=== PATIENT | female | born 1945 | race Two or more races ===

== ENCOUNTER 2019-07-21 07:56 | Outpatient (CLI) | payer MEDICARE, MEDICAID, SELFPAY ==
--- NOTE | ~2019-07-21 | MMUS_ITS ---
EXAMINATION: US breast biopsy LT w image, MM post biopsy invasive LT DATE: 07/21/2019 10:31 (accession [id number]), 07/21/2019 10:21 (accession [id number]) INDICATION: Indeterminate left breast mass on recent diagnostic evaluation Ultrasound-guided core bi opsy is requested to evaluate for malignancy. TECHNIQUE AND FINDINGS: The risks and potential benefits of the procedure were discussed with the patient patient including b leeding and infection. A time out was performed. The skin of the left breast was prepared and draped in usual sterile fashion. 1% lidocaine was used for superficial anesthesia. 1% lidocaine with epineph rine was used for deep anesthesia. A vacuum-assisted biopsy gun needle was advanced through to the outer edge of the region of interest from an inferolateral approach utilizing sonographic guidance. A total of one tissue core samples wer e obtained through the lesion. After the first sampling, the lesion disappeared. A tissue marker clip was then placed at the biopsy site. Hemostasis was achieved. A sterile bandage was applied. The patient tolerated procedure well and there was no evidence of immediate complication. A two view left breast mammogram was obtained to document tissue marker clip placement. IMPRESSION: 1. Successful ultrasound-guided vacuum-assisted biopsy of left breast mass with tissue marker placeme nt. Reviewed, dictated and finalized at location A. MACHINE OPERATOR IMPRESSION: 1. Successful ultrasound-guided vacuum-assisted biopsy of left breast mass with tissue marker placement.
== END 2019-07-21 07:57 | disposition home or self-care (01) ==
PROVIDERS: PCP Physician Assistant
DX: R92.8 Other abnormal and inconclusive findings on diagnostic imaging of breast (principal)
CPT/HCPCS: 19083; 88305; A4648

== ENCOUNTER 2020-04-27 13:19 | Outpatient (CLI) | payer MEDICARE, MEDICAID, SELFPAY ==
--- NOTE | ~2020-04-27 | XR_ITS ---
EXAMINATION: XR foot RT min 3V DATE: 04/27/2020 13:52 INDICATION: Posttraumatic pain at the dorsal right midfoot TECHNIQUE: Dorsoplantar, two oblique and lateral views of the right foot were obtained. COMPARISON: None. FINDINGS: Alignment is normal. No fracture. Polyarticular osteoarthritis, moderate severity at the first metata rsophalangeal and first interphalangeal joints and mild at many of the joints the midfoot and remaini ng metatarsophalangeal and interphalangeal joints. Bone island in the first metatarsal. Moderate-size d Achilles calcaneal spur. Multiple tiny enthesopathic ossicles along the plantar aponeurosis. Soft t issues are unremarkable. IMPRESSION: 1. Mild to moderate degenerative changes in the right foot. No acute osseous abnormality. Reviewed, dictated and finalized at location A. ESS CONTROLS TECHNICIAN IMPRESSION: 1. Mild to moderate degenerative changes in the right foot. No acute osseous ab normality.
== END 2020-04-27 13:20 | disposition home or self-care (01) ==
LOC: CHSIMG 13:26
PROVIDERS: PCP Physician Assistant; Visit Provider Physician Assistant
DX: M79.671 Pain in right foot (principal)
CPT/HCPCS: 73630

== ENCOUNTER 2020-06-13 09:59 | Outpatient (CLI) | payer MEDICARE, MEDICAID, SELFPAY ==
--- NOTE | ~2020-06-13 | XR_ITS ---
XR hip BI wo pelvis DATE: 06/13/2020 10:34 INDICATION: Left hip pain after fall on 06/10/2020 TECHNIQUE: AP and lateral views of each hip COMPARISON: None FINDINGS: Posterior spinal fusion hardware is noted at least at L4 and L5 levels. There is moderate osteoarthritic change at the hip joints. No recent fracture or dislocation, periosteal reaction or bone destruction of either hip is evident. Intramedullary remy with one proximal interlocking screw and 2 distal interlocking screws extend obliq uely of the femoral shaft. Status post left knee arthroplasty. There are 2 transverse screws through the distal femoral condyles. There is an old healed fracture of the distal femoral shaft. IMPRESSION: Internally fixated old distal left femoral shaft fracture Left knee arthroplasty Bilateral hip osteoarthritis Posterior lumbar spinal fusion Reviewed, dictated and finalized at location A. [employer]
== END 2020-06-13 10:00 | disposition home or self-care (01) ==
LOC: CHSIMG 10:09
PROVIDERS: PCP Physician Assistant; Visit Provider Physician Assistant
DX: M25.522 Pain in left elbow (principal)
CPT/HCPCS: 73521

== ENCOUNTER 2020-06-16 13:41 | Outpatient (CLI) | payer MEDICARE, MEDICAID, SELFPAY ==
--- NOTE | ~2020-06-16 | XR_ITS ---
EXAMINATION: XR sacrum coccyx min 2V INDICATION: Sacral pain after fall TECHNIQUE: Three views of the sacrum and coccyx are obtained. COMPARISON: 05/25/2019 FINDINGS: Bone alignment is normal. No acute fracture is identified. There is internal stabilization hardware in the left femur. There are changes of interval anterior and posterior lumbar fusion from L 3 through L5. Chronic acute angulation is seen in the lower sacrum/coccyx. Calcified atherosclerosis is noted. There is moderate osteoarthritis of the hips. IMPRESSION: 1. No acute osseous abnormality. Reviewed, dictated and finalized at location A. SUPPORT ENGINEER
== END 2020-06-16 13:42 | disposition home or self-care (01) ==
LOC: CHSIMG 13:44
PROVIDERS: PCP Physician Assistant; Visit Provider Physician Assistant
DX: M53.3 Sacrococcygeal disorders, not elsewhere classified (principal)
CPT/HCPCS: 72220

== ENCOUNTER 2020-06-27 09:57 | Observation (INO) | payer MEDICARE, MEDICAID, SELFPAY ==
[2020-06-27] VITALS (16 sets, daily range): BP systolic 127–169; BP diastolic 57–86; PULSE 61–98; RESP 18–27; TEMP 36.5–37.1; O2SAT 94–100; BMI 32.6
--- NOTE | ~2020-06-27 | CT_ITS ---
EXAMINATION: CT brain wo con EXAM DATE: 06/27/2020 11:55 INDICATION: Syncope. TECHNIQUE: Spiral CT of the head was performed without contrast. Axial, coronal and sagittal images were reviewed. The dose-length product (DLP) for this examination was 605.33 mGy-cm. The exposure w as tailored according to patient size, and iterative reconstruction (ASIR) was used as additional dos e reduction technique. There is no prior study for comparison. FINDINGS: There is no acute intraparenchymal hemorrhage. No evidence of intraparenchymal brain mass lesion. No evidence of acute infarction. Please note that initial head CT has limited sensitivity f or small or acute infarctions. There is mild to moderate periventricular and subcortical hypodensity, nonspecific but probably related to small vessel ischemic disease. There is mild prominence of the sulci and ventricles related to cerebral atrophy. There is intracranial carotid arteriosclerosis. There are no extra-axial collections. There is no mass effect or midline shift. Patient has had bi lateral ocular lens surgery. Soft tissue is unremarkable. The visualized sinuses and mastoid air ce lls are well aerated. IMPRESSION: 1. No acute intracranial findings. 2. Chronic age related findings. Reviewed, dictated and finalized at location B. MANAGER
--- NOTE | ~2020-06-27 | XR_ITS ---
EXAMINATION: XR chest 1V portable EXAM DATE: 06/27/2020 13:51 INDICATION: Cough, shortness of breath. TECHNIQUE: Portable AP frontal chest x-ray was obtained. There is no prior study for comparison. FINDINGS: The lungs are clear. There are no pleural effusions. Cardiac silhouette is prominent but magnified on this AP technique. There is no pneumothorax suspected. The bones and soft tissues are unremarkable. There is aortic arteriosclerosis. Cervical fusion hardware. IMPRESSION: No acute cardiopulmonary findings. Reviewed, dictated and finalized at location B. T DAY CARE WORKER
--- NOTE | 2020-06-27 10:09 | ECG_ITS ---
Measurements Intervals [place] Rate: 63 P: 56 ID: [id number] QRS: 8 QRSD: 89 T: 51 QT: 453 QTc: 464 Interpretive Statements SINUS RHYTHM VOLTAGE CRITERIA FOR LVH BORDERLINE T WAVE ABNORMALITY- ANTERIOR LEADS BASELINE WANDER- II, III, AVR, AVF BORDERLINE ECG Electronically Signed On 06-27-2020 10:29:40 CORRECTIONAL OFFICER by Lucian Richards D.O.
[2020-06-27 10:25] LABS: Basophils Percent Auto 0.4 % (0.2-1.2); Eosinophils Percent Auto 0.4 % (0-4.4); Hematocrit 30.5 % (37.0-47.0); Immature Granulocyte Absolute 0.01 K/mm3 (0.00-0.031); Immature Granulocyte Percent A 0.2 % (0-0.5); Lymphocytes Absolute Auto 1.38 K/mm3 (0.9-3.2); Lymphocytes Percent Auto 27.1 % (18.3-44.2); Mean Corpuscular HGB Conc 32.8 g/dl (32-36); Mean Corpuscular Hemoglobin 27.9 pg (26-34); Mean Platelet Volume 9.1 fl (7.4-10.4); Monocytes Absolute Auto 0.3 K/mm3 (0.1-0.6); Monocytes Percent Auto 5.7 % (2.6-8.5); Neutrophils Absolute Auto 3.4 K/mm3 (1.3-6.7); Neutrophils Percent Auto 66.2 % (45.5-73.1); Platelet Count Result 212 k/mm3 (150-375); Red Blood Count 3.59 M/mm3 (4.2-5.4); Red Cell Distribution Width 14.8 % (11.5-14.5); White Blood Count 5.1 K/mm3 (4.5-10.0)
[2020-06-27 10:35] LABS: Anion Gap 9 mmol/L (8-16); Blood Urea Nitrogen 14 mg/dL (7-17); Calcium 9.7 mg/dL (8.4-10.2); Carbon Dioxide 27 mmol/L (22-30); Chloride 101 mmol/L (98-107); Estimated CRCL calculation 54 ml/min; Estimated Glomerular Filt Rate > 60; Glucose 265 mg/dL (65-105); Potassium 3.8 mmol/L (3.4-5.0); Sodium 137 mmol/L (137-145)
--- NOTE | 2020-06-27 11:12 | ED.SYNCOPE ---
HPI - Syncope General Chief Complaint: Syncope Stated Complaint: syncopal episode, fall Time Seen by Provider: 06/27/20 11:10 Source: patient Mode of arrival: ambulatory Limitations: no limitations History of Present Illness HPI narrative: Patient 75-year-old female complaining of a syncopal episode after standing up to go the bathroom. Patient was down for approximately 1 to 2 minutes. 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 Patient currently denies any GI bleeding at this time. Patient does state that she is still having chest tightness and shortness of breath, same symptoms she had when she was admitted and discharge from [place]. MD complaint: loss of consciousness Related Data Home Medications Medication Instructions Recorded Confirmed albuterol sulfate 2.5 mg INHALATION Q4-6H PRN 06/06/20 albuterol sulfate 90 mcg/actuation 1 puff INHALATION Q4H PRN 06/06/20 aerosol inhaler apixaban 5 mg tablet 5 mg PO BID 06/06/20 calcium carbonate 600 mg calcium 600 mg PO DAILY 06/06/20 (1,500 mg) tablet cyanocobalamin (vitamin B-12) 500 500 mcg PO DAILY 06/06/20 mcg tablet cyclobenzaprine 10 mg tablet 10 mg PO TID 06/06/20 escitalopram oxalate 20 mg tablet 20 mg PO DAILY 06/06/20 fluticasone 250 mcg-salmeterol 50 1 inh INHALATION BID 06/06/20 mcg/dose blistr powdr for inhalation fluticasone propionate 0.005 % 1 applic TOPICAL DAILY 06/06/20 topical ointment fluticasone propionate 50 1 spray INTRANASAL DAILY 06/06/20 mcg/actuation nasal spray,suspension gabapentin 600 mg tablet 600 mg PO TID 06/06/20 hydroxyzine HCl 25 mg tablet 25 mg PO TID PRN 06/06/20 insulin aspar prot-insulin aspart 65 unit SUBCUT DAILY ml 06/06/20 100 unit/mL (70-30) subcutaneous pen insulin aspart U-100 100 unit/mL 100 unit SUBCUT TID ml 06/06/20 subcutaneous solution insulin syringe-needle U-100 0.3 #10 ea 06/06/20 mL 31 gauge x 5/16 lansoprazole 30 mg capsule,delayed 30 mg PO DAILY 06/06/20 release [id number] 1 cap PO BID 06/06/20 24,000-76,000-120,000 unit capsule,delayed rel lisinopril 10 mg tablet 10 mg PO DAILY 06/06/20 lovastatin 20 mg tablet,extended 20 mg PO ONCE 06/06/20 release 24 hr meloxicam 15 mg tablet 15 mg PO DAILY 06/06/20 metformin 1,000 mg tablet 1,000 mg PO BID 06/06/20 nitroglycerin 0.4 mg sublingual 0.4 mg SUBLINGUAL Q5M PRN 06/06/20 tablet nortriptyline 25 mg capsule 25 mg PO DAILY 06/06/20 omeprazole 20 mg tablet,delayed 20 mg PO DAILY 06/06/20 release oxycodone-acetaminophen 5 mg-325 1 tablet PO Q6H PRN 06/06/20 mg tablet sucralfate 1 gram tablet PO .4xd tablet 06/06/20 trazodone 50 mg tablet 50 mg PO DAILY tablet 06/06/20 triamcinolone acetonide 0.025 % 1 applic TOPICAL DAILY 06/06/20 topical cream zolpidem 5 mg tablet 5 mg PO ONCE 06/06/20 Allergies Allergy/AdvReac Type Severity Reaction Status Date / Time aspirin Allergy Unknown Verified 06/27/20 10:10 codeine Allergy Unknown Verified 06/27/20 10:10 Review of Systems Review of Systems: All systems reviewed & are unremarkable except as noted in HPI and below Constitutional: Constitutional: Denies body ache(s), Denies chills, Denies excessive sweating, Denies fatigue, Denies fever(s), Denies headache(s), Denies lethargy, Denies malaise, Denies weakness and Denies weight loss Eyes: Eyes: Denies blurry vision, Denies change in vision and Denies loss of vision ENT: Denies dizziness, Denies ear discharge, Denies headache(s), Denies lip swelling, Denies epistaxis, Denies nasal congestion, Denies neck pain, Denies throat swelling and Denies tongue swelling Cardiovascular: Cardiovascular: Denies chest pain, Denies chest pain at rest, Denies chest pain
[2020-06-27] MEDS: LACTATED RINGERS 1,000 ML 999 ML IV CONT (11:48)
--- NOTE | 2020-06-27 17:49 | PC.NURSE ---
Ordered pt a meal tray to be sent up to her room in [facility]
[2020-06-27] MEDS: LACTATED RINGERS 1,000 ML 125 ML IV CONT (18:00)
--- NOTE | 2020-06-27 21:28 | PM.IMHP ---
H&P: HPI History of Present Illness Date/Time: 06/27/20 21:28 Chief Complaint: Syncope Narrative: Sarah Villagran is a 75 year old female with a past medical history of diabetes mellitus, obstructive sleep apnea, pulmonary embolism March 2020, and recent GI bleed within the last 5 days who presented to the ER after having a syncopal episode. She reports that she got up to urinate. She went back to bed and laid down but thought she to urinate again. When she sat up on the into the bed she became lightheaded and fell to the floor. She denies having had a complete syncopal episode. However her family members reported that the patient was passed out for 1-2 minutes. She did hit the back of her head. She reports that the back of her head is still little bit sore. She denies any chest pain or shortness of breath currently. She had recently been hospitalized at [facility] for bright red blood per rectum x1. Her bright red blood per rectum was followed by an episode of liquid yellow stool. She denies having any further diarrhea after that time. She did not have any endoscopies performed. Evidently her hemoglobin was stable. She stated that she was diagnosed with a small PE approximately 4 months ago. She was told not to worry about having blood thinners at that time. However will she was complaining of some shortness of breath and chest tightness while she was at [facility] and had imaging performed. Evidently this demonstrated a pulmonary embolism and she was started on Eliquis. She has not had any further bleeding since being initiated on Eliquis. She was hospitalized in [place] Saturday through Saturday. The patient is a fair historian. Source of information is ER records and patient report. Review of Systems Review of Systems: Narrative: 12 systems were reviewed with pertinent positives and negatives per HPI. Except as documented in the HPI, all other systems were reviewed and are negative. [facility] Past Medical History Medical History (Updated 06/27/20 @ 22:40 by Anali Feliz DO) Acid reflux Diabetes Glaucoma Iron deficiency anemia Obstructive sleep apnea No longer using CPAP due to it causing dry mouth Osteoporosis Pulmonary embolism Stress incontinence Surgical History Surgical History (Updated 06/27/20 @ 21:43 by Anali Feliz DO) H/O dilation and curettage H/O total hysterectomy History of back surgery History of bilateral cataract extraction History of open reduction and internal fixation (ORIF) procedure Left hip History of total bilateral knee replacement History of tubal ligation Hx of appendectomy Family History Family History Unknown Unknown family medical history Social History Social History (Updated 06/27/20 @ 21:45 by Anali Feliz, DO) Social History: Primary care physician: Dr. Remberto Mathis Code status: Full code no advance directives in place Surrogate decision maker: Quin Self (daughter) Smoking status: Former smoker Tobacco type: cigarettes Alcohol intake: never Substance use: never Substance use type: does not use Gender identity (if verbalized by the patient): Female Spiritual care concerns: No Meds Home Medications and Allergies Home Medications Medication Instructions Recorded Confirmed Type apixaban 5 mg tablet 10 mg PO BID 06/06/20 06/27/20 History calcium carbonate 600 mg calcium 600 mg PO DAILY 06/06/20 06/27/20 History (1,500 mg) tablet cyanocobalamin (vitamin B-12) 500 1,000 mcg PO DAILY 06/06/20 06/27/20 History mcg tablet escitalopram oxalate 20 mg tablet 20 mg PO DAILY 06/06/20 06/27/20 History fluticasone propionate 50 1 spray INTRANASAL BID PRN 06/06/20 06/27/20 History mcg/actuation nasal spray,suspension gabapentin 600 mg tablet 600 mg PO TID PRN 06/06/20 06/27/20 History hydroxyzine HCl 25 mg tablet 25 mg PO TID PRN 06/06
[2020-06-27 21:48] LABS: Glucose Point of Care 119 (65-105)
[2020-06-27] MEDS: LOVASTATIN 20 MG TABLET PO (23:48)
[2020-06-28] VITALS (12 sets, daily range): BP systolic 107–162; BP diastolic 47–92; PULSE 63–99; RESP 12–20; TEMP 36.4–36.8; O2SAT 95–99
[2020-06-28] MEDS: LACTATED RINGERS 1,000 ML 125 ML IV CONT ×2 (02:29→12:50)
[2020-06-28 05:35] LABS: Basophils Percent Auto 0.2 % (0.2-1.2); Eosinophils Absolute Auto 0.1 K/mm3 (0-0.3); Hemoglobin 9.1 g/dL (12.0-15.0); Immature Granulocyte Absolute 0.01 K/mm3 (0.00-0.031); Immature Granulocyte Percent A 0.2 % (0-0.5); Lymphocytes Absolute Auto 2.04 K/mm3 (0.9-3.2); Lymphocytes Percent Auto 42.1 % (18.3-44.2); Mean Corpuscular HGB Conc 32.5 g/dl (32-36); Mean Corpuscular Hemoglobin 27.5 pg (26-34); Mean Corpuscular Volume 84.6 fl (80-100); Mean Platelet Volume 9.1 fl (7.4-10.4); Monocytes Absolute Auto 0.4 K/mm3 (0.1-0.6); Monocytes Percent Auto 8.1 % (2.6-8.5); Neutrophils Absolute Auto 2.3 K/mm3 (1.3-6.7); Neutrophils Percent Auto 48.4 % (45.5-73.1); Platelet Count Result 212 k/mm3 (150-375); Red Blood Count 3.31 M/mm3 (4.2-5.4); White Blood Count 4.8 K/mm3 (4.5-10.0)
[2020-06-28 08:25] LABS: Glucose Point of Care 148 (65-105)
[2020-06-28] MEDS: LIPASE/AMYLASE/PROTEASE 12,000 UNITS CAP 2 CAP PO ×3 (08:52→17:35)
[2020-06-28] MEDS: metFORMIN HCL 500 MG TABLET 1000 MG PO ×2 (08:52→17:36)
[2020-06-28] MEDS: LANSOPRAZOLE ORAL SUSP 30 MG/10 ML ORAL.SUSP PO ×2 (08:52→17:38)
[2020-06-28] MEDS: CYANOCOBALAMIN 1,000 MCG TABLET 1000 MCG PO (08:52)
[2020-06-28] MEDS: CALCIUM CARBONATE (OSCAL) 500 MG TABLET PO (08:53)
[2020-06-28] MEDS: ESCITALOPRAM OXALATE 10 MG TABLET 20 MG PO (08:53)
[2020-06-28] MEDS: lisinopriL 10 MG TABLET PO (08:53)
[2020-06-28] MEDS: SUCRALFATE 1 GM TABLET PO ×4 (08:53→20:53)
[2020-06-28] MEDS: APIXABAN 5 MG TABLET 10 MG PO (08:54)
[2020-06-28] MEDS: FLUTICASONE/SALMETEROL 115-21 MCG INHALER 1 PUFF 2 PUFF INHALATION (09:50)
--- NOTE | 2020-06-28 12:58 | PM.DS ---
DS: Admitting Diagnosis Admitting Diagnosis Admitting Diagnosis: Syncope DS: Discharge Diagnosis Discharge Diagnosis (1) Syncope: Qualifiers: Syncope type: unspecified Qualified Code(s): R55 - Syncope and collapse Code(s): R55 - Syncope and collapse Status: Acute (2) Pulmonary embolism: Qualifiers: Acute cor pulmonale presence: unspecified Chronicity: unspecified Pulmonary embolism type: unspecified Qualified Code(s): I26.99 - Other pulmonary embolism without acute cor pulmonale Code(s): I26.99 - Other pulmonary embolism without acute cor pulmonale Status: Acute (3) GI bleed: Qualifiers: GI bleed type/associated pathology: unspecified gastrointestinal hemorrhage type Qualified Code(s): K92.2 - Gastrointestinal hemorrhage, unspecified Code(s): K92.2 - Gastrointestinal hemorrhage, unspecified Status: Acute DS: Summary Time Spent with Patient Time attestation: Total time spent providing and/or coordinating discharge services: Exam Narrative: Exam Narrative: PHYSICAL EXAM: WEIGHT 89 kg BMI 32.7 General: No acute distress, well-developed, obese, appears stated age HEENT: Good dentition, no oral pharyngeal erythema, crowded posterior oropharynx, mild conjunctival pallor, no scleral icterus Respiratory: Clear to auscultation bilaterally, no increased work of breathing Cardiovascular: Regular rate, regular rhythm, no murmurs, 2+ bilateral radial pedal pulses Gastrointestinal: Obese, nontender, normoactive bowel sounds Skin: Slight jaundice, mild pallor Musculoskeletal: No clubbing, cyanosis or edema Neurological: Alert and oriented x3, speech is clear, no facial asymmetry Psychiatric: Appropriate mood and affect, pleasant and cooperative : Deferred Hematologic/lymphatic: No bruising, petechiae or significant lymphadenopathy DS: Data Data Completed and Pending Labs on day of discharge: Labs from last 24 hours 06/28/20 06/28/20 06/27/20 08:21 05:08 21:46 WBC 4.8 RBC 3.31 L Hgb 9.1 L Hct 28.0 L MCV 84.6 MCH 27.5 MCHC 32.5 RDW 15.0 H Plt Count 212 MPV 9.1 Immature Gran % (Auto) 0.2 Neut % (Auto) 48.4 Lymph % (Auto) 42.1 Lyman % (Auto) 8.1 Eos % (Auto) 1.0 Baso % (Auto) 0.2 Lymph # (Auto) 2.04 Lyman # (Auto) 0.4 Eos # (Auto) 0.1 Baso # (Auto) 0.0 Abs Immat Gran (auto) 0.01 Absolute Neuts (auto) 2.3 Absolute Nucleated RBC 0.0 Nucleated RBC % 0.0 POC Capillary Glucose 148 H 119 H Blood Type Antibody Screen 06/27/20 12:11 WBC RBC Hgb Hct MCV MCH MCHC RDW Plt Count MPV Immature Gran % (Auto) Neut % (Auto) Lymph % (Auto) Lyman % (Auto) Eos % (Auto) Baso % (Auto) Lymph # (Auto) Lyman # (Auto) Eos # (Auto) Baso # (Auto) Abs Immat Gran (auto) Absolute Neuts (auto) Absolute Nucleated RBC Nucleated RBC % POC Capillary Glucose Blood Type A Negative Antibody Screen Negative Discharge Plan Discharge Attending physician on discharge: Delmi Brandt Consulting providers: Davonte Hallman Discharging Clinician: Delmi Brandt Anticipated Discharge Date/Time: 06/28/20 12:55 Patient Disposition: Home, Self-Care Activity: as tolerated Diet: heart healthy Discharge Instructions: Slow movements when rising or moving her head Patient Instructions: Antibiotic Form, Apixaban (By mouth), Pulmonary Embolism (DC), Syncope (DC), Benign Paroxysmal Positional Vertigo (DC), Benign Paroxysmal Positional Vertigo (GEN), Diabetes and Your Skin (DC), Diabetes and Nutrition (DC) Stand Alone Forms: General Discharge Information Follow-up/Referrals: Thor Miller MD [Physician] - Del,EVELIO Khan [Primary Care Provider] - Discharge Medications: Continued (DME) insulin syringe-needle U-100 0.3 mL 31 gauge x 5/16 syringe See Rx Instructions .ROUTE .MEDSU
--- NOTE | 2020-06-28 13:14 | PM.IMPN ---
Progress Note: A&P Assessment and Plan (1) Syncope: Qualifiers: Syncope type: unspecified Qualified Code(s): R55 - Syncope and collapse Code(s): R55 - Syncope and collapse Status: Acute Assessment and Plan: ? Gi bleed ? BPV pt is on iv fluids (2) Pulmonary embolism: Qualifiers: Acute cor pulmonale presence: unspecified Chronicity: unspecified Pulmonary embolism type: unspecified Qualified Code(s): I26.99 - Other pulmonary embolism without acute cor pulmonale Code(s): I26.99 - Other pulmonary embolism without acute cor pulmonale Status: Acute Assessment and Plan: Pt is on eliquis hold eliquis (3) GI bleed: Qualifiers: GI bleed type/associated pathology: unspecified gastrointestinal hemorrhage type Qualified Code(s): K92.2 - Gastrointestinal hemorrhage, unspecified Code(s): K92.2 - Gastrointestinal hemorrhage, unspecified Status: Acute Assessment and Plan: Recent Gi bleed in dam[place] not here Subjective Date/time seen: 06/28/20 13:14 Interval history: Sparkle is a 75 year old female with a past medical history of diabetes mellitus, obstructive sleep apnea, pulmonary embolism March 2020, and recent GI bleed within the last 5 days who presented to the ER after having a syncopal episode. Pt still symptomatic with dizziness. Pt yet to see GI. Hb drop one unit pt is on fluid hydration. Review of Systems Review of Systems: All systems reviewed & are unremarkable except as noted in HPI and below Exam Narrative: Exam Narrative: DIZZINESS ON SITTING UP OR MOVING HER HEAD Const: General: cooperative and healthy appearing; No in distress Nutritional Appearance: overweight Orientation/consciousness: oriented to person HENMT: Head: normal to inspection Resp: Effort & Inspection: no respiratory distress Auscultation: no rhonchi and no wheezes Cardio: Rate: regular rate Rhythm: regular rhythm GI: Inspection: normal to inspection GI Palp: No abdominal tenderness, No Guarding due to palpation present (GI) and No Hepatomegaly present Auscultation: normal bowel sounds Neuro: General: oriented to person Objective Data Vital Signs Vital Signs: Vital Signs - 24 hr 06/27/20 13:50 06/27/20 14:01 06/27/20 14:16 Temperature Pulse Rate 73 78 68 Respiratory Rate 20 19 18 Blood Pressure 158/82 H 158/82 H 148/86 H Pulse Oximetry 98 06/27/20 14:31 06/27/20 14:47 06/27/20 15:32 Temperature Pulse Rate 64 67 68 Respiratory Rate 22 H 22 H 22 H Blood Pressure 154/61 H 152/57 H 127/76 Pulse Oximetry 94 97 06/27/20 17:24 06/27/20 18:00 06/27/20 20:00 Temperature 36.7 C Pulse Rate 75 83 66 Respiratory Rate 18 18 Blood Pressure 151/62 H 152/72 H Pulse Oximetry 96 97 06/27/20 22:00 06/28/20 00:00 06/28/20 04:00 Temperature 36.5 C Pulse Rate 70 63 73 Respiratory Rate 18 Blood Pressure 151/76 H Pulse Oximetry 95 06/28/20 06:00 06/28/20 06:02 06/28/20 06:04 Temperature 36.6 C Pulse Rate 81 Respiratory Rate 20 Blood Pressure 147/73 H 158/78 H 162/71 H Pulse Oximetry 95 06/28/20 08:00 06/28/20 09:50 06/28/20 12:00 Temperature Pulse Rate 79 99 Respiratory Rate 14 Blood Pressure Pulse Oximetry 95 95 Intake/Output Intake/Output: Intake & Output 06/25/20 06/26/20 06/27/20 06/28/20 23:59 23:59 23:59 23:59 Intake Total 1300 2640 Output Total 2300 Balance 1300 340 Meds/Results Medications: Active Medications Generic Name Dose Route Start Last Admin Trade Name Freq PRN Reason Stop Dose Admin Lipase/Protease/Amylase 2 cap 06/28/20 08:00 06/28/20 12:49 Lipase/Amylase/Protease 12,000 Units Cap PO 2 cap TIDWM LAILA Administration Apixaban 5 mg 07/03/20 17:00 Apixaban 5 Mg Tablet PO BID LAILA Apixaban 10 mg 06/28/20 09:00 06/28/20 08:54 Apixaban 5 Mg Tablet PO 07/03/20 09:01 10 mg BID LAILA Administration Calcium C
[2020-06-28 13:44] LABS: Glucose Point of Care 132 (65-105)
[2020-06-28] MEDS: oxyCODONE/ACETAMINOPHEN (*CRX) 5-325 MG TABLET 1 TABLET PO (15:11)
--- NOTE | 2020-06-28 15:36 | WPDGICN ---
Assessment and Plan Assessment and plan (1) GI bleed: Qualifiers: GI bleed type/associated pathology: unspecified gastrointestinal hemorrhage type Qualified Code(s): K92.2 - Gastrointestinal hemorrhage, unspecified Code(s): K92.2 - Gastrointestinal hemorrhage, unspecified Status: Acute Assessment and Plan: will do egd and colonoscopy tomorrow to assess source of bleeding, she also is using eliquis because had PE few months ago (2) Acute on chronic blood loss anemia: Code(s): D62 - Acute posthemorrhagic anemia Status: Acute Assessment and Plan: continue to monitor hb (3) Syncope: Qualifiers: Syncope type: unspecified Qualified Code(s): R55 - Syncope and collapse Code(s): R55 - Syncope and collapse Status: Acute Assessment and Plan: on presentation (4) Pulmonary embolism: Qualifiers: Acute cor pulmonale presence: unspecified Chronicity: unspecified Pulmonary embolism type: unspecified Qualified Code(s): I26.99 - Other pulmonary embolism without acute cor pulmonale Code(s): I26.99 - Other pulmonary embolism without acute cor pulmonale Status: Acute (5) Occult blood positive stool: Code(s): R19.5 - Other fecal abnormalities Status: Acute (6) Epigastric pain: Code(s): R10.13 - Epigastric pain Status: Acute Assessment and Plan: egd, need to rule out ulcers, etc (7) Blood thinned due to long-term anticoagulant use: Code(s): Z79.01 - [facility] (current) use of anticoagulants Status: Acute GI Consult Note Consult date/time: 06/28/20 15:36 Reason for consult: pre-syncope, blood in stool, anemia HPI: Sarah Villagran is a 75 year old female with history of diabetes mellitus, obstructive sleep apnea, pulmonary embolism March 2020 using eliquis and previous hospitalization at [facility] where had blood in stools but did not have endoscopy evaluation. I just met her for the first time in the office just before [facility] because anemia with generalized weakness for 6 weeks associated to epigastric pain and melena. My plan was to do EGD and colonoscopy as outpatient but she presented to the hospital yesterday after lightheadedness and almost passing out. She had a colonoscopy about 3 years ago, never had egd but she has been using PPI for a while, also creon that is helping to control her epigastric pain. Her was hb 9.1 Review of Systems Constitutional: Constitutional: Reports fatigue Eyes: Eyes: Denies blurry vision ENT: Reports Normal hearing present Cardiovascular: Cardiovascular: Denies chest pain and Reports lightheadedness Respiratory: Respiratory: Denies cough Gastrointestinal: Gastrointestinal: Reports diarrhea Genitourinary: Genitourinary: Denies hematuria Musculoskeletal: Musculoskeletal: Denies neck pain Integumentary/Breasts: Skin/Breast: Denies dry skin Neurologic: Denies numbness Psychiatric: Psychiatric: Denies anxiety [facility] Past Medical History Medical History (Updated 06/28/20 @ 15:42 by Davonte Hallman MD) Acid reflux Acute on chronic blood loss anemia Blood thinned due to long-term anticoagulant use Diabetes Glaucoma Iron deficiency anemia Obstructive sleep apnea No longer using CPAP due to it causing dry mouth Osteoporosis Pulmonary embolism Stress incontinence Surgical History Surgical History (Updated 06/27/20 @ 21:43 by Anali Feliz DO) H/O dilation and curettage H/O total hysterectomy History of back surgery History of bilateral cataract extraction History of open reduction and internal fixation (ORIF) procedure Left hip History of total bilateral knee replacement History of tubal ligation Hx of appendectomy Family History Family History (Updated 06/28/20 @ 02:24 by Anali Feliz DO) Unknown No problems noted. Other Adopted Unknown family medical history Social History Social Hist
[2020-06-28 17:35] LABS: Glucose Point of Care 155 (65-105)
[2020-06-28] MEDS: PEG (High)/E-LYTE SOLN 4,000 ML BTL 4000 ML PO (17:35)
[2020-06-28] MEDS: BISACODYL 5 MG TABLET EC 20 MG PO (17:37)
[2020-06-28 18:10] LABS: Hematocrit 30.5 % (37.0-47.0); Hemoglobin 9.8 g/dL (12.0-15.0)
[2020-06-28] MEDS: LOVASTATIN 20 MG TABLET PO (20:53)
[2020-06-28] MEDS: PANTOPRAZOLE SODIUM IV 40 MG VIAL IV PUSH (20:53)
[2020-06-28 21:02] LABS: Glucose Point of Care 70 (65-105)
[2020-06-28 21:50] LABS: Glucose Point of Care 98 (65-105)
[2020-06-29] VITALS (11 sets, daily range): BP systolic 107–174; BP diastolic 56–79; PULSE 64–94; RESP 16–24; TEMP 36.6–36.8; O2SAT 95–100
[2020-06-29 00:27] LABS: Hemoglobin 8.8 g/dL (12.0-15.0)
[2020-06-29] MEDS: MAGNESIUM CITRATE 300 ML BTL PO (04:17)
[2020-06-29 06:15] LABS: Hematocrit 30.1 % (37.0-47.0); Hemoglobin 9.6 g/dL (12.0-15.0); Mean Corpuscular HGB Conc 31.9 g/dl (32-36); Mean Corpuscular Hemoglobin 27.4 pg (26-34); Mean Corpuscular Volume 85.8 fl (80-100); Mean Platelet Volume 9.1 fl (7.4-10.4); Platelet Count Result 225 k/mm3 (150-375); Red Blood Count 3.51 M/mm3 (4.2-5.4); Red Cell Distribution Width 15.4 % (11.5-14.5); White Blood Count 5.7 K/mm3 (4.5-10.0)
[2020-06-29] MEDS: SUCRALFATE 1 GM TABLET PO ×2 (06:30→11:20)
[2020-06-29 06:35] LABS: Glucose Point of Care 124 (65-105)
--- NOTE | 2020-06-29 07:45 | PC.NURSE ---
DOWN VIA WC TO GI LAB FOR EGD AND COLONOSCOPY.
[2020-06-29 08:05] LABS: Glucose Point of Care 122 (65-105)
[2020-06-29] MEDS: LACTATED RINGERS 1,000 ML 150 ML IV CONT (08:06)
--- NOTE | 2020-06-29 08:27 | WPDANESEPPF ---
Anes - Initial Pre Proc Eval Procedure: Operation Date: 06/29/20 09:00 Proposed Procedures p Esophagogastroduodenoscopy & Colonoscopy - Davonte Hallman MD Date/Time: 06/29/20 08:27 Surgeon: Yusuf Kincaid MD Pre Op Diagnosis: SYNCOPE/PE/GI BLEED Patient Data Age: 75 Gender: F Height: 5 ft 5 in Weight: 89 kg Last Vital Signs Temp 97.8 F 06/29/20 08:08 Pulse 74 06/29/20 08:08 Resp 20 06/29/20 08:08 BP 138/63 06/29/20 08:08 Pulse Ox 99 06/29/20 08:08 Allergies Allergy/AdvReac Type Severity Reaction Status Date / Time aspirin Allergy Unknown Verified 06/29/20 08:04 codeine Allergy Unknown Verified 06/29/20 08:04 Home Medications Medication Instructions Recorded Confirmed Type apixaban 5 mg tablet 10 mg PO BID 06/06/20 06/27/20 History calcium carbonate 600 mg calcium 600 mg PO DAILY 06/06/20 06/27/20 History (1,500 mg) tablet cyanocobalamin (vitamin B-12) 500 1,000 mcg PO DAILY 06/06/20 06/27/20 History mcg tablet escitalopram oxalate 20 mg tablet 20 mg PO DAILY 06/06/20 06/27/20 History fluticasone propionate 50 1 spray INTRANASAL BID PRN 06/06/20 06/27/20 History mcg/actuation nasal spray,suspension gabapentin 600 mg tablet 600 mg PO TID PRN 06/06/20 06/27/20 History hydroxyzine HCl 25 mg tablet 25 mg PO TID PRN 06/06/20 06/27/20 History insulin syringe-needle U-100 0.3 #10 ea 06/06/20 06/27/20 History mL 31 gauge x 16 lansoprazole 30 mg capsule,delayed 30 mg PO BID 06/06/20 06/27/20 History release cssuzs-qpzpbqys-xkmyggz 1 cap PO TID 06/06/20 06/27/20 History 24,000-76,000-120,000 unit capsule,delayed rel lisinopril 10 mg tablet 10 mg PO DAILY 06/06/20 06/27/20 History lovastatin 20 mg tablet,extended 20 mg PO HS 06/06/20 06/27/20 History release 24 hr metformin 1,000 mg tablet 1,000 mg PO BID 06/06/20 06/27/20 History oxycodone-acetaminophen 5 mg-325 1 tablet PO Q6H PRN 06/06/20 06/27/20 History mg tablet sucralfate 1 gram tablet 1 g PO QID tablet 06/06/20 06/27/20 History trazodone 50 mg tablet 50 mg PO HS PRN tablet 06/06/20 06/27/20 History fluticasone propion-salmeterol 1 inh INHALATION BID PRN 06/27/20 06/27/20 History [Advair Diskus] insulin asp prt-insulin aspart 30 unit SUBCUT BID 06/27/20 06/27/20 History [Novolog Mix 70-30FlexPen U-100] Laboratory Tests 06/28/20 06/28/20 06/28/20 12:48 17:33 18:04 WBC RBC Hgb 9.8 g/dL L g/dL (12.0-15.0) Hct 30.5 % L % (37.0-47.0) MCV MCH MCHC RDW Plt Count MPV POC Capillary Glucose 132 mg/dl H mg/dl 155 mg/dl H mg/dl (65-105) (65-105) 06/28/20 06/28/20 06/29/20 21:00 21:48 00:17 WBC RBC Hgb 8.8 g/dL L g/dL (12.0-15.0) Hct 27.0 % L % (37.0-47.0) MCV MCH MCHC RDW Plt Count MPV POC Capillary Glucose 70 mg/dl mg/dl 98 mg/dl mg/dl (65-105) (65-105) 06/29/20 06/29/20 06/29/20 05:34 06:33 08:01 WBC 5.7 K/mm3 K/mm3 (4.5-10.0) RBC 3.51 M/mm3 L M/mm3 (4.2-5.4) Hgb 9.6 g/dL L g/dL (12.0-15.0) Hct 30.1 % L % (37.0-47.0) MCV 85.8 fl fl (80-100) MCH 27.4 pg pg (26-34) MCHC 31.9 g/dl L g/dl (32-36) RDW 15.4 % H % (11.5-14.5) Plt Count 225 k/mm3 k/mm3 (150-375) MPV 9.1 fl fl (7.4-10.4) POC Capillary Glucose 124 mg/dl H mg/dl 122 mg/dl H mg/dl (65-105) (65-105) Patient hx anesthesia problems: none Family hx anesthesia problems: none PMFSH Past Medical History Medical History (Updated 06/28/20 @ 15:42 by Davonte Hallman MD) Acid reflux Acute on chronic blood loss anemia Blood thinned due to long-term anticoagulant use Diabetes Glaucoma Iron deficiency
--- NOTE | 2020-06-29 09:14 | SUR.OPER ---
908-EGD ENDED, 913-COLONOSCOPY STARTED
[2020-06-29 09:45] LABS: Glucose Point of Care 122 (65-105)
--- NOTE | 2020-06-29 10:07 | PC.NURSE ---
RETURNS FROM GI LAB VIA STRETCHER TO [facility] 5. AWAKE AND ALERT ON RETURN. DENIES PAIN OR SOB. AMBULATORY TO BED. WILL CONTINUE TO MONITOR.
[2020-06-29] MEDS: LANSOPRAZOLE ORAL SUSP 30 MG/10 ML ORAL.SUSP PO (11:17)
[2020-06-29] MEDS: LIPASE/AMYLASE/PROTEASE 12,000 UNITS CAP 2 CAP PO (11:18)
[2020-06-29] MEDS: metFORMIN HCL 500 MG TABLET 1000 MG PO (11:18)
[2020-06-29] MEDS: ESCITALOPRAM OXALATE 10 MG TABLET 20 MG PO (11:19)
[2020-06-29] MEDS: CALCIUM CARBONATE (OSCAL) 500 MG TABLET PO (11:19)
[2020-06-29] MEDS: CYANOCOBALAMIN 1,000 MCG TABLET 1000 MCG PO (11:19)
[2020-06-29] MEDS: lisinopriL 10 MG TABLET PO (11:20)
[2020-06-29 11:29] LABS: Glucose Point of Care 118 (65-105)
--- NOTE | 2020-06-29 12:11 | PC.NURSE ---
RESULTS OF EGD AND COLONOSCOPY CALLED TO DR. GOINS.
[2020-06-29 12:15] LABS: Hematocrit 28.5 % (37.0-47.0); Hemoglobin 9.1 g/dL (12.0-15.0)
--- NOTE | 2020-06-29 12:17 | PM.DS ---
DS: Admitting Diagnosis Admitting Diagnosis Admitting Diagnosis: SYNCOPE DS: Discharge Diagnosis Discharge Diagnosis (1) Syncope: Qualifiers: Syncope type: unspecified Qualified Code(s): R55 - Syncope and collapse Code(s): R55 - Syncope and collapse Status: Acute Assessment and Plan: ? Gi bleed ? BPV No further GI bleeding pt had scopes showing int hemorrhoids and colonic polyp Hb stable on discharge @9 Pt continues to have dizziness on raising from bed and turning her head ? BPV pt to follow up in ENT Pt does not have any orthostatic BP drops. (2) Pulmonary embolism: Qualifiers: Acute cor pulmonale presence: unspecified Chronicity: unspecified Pulmonary embolism type: unspecified Qualified Code(s): I26.99 - Other pulmonary embolism without acute cor pulmonale Code(s): I26.99 - Other pulmonary embolism without acute cor pulmonale Status: Acute Assessment and Plan: Pt is on eliquis hold eliquis for 3 days sp scopes EGD and colonscopy (3) GI bleed: Qualifiers: GI bleed type/associated pathology: unspecified gastrointestinal hemorrhage type Qualified Code(s): K92.2 - Gastrointestinal hemorrhage, unspecified Code(s): K92.2 - Gastrointestinal hemorrhage, unspecified Status: Acute Assessment and Plan: Recent Gi bleed in damian not here, no bleeding here in hospital noted. DS: Summary Hospital Course Hospital Course: Sparkle is a 75 year old female with a past medical history of diabetes mellitus, obstructive sleep apnea, pulmonary embolism March 2020, and recent GI bleed within the last 5 days who presented to the ER after having a syncopal episode. Pt still symptomatic with dizziness. Pt yet to see GI. Hb drop one unit could be because pt is on fluid hydration. Pt had scopes here under GI EGD and colonoscopy showing colonic polyp and int hemorrhoid. No further GI bleed. Hb is stable at 9. Pt to hold eliquis for 3 days then resume for her PE. Pt is having some dizziness on raising and turning her head adviced to follow with ENT for possible BPV nora as pt has some history of spinal surgeries. Time Spent with Patient Time attestation: Total time spent providing and/or coordinating discharge services:40 minutes on day of discharge Exam Narrative: Exam Narrative: DIZZINESS ON SITTING UP OR MOVING HER HEAD Const: General: cooperative and healthy appearing; No in distress Nutritional Appearance: overweight Orientation/consciousness: oriented to person Resp: Effort & Inspection: no respiratory distress Auscultation: no rhonchi and no wheezes Cardio: Rate: regular rate Rhythm: regular rhythm GI: Inspection: normal to inspection Auscultation: normal bowel sounds Neuro: General: oriented to person DS: Data Data Completed and Pending Pending studies at discharge: Pending at discharge 06/29/20 09:34 Surgical [PTH] Routine Labs on day of discharge: Labs from last 24 hours 06/29/20 06/29/20 06/29/20 11:42 11:25 09:42 WBC RBC Hgb Pending Hct Pending MCV MCH MCHC RDW Plt Count MPV POC Capillary Glucose 118 H 122 H 06/29/20 06/29/20 06/29/20 08:01 06:33 05:34 WBC 5.7 RBC 3.51 L Hgb 9.6 L Hct 30.1 L MCV 85.8 MCH 27.4 MCHC 31.9 L RDW 15.4 H Plt Count 225 MPV 9.1 POC Capillary Glucose 122 H 124 H 06/29/20 06/28/20 06/28/20 00:17 21:48 21:00 WBC RBC Hgb 8.8 L Hct 27.0 L MCV MCH MCHC RDW Plt Count MPV POC Capillary Glucose 98 70 06/28/20 06/28/20 06/28/20 18:04 17:33 12:48 WBC RBC Hgb 9.8 L Hct 30.5 L MCV MCH MCHC RDW Plt Count MPV POC Capillary Glucose 155 H 132 H Discharge Plan Discharge Attending physician on discharge: Delmi Brandt Consulting providers: Davonte Hallman Discharging Clinician: Karly
--- NOTE | 2020-06-29 15:11 | PC.NURSE ---
Addendum entered by Radha Ndiaye RN 06/29/20 15:14: EDUCATION AND DISCHARGE TOOK PLACE AT 1430. NOTE ENTERED AT 1513 Original Note: DISCHARGE INSTRUCTIONS AND FOLLOW UP CARE GIVEN AND REVIEWED W/ PT. BY JAMIA Combs RN. QUESTIONS ANSWERED AND PT. VOICED UNDERSTANDING OF ALL. PRIOR TO [facility]'S ARRIVAL, PER PT'S REQUEST, THIS RN, RADHA Guo, REVIEWED DISCHARGE INSTRUCTIONS WITH HIM OVER PHONE. HE VOICED UNDERSTANDING. DISCHARGED HOME, OUT VIA WHEELCHAIR, WITH ALL PERSONAL BELONGINGS AND DISCHARGE PACKET TO 'S WAITING CAR. STEADY. VOICES NO C/O. NO DISTRESS NOTED.
== END 2020-06-29 14:30 | disposition home or self-care (01) ==
LOC: ANHED 13:35 → ANHCPC 20:06 → ANH3MEDSUR 07-01 10:51 → ANHCPC 07-01 10:51
PROVIDERS: Emergency Medicine; Internal Medicine; Internal Medicine Gastroenterology; Admitting Provider Family Medicine; Emergency Provider Emergency Medicine; PCP Physician Assistant; Visit Provider Family Medicine
PROC: 0DJ08ZZ Inspection of Upper Intestinal Tract, Via Natural or Artificial Opening Endoscopic (ICD-10-PCS; CPT 43235; principal; 2020-06-29 09:00)
DX: R55 Syncope and collapse (principal); I26.99 Other pulmonary embolism without acute cor pulmonale; K92.2 Gastrointestinal hemorrhage, unspecified; D50.0 Iron deficiency anemia secondary to blood loss (chronic); K64.8 Other hemorrhoids; D12.2 Benign neoplasm of ascending colon; E11.9 Type 2 diabetes mellitus without complications; D50.9 Iron deficiency anemia, unspecified; K21.9 Gastro-esophageal reflux disease without esophagitis; M81.0 Age-related osteoporosis without current pathological fracture; N39.3 Stress incontinence (female) (male); G47.33 Obstructive sleep apnea (adult) (pediatric); H40.9 Unspecified glaucoma; Z79.01 Long term (current) use of anticoagulants; Z79.4 Long term (current) use of insulin; Z79.84 Long term (current) use of oral hypoglycemic drugs; Z87.891 Personal history of nicotine dependence
CPT/HCPCS: 43239; 45385; 36415; 70450; 71045; 80048; 85014; 85018; 85025; 85027; 86850; 86900; 86901; 88305; 93005; 94640; 96361; 96374; 97161; 97165; 99285; A9270; C9113; G0378; J1815; J2001; J2704; J7120

== ENCOUNTER 2020-09-26 13:50 | Outpatient (CLI) | payer MEDICARE, MEDICAID, SELFPAY ==
--- NOTE | ~2020-09-26 | XR_ITS ---
XR_CERV2-3V_CR DATE: 09/26/2020 14:40 INDICATION: Fall 2 weeks ago. Neck pain, pain at base of skull. Neck surgery 5 years ago. TECHNIQUE: AP, open-mouth, lateral, swimmer views COMPARISON: 08/28/2017 cervical spine FINDINGS: Status post anterior cervical spine at C3-6. C1 and C2 are normally aligned and the odontoid process is intact. No fracture or dislocation or lock ed facet is evident. Levoscoliosis of the thoracic spine. There is diffuse osteopenia. No prevertebral soft tissue swelling. IMPRESSION: Status post anterior cervical spine fusion at C3-C6 Diffuse osteopenia Reviewed, dictated and finalized at [facility]. Reviewed, dictated and finalized at location A.
--- NOTE | ~2020-09-26 | XR_ITS ---
XR skull <4V DATE: 09/26/2020 14:42 INDICATION: Pain at skull base and neck following a fall 2 weeks ago. Patient struck head. TECHNIQUE: 4 views COMPARISON: None FINDINGS: Normal sella turcica. Bilateral hyperostosis frontalis interna, which is not likely of clin ical significance. No skull fracture or bone destruction. No abnormal calcification is evident. The paranasal sinuses and mastoid air cells appear unremarkable. IMPRESSION: No significant abnormality Reviewed, dictated and finalized at location A. IMPRESSION: No significant abnormality
== END 2020-09-26 13:51 | disposition home or self-care (01) ==
LOC: CHSLAB 13:54
PROVIDERS: PCP Physician Assistant; Visit Provider Physician Assistant
DX: M54.2 Cervicalgia (principal)
CPT/HCPCS: 70250; 72040

== ENCOUNTER 2020-10-25 12:08 | Outpatient (CLI) | payer MEDICARE, MEDICAID, SELFPAY ==
--- NOTE | ~2020-10-25 | MM_ITS ---
EXAMINATION: MM screening [facility] BI w vane HISTORY: Screening mammogram TECHNIQUE: Craniocaudal and mediolateral oblique 3-D tomosynthesis images were obtained and synthetic 2-D images were generated. CAD analysis was submitted and interpreted. COMPARISON: 06/08/2019, 05/25/2019 BREAST PARENCHYMAL COMPOSITION: The breasts are almost entirely fatty. FINDINGS: There is no evidence of suspicious mass, calcification, or architectural distortion to sugg est malignancy in either breast. There has been no suspicious interval change. IMPRESSION: 1. No mammographic evidence of malignancy. 2. Recommend routine screening mammography in one year. BI-RADS Category 1: Negative Reviewed, dictated and finalized at location A.
== END 2020-10-25 12:09 | disposition home or self-care (01) ==
LOC: CHSIMG 12:10
PROVIDERS: PCP Physician Assistant; Visit Provider Physician Assistant
DX: Z12.31 Encounter for screening mammogram for malignant neoplasm of breast (principal)
CPT/HCPCS: 77063; 77067

== ENCOUNTER 2020-12-15 07:53 | Emergency (ER) | payer MEDICARE, MEDICAID, SELFPAY ==
--- NOTE | ~2020-12-15 | XR_ITS ---
EXAMINATION: XR chest 2V DATE: 12/15/2020 09:18 INDICATION: Cough and congestion TECHNIQUE: PA and lateral views of the chest are obtained. COMPARISON: 06/27/2020 FINDINGS: The lungs are free of acute opacities. There is no pleural effusion or pneumothorax. The ca rdiomediastinal silhouette is normal. There is moderate thoracic spondylosis. Surgical clips in the u pper abdomen on the lateral view are likely from prior cholecystectomy. There are partially imaged ch anges of anterior cervical fusion. IMPRESSION: 1. No acute cardiopulmonary abnormality. Reviewed, dictated and finalized at location B.
[2020-12-15] MEDS: IPRATROPIUM 0.5 MG/ALBUTEROL SULFATE 2.5 MG AMPUL.NEB 3 ML INHALATION (08:22)
[2020-12-15 08:24] VITALS: PULSE 83; RESP 20; O2SAT 91
[2020-12-15 08:30] VITALS: PULSE 75; RESP 20; O2SAT 99
[2020-12-15 08:34] LABS: Hematocrit 28.4 % (35.0-42.0); Hemoglobin 8.8 g/dL (11.7-13.8); Mean Corpuscular Hemoglobin 27.3 pg (27.0-31.0); Mean Corpuscular Volume 88.2 fL (78.0-102.0); Mean Platelet Volume 8.3 fl (9.2-11.8); Platelet Count Result 196 K/mm3 (150-420); Red Blood Count 3.22 M/mm3 (4.20-5.40); Red Cell Distribution Width 15.9 % (11.6-14.4); White Blood Count 2.6 K/mm3 (4.8-10.8)
[2020-12-15] MEDS: methylPREDNISolone ACETATE 40 MG/ML VIAL 80 MG IM (08:48)
[2020-12-15 08:50] LABS: Alanine Aminotransferase 32 U/L (14-59); Albumin Level 3.7 g/dL (3.4-5.0); Alkaline Phosphatase 122 U/L (46-116); Anion Gap 13 mmol/L (8-16); Aspartate Amino Transferase 24 U/L (15-37); Bilirubin,Total 0.3 mg/dL (0.00-1.00); Blood Urea Nitrogen 12 mg/dL (7-18); Calcium 8.9 mg/dL (8.5-10.1); Carbon Dioxide 24 mmol/L (21-32); Chloride 105 mmol/L (98-108); Estimated Glomerular Filt Rate 52; Glucose 172 mg/dL (70-99); Osmolality Calculated 297 mOsm/kg (285-295); Sodium 142 mmol/L (136-145); Total Protein 7.7 g/dL (6.4-8.2)
[2020-12-15 08:57] LABS: Band Neutrophils Percent 0 % (0-6); Basophils Absolute Manual 0.02 K/mm3 (0-0.1); Basophils Percent Manual 1 % (0-1); Eosinophils Absolute Manual 0.05 K/mm3 (0.02-0.5); Eosinophils Percent Manual 2 % (1-6); Lymphocytes Absolute Manual 0.78 K/mm3 (1.1-4.5); Lymphocytes Percent Manual 30 % (18-44); Monocytes Percent Manual 8 % (3-9); Neutrophils Absolute Manual 1.53 K/mm3 (1.7-7.2); Neutrophils Percent Manual 59 % (46-73); Platelet Estimate Adequate (Adequate); Total Cells Counted 100
[2020-12-15 09:02] LABS: SARS-CoV-2 Ag Negative (Negative)
[2020-12-15 09:05] VITALS: BP 144/57; PULSE 72; RESP 16; TEMP 36.8; O2SAT 97
[2020-12-15 09:09] LABS: NT Pro B Type Natriuretic Pept 94 pg/mL (0-450)
--- NOTE | 2020-12-15 09:24 | ED.URI ---
HPI - URI/Sore Throat General Chief Complaint: Upper Respiratory Infection Stated Complaint: POSSIBLE COLD COUGH Source: patient and family Mode of arrival: ambulatory Limitations: no limitations History of Present Illness HPI Narrative: this is a 75-year-old female with history of asthma that presents with cough and congestion states she has mildly short of breath with history of asthma has inhalers at currently no fever chills cough is nonproductive with no chest pain or chest tightness no abdominal pain no flank pain no nausea or vomiting. MD elicited complaint: cough Severity: mild Description of mucous: clear Exacerbating factors: nothing Relieving factors: nothing Associated symptoms: nasal congestion and shortness of breath Related Data Home Medications Medication Instructions Recorded Confirmed apixaban 5 mg tablet 10 mg PO BID 06/06/20 12/15/20 calcium carbonate 600 mg calcium 600 mg PO DAILY 06/06/20 12/15/20 (1,500 mg) tablet cyanocobalamin (vitamin B-12) 500 1,000 mcg PO DAILY 06/06/20 12/15/20 mcg tablet escitalopram oxalate 20 mg tablet 20 mg PO DAILY 06/06/20 12/15/20 fluticasone propionate 50 1 spray INTRANASAL BID PRN 06/06/20 12/15/20 mcg/actuation nasal spray,suspension gabapentin 600 mg tablet 600 mg PO TID PRN 06/06/20 12/15/20 insulin syringe-needle U-100 0.3 #10 ea 06/06/20 06/27/20 mL 31 gauge x 5/16 bvzdnk-pysubdit-rwlkeiy 1 cap PO TID 06/06/20 12/15/20 24,000-76,000-120,000 unit capsule,delayed rel lisinopril 10 mg tablet 10 mg PO DAILY 06/06/20 12/15/20 lovastatin 20 mg tablet,extended 20 mg PO HS 06/06/20 12/15/20 release 24 hr metformin 1,000 mg tablet 1,000 mg PO BID 06/06/20 12/15/20 sucralfate 1 gram tablet 1 g PO QID tablet 06/06/20 12/15/20 fluticasone propion-salmeterol 1 inh INHALATION BID PRN 06/27/20 12/15/20 [Advair Diskus] insulin asp prt-insulin aspart 30 unit SUBCUT BID 06/27/20 12/15/20 [Novolog Mix 70-30FlexPen U-100] oxybutynin chloride 5 mg PO BID 12/15/20 12/15/20 ropinirole 1 mg PO HS 12/15/20 12/15/20 Allergies Allergy/AdvReac Type Severity Reaction Status Date / Time aspirin Allergy Unknown Verified 06/29/20 08:04 codeine Allergy Unknown Verified 06/29/20 08:04 Review of Systems Review of Systems: All systems reviewed & are unremarkable except as noted in HPI and below PMFSH Past Medical History Medical History Acid reflux Acute on chronic blood loss anemia Blood thinned due to long-term anticoagulant use Diabetes Glaucoma Iron deficiency anemia Obstructive sleep apnea No longer using CPAP due to it causing dry mouth Osteoporosis Pulmonary embolism Stress incontinence Surgical History Surgical History H/O dilation and curettage H/O total hysterectomy History of back surgery History of bilateral cataract extraction History of open reduction and internal fixation (ORIF) procedure Left hip History of total bilateral knee replacement History of tubal ligation Hx of appendectomy Family History Family History Unknown No problems noted. Other Adopted Unknown family medical history Social History Social History Social History: Primary care physician: Dr. Remberto Mathis Code status: Full code no advance directives in place Surrogate decision maker: Quin Self (daughter) Smoking status: Former smoker Tobacco type: cigarettes Alcohol intake: never Substance use: never Substance use type: does not use Gender identity (if verbalized by the patient): Female Spiritual care concerns: No Exam Const: General: no acute distress Orientation/consciousness: patient oriented x3 HENMT: Head: normal to inspection Eyes: Conjunctivae: conjunctivae normal Pupils:
[2020-12-15 09:40] VITALS: PULSE 78; O2SAT 97
== END 2020-12-15 09:40 | disposition home or self-care (01) ==
PROVIDERS: Emergency Provider Emergency Medicine; PCP Physician Assistant
DX: J06.9 Acute upper respiratory infection, unspecified (principal); Z20.822 Contact with and (suspected) exposure to COVID-19; R06.02 Shortness of breath
CPT/HCPCS: 36415; 71046; 80053; 83880; 85025; 87426; 94640; 96372; 99283; C9803; J1030

== ENCOUNTER 2021-03-13 09:38 | Outpatient (RCR) | payer MEDICARE, OTHER, SELFPAY ==
--- NOTE | 2021-03-13 10:56 | PTOPEVAL ---
Thank you for referring Sarah Villagran to [facility].? The patient is scheduled to be seen for therapy? ____x/week for ___ weeks. Please review, sign, date and return this plan of care SUSANNE. I agree with and certify that the following plan of care is medically necessary. Referring Physician Date Admitting Provider: Attending Provider: Maddy Shearer, GIANNI Referring Provider: *PT Outpatient Evaluation Start: 03/13/21 10:08 Freq: Status: Active Protocol: Document 03/13/21 10:08 [facility] (Rec: 03/13/21 10:55 [facility] [id number]) Therapy Assessment Status Assessment Status Assessment Status Evaluation Outpatient Past Medical History Respiratory History Hx Pulmonary Embolism Yes Hx Sleep Apnea Yes Gastrointestinal History Hx Gastrointestinal Bleed Yes Musculoskeletal History Hx Arthritis Yes Hx Back Pain Yes Hx Crutches or Walker Use Yes Query Text:If Yes, Enter Crutches, Walker, or Both in the Comment Hx Fractures Yes Hx Joint Replacement Yes: bilat knees Hx Orthopedic Surgery Yes: left hip remy Hematological History Hx Blood Transfusions Yes Endocrine History Hx Diabetes Yes HEENT History Hx Cataracts Yes Hx Glaucoma Yes Hx Dental Problems Yes Hx Eye Surgery Yes Reproductive History Hx Post Menopausal Yes Pain History Has Past Pain Affected Your Daily Life Yes Evaluation Information Problem Diagnosis lumbar radiculopathy Onset 02/27/21 Subjective Information patient reports she has pain Query Text:As Reported By Patient/ in her hips and her back. she Family reports she has restless legs (especially the L leg). she reports she has difficulty breathing/walking due to SOA. she reports she uses a CPAP at home. she reports she has pain down both of her legs. she reports she had surgery to the lower back about 5-6 months ago. she reports she fell after this surgery. she reports the surgery was a fusion. she reports she has no feeling in either feet. she reports she does have neuropathy in her bilateral feet. she reports she has been unable t
--- NOTE | 2021-05-09 14:59 | PCPTNOTE ---
05/09/21 - patient has not been to therapy in nearly 2 months. as of this date, all progress towards goals will be taken from her most recent evaluation/note. DIONISIO
== END 2021-03-15 09:01 | disposition home or self-care (01) ==
LOC: CHSPT 09:38
PROVIDERS: PCP Physician Assistant; Visit Provider Nurse Practitioner Family
DX: M54.16 Radiculopathy, lumbar region (principal)
CPT/HCPCS: 97014; 97110; 97140; 97162; G0283

== ENCOUNTER 2021-10-24 14:27 | Outpatient (CLI) | payer MEDICARE, MEDICAID, SELFPAY ==
--- NOTE | ~2021-10-24 | XR_ITS ---
XR hip RT min 2V DATE: 10/24/2021 15:06 INDICATION: Chronic right hip pain TECHNIQUE: AP and lateral views COMPARISON: 06/13/2020 bilateral hip and pelvis FINDINGS: There is moderately severe right hip osteoarthritis. No fracture or dislocation, avascular necrosis or bone destruction is detected. IMPRESSION: Moderately severe right hip osteoarthritis Reviewed, dictated and finalized at location B.
== END 2021-10-24 14:28 | disposition home or self-care (01) ==
PROVIDERS: PCP Physician Assistant; Visit Provider Physician Assistant
DX: M16.11 Unilateral primary osteoarthritis, right hip (principal); M25.551 Pain in right hip
CPT/HCPCS: 73502

== ENCOUNTER 2021-12-31 10:04 | Emergency (ER) | payer MEDICARE, MEDICAID, SELFPAY ==
--- NOTE | ~2021-12-31 | XR_ITS ---
XR hip LT 1V w AP pelvis DATE: 12/31/2021 11:34 INDICATION: Left hip pain after fall TECHNIQUE: AP pelvis. AP view of left hip. COMPARISON: 06/13/2020 pelvis and bilateral hips FINDINGS: Status post posterior and interbody spinal fusion at L3 5. Normal alignment at the pubic symphysis and sacroiliac joints. No pelvic fracture or bone destruction is evident. Normal alignment at the hip joints. No hip dislocation is noted. Intramedullary remy and screw of proximal left femur. No new displaced fracture is evident. This is ho wever an incomplete examination of the left left hip without lateral view. Subtle nondisplaced left h ip fracture is not excluded. IMPRESSION: Limited examination Reviewed, dictated and finalized at location A. IMPRESSION: Limited examination
--- NOTE | ~2021-12-31 | CT_ITS ---
EXAMINATION: CT lumbar spine wo con DATE: 12/31/2021 11:12 INDICATION: Fall. Back pain. TECHNIQUE: Computed tomography (CT) of the lumbar spine was performed without intravenous contrast. A utomated exposure control and iterative reconstruction technique were employed. Exam dose: 1565.37 m Gy-cm total exam DLP. Lumbar spine COMPARISON: 05/25/2019 lumbar spine FINDINGS: Diffuse osteopenia. Degenerative spurring of the lower thoracic spine including prominent posterior spurring at T11-12 an d T12-L1. Status post posterior lumbar surgical spinal fusion by bilateral pedicle screws and rods at L3-L5 and L3-4 and L4-5 interbody surgical fusion since 05/25/2019. Stable grade 1 anterolisthesis of L4-5, stable since 05/25/2019. Old burst fracture deformity of L2 and fusion at L1 and L2 vertebral bodies, unchanged since 9. New since 05/25/2019 is moderate burst fracture of L4. This however does not necessarily appear acute. There is mild concavity of the superior vertebral endplate of L5. IMPRESSION: Burst fracture deformity of L4 since 07/05/2018, not necessarily acute Mild cupping of the superior vertebral endplate of L5 since 05/25/2019 Status post posterior and interbody spinal fusion at L3-L5 Chronic burst fracture deformity of L2 and chronic fusion of L1 and L2 vertebral bodies Diffuse osteopenia Prominent degenerative spurring of the lower thoracic spine including prominent posterior spurring at T11-12 and T12-L1 Reviewed, dictated and finalized at Location [facility]. Reviewed, dictated and finalized at location A. IMPRESSION: Burst fracture deformity of L4 since 07/05/2018, not necessarily ac [place] Mild cupping of the superior vertebral endplate of L5 since 05/25/2019 Status post posterior and interbody spinal fusion at L3-L5 Chronic burst fracture deformity of L2 and chronic fusion of L1 and L2 vertebra l bodies Diffuse osteopenia Prominent degenerative spurring of the lower thoracic spine including prominent posterior spurring at T11-12 and T12-L1
[2021-12-31 10:10] VITALS: BP 142/58; PULSE 73; RESP 18; TEMP 36.2; O2SAT 97
--- NOTE | 2021-12-31 10:48 | ED.BACK ---
HPI - Back Pain/Injury General Chief Complaint: Back Pain/Injury Stated Complaint: Fell and hurt lower back. History of Present Illness HPI Narrative: this is a 76-year-old female with a history of multiple back surgeries and chronic low back pain Presenting to the ED following a fall.l. The patient went to the restroom this morning And tripped forward. She caught herself on the sink and did not land on her knees, strike her head, or sustain any other injuries. However since the incident patient has been having back pain that is in the lower back and radiating down her legs. The patient denies any chest pain, dizziness, palpitations or shortness of breath prior to the whole fall. She describes is a purely mechanical fall. the patient has neuropathy, typically walks with a walker, and has had which she describes as lower extremity weakness since she had surgery 1 year ago. She denies saddle anesthesia, urinary retention, bowel incontinence, increased weakness, history of IV drug abuse, history of cancer, fever or chills. The patient and her are calling Dr. Lara tomorrow to follow-up on her back surgery from 1 year ago. Related Data Home Medications Medication Instructions Recorded Confirmed apixaban 5 mg tablet (Eliquis) 10 mg PO BID 06/06/20 12/31/21 calcium carbonate 600 mg calcium 600 mg PO DAILY 06/06/20 12/31/21 (1,500 mg) tablet (Calcium) cyanocobalamin (vitamin B-12) 500 1,000 mcg PO DAILY 06/06/20 12/31/21 mcg tablet (Vitamin B-12) escitalopram oxalate 20 mg tablet 20 mg PO DAILY 06/06/20 12/31/21 fluticasone propionate 50 1 spray intranasal BID PRN Nasal 06/06/20 12/31/21 mcg/actuation nasal Congestion spray,suspension gabapentin 600 mg tablet 600 mg PO TID PRN Neuropathy pain 06/06/20 12/31/21 insulin syringe-needle U-100 0.3 #10 ea 06/06/20 06/27/20 mL 31 gauge x 10/30 bcozxk-cwkskjav-gekgnad 1 cap PO TID 06/06/20 12/31/21 24,000-76,000-120,000 unit capsule,delayed rel (Creon) lisinopril 10 mg tablet 10 mg PO DAILY 06/06/20 12/31/21 lovastatin 20 mg tablet,extended 20 mg PO HS 06/06/20 12/31/21 release 24 hr metformin 1,000 mg tablet 1,000 mg PO BID 06/06/20 12/31/21 sucralfate 1 gram tablet 1 g PO QID 06/06/20 12/31/21 fluticasone 250 mcg-salmeterol 50 1 inh inhalation BID PRN Shortness 06/27/20 12/31/21 mcg/dose blistr powdr for Of Breath inhalation (Advair Diskus) insulin aspar prot-insulin aspart 30 unit subcut BID 06/27/20 12/31/21 100 unit/mL (70-30) subcutaneous pen (Novolog Mix 70-30FlexPen U-100) oxybutynin chloride 5 mg tablet 5 mg PO BID 12/15/20 12/31/21 ropinirole 1 mg tablet 1 mg PO HS 12/15/20 12/31/21 Allergies Allergy/AdvReac Type Severity Reaction Status Date / Time aspirin Allergy Unknown Verified 12/31/21 10:23 codeine Allergy Unknown Verified 12/31/21 10:23 Review of Systems Constitutional: Constitutional: Denies fever(s) Eyes: Eyes: Denies change in vision ENT: Denies dysphagia Cardiovascular: Cardiovascular: Denies chest pain Respiratory: Respiratory: Denies dyspnea Gastrointestinal: Gastrointestinal: Denies abdominal pain Genitourinary: Genitourinary: Denies abnormal vaginal bleeding Musculoskeletal: Musculoskeletal: Reports back pain, Reports myalgias and Reports arthralgias Integumentary/Breasts: Skin/Breast: Denies rash Neurologic: Denies confusion Psychiatric: Psychiatric: Denies anxiety Endocrine: Endocrine: Denies excessive sweating Hematologic/Lymphatic: Hematologic/Lymphatic: Denies easy bleeding Allergic/Immunologic: Allergic/Immunologic: Denies lip swelling PMFSH Past Medical History Medical History Acid reflux Acute on chronic blood loss anemia Blood thinned due to long-term anticoagulant use Diabetes Glaucoma Iron deficiency anemia Obstructive sleep apnea No longer using CPAP due to it causing dry mouth Osteoporosis Pulmonary embolism Stre
[2021-12-31] MEDS: IBUPROFEN 600 MG TABLET PO (10:57)
[2021-12-31] MEDS: ACETAMINOPHEN 500 MG TABLET 1000 MG PO (10:58)
[2021-12-31 11:00] VITALS: BP 138/65; PULSE 76; RESP 18; O2SAT 98
[2021-12-31] MEDS: BACLOFEN 5 MG TABLET PO (11:10)
[2021-12-31] MEDS: LIDOCAINE 5% PATCH 1 PATCH TRANSDERM (11:11)
[2021-12-31 12:05] VITALS: BP 136/64; PULSE 74; RESP 18; TEMP 36.8; O2SAT 98
== END 2021-12-31 12:25 | disposition home or self-care (01) ==
PROVIDERS: Emergency Provider Emergency Medicine; PCP Physician Assistant
DX: M54.9 Dorsalgia, unspecified (principal); K21.9 Gastro-esophageal reflux disease without esophagitis; E11.9 Type 2 diabetes mellitus without complications; M81.0 Age-related osteoporosis without current pathological fracture; Z87.891 Personal history of nicotine dependence
CPT/HCPCS: 72131; 73501; 99284; A9270

== ENCOUNTER 2022-01-27 11:39 | Emergency (ER) | payer MEDICARE, MEDICAID, SELFPAY ==
--- NOTE | ~2022-01-27 | XR_ITS ---
EXAMINATION: XR foot LT 2V INDICATION: Left foot pain TECHNIQUE: Three views of the left foot are obtained. COMPARISON: None available FINDINGS: Bone alignment is normal. There is no fracture. There is moderate osteoarthritis of the fir st metatarsophalangeal joint and multiple interphalangeal joints. A posterior calcaneal findings IMPRESSION: 1. No acute osseous abnormality. Reviewed, dictated and finalized at location A.
[2022-01-27 11:54] VITALS: BP 135/51; PULSE 67; RESP 20; TEMP 36; O2SAT 97
--- NOTE | 2022-01-27 11:55 | ED.LOWEXIN ---
HPI - Extremity Injury (Lower) General Chief Complaint: Extremity Injury, Lower Stated Complaint: L big toe pain Source: patient Mode of arrival: wheelchair Limitations: no limitations History of Present Illness HPI Narrative: 76 year old female presents to the Emergency Department complaining of left great toe and foot pain. Patient states she got up to go to the bathroom at 3 am and struck foot on door frame. Pain to great toe and 1st metatarsal region. MD complaint: foot injury Onset (ago): hour(s) (9) Type of Injury: blunt Place: home Severity: moderate Relieving factors: nothing Exacerbating factors: weight bearing, movement and palpation Context: direct blow Other symptoms: none Related Data Home Medications Medication Instructions Recorded Confirmed apixaban 5 mg tablet (Eliquis) 10 mg PO BID 06/06/20 12/31/21 calcium carbonate 600 mg calcium 600 mg PO DAILY 06/06/20 12/31/21 (1,500 mg) tablet (Calcium) cyanocobalamin (vitamin B-12) 500 1,000 mcg PO DAILY 06/06/20 12/31/21 mcg tablet (Vitamin B-12) escitalopram oxalate 20 mg tablet 20 mg PO DAILY 06/06/20 12/31/21 fluticasone propionate 50 1 spray intranasal BID PRN Nasal 06/06/20 12/31/21 mcg/actuation nasal Congestion spray,suspension gabapentin 600 mg tablet 600 mg PO TID PRN Neuropathy pain 06/06/20 12/31/21 insulin syringe-needle U-100 0.3 #10 ea 06/06/20 06/27/20 mL 31 gauge x 5/16 xahfdi-mbylctpc-bjzzdhd 1 cap PO TID 06/06/20 12/31/21 24,000-76,000-120,000 unit capsule,delayed rel (Creon) lisinopril 10 mg tablet 10 mg PO DAILY 06/06/20 12/31/21 lovastatin 20 mg tablet,extended 20 mg PO HS 06/06/20 12/31/21 release 24 hr metformin 1,000 mg tablet 1,000 mg PO BID 06/06/20 12/31/21 sucralfate 1 gram tablet 1 g PO QID 06/06/20 12/31/21 fluticasone 250 mcg-salmeterol 50 1 inh inhalation BID PRN Shortness 06/27/20 12/31/21 mcg/dose blistr powdr for Of Breath inhalation (Advair Diskus) insulin aspar prot-insulin aspart 30 unit subcut BID 06/27/20 12/31/21 100 unit/mL (70-30) subcutaneous pen (Novolog Mix 70-30FlexPen U-100) oxybutynin chloride 5 mg tablet 5 mg PO BID 12/15/20 12/31/21 ropinirole 1 mg tablet 1 mg PO HS 12/15/20 12/31/21 Allergies Allergy/AdvReac Type Severity Reaction Status Date / Time aspirin Allergy Unknown Verified 01/27/22 11:57 codeine Allergy Unknown Verified 01/27/22 11:57 Review of Systems Review of Systems: All systems reviewed & are unremarkable except as noted in HPI and below Constitutional: Constitutional: Reports as per HPI and Reports no additional constitutional complaints Eyes: Eyes: Reports as per HPI and Reports no additional eye complaints ENT: Reports system reviewed and no additional complaints, except as documented and Reports as per HPI Cardiovascular: Cardiovascular: Reports as per HPI and Reports no additional cardiovascular complaints Respiratory: Respiratory: Reports as per HPI and Reports no additional respiratory complaints Gastrointestinal: Gastrointestinal: Reports as per HPI and Reports no additional gastrointestinal complaints Genitourinary: Genitourinary: Reports no additional female genitourinary complaints and Reports as per HPI Musculoskeletal: Musculoskeletal: Reports no additional musculoskeletal complaints and Reports as per HPI Integumentary/Breasts: Skin/Breast: Reports system reviewed and no additional complaints, except as docu and Reports as per HPI Neurologic: Reports system reviewed and no additional complaints, except as documented and Reports as per HPI Psychiatric: Psychiatric: Reports no additional psychiatric complaints and Reports as per HPI Endocrine: Endocrine: Reports no additional endocrine complaints and Reports as per HPI Hematologic/Lymphatic: Hematologic/Lymphatic: Reports no additional hematologic/lymphatic complaints and Reports as per HPI Allergic/Immunologic: Allergic/Immunologic: Reports no additional allergic/immunologic compl
[2022-01-27 13:38] VITALS: BP 149/62; PULSE 66; RESP 20; TEMP 36.6; O2SAT 98
== END 2022-01-27 13:40 | disposition home or self-care (01) ==
PROVIDERS: Emergency Provider Emergency Medicine; PCP Physician Assistant
DX: S90.32XA Contusion of left foot, initial encounter (principal); W22.8XXA Striking against or struck by other objects, initial encounter; E11.9 Type 2 diabetes mellitus without complications; Z87.891 Personal history of nicotine dependence
CPT/HCPCS: 73620; 99283

== ENCOUNTER 2022-09-01 07:49 | Emergency (ER) | payer MEDICARE, MEDICAID, SELFPAY ==
--- NOTE | ~2022-09-01 | XR_ITS ---
XR hip LT 2V w AP pelvis 09/01/2022 09:12 Indication: Left hip pain after fall Procedure: 4 views left hip including AP pelvis Comparison: 12/31/2021 Findings: There is bilateral osteoarthritis of the hips, left greater than right. There is an intrame dullary remy transfixing the left femur, partially visualized. There is a proximal interlocking screw. There are pedicle screws in the lower lumbar spine, partially visualized. Impression: 1: No acute fracture. Reviewed, dictated and finalized at location A. Impression: 1: No acute fracture.
--- NOTE | ~2022-09-01 | XR_ITS ---
[XR ribs LT 2V ] INDICATION: Left rib pain after fall TECHNIQUE: Frontal projection of the upper left ribs, frontal projection of the lower left ribs, obli que projection of all the left ribs, frontal inspiratory chest x-ray for interpretation. FINDINGS: No acute rib fracture. There are healed left fourth-10th rib fractures. There are no soft t issue abnormality seen. The lungs are clear. There is osteoarthritis of the left glenohumeral joint . IMPRESSION: 1:No acute displaced rib fractures. Reviewed, dictated and finalized at location A.
--- NOTE | ~2022-09-01 | XR_ITS ---
XR shoulder LT min 2V 09/01/2022 09:11 Indication: Status post fall. Left shoulder pain. Procedure: 4 views left shoulder Comparison: No prior studies for comparison. Findings: There is moderate-severe polyarticular osteoarthritis of the left shoulder. Osteopenia. The re is chondrocalcinosis. No acute fracture or traumatic malalignment. Impression: 1: No acute fracture. Reviewed, dictated and finalized at location A. Impression: 1: No acute fracture.
[2022-09-01 07:50] VITALS: BP 149/78; PULSE 76; RESP 18; TEMP 36.2; O2SAT 98
[2022-09-01 08:06] VITALS: BP 149/78; PULSE 76; RESP 18; TEMP 36.2; O2SAT 98
[2022-09-01 09:07] VITALS: BP 133/65; O2SAT 96
[2022-09-01] MEDS: ACETAMINOPHEN 500 MG TABLET 1000 MG PO (09:10)
[2022-09-01 09:16] VITALS: BP 144/74; O2SAT 98
--- NOTE | 2022-09-01 09:33 | ED.FALL ---
HPI - Fall General Chief Complaint: Fall Stated Complaint: Fall/Left hip pain/rib Time Seen by Provider: 09/01/22 07:51 Source: patient and family Mode of arrival: wheelchair Limitations: no limitations History of Present Illness HPI Narrative: this is a 77-year-old female with history of diabetes and neuropathy has been seen by her primary care physician and had medications adjusted for frequent dizziness with some episodes of falling, fell earlier this morning causing injury to her left shoulder left rib area left hip and pelvis. Has good range of motion although it is tender with movement and with palpation. There is no shortness of breath no chest pain. MD complaint: fall Onset (ago): hour(s) Place fall occurred: home Related Data Home Medications Medication Instructions Recorded Confirmed escitalopram oxalate 20 mg tablet 20 mg PO DAILY 06/06/20 01/27/22 insulin syringe-needle U-100 0.3 #10 ea 06/06/20 01/27/22 mL 31 gauge x 5/16 bxaxfb-bnusztlr-gmrzooi 1 cap PO TID 06/06/20 01/27/22 24,000-76,000-120,000 unit capsule,delayed rel (Creon) metformin 1,000 mg tablet 1,000 mg PO BID 06/06/20 01/27/22 insulin aspar prot-insulin aspart 30 unit subcut BID 06/27/20 01/27/22 100 unit/mL (70-30) subcutaneous pen (Novolog Mix 70-30FlexPen U-100) ropinirole 1 mg tablet 1 mg PO HS 12/15/20 01/27/22 albuterol sulfate 90 mcg/actuation 2 puff inhalation QID 09/01/22 09/01/22 aerosol inhaler diltiazem HCl 240 mg 240 mg PO 09/01/22 capsule,extended release 24 hr, controlled (DILT-XR) docusate sodium 100 mg capsule 100 mg PO DAILY 09/01/22 09/01/22 ferrous sulfate 325 mg (65 mg 325 mg PO DAILY 09/01/22 09/01/22 iron) tablet lansoprazole 30 mg capsule,delayed 30 mg PO DAILY 09/01/22 09/01/22 release lisinopril 10 mg tablet 10 mg PO DAILY 09/01/22 09/01/22 mirabegron 50 mg tablet,extended 50 mg PO DAILY 09/01/22 09/01/22 release 24 hr (Myrbetriq) montelukast 10 mg tablet 10 mg PO DAILY 09/01/22 09/01/22 Allergies Allergy/AdvReac Type Severity Reaction Status Date / Time aspirin Allergy Unknown Verified 09/01/22 08:11 codeine Allergy Unknown Verified 09/01/22 08:11 Review of Systems Review of Systems: All systems reviewed & are unremarkable except as noted in HPI and below PMFSH Past Medical History Medical History Acid reflux Acute on chronic blood loss anemia Blood thinned due to long-term anticoagulant use Diabetes Glaucoma Iron deficiency anemia Obstructive sleep apnea No longer using CPAP due to it causing dry mouth Osteoporosis Pulmonary embolism Stress incontinence Surgical History Surgical History H/O dilation and curettage H/O total hysterectomy History of back surgery History of bilateral cataract extraction History of open reduction and internal fixation (ORIF) procedure Left hip History of total bilateral knee replacement History of tubal ligation Hx of appendectomy Family History Family History Unknown No problems noted. Other Adopted Unknown family medical history Social History Social History Social History: Primary care physician: Dr. Remberto Mathis Code status: Full code no advance directives in place Surrogate decision maker: Quin Self (daughter) Smoking status: Former smoker Tobacco type: cigarettes Alcohol intake: never Substance use: never Substance use type: does not use Living arrangements: with family Gender identity (if verbalized by the patient): Female Spiritual care concerns: No Exam Const: General: healthy appearing Nutritional Appearance: well nourished Orientation/consciousness: patient oriented x3 Limitations: no limitations HENMT: Head: normal to inspection Face
[2022-09-01 09:36] VITALS: O2SAT 95
[2022-09-01 09:45] VITALS: BP 144/74; PULSE 74; RESP 18; TEMP 36.8; O2SAT 95
== END 2022-09-01 09:48 | disposition home or self-care (01) ==
PROVIDERS: Emergency Provider Emergency Medicine; PCP Physician Assistant
DX: T14.8XXA Other injury of unspecified body region, initial encounter (principal); E11.9 Type 2 diabetes mellitus without complications; Z86.711 Personal history of pulmonary embolism; Z87.891 Personal history of nicotine dependence; W19.XXXA Unspecified fall, initial encounter; Y92.009 Unspecified place in unspecified non-institutional (private) residence as the place of occurrence of the external cause
CPT/HCPCS: 71100; 73030; 73502; 99284

== ENCOUNTER 2022-10-13 09:35 | Outpatient (CLI) | payer MEDICARE, MEDICAID, SELFPAY ==
--- NOTE | ~2022-10-13 | MR_ITS ---
MRI of the lumbar spine Clinical History: Radiculopathy, remote spinal surgery Technique: Axial T2-weighted images, and sagittal T1-weighted, T2-weighted, and STIR images were acqu ired. Findings: There is orthopedic hardware in place related to posterior fusion from L3 through L5, with bilateral rods and transpedicular screws present. There are probable laminectomy defects at L4 and L5 . Chronic compression fracture deformity of L2 present, with partial fusion across the L1-L2 disc spa ce. There are also probable chronic mild compression deformities of the suprarenal regions of L4 and L5. No acute marrow edema or other significant bone marrow signal abnormality seen currently. Grade 1 anterolisthesis of L4 over L5 measures 3-4 mm. At L1-L2, there is no disc bulge or herniation, though there is mild retropulsion of the posterior gunderson perior corner of the L2 vertebral body. There is mild facet joint hypertrophy. No kerrie spinal canal stenosis or definite neural foraminal narrowing. At L2-L3, there is no disc bulge or herniation. There is moderate to advanced facet arthropathy. No s skinny canal stenosis or neural foraminal narrowing. L3-L4, there is mild disc bulge. Severe facet arthropathy contributes to mild central canal stenosis and bilateral lateral recess stenosis, left worse than right. There is moderate to advanced bilateral neural foraminal narrowing. At L4-L5, there is disc uncovering/disc bulge with severe facet arthropathy. No kerrie spinal canal st enosis. There is moderate to severe right neural foraminal narrowing and moderate left neural foramin al narrowing. At L5-S1, there is minimal disc bulge. There is mild facet arthropathy. No kerrie spinal canal stenosi s. No definite neural foraminal narrowing. Paravertebral soft tissues are unremarkable, aside from postoperative change. Impression: Posterior fusion from L3 through L5, as detailed above. Grade 1 anterolisthesis of L4 over L5, as detailed above. Chronic compression deformities of L2, L4, L5. No acute fracture seen. Moderate to advanced degenerative spondylosis at L3-L4 and L4-L5, as detailed above. Additional mild degenerative changes, as detailed above. Reviewed, dictated and finalized at location M. Impression: Posterior fusion from L3 through L5, as detailed above. Grade 1 anterolisthesis of L4 over L5, as detailed above. Chronic compression deformities of L2, L4, L5. No acute fracture seen. Moderate to advanced degenerative spondylosis at L3-L4 and L4-L5, as detailed a giovanna. Additional mild degenerative changes, as detailed above.
== END 2022-10-13 09:36 | disposition home or self-care (01) ==
LOC: CHSIMG 09:37
PROVIDERS: PCP Physician Assistant; Visit Provider Physician Assistant
DX: M54.16 Radiculopathy, lumbar region (principal); Z98.1 Arthrodesis status; M43.16 Spondylolisthesis, lumbar region; M53.86 Other specified dorsopathies, lumbar region
CPT/HCPCS: 72148

== ENCOUNTER 2022-12-15 14:01 | Emergency (ER) | payer MEDICARE, MEDICAID, SELFPAY ==
[2022-12-15 14:05] VITALS: BP 119/62; PULSE 77; RESP 20; TEMP 36.3; O2SAT 97
--- NOTE | 2022-12-15 14:31 | ED.LOWEXIN ---
HPI - Extremity Injury (Lower) General Chief Complaint: Extremity Injury, Lower Stated Complaint: burning in legs Time Seen by Provider: 12/15/22 14:07 Source: patient and family Mode of arrival: ambulatory Limitations: no limitations History of Present Illness HPI Narrative: this is a 77-year-old diabetic patient that presents with bilateral lower extremity burning sensation x1 week very sensitive to to touch and to sensation of any sheets that her touching her skin her lower extremities has been going on for while but his gradually increased over the past week, patient does have strong brisk pedal pulses with no pain in her calves no swelling in her lower extremities, patient has a history of diabetes and takes insulin patient states that her blood sugars have been stable in the low to mid 100s with no known injury. MD complaint: other ( bilateral lower extremity burning sensation) Onset (ago): week(s) Related Data Home Medications Medication Instructions Recorded Confirmed escitalopram oxalate 20 mg tablet 20 mg PO DAILY 06/06/20 12/15/22 insulin syringe-needle U-100 0.3 #10 ea 06/06/20 09/01/22 mL 31 gauge x /16 yilnkg-ijvasfxt-jmjuzpr 1 cap PO TID 06/06/20 12/15/22 24,000-76,000-120,000 unit capsule,delayed rel (Creon) metformin 1,000 mg tablet 1,000 mg PO BID 06/06/20 12/15/22 insulin aspar prot-insulin aspart 30 unit subcut BID 06/27/20 12/15/22 100 unit/mL (70-30) subcutaneous pen (Novolog Mix 70-30FlexPen U-100) ropinirole 1 mg tablet 1 mg PO HS 12/15/20 12/15/22 diltiazem HCl 240 mg 240 mg PO DAILY 09/01/22 12/15/22 capsule,extended release 24 hr, controlled (DILT-XR) docusate sodium 100 mg capsule 100 mg PO DAILY 09/01/22 12/15/22 ferrous sulfate 325 mg (65 mg 325 mg PO DAILY 09/01/22 12/15/22 iron) tablet lansoprazole 30 mg capsule,delayed 30 mg PO DAILY 09/01/22 12/15/22 release lisinopril 10 mg tablet 10 mg PO DAILY 09/01/22 12/15/22 mirabegron 50 mg tablet,extended 50 mg PO DAILY 09/01/22 12/15/22 release 24 hr (Myrbetriq) montelukast 10 mg tablet 10 mg PO DAILY 09/01/22 12/15/22 Allergies Allergy/AdvReac Type Severity Reaction Status Date / Time aspirin Allergy Unknown Verified 12/15/22 14:16 codeine Allergy Unknown Verified 12/15/22 14:16 Review of Systems Review of Systems: All systems reviewed & are unremarkable except as noted in HPI and below PMFSH Past Medical History Medical History Acid reflux Acute on chronic blood loss anemia Blood thinned due to long-term anticoagulant use Diabetes Glaucoma Iron deficiency anemia Obstructive sleep apnea No longer using CPAP due to it causing dry mouth Osteoporosis Pulmonary embolism Stress incontinence Surgical History Surgical History H/O dilation and curettage H/O total hysterectomy History of back surgery History of bilateral cataract extraction History of open reduction and internal fixation (ORIF) procedure Left hip History of total bilateral knee replacement History of tubal ligation Hx of appendectomy Family History Family History Unknown No problems noted. Other Adopted Unknown family medical history Social History Social History Social History: Primary care physician: Dr. Remberto Mathis Code status: Full code no advance directives in place Surrogate decision maker: Quin Self (daughter) Smoking status: Former smoker Tobacco type: cigarettes Alcohol intake: never Substance use: never Substance use type: does not use Living arrangements: with family Gender identity (if verbalized by the patient): Female Spiritual care concerns: No Exam Const: General: cooperative, healthy appearing, comfortable, no acute distress and well de
[2022-12-15] MEDS: GABAPENTIN 300 MG CAPSULE PO (14:39)
== END 2022-12-15 14:45 | disposition home or self-care (01) ==
PROVIDERS: Emergency Provider Emergency Medicine; PCP Physician Assistant
DX: G62.9 Polyneuropathy, unspecified (principal); G59 Mononeuropathy in diseases classified elsewhere; Z79.4 Long term (current) use of insulin; Z86.711 Personal history of pulmonary embolism; Z87.891 Personal history of nicotine dependence
CPT/HCPCS: 99283; A9270

== ENCOUNTER 2022-12-28 12:11 | Outpatient (CLI) | payer MEDICARE, MEDICAID, SELFPAY ==
--- NOTE | ~2022-12-28 | DEXA_ITS ---
Bone Density Report Name: ESPERANZA CALLAHAN Age: 77 Sex: Female Ethnicity: White Date of : 1945 Indication: postmenopausal; screening for osteoporosis; prior fracture; hysterectomy; Referring Provider: Del, Remberto Guo Study: Bone densitometry was performed. Exam Date: December 28, 2022 Accession number: [id number] Bone Density: Region BMD T-score Z-score Classification AP Spine(L2, L4) 0.977 -0.9 1.7 Normal Femoral Neck (Right) 0.753 -0.9 1.3 Normal Total Hip (Right) 1.019 0.6 2.6 Normal World Health Organization criteria for BMD impression classify patients as: Normal (T-score at or above -1.0), Osteopenia (T-score between -1.0 and -2.5), or Osteoporosis (T-score at or below -2.5). 10-year Fracture Risk: FRAX not reported because: All T-scores for Spine Total, Hip Total, Femoral Neck at or above -1.0 Prior hip or vertebral fracture Clinical Information Provided by Patient: Have had a previous hip or vertebral fracture Has had a low trauma fracture Has used the following medications: Vitamin D, Calcium Has the following medical conditions: Hysterectomy Patient maximum height was 65 Menopause Age: 50 No regular weight bearing exercise Drinks caffeinated beverages Onset of menses at age 14 Number of children 3 Impression: The patient has normal bone mass. The patient has risk factors, including: previous fracture. Discussion: INCREASED RISK OF FRACTURE DUE TO HISTORY OF FRACTURE. The patient's previous fracture puts the patient at high risk of a future fracture. In untreated patients, the risk of osteoporotic fracture increases approximately two-fold for each 1.0 SD decrease in T-score. Low bone density is not the only risk factor for fracture; also consider factors such as patient's age, frailty or poor health, risk of falling, risk of injury, previous osteoporotic fracture, family history of osteoporosis, cigarette smoking, low body weight, etc. Not everyone with a low trauma fracture has osteoporosis; osteomalacia and other metabolic bone disorders should also be considered. Patients who have osteoporosis should be evaluated for specific diseases and conditions (secondary causes) that may cause or contribute to bone loss and fracture risk. National Osteoporosis Foundation (NOF) recommends pharmacologic intervention for patients with a prior hip or vertebral fracture regardless of BMD T-score. The patient should follow a healthful lifestyle (good nutrition with adequate calcium and vitamin D, and appropriate weight-bearing exercise). Follow-Up: Consider a repeat BMD and Vertebral Fracture Assessment (VFA) exam in 2 years or sooner if medically necessary, to reassess this patient's status. Reported by: Dr. Moe Mata on 12/28/2022 12:53:00 PM. Reviewed, dictated and finalized at [facility]
== END 2022-12-28 12:12 | disposition home or self-care (01) ==
LOC: CHSIMG 12:13
PROVIDERS: PCP Physician Assistant; Visit Provider Physician Assistant
DX: Z78.0 Asymptomatic menopausal state (principal)
CPT/HCPCS: 77080

== ENCOUNTER 2023-02-04 15:15 | Emergency (ER) | payer MEDICARE, MEDICAID, SELFPAY ==
[2023-02-04] VITALS (25 sets, daily range): BP systolic 92–142; BP diastolic 48–107; PULSE 88–102; RESP 16–30; TEMP 37.2; O2SAT 91–98
--- NOTE | ~2023-02-04 | CT_ITS ---
EXAMINATION: CT brain wo con DATE: 02/04/2023 17:05 INDICATION: Syncopal episode and fall TECHNIQUE: Computed tomography (CT) of the head was performed without intravenous contrast. Sagittal and coronal reconstructions were performed. The mA was adjusted according to patient size. Iterative reconstruction technique was employed. The dose-length product was 681.00 mGy-cm. COMPARISON: head CT dated 06/27/2020 FINDINGS: No fracture. No acute intracranial hemorrhage, acute infarction or abnormal extra axial fluid collect ion. Small old lacunar infarct at the right frontoparietal garcia radiata. There is mild scattered wh ite matter hypoattenuation consistent with chronic small vessel ischemic disease. Ventricles are nor mal and symmetric. No mass/mass effect. Changes of bilateral intraocular lens replacement. The orbits , paranasal sinuses and mastoid air cells are normal. IMPRESSION: 1. No fracture or acute intracranial process. 2. Small old lacunar infarct at the right frontal garcia radiata. Reviewed, dictated and finalized at location A.
--- NOTE | ~2023-02-04 | CT_ITS ---
EXAMINATION: CT chest abdomen pelvis wo con DATE: 02/04/2023 17:07 INDICATION: Fall with right hip pain TECHNIQUE: Computed tomography (CT) of the chest, abdomen, and pelvis was performed without intraveno us contrast. Automated exposure control and iterative reconstruction technique were employed. The dos e-length product was 1833.75 mGy-cm. COMPARISON: Lumbar spine CT dated 12/31/2021 FINDINGS: CHEST CT: Expiratory phase of imaging with respiratory motion and dependent predominant atelectasis in both missael gs. Mild cardiomegaly. Atherosclerotic coronary artery calcific location. No pericardial or pleural e ffusion. Thoracic aorta is normal in caliber. No pathologically enlarged thoracic lymphadenopathy. Fl uid throughout much of the thoracic esophagus which may be related to reflux. Mild upper thoracic lev ocurvature with mild spondylosis. There are bridging osteophytes at multiple levels in the spine, con sistent with diffuse idiopathic skeletal hyperostosis (DISH). There are few old bilateral rib fractur es. Moderate osteoarthritis at the bilateral glenohumeral joints. ABDOMEN/PELVIS CT: Pneumobilia in the nondependent liver likely related to prior cholecystectomy and sphincterotomy with surgical clips the gallbladder fossa. There are couple subcentimeter low-attenuation cysts in the le ft hepatic lobe. Spleen, pancreas and bilateral adrenal glands are normal. Likely age-related mild bi lateral renal atrophy. No abnormal bowel wall thickening or obstruction. The appendix is not visualiz ed. No pericecal inflammatory change to suggest acute appendicitis. Guerrero catheter within the decompr essed bladder. The uterus is not identified and has likely been surgically resected. No free intraper itoneal gas or fluid. No pathologically enlarged abdominal or pelvic lymphadenopathy. Chronic L2, L4 and L5 compression fractures. L3-L5 posterior spinal fusion with bilateral vertical remy and pedicle s crew fixations. Methylmethacrylate is seen around the tips of all but the right-sided L4 pedicle scre w. Bone graft cages are seen at the L3-L4 and L4-L5 facet joints without evident solid fusion. Antegr puma intramedullary remy and interlocking intratrochanteric screw fixation along the visualized proxima l left femur. Moderate osteoarthritis at the right hip. No acute osseous abnormality. IMPRESSION: 1. No acute fracture or visceral organ injury in the chest, abdomen or pelvis. Reviewed, dictated and finalized at location A.
--- NOTE | ~2023-02-04 | CT_ITS ---
EXAMINATION: CT cervical spine wo con DATE: 02/04/2023 17:05 INDICATION: Posterior neck pain post fall TECHNIQUE: Computed tomography (CT) of the cervical spine was performed without intravenous contrast. Automated exposure control and iterative reconstruction technique were employed. The dose-length pro duct was 533.93 mGy-cm. COMPARISON: Cervical spine radiographs dated 08/28/2017 FINDINGS: Straightening of the normal cervical lordosis. C3-C6 laminectomies with C3-C6 interspace pleural effu vasiliy with anterior plate and screw fixation. Moderate to severe disc height loss with fusion across t he bilateral uncovertebral joints at C6-C7. There is also fusion developing across the facet joints f rom C3-C7 on the left and C3-C6 on the right. Unfused vertebral body heights are normal. No fractures identified. No significant central canal stenosis. Neural foraminal stenosis, moderate to severe on the left at C4-C5 and mild at many of the remaining bilateral cervical neural foramina. Partially vis ualized mild upper thoracic levocurvature with mild dextrocurvature at the cervicothoracic junction. There is severe left-sided and mild to moderate right-sided facet osteoarthritis at the cervicothorac ic junction and cephalad-most thoracic spine. Cervical soft tissues are unremarkable. IMPRESSION: 1. Cervical spondylosis with C3-C6 laminectomies and associated C3-C6 noncemented anterior spinal fus ion. No acute osseous abnormality. Reviewed, dictated and finalized at location A. IMPRESSION: 1. Cervical spondylosis with C3-C6 laminectomies and associated C3-C6 noncement ed anterior spinal fusion. No acute osseous abnormality.
--- NOTE | 2023-02-04 15:38 | ED.GENADULT ---
HPI - General Adult General Chief complaint: Weakness Stated complaint: fall; weakness Time Seen by Provider: 02/04/23 15:26 History of Present Illness HPI narrative: 77yo woman brought by EMS accompanied by her daughter with concern for right hip pain, sleepiness, sluggishness following a fall in the bathroom, unwitnessed, though pt appeared to family to have lost her balance and slipped from her walker seat. Pt was noted by family to be sleepy and slurring her words early this morning, making her last known normal last night. Pt denies any focal numbness or weakness, desribes right hip pain as severe. Notably, at end of December was started on multiple PRNS - Tramadol 50 mg, Meclizine 50 mg BID, Flexeril 10 mg TID, and had her Gabapentin increased from 600 to 900 mg TID. Also on Ropinerole qHS. Related Data Home Medications Medication Instructions Recorded Confirmed escitalopram oxalate 20 mg tablet 20 mg PO DAILY 06/06/20 02/04/23 insulin syringe-needle U-100 0.3 #10 ea 06/06/20 02/04/23 mL 31 gauge x 10/30 btptvf-bdxvttxy-iesupul 1 cap PO TID 06/06/20 02/04/23 24,000-76,000-120,000 unit capsule,delayed rel (Creon) metformin 1,000 mg tablet 1,000 mg PO BID 06/06/20 02/04/23 insulin aspar prot-insulin aspart 30 unit subcut BID 06/27/20 02/04/23 100 unit/mL (70-30) subcutaneous pen (Novolog Mix 70-30FlexPen U-100) ropinirole 1 mg tablet 1 mg PO HS 12/15/20 02/04/23 diltiazem HCl 240 mg 240 mg PO DAILY 09/01/22 02/04/23 capsule,extended release 24 hr, controlled (DILT-XR) docusate sodium 100 mg capsule 100 mg PO DAILY 09/01/22 02/04/23 ferrous sulfate 325 mg (65 mg 325 mg PO DAILY 09/01/22 02/04/23 iron) tablet lansoprazole 30 mg capsule,delayed 30 mg PO DAILY 09/01/22 02/04/23 release lisinopril 10 mg tablet 10 mg PO DAILY 09/01/22 02/04/23 mirabegron 50 mg tablet,extended 50 mg PO DAILY 09/01/22 02/04/23 release 24 hr (Myrbetriq) montelukast 10 mg tablet 10 mg PO DAILY 09/01/22 02/04/23 alendronate 70 mg tablet 70 mg PO WEEKLY 02/04/23 02/04/23 calcitonin (salmon) 200 1 spray intranasal DAILY 02/04/23 02/04/23 unit/actuation nasal spray cyclobenzaprine 10 mg tablet 10 mg PO TID PRN Spasms 02/04/23 02/04/23 lidocaine 5 % topical patch 1 patch topical BID PRN Pain 02/04/23 02/04/23 (Scale Score 4-6) meclizine 25 mg tablet 50 mg PO BID PRN Dizziness 02/04/23 02/04/23 meloxicam 15 mg tablet 15 mg PO DAILY 02/04/23 02/04/23 Allergies Allergy/AdvReac Type Severity Reaction Status Date / Time aspirin Allergy Unknown Verified 02/04/23 15:50 codeine Allergy Unknown Verified 02/04/23 15:50 Review of Systems Review of Systems: All systems reviewed & are unremarkable except as noted in HPI and below Constitutional: Constitutional: Denies fever(s) Cardiovascular: Cardiovascular: Denies chest pain Respiratory: Respiratory: Denies dyspnea Gastrointestinal: Gastrointestinal: Denies abdominal pain PMFSH Past Medical History Medical History Acid reflux Acute on chronic blood loss anemia Blood thinned due to long-term anticoagulant use Diabetes Glaucoma Iron deficiency anemia Obstructive sleep apnea No longer using CPAP due to it causing dry mouth Osteoporosis Pulmonary embolism Stress incontinence Surgical History Surgical History H/O dilation and curettage H/O total hysterectomy History of back surgery History of bilateral cataract extraction History of open reduction and internal fixation (ORIF) procedure Left hip History of total bilateral knee replacement History of tubal ligation Hx of appendectomy Family History Family History Unknown No problems noted. Other Adopted Unknown family medical history Social History Social History Social Hist
[2023-02-04 16:04] LABS: Appearance Urine Clear (Clear); Bilirubin Urine Negative (Negative); Blood Urine Negative (Negative); Color Urine Yellow (Yellow); Glucose Urine UA Negative (Negative); Ketones Urine Negative (Negative); Leukocyte Esterase Ur Negative LEU/UL (Negative); Nitrate Urine Negative (Negative); Protein Urine Negative (Negative); Specific Grav Ur 1.025 (1.010-1.020); Urobilinogen Urine 0.2 mg/dL (0.2-1.0); pH Urine 5.5 (5.0-8.0)
[2023-02-04 16:12] LABS: Barbiturate Screen Urine Negative (Negative); Benzodiazepines Screen Urine Negative (Negative); Cannabinoid Screen Urine Negative (Negative); Cocaine Screen Urine Negative (Negative); Methadone Screen Urine Negative (Negative); Opiate Screen Urine Positive (Negative); Phencyclidine Screen Urine Negative (Negative)
[2023-02-04 16:20] LABS: Basophils Absolute Auto 0.01 K/mm3 (0.00-0.10); Basophils Percent Auto 0.1 % (0.0-1.0); Hematocrit 32.7 % (35.0-42.0); Hemoglobin 11.5 g/dL (11.7-13.8); Immature Granulocyte Absolute 0.06 K/mm3 (0.00-0.00); Immature Granulocyte Percent A 0.5 % (0.0-0.0); Lymphocytes Absolute Auto 0.88 K/mm3 (1.10-4.50); Lymphocytes Percent Auto 7.6 % (18.0-42.0); Mean Corpuscular HGB Conc 35.2 g/dL (32.0-36.0); Mean Corpuscular Hemoglobin 35.7 pg (27.0-31.0); Mean Corpuscular Volume 101.6 fL (78.0-102.0); Mean Platelet Volume 9.1 fl (9.2-11.8); Monocytes Absolute Auto 0.65 K/mm3 (0.10-0.90); Monocytes Percent Auto 5.6 % (2.0-11.0); Neutrophils Absolute Auto 10.1 K/mm3 (1.7-7.2); Neutrophils Percent Auto 86.2 % (50.0-70.0); Platelet Count Result 157 K/mm3 (150-420); Red Blood Count 3.22 M/mm3 (4.20-5.40); Red Cell Distribution Width 12.5 % (11.6-14.4); White Blood Count 11.7 K/mm3 (4.8-10.8)
[2023-02-04 16:24] LABS: Add Urine Microscopic? NO
[2023-02-04] MEDS: ACETAMINOPHEN 500 MG TABLET 1000 MG PO (16:27)
[2023-02-04] MEDS: SODIUM CHLORIDE 0.9% IV 1,000 ML 999 ML IV CONT (16:27)
[2023-02-04] MEDS: methocarbamoL 500 MG TABLET 1500 MG PO (16:28)
[2023-02-04] MEDS: ONDANSETRON INJ 4 MG/2 ML VIAL IV PUSH (16:29)
[2023-02-04 16:31] LABS: Magnesium 1.4 mg/dL (1.8-2.4)
[2023-02-04] MEDS: MORPHINE SULFATE (*CRX) 4 MG/ML INJ IV PUSH (16:33)
[2023-02-04 16:35] LABS: Alanine Aminotransferase 28 U/L (14-59); Albumin Level 3.6 g/dL (3.4-5.0); Alkaline Phosphatase 86 U/L (46-116); Anion Gap 10 mmol/L (8-16); Aspartate Amino Transferase 29 U/L (15-37); Bilirubin,Total 0.9 mg/dL (0.00-1.00); Blood Urea Nitrogen 24 mg/dL (7-18); Calcium 8.9 mg/dL (8.5-10.1); Carbon Dioxide 24 mmol/L (21-32); Chloride 94 mmol/L (98-108); Estimated Glomerular Filt Rate 28; Glucose 225 mg/dL (70-99); Osmolality Calculated 277 mOsm/kg (285-295); Potassium 3.9 mmol/L (3.5-5.1); Sodium 128 mmol/L (136-145); Total Protein 7.6 g/dL (6.4-8.2)
--- NOTE | 2023-02-04 17:09 | PC.NURSE ---
DAUGHTER AT BEDSIDE. PT HAS RETURNED FROM CT. PT CONTINUES TO REPORT PAIN TO RT HIP AND BUTTOCK WITH MOVEMENT. IVF INFUSING ORDERED WITHOUT DISTRESS. WILL CONTINUE TO MONITOR.
[2023-02-04 17:45] LABS: Ethanol < 3 mg/dL (0-6)
[2023-02-04 18:32] LABS: Amphetamine Screen Urine Negative (Negative)
--- NOTE | 2023-02-04 18:36 | PC.NURSE ---
pt assisted with dressing and to pov per tech and wc.
== END 2023-02-04 18:15 | disposition home or self-care (01) ==
PROVIDERS: Emergency Provider Emergency Medicine; PCP Physician Assistant
DX: M25.551 Pain in right hip (principal); T42.75XA Adverse effect of unspecified antiepileptic and sedative-hypnotic drugs, initial encounter; V00.181A Fall from other rolling-type pedestrian conveyance, initial encounter; E11.9 Type 2 diabetes mellitus without complications; D50.9 Iron deficiency anemia, unspecified; G47.33 Obstructive sleep apnea (adult) (pediatric); M81.0 Age-related osteoporosis without current pathological fracture; K21.9 Gastro-esophageal reflux disease without esophagitis; H40.9 Unspecified glaucoma; N39.3 Stress incontinence (female) (male); Z79.4 Long term (current) use of insulin; Z86.711 Personal history of pulmonary embolism; Z87.891 Personal history of nicotine dependence; Z79.84 Long term (current) use of oral hypoglycemic drugs; Z79.899 Other long term (current) drug therapy
CPT/HCPCS: 36415; 70450; 71250; 72125; 74176; 80053; 80307; 81003; 83735; 85025; 96361; 96374; 96375; 99284; A9270; J2270; J2405; J7030

== ENCOUNTER 2023-02-27 15:03 | Emergency (ER) | payer MEDICARE, MEDICAID, SELFPAY ==
--- NOTE | ~2023-02-27 | CT_ITS ---
EXAMINATION: CT cervical spine wo con DATE: 02/27/2023 15:43 INDICATION: Right neck pain. TECHNIQUE: Computed tomography (CT) of the cervical spine was performed without intravenous contrast. Automated exposure control and iterative reconstruction technique were employed. The dose-length pro duct was 348.60 mGy-cm. COMPARISON: CT cervical spine 02/04/2023 FINDINGS: There is 5 degrees dextrocurvature of cervicothoracic spine. There are changes of anterior fusion procedure from C3 to C6 with anterior plate and screws. There is interbody fusion at C6-C7. Th ere is an old compression fracture of T2 with less than 1/5 loss of height. There is mildly decreased disc height at T1-T2. There are laminectomies from C3 to C6. The following disc levels are specifica lly discussed: C2-C3: There is mild bilateral uncovertebral joint osteoarthritis. There is moderate bilateral facet joint osteoarthritis. There is no neural foraminal stenosis. There is no central canal stenosis. C3-C4: There is mild bilateral uncovertebral joint hypertrophy. There is moderate bilateral facet mary nt hypertrophy. There is mild right and moderate left neural foraminal stenosis. There is no central canal stenosis. C4-C5: There is moderate right and severe left uncovertebral joint hypertrophy. There is mild right a nd severe left facet joint hypertrophy. There is mild right and severe left neural foraminal stenosis . There is no central canal stenosis. C5-C6: There is mild right and severe left uncovertebral joint hypertrophy. There is mild bilateral f acet joint hypertrophy. There is mild left neural foraminal stenosis. There is no central canal steno sis. C6-C7: There is mild bilateral uncovertebral joint hypertrophy. There is mild right and moderate left facet joint hypertrophy. There is mild bilateral neural foraminal stenosis. There is no central swapnil l stenosis. C7-T1: There is no uncovertebral joint osteoarthritis. There is severe bilateral facet joint osteoart hritis. There is mild bilateral neural foraminal stenosis. There is no central canal stenosis. IMPRESSION: 1. No fracture. 2. Anterior fusion from C3 to C7. 3. Moderate cervical spondylosis. Reviewed, dictated and finalized at location A.
--- NOTE | ~2023-02-27 | XR_ITS ---
EXAMINATION: XR shoulder RT min 2V DATE: 02/27/2023 15:45 INDICATION: Right shoulder pain. TECHNIQUE: 3 views of right shoulder were obtained. COMPARISON: None. FINDINGS: Bone alignment is normal. No acute fracture. There are old healed right rib fractures. Ther e is severe osteoarthritis of glenohumeral joint and acromioclavicular joint. There are changes of an terior fusion procedures in cervical spine. IMPRESSION: 1. Polyarticular osteoarthritis. Reviewed, dictated and finalized at location A.
[2023-02-27 15:03] VITALS: BP 155/80; PULSE 98; RESP 18; O2SAT 100
--- NOTE | 2023-02-27 15:21 | ED.FALL ---
HPI - Fall General Chief Complaint: Extremity Injury, Upper Stated Complaint: SHOULDER PAIN Time Seen by Provider: 02/27/23 15:21 Source: patient Mode of arrival: ambulatory History of Present Illness HPI Narrative: 77-year-old female with a history of GERD, anemia, diabetes mellitus, osteoporosis, pulmonary embolism stress incontinence, VICKIE, status post C-spine surgery, status post lumbar spine surgery, status post bilateral knee replacements, presents to the ER --after she had a fall 5 days ago. no loss of consciousness. No head injury. No ENT bleeding. -- Developed progressive worsening right shoulder pain. No prior history of shoulder problems. -- neck pain. MD complaint: fall Onset (ago): day(s) ( Five days ago) Fall from: standing Fall witnessed: no Place fall occurred: home Loss of consciousness: none Prolonged down time: no Symptoms prior to fall: none Context: tripped/slipped Location of injury: neck and other ( right shoulder) Location of injury - extremities: Right: shoulder Associated symptoms (after fall): denies and neck pain Related Data Home Medications Medication Instructions Recorded Confirmed escitalopram oxalate 20 mg tablet 20 mg PO DAILY 06/06/20 02/27/23 insulin syringe-needle U-100 0.3 #10 ea 06/06/20 02/27/23 mL 31 gauge x 5/16 rkciol-jtrtszed-mlsejkw 1 cap PO TID 06/06/20 02/27/23 24,000-76,000-120,000 unit capsule,delayed rel (Creon) metformin 1,000 mg tablet 1,000 mg PO BID 06/06/20 02/27/23 insulin aspar prot-insulin aspart 30 unit subcut BID 06/27/20 02/27/23 100 unit/mL (70-30) subcutaneous pen (Novolog Mix 70-30FlexPen U-100) ropinirole 1 mg tablet 1 mg PO HS 12/15/20 02/27/23 diltiazem HCl 240 mg 240 mg PO DAILY 09/01/22 02/27/23 capsule,extended release 24 hr, controlled (DILT-XR) docusate sodium 100 mg capsule 100 mg PO DAILY 09/01/22 02/27/23 lansoprazole 30 mg capsule,delayed 30 mg PO DAILY 09/01/22 02/27/23 release lisinopril 10 mg tablet 10 mg PO DAILY 09/01/22 02/27/23 mirabegron 50 mg tablet,extended 50 mg PO DAILY 09/01/22 02/27/23 release 24 hr (Myrbetriq) montelukast 10 mg tablet 10 mg PO DAILY 09/01/22 02/27/23 alendronate 70 mg tablet 70 mg PO WEEKLY 02/04/23 02/27/23 calcitonin (salmon) 200 1 spray intranasal DAILY 02/04/23 02/27/23 unit/actuation nasal spray lidocaine 5 % topical patch 1 patch topical BID PRN Pain 02/04/23 02/27/23 (Scale Score 4-6) meloxicam 15 mg tablet 15 mg PO DAILY 02/04/23 02/27/23 gabapentin 300 mg capsule 600 mg PO TID 02/27/23 02/27/23 Allergies Allergy/AdvReac Type Severity Reaction Status Date / Time aspirin Allergy Unknown Verified 02/27/23 15:04 codeine Allergy Unknown Verified 02/27/23 15:04 Review of Systems Review of Systems: All systems reviewed & are unremarkable except as noted in HPI and below Constitutional: Constitutional: Reports as per HPI and Reports no additional constitutional complaints Eyes: Eyes: Reports as per HPI and Reports no additional eye complaints ENT: Reports system reviewed and no additional complaints, except as documented and Reports as per HPI Cardiovascular: Cardiovascular: Reports as per HPI and Reports no additional cardiovascular complaints Respiratory: Respiratory: Reports as per HPI and Reports no additional respiratory complaints Gastrointestinal: Gastrointestinal: Reports as per HPI and Reports no additional gastrointestinal complaints Genitourinary: Genitourinary: Reports no additional female genitourinary complaints and Reports as per HPI Musculoskeletal: Musculoskeletal: Reports no additional musculoskeletal complaints and Reports as per HPI Comments: right shoulder pain with decreased range of motion neck pain with decreased range of motion. Integumentary/Breasts: Skin/Breast: Reports system reviewed and no additional complaints, except as docu and Reports as per HPI Neurologic: Reports system reviewed and no additional complaints
[2023-02-27 16:20] VITALS: BP 142/78; PULSE 88; RESP 18; O2SAT 98
[2023-02-27] MEDS: traMADol HCL (*CRX) 50 MG TABLET PO (16:28)
== END 2023-02-27 16:29 | disposition home or self-care (01) ==
PROVIDERS: Emergency Provider Internal Medicine Critical Care Medicine; PCP Physician Assistant
DX: M47.812 Spondylosis without myelopathy or radiculopathy, cervical region (principal); M19.011 Primary osteoarthritis, right shoulder; E11.9 Type 2 diabetes mellitus without complications; Z86.711 Personal history of pulmonary embolism; Z79.4 Long term (current) use of insulin; Z79.899 Other long term (current) drug therapy; Z87.891 Personal history of nicotine dependence; W01.0XXA Fall on same level from slipping, tripping and stumbling without subsequent striking against object, initial encounter; Y92.009 Unspecified place in unspecified non-institutional (private) residence as the place of occurrence of the external cause
CPT/HCPCS: 72125; 73030; 99284; A9270

== ENCOUNTER 2023-03-06 15:09 | Emergency (ER) | payer MEDICARE, MEDICAID, SELFPAY ==
--- NOTE | ~2023-03-06 | CT_ITS ---
EXAMINATION: CT cervical spine wo con DATE: 03/06/2023 15:53 INDICATION: Neck pain, head injury TECHNIQUE: Computed tomography (CT) of the cervical spine was performed without intravenous contrast. The dose-length product (DLP) was 537.28 mGy-cm. Automated exposure control and iterative reconstruc tion technique were employed. COMPARISON: 02/27/2023 FINDINGS: There are changes of anterior fusion and laminectomy from C3 through C6. There is interbody fusion of C6-7. Bone alignment is normal. There is no cervical spine fracture. A stable mild william vasiliy deformity of T2 is again noted. The odontoid process is intact. The prevertebral soft tissues ar e normal. IMPRESSION: 1. Surgical changes and moderate cervical spondylosis without acute findings or significant interval change. Reviewed, dictated and finalized at location B.
--- NOTE | ~2023-03-06 | CT_ITS ---
EXAMINATION: CT brain wo con INDICATION: Head injury COMPARISON: 02/04/2023 TECHNIQUE: Standard unenhanced head CT. The dose-length product (DLP) was 681.00 mGy-cm. The mA was a djusted according to patient size. Iterative reconstruction technique was employed. FINDINGS: There is a left parietal scalp hematoma. No acute intraparenchymal hemorrhage. No evidence of mass lesion. No evidence of acute infarction. 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 There is mild periventricular and subcortical hypodensity probably related to small vessel isc hemic disease. There is mild prominence of the sulci and ventricles related to cerebral atrophy. Intr acranial calcified cerebral atherosclerosis is noted. No extra-axial collections. No mass effect or m idline shift. Changes in the globes are likely from ocular lens surgery. The visualized sinuses and m astoid air cells are well aerated. IMPRESSION: 1. Left parietal scalp hematoma without acute intracranial abnormality. 2. Age related findings. Reviewed, dictated and finalized at location B.
--- NOTE | ~2023-03-06 | CT_ITS ---
EXAMINATION: CT chest high resolution wo az DATE: 03/06/2023 15:53 INDICATION: Left-sided chest pain TECHNIQUE: Computed tomography (CT) of the chest was performed without intravenous contrast. The dose -length product (DLP) was 775.13 mGy-cm. Automated exposure control and iterative reconstruction tech [employer] were employed. COMPARISON: 02/04/2023 FINDINGS: There is a acute, nondisplaced posterolateral fracture of the left ninth rib. Healed bilate ral rib fractures are noted. No pathologically enlarged thoracic lymph nodes are identified. The hear t size is normal. No pleural effusion or pneumothorax. There is dependent atelectasis of the lungs. T here are changes of cholecystectomy with chronic pneumobilia noted. There are bridging osteophytes at multiple levels in the spine, consistent with diffuse idiopathic skeletal hyperostosis (DISH). There is moderate osteoarthritis of the glenohumeral joints. Calcified loose bodies are noted in the right shoulder. IMPRESSION: 1. Acute, nondisplaced posterolateral fracture of the left ninth rib. Reviewed, dictated and finalized at location B.
--- NOTE | 2023-03-06 15:10 | ED.FALL ---
HPI - Fall General Chief Complaint: Fall Stated Complaint: Fall/head neck rib pain Time Seen by Provider: 03/06/23 15:10 Source: patient and RN notes reviewed Mode of arrival: ambulatory Limitations: no limitations History of Present Illness HPI Narrative: Patient states that she was walking in her house with a walker when the walker slipped away from her. She fell onto her left ribs and then the back of her head on the dresser. She had no loss of consciousness. She was able to walk to her car. She has an abrasion on her left knee. She denies any dizziness or confusion. MD complaint: fall Onset (ago): minute(s) (5) Fall from: standing Fall witnessed: no Place fall occurred: home Loss of consciousness: none Prolonged down time: no Symptoms prior to fall: none Context: tripped/slipped Location of injury: head and chest Location of injury - extremities: Left: lower leg (knee) Severity: moderate Quality: dull, aching and throbbing Associated symptoms (after fall): denies Related Data Home Medications Medication Instructions Recorded Confirmed escitalopram oxalate 20 mg tablet 20 mg PO DAILY 06/06/20 02/27/23 insulin syringe-needle U-100 0.3 #10 ea 06/06/20 02/27/23 mL 31 gauge x 5/16 cskxlk-ocpzswri-mlbekfc 1 cap PO TID 06/06/20 02/27/23 24,000-76,000-120,000 unit capsule,delayed rel (Creon) metformin 1,000 mg tablet 1,000 mg PO BID 06/06/20 02/27/23 insulin aspar prot-insulin aspart 30 unit subcut BID 06/27/20 02/27/23 100 unit/mL (70-30) subcutaneous pen (Novolog Mix 70-30FlexPen U-100) ropinirole 1 mg tablet 1 mg PO HS 12/15/20 02/27/23 diltiazem HCl 240 mg 240 mg PO DAILY 09/01/22 02/27/23 capsule,extended release 24 hr, controlled (DILT-XR) docusate sodium 100 mg capsule 100 mg PO DAILY 09/01/22 02/27/23 lansoprazole 30 mg capsule,delayed 30 mg PO DAILY 09/01/22 02/27/23 release lisinopril 10 mg tablet 10 mg PO DAILY 09/01/22 02/27/23 mirabegron 50 mg tablet,extended 50 mg PO DAILY 09/01/22 02/27/23 release 24 hr (Myrbetriq) montelukast 10 mg tablet 10 mg PO DAILY 09/01/22 02/27/23 alendronate 70 mg tablet 70 mg PO WEEKLY 02/04/23 02/27/23 calcitonin (salmon) 200 1 spray intranasal DAILY 02/04/23 02/27/23 unit/actuation nasal spray lidocaine 5 % topical patch 1 patch topical BID PRN Pain 02/04/23 02/27/23 (Scale Score 4-6) meloxicam 15 mg tablet 15 mg PO DAILY 02/04/23 02/27/23 gabapentin 300 mg capsule 600 mg PO TID 02/27/23 02/27/23 Allergies Allergy/AdvReac Type Severity Reaction Status Date / Time aspirin Allergy Unknown Verified 02/27/23 15:04 codeine Allergy Unknown Verified 02/27/23 15:04 Review of Systems Review of Systems: All systems reviewed & are unremarkable except as noted in HPI and below PMFSH Past Medical History Medical History Acid reflux Acute on chronic blood loss anemia Blood thinned due to long-term anticoagulant use Diabetes Glaucoma Iron deficiency anemia Obstructive sleep apnea No longer using CPAP due to it causing dry mouth Osteoporosis Pulmonary embolism Stress incontinence Surgical History Surgical History H/O dilation and curettage H/O total hysterectomy History of back surgery History of bilateral cataract extraction History of open reduction and internal fixation (ORIF) procedure Left hip History of total bilateral knee replacement History of tubal ligation Hx of appendectomy Family History Family History Unknown No problems noted. Other Adopted Unknown family medical history Social History Social History (Updated 03/06/23 @ 15:18 by John Paul Gamboa MD) Social History: Primary care physician: Dr. Remberto Mathis Code status: Full code no advance directives in place Surrogate decision maker: Quin Villagran (daughter) Smoking status
[2023-03-06 15:12] VITALS: BP 139/71; PULSE 86; RESP 20; TEMP 36.7; O2SAT 97
[2023-03-06 16:27] VITALS: BP 145/79; PULSE 82; RESP 20; TEMP 36.9; O2SAT 97
== END 2023-03-06 16:29 | disposition home or self-care (01) ==
PROVIDERS: Emergency Provider Emergency Medicine; PCP Physician Assistant
DX: S22.32XA Fracture of one rib, left side, initial encounter for closed fracture (principal); E11.9 Type 2 diabetes mellitus without complications; Z86.711 Personal history of pulmonary embolism; Z87.891 Personal history of nicotine dependence; W01.190A Fall on same level from slipping, tripping and stumbling with subsequent striking against furniture, initial encounter; Y92.009 Unspecified place in unspecified non-institutional (private) residence as the place of occurrence of the external cause
CPT/HCPCS: 70450; 71250; 72125; 99284

== ENCOUNTER 2023-04-03 11:47 | Emergency (ER) | payer MEDICARE, MEDICAID, SELFPAY ==
--- NOTE | 2023-04-03 11:49 | ED.NAVMDI ---
HPI - Nausea/Vomiting/Diarrhea General Chief complaint: Nausea/Vomiting/Diarrhea Stated complaint: diarrhea Time Seen by Provider: 04/03/23 11:49 Source: patient Mode of arrival: wheelchair Limitations: no limitations History of Present Illness HPI Narrative: 78-year-old female with a history of ex smoking,GERD, anemia, diabetes mellitus, osteoporosis, pulmonary embolism, stress incontinence, VICKIE, status post spine surgery presents to the ER with a 2 day history of -- multiple episodes of diarrhea. No vomiting. No abdominal pain. No fever. Patient has been having adequate urine output. Patient has not had antibiotics recently. Patient denies any other complaints. MD elicited complaint: diarrhea Onset (ago): day(s) ( Two days) Description of vomiting: watery Description of diarrhea: watery Associated nausea: No Associated abdominal pain: No Location of pain: none Exacerbating factors: none Relieving factors: none Associated symptoms: denies other symptoms Related Data Home Medications Medication Instructions Recorded Confirmed escitalopram oxalate 20 mg tablet 20 mg PO DAILY 06/06/20 02/27/23 insulin syringe-needle U-100 0.3 #10 ea 06/06/20 02/27/23 mL 31 gauge x 5/16 shaend-airclyzq-bqrdjsz 1 cap PO TID 06/06/20 02/27/23 24,000-76,000-120,000 unit capsule,delayed rel (Creon) metformin 1,000 mg tablet 1,000 mg PO BID 06/06/20 02/27/23 insulin aspar prot-insulin aspart 30 unit subcut BID 06/27/20 02/27/23 100 unit/mL (70-30) subcutaneous pen (Novolog Mix 70-30FlexPen U-100) ropinirole 1 mg tablet 1 mg PO HS 12/15/20 02/27/23 diltiazem HCl 240 mg 240 mg PO DAILY 09/01/22 02/27/23 capsule,extended release 24 hr, controlled (DILT-XR) docusate sodium 100 mg capsule 100 mg PO DAILY 09/01/22 02/27/23 lansoprazole 30 mg capsule,delayed 30 mg PO DAILY 09/01/22 02/27/23 release lisinopril 10 mg tablet 10 mg PO DAILY 09/01/22 02/27/23 mirabegron 50 mg tablet,extended 50 mg PO DAILY 09/01/22 02/27/23 release 24 hr (Myrbetriq) montelukast 10 mg tablet 10 mg PO DAILY 09/01/22 02/27/23 alendronate 70 mg tablet 70 mg PO WEEKLY 02/04/23 02/27/23 calcitonin (salmon) 200 1 spray intranasal DAILY 02/04/23 02/27/23 unit/actuation nasal spray lidocaine 5 % topical patch 1 patch topical BID PRN Pain 02/04/23 02/27/23 (Scale Score 4-6) meloxicam 15 mg tablet 15 mg PO DAILY 02/04/23 02/27/23 gabapentin 300 mg capsule 600 mg PO TID 02/27/23 02/27/23 Allergies Allergy/AdvReac Type Severity Reaction Status Date / Time aspirin Allergy Unknown Verified 02/27/23 15:04 codeine Allergy Unknown Verified 02/27/23 15:04 Review of Systems Review of Systems: All systems reviewed & are unremarkable except as noted in HPI and below Constitutional: Constitutional: Reports as per HPI and Reports no additional constitutional complaints Eyes: Eyes: Reports as per HPI and Reports no additional eye complaints ENT: Reports system reviewed and no additional complaints, except as documented and Reports as per HPI Cardiovascular: Cardiovascular: Reports as per HPI and Reports no additional cardiovascular complaints Respiratory: Respiratory: Reports as per HPI and Reports no additional respiratory complaints Gastrointestinal: Gastrointestinal: Reports as per HPI, Reports no additional gastrointestinal complaints and Reports diarrhea Genitourinary: Genitourinary: Reports no additional female genitourinary complaints Musculoskeletal: Musculoskeletal: Reports no additional musculoskeletal complaints, Reports as per HPI and Reports arthralgias Integumentary/Breasts: Skin/Breast: Reports system reviewed and no additional complaints, except as docu and Reports as per HPI Neurologic: Reports system reviewed and no additional complaints, except as documented and Reports as per HPI Psychiatric: Psychiatric: Reports no additional psychiatric complaints and Reports as per HPI Endocrine: Endocrine: Reports no additional e
[2023-04-03 12:00] VITALS: BP 149/66; PULSE 78; RESP 18; TEMP 36.7; O2SAT 93
[2023-04-03] MEDS: LACTATED RINGERS 1,000 ML 999 ML IV CONT (12:08)
[2023-04-03 12:30] LABS: Basophils Absolute Auto 0.02 K/mm3 (0.00-0.10); Basophils Percent Auto 0.4 % (0.0-1.0); Eosinophils Absolute Auto 0.08 K/mm3 (0.02-0.50); Eosinophils Percent Auto 1.7 % (1.0-6.0); Hematocrit 30.1 % (35.0-42.0); Hemoglobin 10.4 g/dL (11.7-13.8); Immature Granulocyte Absolute 0.02 K/mm3 (0.00-0.00); Immature Granulocyte Percent A 0.4 % (0.0-0.0); Lymphocytes Absolute Auto 1.84 K/mm3 (1.10-4.50); Lymphocytes Percent Auto 39.1 % (18.0-42.0); Mean Corpuscular HGB Conc 34.6 g/dL (32.0-36.0); Mean Corpuscular Hemoglobin 34.8 pg (27.0-31.0); Mean Corpuscular Volume 100.7 fL (78.0-102.0); Mean Platelet Volume 8.7 fl (9.2-11.8); Monocytes Absolute Auto 0.37 K/mm3 (0.10-0.90); Monocytes Percent Auto 7.9 % (2.0-11.0); Neutrophils Absolute Auto 2.4 K/mm3 (1.7-7.2); Neutrophils Percent Auto 50.5 % (50.0-70.0); Platelet Count Result 165 K/mm3 (150-420); Red Blood Count 2.99 M/mm3 (4.20-5.40); Red Cell Distribution Width 12.4 % (11.6-14.4); White Blood Count 4.7 K/mm3 (4.8-10.8)
[2023-04-03 12:45] LABS: Alanine Aminotransferase 23 U/L (14-59); Albumin Level 3.2 g/dL (3.4-5.0); Alkaline Phosphatase 119 U/L (46-116); Anion Gap 13 mmol/L (8-16); Aspartate Amino Transferase 14 U/L (15-37); Bilirubin,Total 0.3 mg/dL (0.00-1.00); Blood Urea Nitrogen 12 mg/dL (7-18); Calcium 8.8 mg/dL (8.5-10.1); Carbon Dioxide 24 mmol/L (21-32); Chloride 105 mmol/L (98-108); Estimated CRCL calculation 42 ml/min; Estimated Glomerular Filt Rate 49; Glucose 125 mg/dL (70-99); Osmolality Calculated 294 mOsm/kg (285-295); Potassium 4.3 mmol/L (3.5-5.1); Sodium 142 mmol/L (136-145); Total Protein 6.6 g/dL (6.4-8.2)
[2023-04-03 12:46] LABS: Lipase 25 U/L (16-77)
[2023-04-03 12:48] LABS: Lactic Acid Reflex 2.7 mmol/L (0.4-2.0)
[2023-04-03 13:42] VITALS: BP 108/89; PULSE 64; RESP 18; TEMP 36.7; O2SAT 94
--- NOTE | 2023-04-03 13:43 | PC.NURSE ---
1300 pt resting eyes closed, family at bedside. awaiting lab results
[2023-04-03 14:25] VITALS: BP 116/44; PULSE 74; RESP 20; TEMP 36.8; O2SAT 97
[2023-04-03 14:43] LABS: Reflex Lactic Acid Yes or No No Lactic Reflex
--- NOTE | 2023-04-04 13:33 | PC.NURSE ---
FINAL STOOL CULTURE REPORT: C. DIFFICILE ANTIGEN: NEGATIVE AND C. DIFFICILE TOXIN: NEGATIVE. NO FURTHER TREATMENT OR ACTION NEEDED.
== END 2023-04-03 14:34 | disposition home or self-care (01) ==
PROVIDERS: Emergency Provider Internal Medicine Critical Care Medicine; PCP Internal Medicine
DX: R19.7 Diarrhea, unspecified (principal); D64.9 Anemia, unspecified; E11.9 Type 2 diabetes mellitus without complications; Z79.4 Long term (current) use of insulin; Z86.711 Personal history of pulmonary embolism; Z87.891 Personal history of nicotine dependence
CPT/HCPCS: 36415; 80053; 83605; 83690; 85025; 87324; 96360; 99283; J7120

== ENCOUNTER 2024-01-03 12:39 | Emergency (ER) | payer MEDICARE, MEDICAID, SELFPAY ==
--- NOTE | ~2024-01-03 | CT_ITS ---
EXAMINATION: CT cervical spine wo con DATE: 01/03/2024 13:32 INDICATION: Neck pain post fall with head injury TECHNIQUE: Computed tomography (CT) of the cervical spine was performed without intravenous contrast. Automated exposure control and iterative reconstruction technique were employed. The dose-length pro duct was 514.05 mGy-cm. COMPARISON: 03/06/2023 FINDINGS: Severe osteoarthritis at the atlantoaxial articulation. Straightening of the normal cervical lordosis with stable appearance of an instrumented C3-C6 anterior spinal fusion with anterior plate and screw fixation. Associated C3-C6 laminectomies for posterior decompression. Age-indeterminate C7 compressi on fracture with 20% anterior to central vertebral body height loss which is new since the prior stud y. Unchanged minimal anterior wedging at T2 with Schmorl's node along the superior endplate. No other fractures identified. Moderate to severe disc height loss at C6-C7. Multilevel cervical and upper th oracic facet osteoarthritis, severe at the left side of the lower cervical and upper thoracic spine a nd otherwise moderate but with chronic fusion the margins of the bilateral facet joints from C3-C7. U nchanged mild central canal stenosis at C6-C7. Moderate to severe neural foraminal stenosis on the le ft at C4-C5 and moderate neural from stenosis on the left at C3-C4, C5-C6 and C6-C7. Mild neural from stenosis at the remaining cervical levels. Cervical soft tissues are unremarkable. There is mild ezra undglass opacities in the bilateral upper lungs which could represent atelectasis, pneumonia or mild pulmonary edema. IMPRESSION: 1. Age-indeterminate mild C7 compression fracture which is new since 03/06/2023. 2. Moderate to severe cervical spondylosis with C3-C6 laminectomies and instrumented anterior spinal fusion. Reviewed, dictated and finalized at location A. IMPRESSION: 1. Age-indeterminate mild C7 compression fracture which is new since 03/06/2023. 2. Moderate to severe cervical spondylosis with C3-C6 laminectomies and instrum ented anterior spinal fusion.
--- NOTE | ~2024-01-03 | CT_ITS ---
EXAMINATION: CT brain wo con DATE: 01/03/2024 13:31 INDICATION: Right-sided headache post fall TECHNIQUE: Computed tomography (CT) of the head was performed without intravenous contrast. Sagittal and coronal reconstructions were performed. The mA was adjusted according to patient size. Iterative reconstruction technique was employed. The dose-length product was 605.33 mGy-cm. COMPARISON: head CT dated 03/06/2023 FINDINGS: No fracture. Old lacunar infarct at the right frontal lobe garcia radiata. There is moderate scattere d white matter hypoattenuation consistent with chronic small vessel ischemic disease. No acute intra cranial hemorrhage, acute infarction or abnormal extra axial fluid collection. Ventricles are normal and symmetric. No mass/mass effect. Changes of bilateral intraocular lens replacement. The orbits, pa ranasal sinuses and mastoid air cells are normal. IMPRESSION: 1. No fracture or acute intracranial process. 2. Small old lacunar infarct in the right frontal lobe garcia radiata with additional moderate scatte red white matter hypoattenuation consistent with chronic small vessel ischemic disease. Reviewed, dictated and finalized at location A. IMPRESSION: 1. No fracture or acute intracranial process. 2. Small old lacunar infarct in the right frontal lobe garcia radiata with khadijah tional moderate scattered white matter hypoattenuation consistent with chronic small vessel ischemic disease.
--- NOTE | ~2024-01-03 | XR_ITS ---
Right Shoulder Technique: AP and scapular Y views were obtained. Clinical History: Pain Findings: No fracture or dislocation is seen. Osseous alignment is anatomic. The mild degenerative ch lisbeth of the glenohumeral and AC joints. Soft tissues are unremarkable. Impression: Mild degenerative change, as above. Reviewed, dictated and finalized at location . Impression: Mild degenerative change, as above.
--- NOTE | ~2024-01-03 | CT_ITS ---
EXAMINATION: CT thoracic lumbar wo con DATE: 01/03/2024 13:32 INDICATION: Thoracic and lumbar back pain post fall TECHNIQUE: High resolution computed tomography (CT) of the thoracic and lumbar spine was performed wi thout intravenous contrast. Additional sagittal and coronal reconstructions were performed. Automated exposure control and iterative reconstruction technique were employed. The dose-length product was 2 166.55 mGy-cm. COMPARISON: Cervical spine CT and chest CT both dated 03/06/[address] chest, abdomen and pelvis date d 02/04/2023 FINDINGS: Thoracic spine: Unchanged mild upper thoracic levocurvature. Sagittal alignment is normal. C3-C6 laminectomies with i nstrumented anterior spinal fusion with anterior plate and screw fixation. Age-indeterminate mild C7 compression fracture which is new since the prior study. See separate cervical spine CT report for fu rther detail. Unchanged chronic mild superior endplate compression fracture at T2. There is an additi onal age-indeterminate mild superior endplate compression fracture at T1 which is new since the prior studies. Remaining thoracic vertebral body heights are normal. There is multilevel mild disc height loss throughout the mid to lower thoracic spine with bridging osteophytes at multiple levels consiste nt with diffuse idiopathic skeletal hyperostosis (DISH). No central canal stenosis. Multilevel modera te to severe thoracic facet osteoarthritis contributing to mild to moderate neural from stenosis thro ughout the thoracic spine. Calcified right lower lobe nodule consistent with old granulomatous diseas e. Reticular and groundglass opacities in the visualized dependent lungs most prominent in the lower lobes where there appears be associated volume loss and favor atelectasis over pneumonia or pulmonary edema. Lumbar spine: 5 mm anterolisthesis L4 on L5. Stable appearance of a chronic L2 burst fracture with fusion across th e margins of the centrally widened L1-L2 disc space. There is 4 mm retropulsion resulting in mild enedina tral canal stenosis at this level. Unchanged chronic superior endplate compression fractures with mil d central endplate depression at L4 and L5. No acute fractures identified. L4 and L5 laminectomies wi th combined instrumented L3-L5 anterior and posterior spinal fusion with bilateral vertical remy and p edicle screw fixation posteriorly and with interbody bone graft cages at L3-L4 and L4-L5. Methylmetha crylate is seen in the L3-L5 vertebral bodies along all but the right L4 pedicle screw tracks. The di sc spaces remain unfused. There is fusion across the left L4-L5 facet joints. Severe osteoarthritis a t the still unfused bilateral L3-L4 and right L4-L5 facet joints. There is posterior fusion without i nstrumentation at the bilateral L5-S1 facet joints. Central widening of the L2-L3 disc space resultin g from a chronic L2 burst fracture. Associated disc bulge contributing to mild central canal stenosis at this level. There is also mild central canal stenosis at L3-L4 resulting primarily from hypertrop hic facet osteophytes. There is also moderate neural foraminal stenosis on the bilaterally at L3-L4 a nd L4-L5 with mild neural from stenosis remaining lumbar levels. Moderate osteoarthritis at the bilat eral sacroiliac joints. Paravertebral soft tissues are unremarkable. IMPRESSION: 1. Age-indeterminate mild compression fractures at C7 and T1 which are new since 03/06/2023. Unchanged chronic mild T2 compression fracture and moderate L2 burst fracture. 2. Stable appearance of chronic postoperative changes in the lower lumbar spine including L4 and L5 l aminectomies and combined instrumented L3-L5 anterior and posterior spinal fusion which remain largel y without solid osseous fusion. 3. Thoracic and lumbar spondylosis with relatively mild degenerative disc disease but with extensive moderate to severe facet osteoarthritis.
[2024-01-03 12:43] VITALS: BP 165/89; PULSE 81; RESP 26; TEMP 36.7; O2SAT 99
--- NOTE | 2024-01-03 12:46 | ED.FALL ---
HPI - Fall General Chief Complaint: Fall Stated Complaint: fall head injury Time Seen by Provider: 01/03/24 12:40 Source: patient and family Mode of arrival: EMS Limitations: no limitations History of Present Illness HPI Narrative: Patient is a 78-year-old female with a significant past medical history presents today for I fall. Patient fell and tripped and fell down her right side she hit her head hurt her cervical spine her right shoulder. She also has a history of a spinal fusion for lumbar spine and this is also hurting her as well. She states she has an odd pain and says the pain is has 10 and she is mowing very loudly. complaint: fall Onset (ago): hour(s) Fall from: standing Fall witnessed: yes, by family Place fall occurred: home Loss of consciousness: none Prolonged down time: no Symptoms prior to fall: none Context: tripped/slipped Location of injury: head and neck Location of injury - extremities: Right: shoulder Severity: severe Related Data Home Medications Medication Instructions Recorded Confirmed escitalopram oxalate 20 mg tablet 20 mg PO DAILY 06/06/20 01/03/24 insulin syringe-needle U-100 0.3 #10 ea 06/06/20 01/03/24 mL 31 gauge x 5/16 metformin 1,000 mg tablet 1,000 mg PO BID 06/06/20 01/03/24 ropinirole 1 mg tablet 1 mg PO HS 12/15/20 01/03/24 diltiazem HCl 240 mg 240 mg PO DAILY 09/01/22 01/03/24 capsule,extended release 24 hr, controlled (DILT-XR) docusate sodium 100 mg capsule 100 mg PO DAILY 09/01/22 01/03/24 lansoprazole 30 mg capsule,delayed 30 mg PO DAILY 09/01/22 01/03/24 release lisinopril 10 mg tablet 10 mg PO DAILY 09/01/22 01/03/24 mirabegron 50 mg tablet,extended 50 mg PO DAILY 09/01/22 01/03/24 release 24 hr (Myrbetriq) montelukast 10 mg tablet 10 mg PO DAILY 09/01/22 01/03/24 alendronate 70 mg tablet 70 mg PO WEEKLY 02/04/23 01/03/24 meloxicam 15 mg tablet 15 mg PO DAILY 02/04/23 01/03/24 gabapentin 300 mg capsule 600 mg PO TID 02/27/23 01/03/24 albuterol sulfate 90 mcg/actuation 2 inh inhalation Q4H PRN Shortness 01/03/24 01/03/24 aerosol inhaler (Ventolin HFA) Of Breath buspirone 5 mg tablet 5 mg PO BID 01/03/24 01/03/24 fluticasone fur. 200 mcg-umeclid 1 inh inhalation DAILY 01/03/24 01/03/24 62.5 mcg-vilant 25 mcg inhalat.powder (Trelegy Ellipta) insulin lispro 100 unit/mL 30 unit subcut QACBREAK 01/03/24 01/03/24 subcutaneous pen (Humalog KwikPen (U-100) Insulin) insulin lispro 100 unit/mL 35 unit subcut QACDINNER 01/03/24 01/03/24 subcutaneous pen (Humalog KwikPen (U-100) Insulin) insulin lispro protamine-lispro 35 unit subcut BID 01/03/24 01/03/24 100 unit/mL (75-25) subcutaneous pen (Humalog Mix 75-25 KwikPen) tramadol 50 mg tablet 50 mg PO Q6H PRN Pain 01/03/24 01/03/24 Allergies Allergy/AdvReac Type Severity Reaction Status Date / Time aspirin Allergy Unknown Verified 01/03/24 13:17 codeine Allergy Unknown Verified 01/03/24 13:17 Review of Systems Review of Systems: All systems reviewed & are unremarkable except as noted in HPI and below Constitutional: Constitutional: Reports as per HPI Eyes: Eyes: Reports no additional eye complaints ENT: Reports system reviewed and no additional complaints, except as documented Cardiovascular: Cardiovascular: Reports no additional cardiovascular complaints Respiratory: Respiratory: Reports no additional respiratory complaints Gastrointestinal: Gastrointestinal: Reports no additional gastrointestinal complaints Genitourinary: Genitourinary: Reports no additional female genitourinary complaints Musculoskeletal: Musculoskeletal: Reports no additional musculoskeletal complaints Integumentary/Breasts: Skin/Breast: Reports system reviewed and no additional complaints, except as docu Neurologic: Reports system reviewed and no additional complaints, except as documented Psychiatric: Psychiatric: Reports no additional psychiatric complaints Endocrine: Endocrine: Reports no additiona
[2024-01-03] MEDS: MORPHINE SULFATE (*CRX) 4 MG/ML INJ 2 MG IM (13:06)
[2024-01-03 13:47] VITALS: BP 130/66; O2SAT 94
[2024-01-03 14:32] VITALS: BP 127/64; PULSE 81; O2SAT 95
== END 2024-01-03 14:32 | disposition home or self-care (01) ==
PROVIDERS: Emergency Provider Family Medicine; PCP Physician Assistant
DX: S12.600A Unspecified displaced fracture of seventh cervical vertebra, initial encounter for closed fracture (principal); E11.9 Type 2 diabetes mellitus without complications; Z79.899 Other long term (current) drug therapy; Z79.4 Long term (current) use of insulin; Z79.891 Long term (current) use of opiate analgesic; Z87.891 Personal history of nicotine dependence; W01.0XXA Fall on same level from slipping, tripping and stumbling without subsequent striking against object, initial encounter; Y92.009 Unspecified place in unspecified non-institutional (private) residence as the place of occurrence of the external cause
CPT/HCPCS: 70450; 72125; 72128; 72131; 73030; 96372; 99284; J2270; L0150

== ENCOUNTER 2024-11-21 19:26 | Outpatient (CLI) | payer MEDICARE, MEDICAID, SELFPAY ==
--- OUTSIDE RECORDS SUMMARY | 2024-11-21 19:31 | XMS_ITS | Clinical Summary ---
Author Organization [facility] Address [address], [facility] [address] [place] [address] Phone Care Team Providers Care Elevator Builder Name Role Phone Remberto Mathis Primary Care Provider [phone] Deena Celis APRN, EMERGENCY NURSE Unavailable Allergies Active Allergy Reactions Criticality Noted Date Comments Aspirin Other (see Comments) 07/01/2017 Codeine Other (see Comments) 07/01/2017 Medications fluticasone (FLONASE) 50 MCG/ACT Suspension 0 8 Active gabapentin (NEURONTIN) 600 MG Tablet Take 600 mg by mouth 3 times daily. Active lisinopril (PRINIVIL, ZESTRIL) 10 MG Tablet Take 10 mg by mouth daily. Active lovastatin (MEVACOR) 20 MG Tablet Take 20 mg by mouth every evening. Active metFORMIN (GLUCOPHAGE) 1000 MG Tablet Take 1,000 mg by mouth 2 times daily (with meals). Active insulin aspart protamine-insuli n aspart (NovoLOG 70/30) (70-30) 100 UNIT/ML Suspension by Subcutaneous route 2 times daily (before meals). Active sucralfate (CARAFATE) 1 GM Tablet Take 1 g by mouth every 6 hours. Active [facility] CALCIUM 600 MG Tablet TAKE 1 TABLET BY MOUTH EVERY DAY AFTER BREAKFAST 0 Active CREON [address] Particles 0 Active albuterol (PROVENTIL, VENTOLIN) (2.5 MG/3ML) 0.083% Nebulizer Soln 2.5 mg by Nebulization route. Active escitalopram (LEXAPRO) 20 MG Tablet Take 20 mg by mouth daily. Active insulin aspart (NovoLOG) 100 UNIT/ML Solution by Subcutaneous route 3 times daily (after meals). Active OneTouch Verio Strip 2 Active meclizine (ANTIVERT) 25 MG Tablet TAKE 1 TABLET BY MOUTH THREE TIMES A DAY NEEDED 2 Active meloxicam (MOBIC) 15 MG Tablet TAKE 1 TABLET BY MOUTH EVERY DAY NEEDED 2 Active Mirabegron ER 50 MG TABLET SR 24 HR Take 50 mg by mouth daily. 30 Tablet 12 3 Active albuterol (Ventolin HFA) 108 (90 Base) MCG/ACT Aerosol SolutionIndicati ons:Mild intermittent asthma without status asthmaticus without complication INHALE 2 PUFFS BY MOUTH EVERY 4 HOURS NEEDED FOR WHEEZE 18 g 5 4 Active montelukast (SINGULAIR) 10 MG TabletIndication s:Mild intermittent asthma without status asthmaticus without complication Take 1 Tablet by mouth daily. 90 Tablet 3 4 Active Fluticasone-Umec lidin-Vilant (Trelegy Ellipta) 200-62.5-25 MCG/ACT AEROSOL POWDER, BREATH ACTIVATEDIndicat ions:Mild intermittent asthma without status asthmaticus without complication take 1 Puff by inhalation daily. 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, right 10/21/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, marginal, right 0 10/21/2017 Encounters Date Type Department Care Team Description 09/22/2024 Refill [facility] - Pulmonology & Sleep Medicine [facility] [address] [place] [address] Deena Celis APRN, RUTH Medication Refill from Last 3 Months Social History Tobacco Use Types Packs/Day Years Used Date Smoking Tobacco: Former Cigarettes 1 5 Smokeless Tobacco: Never Tobacco Cessation:Counseling Given: Not Answered Alcohol Use Standard Drinks/Week Comments Yes 0 (1 standard drink = 0.6 oz pur e alcohol) occasional Sexually Active Control Partners Comments Not Currently Comments No Sex and Gender Information Value Date Recorded Sex Assigned at Not on file Legal Sex Female 10:59 PM CDT Gender Identity Not on file Sexual Orientation Not on file Last Filed Vital Signs Vital Sign Reading Time Taken Comments Blood Pressure 122/74 05/26/2024 9:12 AM SCREEN [employer]ING [employer]ER Pulse 74 05/26/2024 9:12 AM SCREEN [employer] Temperature 36.9 C (98.5 F) 05/26/2024 9:12 AM SCREEN [employer] Respiratory Rate 20 05/26/2024 9:12 AM SCREEN [employer] Oxygen Saturation 95% 05/26/2024 9:12 AM SCREEN [employer] Inhaled Oxygen Concentration - - Weight 96.2 kg (212 lb) 05/26/2024 9:12 AM SCREEN [employer] Height 165.1 cm (5' 5) 05/26/2024 9:12 AM SCREEN [employer] Body Mass Index 35.28 05/26/2024 9:12 AM SCREEN [employer] Plan of Treatment Upcoming Encounters Date Type Department Care Team (Late st Contact Info) Description 11/30/2024 10:00 AM CDT Office Visit [facility] - Pulmonology & Sleep Medicine [facility] [address] [place] [address] Deena Celis APRN, RUTH [address] [address] 12/07/2024 9:30 AM CDT Office Visit [facility] - Gastroenterology [facility] [address] [place] [address] Yanira Luz APRN, RUTH [address] [place] [address] Health Maintenance Due Date Last Done Comments Hepatitis C Virus (HCV) Screening 1945 Zoster Immunization (1 of 2) 1995 Respiratory Syncytial Virus (RSV) Immunization (Adult) (1 - 1-dose 75+ series) 2020 03/14/2024 DEXA Bone Density 12/31/2021 01/01/2020, 01/06/2018 SARS-COV-2 Immunization ( season) 2024 03/14/2024, 04/23/2023, 04/27/2021, Additional history exists Influenza Immunization (Season Ended) 2025 03/14/2024, 03/20/2023, 04/23/2022, Additional history exists Human Papillomavirus (HPV) Immunization Aged Out 03/26/2019 No longer eligible based on patient's age to complete this topic DTaP/Tdap/Td Immunization Discontinued 02/17/2020 TdaP Immunization Completed 02/17/2020 Pneumococcal Immunization (50+ years) Completed 03/20/2023, 03/18/2019, 03/18/2019 Pneumococcal Immunization Combined Discontinued 03/20/2023, 03/18/2019, 03/18/2019 Colonoscopy Discontinued 02/11/2024, 07/31/2023 Colorectal Cancer Screening Discontinued Retired - Colonoscopy High Risk Discontinued 02/11/2024, 07/31/2023 Mammogram Discontinued 07/16/2024 Cologuard Discontinued Hepatitis B Immunization Aged Out No longer eligible based on patient's age to complete this topic Immunochemical Fecal Occult Blood Discontinued Meningococcal Immunization (ACWY) Aged Out No longer eligible based on patient's age to complete this topic Rotavirus Immunization Aged Out No lo nger eligible based on patient's age to complete this topic Insurance [place]ICA[place] MEDICARE C [employer] Advance Directives Documents on File Type Date Recorded Patient Instructor Tap Dancing Expl anation Other Advance Directive 08/30/2021 5:02 PM UROLOGY REFERRAL Care Teams Elevator Builder Relationship Specialty Start Date End Date Remberto Mathis, JUANI [address] [place] [id number] PCP - General Physician Mash Filter Operator 10/21/17 Deena Celis APRN, RUTH [address] [address] Nurse Practitioner Advanced Practice Nurse 05/03/22
--- OUTSIDE RECORDS SUMMARY | 2024-11-21 19:31 | XMS_ITS | Clinical Summary ---
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 Done Comments Albumin Creatinine Ratio, Urine 1945 Hepatitis C Screening 1945 Dilated Eye Exam 1945 Foot Exam 1945 Hepatitis B Screening 1963 Zoster Vaccine (1 of 2) 1995 Lipid Panel 04/24/2005 04/24/2004 Well Visit 65+ 2010 Depression Screening 04/07/2019 04/07/2018 Hemoglobin A1C 09/08/2020 03/11/2020, 08/16, 10/25/2017 Osteoporosis Screening-Bone Density Scan 12/31/2021 01/01/2020, 01/01/2020, 01/06/2018 Covid-19 Vaccine (5 - 4-2 5 season) 2024 04/23/2023, 04/27/2021, 08/31/2020, Additional history exists Fall Risk Assessment 02/10/2025 02/11/2024 Influenza Vaccine (Season Ended) 2025 03/20/2023, 04/23/2022, 02/14/2022, Additional history exists eGFR 10/20/2025 10/20/2024, 06/17, 05/31/2023, Additional history exists DTaP/Tdap/Td Vaccine (2 - Td or Tdap) 02/16/2030 02/17/2020 Pneumococcal vaccine 65+ Completed 023, 03/18/2019, 03/18/2019 Colon Cancer Screening-CT Colonography Discontinued 02/11/2024, 07/31/2023 Colon Cancer Screening-Colonoscopy Discontinued 02/11/2024, 07/31/2023 Colon Cancer Screening-DNA Stool Discontinued 02/11/20 24, 07/31/2023 Colon Cancer Screening-FIT Discontinued 02/11/2024, Colon Cancer Screening-FOBT Discontinued 02/11/2024, 0 07/31/2023 Colon Cancer Screening-Sigmoidoscopy Discontinued 02/11/2024, 07/31/2023 Colorectal Cancer Screening Discontinued Breast Cancer Screening-Mammogram Discontinued 025 Medical Devices Implanted Type 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 Device Identifier Shelf Expiration Date Model / Serial / Lot Dome Patellar Attune Aox H35 Mm Knee Cemented Medialize Sterile - [id number] Implanted:Qty: 1 on 11/05/2017 by Martinez Rosas MD at [facility] Left: Knee Depuy Orthopaed[employer] Inc 08/14/2022 [id number] / / [id number] Dome Patellar Attune Aox H35 Mm Knee Cemented Medialize Sterile - [id number] Implanted:Qty: 1 on 11/05/2017 by Martinez Rosas MD at [facility] Left: Knee [employer] 08/14/2022 [id number] / / [id number] Femoral Cruciate Retaining Implanted:Qty: 1 on 11/05/2017 by Martinez Rosas MD at [facility] Left: Knee Depuy Mitek 12/14/2026 1504-00-105 / 1504-00-105 / [id number] Bsplt Tibial Attune S+ 5 Knee Cement Fix Brng - [id number] Implanted:Qty: 1 on 11/05/2017 by Martinez Rosas MD at [facility] Left: Knee [employer] Inc 04/16/2027 [id number] / / [id number] Cement Bone Smartset Gentamicin 40 Gm High Viscosity - [id number] Implanted:Qty: 1 on 11/05/2017 by Martinez Rosas MD at [facility] Left: Knee [employer] 01/14/2019 [id number] / / [id number] Insert Tibial Attune Aox 5 H7 Mm Knee Cruciate Retaining Fix Bearing Sterile - [id number] Implanted:Qty: 1 on 11/05/2017 by Martinez Rosas MD at [facility] Left: Knee [employer] 12/14/2020 [id number] / / [id number] 1516-20-506 Depuy Attune Tibial Insert Fixed Bearing Cruciate Retaining Size 5 Implanted:Qty: 1 on 09/22/2018 by Martinez Rosas MD at [facility] Right: Knee [employer] Inc [id number] 09/14/2020 1516-20-506 / / [id number] [employer] [id number] [place] R+G High Viscosity Cement Bone Gentamicin Arthroplasty - [id number] Implanted:Qty: 1 on 09/22/2018 by Martinez Rosas MD at [facility] Right: Knee [employer] 01/14/2021 [id number] / / [id number] Depuy Orthopaed[employer] Inc [id number] Attune Cruciate Retain Cementless Knee Right 5 Narrow Component - [id number] Implanted:Qty: 1 on 09/22/2018 by Martinez Rosas MD at [facility] Right: Knee [employer] 08/14/2026 [id number] / / [id number] Depuy Orthopaedics Inc [id number] Attune S+ Cement Fix Bearing Knee 5 Baseplate Tibial - [id number] Implanted:Qty: 1 on 09/22/2018 by Martinez Rosas MD at [facility] Right: Knee [employer] 06/16/2028 [id number] / / [id number] Allosource [id number] Freeze Dried Crushed 1-4mm Graft 15ml Bone Cancellous - [id number] Implanted:Qty: 1 on 03/14/2020 by Jeff Chapman MD at [facility] N/A: Spine Lumbar Allosource 01/20/2023 [id number] / / [id number] Medtronic Sofamor Danek [id number] Infuse 18mm 26mm Absorbable Sponge Sterile Water Syringe Needle - [id number] Implanted:Qty: 1 on 03/14/2020 by Jeff Chapman MD at [facility] N/A: Spine Lumbar Medtronic Inc 12/15/2020 [id number] / / [id number] Medtronic Inc [id number] [place] [id number] Radiopaque Hollow 6d Cage Spinal Peek-Selfridge Latex Free - [id number] Implanted:Qty: 1 on 03/14/2020 by Jeff Chapman MD at [facility] N/A: Spine Lumbar Medtronic Inc 11/26/2026 [id number] / / [id number] Medtronic Sofamor Danek [id number] Infuse 14mm 23mm Absorbable Sponge Sterile Water Syringe Needle - [id number] Implanted:Qty: 1 on 03/18/2020 by Jeff Chapman MD at [facility] N/A: Spine Lumbar Medtronic Inc 02/14/2021 [id number] / / [id number] Confidence High Viscosity Spinal Cement 20g Implanted:Qty: 1 on 03/18/2020 by Jeff Chapman MD at [facility] N/A: Spine Lumbar Depuy Spine 08/14/2020 [id number] / / [id number] Description:Part of kit in [facility] Confidence Spinal Cement System Ref: [id number] Lot: [id number] Exp date: 05-16-2020 Depuy Synthes Spine [id number] Viper Prime Od6 Mm L35 Mm Fix Polyaxial Fenestrate Extend Tab Spine Cortical Screw Bone Nonsterile 5.5 Mm Mc - [id number] Implanted:Qty: 1 on 03/18/2020 by Jeff Chapman MD at [facility] N/A: Spine Lumbar Depuy Synthes Spine [id number] / / Description:L4 right Depuy Synthes Spine [id number] Viper Prime Od6 Mm L50 Mm Fix Polyaxial Fenestrate Extend Tab Spine Cortical Screw Bone Nonsterile 5.5 Mm Mc - [id number] Implanted:Qty: 4 on 03/18/2020 by Jeff Chapman MD at [facility] N/A: Spine Lumbar Depuy Synthes Spine [id number] / / Description:L3 Bilat L5 Bilat Depuy Spine [id number] 5.5mm 1 Inner Spine Screw Set Titanium Nonsterile Viper - [id number] Implanted:Qty: 6 on 03/18/2020 by Jeff Chapman MD at [facility] N/A: Spine Lumbar Depuy Spine [id number] / / Description:L3-4-5 Depuy Spine [id number] Viper 2 70mm Lordotic Mc Spinal Titanium Mis - [id number] Implanted:Qty: 2 on 03/18/2020 by Jeff Chapman MD at [facility] N/A: Spine Lumbar Depuy Spine [id number] / / Description:Lumbar rods bila t L3-L5 Synthes 08.812.009 T-Pal 65e61f6-0.2mm Radiopaque Connection Cylinder Pyramidal - [id number] Implanted:Qty: 1 on 03/18/2020 by Jeff Chapman MD at [facility] N/A: Spine Lumbar Synthes I 08.812.009 / / Description:Lumbar spacer L4 -5 Depuy Synthes Spine [id number] Viper Prime Od6 Mm L45 Mm Fix Polyaxial Fenestrate Extend Tab Spine Cortical Screw Bone Nonsterile 5.5 Mm Mc - [id number] Implanted:Qty: 1 on 03/18/2020 by Jeff Chapman MD at [facility] N/A: Spine Lumbar Depuy Synthes Spine [id number] / / Description:Left 4 Angio-Seal Vip 6fr Closere Device [id number] - [id number] Implanted:Qty: 1 on 11/21/2021 by Mini Lord MD at [facility] 09/14/2022 [id number] / / [id number] Procedures Procedure Name Priority Date/Time Associated Diagnosis Comments XR CHEST PA LATERAL 2 VIEWS Schedule Routine, Read Routine (OP Routine) 11/13/2024 1:04 PM CDT Acute bronchitis due to other specified organisms SURGICAL PATHOLOGY Routine 10/20/2024 10 :50 AM CDT EGFR Routine 10/20/2024 10:50 AM CDT Iron deficiency anemia secondary to inadequate dietary iron intake IMMUNOGLOBULIN FREE LIGHT CHAINS Routine 10/20/2024 10:50 AM CDT Iron deficiency anemia secondary to inadequate dietary iron intake PROTEIN ELECTROPHORESIS, WITH REFLEX, SERUM Routine 10/20/2024 10:50 AM CDT Iron deficiency anemia secondary to inadequate dietary iron intake DIFFERENTIAL AUTO Routine 10/20/2024 10: 50 AM CDT Iron deficiency anemia secondary to inadequate dietary iron intake CBC WITH AUTO DIFFERENTIAL Routine 10/20/2024 10:50 AM CDT Iron deficiency anemia secondary to inadequate dietary iron intake COMPREHENSIVE METABOLIC PANEL Routine 10/20/2024 10:50 AM CDT Iron deficiency anemia secondary to inadequate dietary iron intake FERRITIN Routine 10/20/2024 10:50 AM CDT Iron deficiency anemia secondary to inadequate dietary iron intake IRON PROFILE W/ IBC Routine 10/20/2024 1 0:50 AM CDT Iron deficiency anemia secondary to inadequate dietary iron intake DIAGNOSTIC MAMMOGRAM BILATERAL W YAYO Schedule Routine, Read Routine (OP Routine) 07/16/2024 8:54 AM 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 Nipple discharge in female COLONOSCOPY 02/11/2024 11:38 AM CDT HEMOGLOBIN A1C Routine 03/11/2020 11:30 AM CDT Preoperative testing DEXA AXIAL SKELETON BONE DENSITY 1 OR MORE SITES Schedule Routine, Read Routine (OP Routine) 01/01/2020 10:38 AM CDT Osteopenia of lumbar spine from Last 3 Months or Most Recently Relevant to Health Maintenance Results * XR Chest PA Lateral 2 Views (11/13/2024 1:04 PM CDT) Anatomical Region Laterality Modality Body, Chest N/A Computed Radiogr aphy 11/19/2024 3:10 PM CDT Narrative 11/19/2024 3:10 PM CDT EXAM DESCRIPTION: XR CHEST PA LATERAL 2 VIEWS REASON FOR STUDY: Bronchitis Bronchitis? Dr heard some crackling Diabetic non smoker TECHNIQUE: Frontal and lateral radiographic views of the chest were acquired. COMPARISON: CT 08/06/2024 FINDINGS: LUNGS/PLEURA: Right lung is clear. Mild atelectasis and or infiltrate left lung base. No significant pleural effusion. HEART/MEDIASTINUM: The heart size is normal. Normal mediastinal and hilar contours. LINES/TUBES: None. BONES: No acute findings. OTHER: No other significant finding. IMPRESSION: Mild atelectasis and or infiltrate left lung base. THIS IS AN ELECTRONICALLY VERIFIED FINAL REPORT 11/19/2024 3:10 PM - Electronically signed by Jaime Hall M.D. RW: FARZANA Report ID: [id number] Reading Location: [id number] Procedure Note Jaime Hall MD - 11/19/2024 EXAM DESCRIPTION: XR CHEST PA LATERAL 2 VIEWS REASON FOR STUDY: Bronchitis Bronchitis? Dr heard some crackling Diabetic non smoker TECHNIQUE: Frontal and lateral radiographic views of the chest wereacquired. COMPARISON: CT 08/06/2024 FINDINGS: LUNGS/PLEURA: Right lung is clear. Mild atelectasis and or infiltrateleft lung base. No significant pleural effusion. HEART/MEDIASTINUM: The heart size is normal. Normal mediastinal and hilar contours. LINES/TUBES: None. BONES: No acute findings. OTHER: No other significant finding. IMPRESSION: Mild atelectasis and or infiltrate left lung base. THIS IS AN ELECTRONICALLY VERIFIED FINAL REPORT 11/19/2024 3:10 PM - Electronically signed by Jaime Hall M.D. RW: FARZANA Report ID: [id number] Reading Location: [id number] Remberto FRASER IMG XR PROCEDURES Final Resul t * (ABNORMAL) eGFR (10/20/2024 10:50 AM CDT) eGFR 52(L) >=60 mL/min/1. 73 m2 Comment: Interpretive Data Reference Interval Normal >/= 90 mL/min/1.73m2 Mildly decreased* 60 - 89 mL/min/1.73m2 Mildly to moderately decreased 45 - 59 mL/min/1.73m2 Moderately to severely decreased 30 - 44 mL/min/1.73m2 Severely decreased 15 - 29 mL/min/1.73m2 Kidney Failure < 15 mL/min/1.73m2 *Relative to young adult level Estimated glomerular filtration rate is determined by the 2020 CKD-EPI equation recommended by the National Kidney Foundation (A Unifying Approach to GFR Estimation: Recommendations of the NKF-ASK Task Force on Reassessing the Inclusion of Race in Diagnosing Kidney Disease, JASN 2020). The CKD-EPI equation should not be used for patients with unstable renal function and has not been validated in children and those over 70. Current interpretive data was last reviewed 2021. Testing performed by: [facility], [facility], [place], [address] Blood 10/20/2024 10:5 0 AM CDT 10/20/2024 11:15 AM CDT Jacquelyn Sousa UTILIZATION MANAGEMENT UM NURSE LAB BLOOD ORDERABLES Final Result [facility] ([place]) [facility] Department [place] [address] * Differential, auto (10/20/2024 10:50 AM CDT) Neutrophil abs 2.49 1.50 - 6.50 K/cumm [facility] ([place]) Comment:Testing performed by : [facility] [address], Medical Office [address], [place] [address] Imm gran abs 0.01 0.00 - 0.10 K/cumm [facility] ([place]) Comment:Testing performed by : [facility] [address], Medical Office [facility] [address], [place] [address] Lymphocyte abs 1.98 0.80 - 3.30 K/cumm [facility] ([place]) Comment:Testing performed by : [facility] [address], Medical Office [facility] [address], [place] [address] Monocyte abs 0.36 0.20 - 0.80 K/cumm [facility] ([place]) Comment:Testing performed by : [facility] [address], Medical Office [facility] [address], [place] [address] Eosinophil abs 0.08 0.00 - 0.50 K/cumm [facility] ([place]) Comment:Testing performed by : [facility] [address], Medical Office [facility] [address], [place] [address] Basophil abs 0.02 0.00 - 0.10 K/cumm [facility] ([place]) Comment:Testing performed by : [facility] [address], Medical Office [facility] [address], [place] [address] Neutrophil pct 50.4 % [facility] ([place]) Comment: Interpretive Data Percent cell count reference ranges are not reported, since discordance with absolute values may lead to misinterpretation of CBC data. Current Interpretive Data was last revised on 2022. Testing performed by: [facility] [address], Medical Office [facility] [address], [place] [address] Imm gran pct 0.2 % [facility] ([place]) Comment: Interpretive Data Percent cell count reference ranges are not reported, since discordance with absolute values may lead to misinterpretation of CBC data. Current Interpretive Data was last revised on 2022. Testing performed by: [facility] [address], Medical Office [facility] [address], [place] [address] Lymphocyte pct 40.1 % [facility] ([place]) Comment: Interpretive Data Percent cell count reference ranges are not reported, since discordance with absolute values may lead to misinterpretation of CBC data. Current Interpretive Data was last revised on 2022. Testing performed by: [facility] [address], Medical Office [facility] [address] [facility] [address], [place] [address] Monocyte pct 7.3 % [facility] ([place]) Comment: Interpretive Data Percent cell count reference ranges are not reported, since discordance with absolute values may lead to misinterpretation of CBC data. Current Interpretive Data was last revised on 2022. Testing performed by: [facility] [address], Medical Office [facility] [address] [facility] [address], [place] [address] Eosinophil pct 1.6 % [facility] ([place]) Comment: Interpretive Data Percent cell count reference ranges are not reported, since discordance with absolute values may lead to misinterpretation of CBC data. Current Interpretive Data was last revised on 2022. Testing performed by: [facility] [address], Medical Office [facility] [address] [facility] [address], [place] [address] Basophil pct 0.4 % [facility] ([place]) Comment: Interpretive Data Percent cell count reference ranges are not reported, since discordance with absolute values may lead to misinterpretation of CBC data. Current Interpretive Data was last revised on 2022. Testing performed by: [facility] [address], Medical Office [facility] [address], [place] [address] Blood 10/20/2024 10:5 0 AM CDT 10/20/2024 10:59 AM CDT Jacquelyn Sousa UTILIZATION MANAGEMENT UM NURSE LAB BLOOD ORDERABLES Final Result [facility] ([place]) [facility] Department [place] [address] * (ABNORMAL) Immunoglobulin free light chains (10/20/2024 10:50 AM CDT) Camas/Lambda ratio 1.10 0.26 - 1.65 Comment:Testing performed by : [address] [place]., [address] Camas free light chain 4.55(H) 0.33 - 1.94 mg/dL [facility] ([place]) Comment: Interpretive Data The Yemi Ig Camas FLC assay procedure was used. Results from different manufacturers or methods may not be comparable. Serial testing should be performed using the same method. Testing performed by: [address] [place]., [address] Lambda free light chain 3.98(H) 0.57 - 2.63 mg/dL [facility] ([place]) Comment: Interpretive Data The Yemi Ig Lambda FLC assay procedure was used. Results from different manufacturers or methods may not be comparable. Serial testing should be performed using the same method. Testing performed by: [facility], [address] [place] [address], [place]., [address] Blood 10/20/2024 10:5 0 AM CDT 10/20/2024 2:22 PM CDT us Tino Atkinson MD LAB BLOOD ORDERABLES Carol l Result [facility] ([place]) [address] [facility] Department [place] [address] * Iron profile w/ IBC (10/20/2024 10:50 AM CDT) Iron 68 35 - 145 mcg/dL Comment:Testing performed by : [place], [address] TIBC 332 250 - 400 mcg/dL [facility] ([place]) Comment:Testing performed by : [facility], [facility], [place], [address] Transferrin saturation 20 20 - 50 % [facility] ([place]) Comment:Testing performed by : [place], [address] Blood 10/20/2024 10:5 0 AM CDT 10/20/2024 11:15 AM CDT Jacquelyn Sousa NP LAB BLOOD ORDERABLES Final Result Performing Organization Address City/[facility]/ZIP Co de Phone Number [facility] ([place]) [address] [facility] Department [place] [address] * (ABNORMAL) CBC with auto differential (10/20/2024 10:50 AM CDT) WBC 4.94 3.80 - 9.90 K/cumm [facility] ([place]) Comment:Testing performed by : [facility] [place], [address], Medical Office [address], [place] [address] Hgb 11.3(L) 11.9 - 15.5 g/dL [facility] ([place]) Comment:Testing performed by : [facility] [address], Medical Office [address], [place] [address] Hct 33.1(L) 35.6 - 45.5 % [facility] ([place]) Comment:Testing performed by : [facility] [address], Medical Office [address], [place] [address] Plt 180 150 - 400 K/cumm [facility] ([place]) Comment:Testing performed by : [facility] [address], Medical Office [facility] [address], [place] [address] MPV 8.7(L) 9.1 - 12.3 fL [facility] ([place]) Comment:Testing performed by : [facility] [address], Medical Office [facility] [address], [place] [address] RBC 3.32(L) 3.90 - 5.20 M/cumm [facility] ([place]) Comment:Testing performed by : [facility] [address], Medical Office [facility] [address], [place] [address] MCV 99.7(H) 81.3 - 96.4 fL [facility] ([place]) Comment:Testing performed by : [facility] [address], Medical Office [facility] [address], [place] [address] MCH 34.0(H) 27.1 - 33.3 pg [facility] ([place]) Comment:Testing performed by : [facility] [address], Medical Office [facility] [address], [place] [address] MCHC 34.1 32.3 - 35.7 g/dL [facility] ([place]) Comment:Testing performed by : [facility] [address], Medical Office [facility] [address], [place] [address] RDW CV 12.8 11.1 - 14.9 % [facility] ([place]) Comment:Testing performed by : [facility] [address], Medical Office [address], [place] [address] RDW SD 47.1 35.7 - 48.1 fL [facility] ([place]) Comment:Testing performed by : [facility] [address], Medical Office [address], [place] [address] Blood 10/20/2024 10:5 0 AM CDT 10/20/2024 10:59 AM CDT Jacquelyn Sousa UTILIZATION MANAGEMENT UM NURSE LAB BLOOD ORDERABLES Final Result [facility] ([place]) [facility] Department [place] [address] * Protein electrophoresis with reflex, serum with interpretation (10/20/2024 10:50 AM CDT) Protein, sr 7.7 6.2 - 8.2 g/dL Comment:Testing performed by : [address] [address] Albumin 4.5 3.2 - 5.0 g/dL [facility] ([place]) Comment:Testing performed by : [address], [address] Alpha-1 globulin 0.3 0.2 - 0.4 g/dL [facility] ([place]) Comment:Testing performed by : [address], [address] Alpha-2 globulin 0.8 0.5 - 1.0 g/dL [facility] ([place]) Comment:Testing performed by : [address] [address] Beta-1 globulin 0.5 0.3 - 0.6 g/dL [facility] ([place]) Comment:Testing performed by : [address] [address] Beta-2 globulin 0.5 0.2 - 0.6 g/dL [facility] ([place]) Comment:Testing performed by : [address], [address] Gamma globulin 1.2 0.5 - 1.7 g/dL [facility] ([place]) Comment:Testing performed by : [address], [address] SPEP interp See Cl Path Rpt [facility] ([place]) Comment:Testing performed by : [address], [address] Blood 10/20/2024 10:5 0 AM CDT 10/20/2024 2:22 PM CDT us Tino Atkinson MD LAB BLOOD ORDERABLES Carol l Result [facility] ([place]) [address] [facility] Department [place] [address] * Ferritin (10/20/2024 10:50 AM CDT) Ferritin 123 15 - 150 ng/mL Comment:Testing performed by : [place], [address] Blood 10/20/2024 10:5 0 AM CDT 10/20/2024 11:15 AM CDT us Jacquelyn Sousa NP LAB BLOOD ORDERABLES Final Result Performing Organization Address [facility]/ZIP Co de Phone Number [facility] ([place]) [address] [facility] Department [place] [address] * Comprehensive metabolic panel (10/20/2024 10:50 AM CDT) Sodium 138 135 - 145 mmol/L Comment:Testing performed by : [place], [address] Potassium, pl 4.3 3.3 - 4.9 mmol/L [facility] ([place]) Comment:Testing performed by : [facility], [place], [address] Chloride 101 97 - 110 mmol/L [facility] ([place]) Comment:Testing performed by : [place], [address] CO2 22 22 - 32 mmol/L [facility] ([place]) Comment:Testing performed by : [place], [address] Anion gap 15 2 - 15 mmol/L [facility] ([place]) Comment:Testing performed by : [facility], [place], [address] BUN 15 6 - 25 mg/dL [facility] ([place]) Comment:Testing performed by : [facility], [place], [address] Creatinine 1.09 0.60 - 1.10 mg/dL [facility] ([place]) Comment:Testing performed by : [facility], [place], [address] Glucose 132 70 - 199 mg/dL [facility] ([place]) Comment: Interpretive Data Fasting glucose >/= 126 mg/dl is diagnostic for diabetes. Fasting is defined as no caloric intake for at least 8 hours. Fasting glucose between 100 mg/dl to 125 mg/dl is diagnostic of prediabetes. In a patient with classic symptoms of hyperglycemia or hyperglycemic crisis, a random glucose >/= 200 mg/dl is diagnostic for diabetes. In the absence of unequivocal hyperglycemia, results should be confirmed by repeat testing. The classification and Diagnosis of Diabetes Diabetes Care 2021; 46: S19-S40. Current interpretive data was last revised 2022. Testing performed by: [place], [address] Calcium 9.7 8.5 - 10.3 mg/dL [facility] ([place]) Comment:Testing performed by : [facility], [place], [address] Bilirubin, total 0.3 0.1 - 1.2 mg/dL [facility] ([place]) Comment:Testing performed by : [place], [address] Protein, pl 7.6 6.5 - 8.5 g/dL [facility] ([place]) Comment:Testing performed by : [place], [address] Albumin 4.2 3.5 - 5.0 g/dL [facility] ([place]) Comment:Testing performed by : [facility], [place], [address] Alk phos 67 40 - 130 Units/L [facility] ([place]) Comment:Testing performed by : [facility], [place], [address] ALT 23 7 - 45 Units/L [facility] ([place]) Comment:Testing performed by : [facility], [place], [address] AST 24 10 - 45 Units/L [facility] ([place]) Comment:Testing performed by : [facility], [place], [address] Blood 10/20/2024 10:5 0 AM CDT 10/20/2024 11:15 AM CDT us Jacquelyn Sousa UTILIZATION MANAGEMENT UM NURSE LAB BLOOD ORDERABLES Final Result [facility] ([place]) [facility] Department [place] [address] * Surgical pathology (10/20/2024 10:50 AM CDT) Miscellaneous 10/20/2024 10: 50 AM CDT 10/22/2024 8:33 AM CDT Narrative 10/22/2024 7:43 PM CDT [facility] results best viewed via link to PDF [facility] Department of Pathology [address] [place] [id number] Final Report Note to Patients: This report may contain a detailed description of human tissue sent by a health care provider to the laboratory for pathologic evaluation. The content of this report is essential for diagnosis and may provide important critical findings. This information may be unfamiliar to patients to review without a medical professional present. It is advised that the patient review this report in the presence of a health care provider who can answer questions and explain the details. Patient Name: SARAH CALLAHAN Address: [address] [place] [address] Gender: F : 1945 (Age: 79) Service: Location: Hospital #: [id number] Patient Type: [facility] MED ONC SERIES Taken: 10/20/2024 Received: 10/22/2024 Accessioned: 10/22/2024 Physician(s): Tino Atkinson MD [facility] Specimen(s) Received A: Blood (serum) Serum Protein ElectrophoresisReported:10/22/2024 Interpretation: Serum protein electrophoresis: - Normal serum protein electrophoresis pattern. Comment: Serum Protein Electrophoresis: There are no significant abnormalities of the protein fractions. See Epic and/or separate report for protein fraction table. Edison Dubois M.D.Report Electronically Reviewed and Signed Out By Edison Dubois M.D. 10/22/2024 19:41:04 The performance characteristics of some immunohistochemical stains, fluorescence in-situ hybridization tests and immunophenotyping by flow cytometry cited in this report (if any) were determined by the Surgical Pathology Department at [facility] as part of an ongoing vice president quality assurance program and in compliance with federally mandated regulations drawn from the Clinical Laboratory Improvement Act of 1988 (CLIA '88). Some of these tests rely on the use of analyte specific reagents and are subject to specific labeling requirements by the US Food and Drug Administration. Such diagnostic tests may only be performed in a facility that is certified by the Department of Health and Human Services as a high complexity laboratory under CLIA '88. The FDA has determined that such clearance or approval is not necessary. This test is used for clinical purposes. It should not be regarded as investigational or for research. Nevertheless, federal rules concerning the medical use of analyte specific reagents require that the following disclaimer be attached to the report: This test was developed and its performance characteristics determined by the Surgical Pathology Department [facility]. It has not been cleared or approved by the U. S. Food and Drug Administration. REPORT IMAGES AND SCANNED DOCUMENTS, IF INCLUDED, ONLY VIEWABLE IN PDF VERSION OF REPORTe o Tino Atkinson MD LAB PATHOLOGY ORDERABLES Final Result * Diagnostic Mammogram Bilateral W Yayo (07/16/2024 8:54 AM 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) Anatomical Region Laterality Modality Breast Bilateral Mammography 07/16/2024 10:3 3 AM 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 Impressions 07/16/2024 10:33 AM 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 No evidence to suggest malignancy is seen by mammography or ultrasound. Given the history of bloody nipple discharge, breast MR is recommended. OVERALL FINAL ASSESSMENT: IN-NTON-0-Negative Electronically signed by: Jessy Gordon M.D. Narrative 07/16/2024 10:33 AM 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 EXAMINATION: BILATERAL DIGITAL DIAGNOSTIC MAMMOGRAM AND DIGITAL BREAST TOMOSYNTHESIS; RIGHT BREAST SONOGRAM HISTORY: Bloody discharge from the right nipple. COMPARISON: None TECHNIQUE: Full field digital mammographic views of the bilateral breast(s) were performed, including computer aided detection (CAD) and digital breast tomosynthesis (DBT). Directed ultrasound evaluation of the right breast(s) was performed. BREAST PARENCHYMAL COMPOSITION: There are scattered areas of fibroglandular density. MAMMOGRAM FINDINGS: The exam is suboptimal secondary to difficulty with positioning the patient. There are no suspicious masses. No suspicious calcifications are seen. There is no unexplained architectural distortion. There is no skin thickening seen. There are no mammographically abnormal lymph nodes seen in the axillae or elsewhere. ULTRASOUND FINDINGS: Scanning through the retroareolar region demonstrates no cystic or solid masses. us Jacquelyn Sousa NP IMG MAMMO PROCEDURES Final Result * Colonoscopy (02/11/2024 11:38 AM CDT) Anatomical Region Laterality Modality Other Narrative Procedure Note Kamryn Rodríguez MD - 02/11/2024 11:38 AM CDT [facility] Patient Name: Sarah Callahan Procedure Date: 02/11/2024 11:38 AM Date of : 1945 Admit Type: Outpatient Age: 78 Gender: Female Attending MD: Kamryn Rodríguez M.D. Room: [facility] ENDOSCOPY ROOM 1 Note Status: Finalized Patient Profile: This is a 78 year old female. She had colonoscopywith polyps removed with poor colon preparation 6 months ago. No family history of colonic cancer. Procedure: Colonoscopy Indications: Last colonoscopy: July 2023, h/o colonpolyps. Referring MD: Remberto Mathis PA-C Providers: Kamryn Rodríguez M.D. Impression: - Tortious colon - One 18 mm polyp at the ileocecal valve, removed piecemeal using a hot snare. Resected andretrieved. - Six 5 to 9 mm polyps in the descending colon andin the transverse colon, removed with a cold snare. Resected and retrieved. - One 9 mm polyp in the distal sigmoid colon,removed with a cold snare. Resected and retrieved. - Diverticulosis in the sigmoid colon. - Internal hemorrhoids. Recommendation: - Await pathology results. - Repeat colonoscopy in 1 year for surveillancewith 3 days colon preparation. - Continue present medications. Medicines: Monitored Anesthesia Care Complications: No immediate complications. Estimated Blood Loss: Estimated blood loss: none. Procedure: Pre-Anesthesia Assessment: - Prior to the procedure, a History and Physicalwas performed, and patient medications and allergieswere reviewed. The patient's tolerance of previous anesthesia was also reviewed. The risks andbenefits of the procedure and the sedation options and risks were discussed with the patient. All questions were answered, and informed consent was obtained. Prior Anticoagulants: The patient has taken noanticoagulant or antiplatelet agents. ASA Grade Assessment: Per anesthesia note and evaluation. After reviewing the risks and benefits, the patient was deemed in satisfactory condition to undergo the procedure. The benefits, risks and alternatives of theprocedure and sedation were discussed and informed consentwas obtained. All questions were answered. Please referto the signed informed consent document in the medical record. The scope was passed under direct vision.The Pediatric Colonoscope PCF-H190L [id number] was introduced through the anus and advanced to the the cecum, identified by appendiceal orifice andileocecal valve. The bowel preparation used was Miralax and bisacodyl tablets via extended prep with split dose instruction. The quality of the bowel preparationwas adequate. Bowel prep was administered using a split dose. Findings: The perianal and digital rectal examinations were normal. The cecum appeared normal. The colon was tortuous and left upper quadrant abdominal pressure was required to get into the cecum. An 18 mm polyp was found in the ileocecal valve. The polyp was flatand multiloculated. The polyp was removed with a piecemeal techniqueusing a cold snare the remnants and remaining parts were cauterized in place with the tip of the hot snare. Resection and retrieval werecomplete. Six sessile polyps were found in the descending colon and transverse colon. The polyps were 5 to 9 mm in size. These polyps were removedwith a cold snare. Resection and retrieval were complete. A 9 mm polyp was found in the distal sigmoid colon. The polyp was semi-sessile. The polyp was removed with a cold snare. Resection and retrieval were complete. A few small-mouthed diverticula were found in the sigmoid colon. Internal hemorrhoids were found during retroflexion. The hemorrhoids were small. Electronically signed by Kamryn Rodríguez M.D. Kamryn Rodríguez M.D. 02/11/2024 12:43:28 PM Number of Addenda: 0 Note Initiated On: 02/11/2024 11:38 AM Procedure Code(s): --- Professional --- 77286, Colonoscopy, flexible; with removal of tumor(s), polyp(s), or other lesion(s) by snare technique Diagnosis Code(s): --- Professional --- K64.8, Other hemorrhoids D12.0, Benign neoplasm of cecum D12.5, Benign neoplasm of sigmoid colon D12.4, Benign neoplasm of descending colon D12.3, Benign neoplasm of transverse colon (hepatic flexure orsplenic flexure) K57.30, Diverticulosis of large intestine without perforation orabscess without bleeding CPT copyright 2020 [employer]. All rights reserved. The codes documented in this report are preliminary and upon seam taper machine reviewmay be revised to meet current compliance requirements. Recognized by the [employer] for promoting quality in endoscopy Kamryn Rodríguez MD ENDOSCOPY PROCEDURES Final Result * (ABNORMAL) Hemoglobin A1c (03/11/2020 11:30 AM CDT) Hgb A1C 6.5(H) 4.0 - 5.6 % [facility] Estimated Average Glucose 140 mg/dL [facility] Comment: The ADA recommends reporting an estimated Average Glucose (eAG) with all Hemoglobin A1c results using the equation derived from a study of 507 normal and diabetic adults. Minority populations were underrepresented and children were not included. (Diabetes Care 31:4756-6876, 2008). The eAG is not equivalent to a fasting glucose. Blood specimen (specimen) 03/11/2020 11:30 AM CDT 03/11/2020 11:31 AM CDT Jeff Chapman MD LAB BLOOD ORDERABLES Final Result Performing Organization Address City/State/[facility] Co de Phone Number [facility] [address] [place] [address] * Dexa Axial Skeleton Bone Density 1 or 2 Site (01/01/2020 10:38 AM CDT) Anatomical Region Laterality Modality Body N/A Other 01/01/2020 10:4 7 AM CDT Impressions 01/01/2020 10:48 AM CDT Normal bone mineral density by WHO criteria. GENERAL GUIDELINES: According to WHO guidelines, a T score of -1.0 or greater is normal, between -1.0 to -2.5 is osteopenia, and -2.5 or less is osteoporosis. Z score (instead of T score) is preferred for pediatric, young adults, premenopausal women and men under age of 50 years. In these patients, a Z score greater than or equal to -2.0 is considered to be in the expected range. For our facility, change in BMD of greater than 5% is considered statistically significant. General Recommendations: 1. Consider an evaluation for secondary causes of osteoporosis in patients with low bone density. 2. All patients should be counseled on adequate intake of calcium (1200 mg/day), vitamin D (600-800 IU daily) and exercise. 3. The National Osteoporosis Foundation (NOF) guidelines recommend initiating pharmacological therapy, in addition to calcium, vitamin D and exercise, to reduce fracture risk when: a. T-score less than or equal to -2.5 after secondary causes excluded. b. T-score between -1.0 and -2.5 with secondary causes associated with high risk of fracture. c. 10-year probability of hip fracture more than or equal to 3% (based on FRAX score). d. 10-year probability of major osteoporosis related fracture more than or equal to 20% (based on FRAX score). Followup: People with diagnosed cases of osteoporosis or at high risk for fracture should have regular bone mineral density tests. For patients eligible for Medicare, routine testing is allowed once every 2 years. The testing frequency can be increased to one year for patients who have rapidly progressive disease or those who are receiving long-term steroid therapy. Electronically signed by: Sky Álvarez M.D. Narrative 01/01/2020 10:48 AM CDT COMPLETION DATE: 01/01/2020 10:30 AM ORDERING HEALTHCARE PROVIDER: OHLLY MENON STUDY DESCRIPTION: DEXA AXIAL SKELETON BONE DENSITY 1 OR MORE SITES CLINICAL INDICATIONS: 74-year-old post-menopausal female, screening for osteoporosis. COMPARISON: 01/06/2018 TECHNIQUE: Dual x-ray absorptiometry (DEXA) was performed using Hologic system. Bone mineralization and T score are reported. FINDINGS: Lumbar spine Bone mineral density: 0.969 g/cm2 T-score: -0.7 The most recent prior lumbar spine bone mineral density was 0.938 g/cm2. There has been a 3.3% increase in bone mineral density in the lumbar spine, which is statistically significant. Right hip Total bone mineral density: 0.977 g/cm2 Total hip T-score: 0.3 The most recent prior left hip bone mineral density was 0.994 g/cm2. There has been a 1.8% decrease in bone mineral density in the left hip, which is not statistically significant. Femoral neck bone mineral density: 0.925 g/cm2 Femoral neck T-score: 0.7 Procedure Note Sky Álvarez MD - 01/01/2020 COMPLETION DATE: 01/01/2020 10:30 AM ORDERING HEALTHCARE PROVIDER: HOLLY MENON STUDY DESCRIPTION: DEXA AXIAL SKELETON BONE DENSITY 1 OR MORE SITES CLINICAL INDICATIONS: 74-year-old post-menopausal female, screening for osteoporosis. COMPARISON: 01/06/2018 TECHNIQUE: Dual x-ray absorptiometry (DEXA) was performed using HoloTrubates system. Bone mineralization and T score are reported. FINDINGS: Lumbar spine Bone mineral density: 0.969 g/cm2 T-score: -0.7 The most recent prior lumbar spine bone mineral density was 0.938 g/cm2. There has been a 3.3% increase in bone mineral density in the lumbar spine, which is statistically significant. Right hip Total bone mineral density: 0.977 g/cm2 Total hip T-score: 0.3 The most recent prior left hip bone mineral density was 0.994 g/cm2. There has been a 1.8% decrease in bone mineral density in the left hip, which is not statistically significant. Femoral neck bone mineral density: 0.925 g/cm2 Femoral neck T-score: 0.7 IMPRESSION: Normal bone mineral density by WHO criteria. GENERAL GUIDELINES: According to WHO guidelines, a T score of -1.0 or greater is normal, between -1.0 to -2.5 is osteopenia, and -2.5 or less is osteoporosis. Z score (instead of T score) is preferred for pediatric, young adults, premenopausal women and men under age of 50 years. In these patients, a Z score greater than or equal to -2.0 is considered to be in the expected range. For our facility, change in BMD of greater than 5% is considered statistically significant. General Recommendations: 1. Consider an evaluation for secondary causes of osteoporosis in patients with low bone density. 2. All patients should be counseled on adequate intake of calcium (1200 mg/day), vitamin D (600-800 IU daily) and exercise. 3. The National Osteoporosis Foundation (NOF) guidelines recommend initiating pharmacological therapy, in addition to calcium, vitamin D and exercise, to reduce fracture risk when: a. T-score less than or equal to -2.5 after secondary causes excluded. b. T-score between -1.0 and -2.5 with secondary causes associated with high risk of fracture. c. 10-year probability of hip fracture more than or equal to 3% (based on FRAX score). d. 10-year probability of major osteoporosis related fracture more than or equal to 20% (based on FRAX score). Followup: People with diagnosed cases of osteoporosis or at high risk for fracture should have regular bone mineral density tests. For patients eligible for Medicare, routine testing is allowed once every 2 years. The testing frequency can be increased to one year for patients who have rapidly progressive disease or those who are receiving long-term steroid therapy. Electronically signed by: Sky Álvarez M.D. Holly FRASER IMG DXA PROCEDURES Final Res ult from Last 3 Months or Most Recently Relevant to Health Maintenance Insurance [facility] IDPA IDPA [facility] AETNA MEDICARE NCON [facility] MEDICARE ADVANTAGE [facility] Address: [address] [address] [place] [address] IDPA [facility] MEDICARE ADVANTAGE Advance Directives For more information, please contact: [phone] Documents on File Type Date Recorded Patient Senior Instructor Expl anation ADVANCE DIRECTIVE 09/29/2018 9:00 AM Daphne Carlin * Full Code (Latest Code Status on File) Date Activated Date Inactivated Comments 02/11/2024 10:45 AM 02/11/2024 5:41 PM * Full Code Date Activated Date Inactivated Comments 02/11/2024 10:45 AM 02/11/2024 10:45 AM * Full Code Date Activated Date Inactivated Comments 07/31/2023 11:10 AM 07/31/2023 6:56 PM * Full Code Date Activated Date Inactivated Comments 07/31/2023 11:10 AM 07/31/2023 11:10 AM * Full Code Date Activated Date Inactivated Comments 11/21/2021 11:05 AM 11/21/2021 6:14 PM Care Teams Quality Assurance Lab Technician Relationship Specialty Start Date End Date Remberto Mathis PA [address] [place] [address] PCP - General 09/26/17 Kamryn Rodríguez MD [address] [place] [address] Consulting Physician Gastroenterology 06/26/20
--- OUTSIDE RECORDS SUMMARY | 2024-11-21 19:31 | XMS_ITS | Encounter Summary ---
Author Organization [facility] Address [address] [place] [address] Phone Care Team Providers Care Industrial Plant Custodian Name Role Phone Remberto Mathis Primary Care Provider [phone] Deena Celis APRN, RUTH Unavailable [phone] Reason for Visit * Reason Comments Medication Refill Encounter Details Date Type Department Care Team (Late st Contact Info) Description 11/04/2023 Refill [facility] [address] [place] [address] Deena Celis APRN, RUTH [address] [address] Medication Refill Social History Tobacco Use Types Packs/Day Years Used Date Smoking Tobacco: Former Cigarettes 1 5 Smokeless Tobacco: Never Alcohol Use Standard Drinks/Week Comments Yes 0 (1 standard drink = 0.6 oz pur e alcohol) occasional Sexually Active Control Partners Comments Not Currently Comments No Sex and Gender Information Value Date Recorded Sex Assigned at Not on file Legal Sex Female 10:59 PM CDT Gender Identity Not on file Sexual Orientation Not on file documented as of this encounter Miscellaneous Notes * Telephone Encounter - Mady Craig RN - 11/05/2023 8:38 AM CDT Medication(s) refilled and signed per [facility] Chronic Medication Refill Standing Order for Pediatricand Adult Patients. Requested Prescriptions Pending Prescriptions Disp Refills Ventolin HFA 108 (90 Base) MCG/ACT Aerosol Solution [Pharmacy Med Name: VENTOLIN HFA 90 MCG INHALER] 5 Sig: INHALE 2 PUFFS BY MOUTH EVERY 4 HOURS NEEDED FOR WHEEZE Short Acting Inhaled Beta-Agonists Protocol Passed - 11/04/2023 4:09 PM Passed - Visit with relevant provider in past 12 months or upcoming 90 days Recent Visits Date Type Provider Dept 05/24/23 Office Visit Deena Celis APRN, CNP [facility] Showing recent visits within past 365 days and meeting all other requirements Future Appointments Date Type Provider Dept 11/25/23 Appointment Deena Celis APRN, CNP [facility] Showing future appointments within next 90 days and meeting all other requirements documented in this encounter Plan of Treatment Upcoming Encounters Date Type Department Care Team (Late st Contact Info) Description 11/30/2024 10:00 AM CDT Office Visit [facility] - Pulmonology & [facility] - [place] [address] [place] [address] Deena Celis APRN, CLOTH DOFFER [address] [address] 12/07/2024 9:30 AM CDT [facility] Visit [facility]ology - [place] [address] [place] [address] Yanira Luz APRN, [facility] [address] [place] [address] documented as of this encounter Visit Diagnoses Diagnosis Mild intermittent asthma without status asthmaticus without complication documented in this encounter Care Teams Industrial Plant Custodian Relationship Specialty Start Date End Date Remberto Mathis PAC [address] [place] [address] PCP - General Physician Sheep Shearer 10/21/17 Deena Celis, GIANNI, [facility] [address] [place] [address] Nurse Practitioner Advanced Practice Nurse 05/03/22 documented as of this encounter
--- OUTSIDE RECORDS SUMMARY | 2024-11-21 19:32 | XMS_ITS | Encounter Summary ---
Author Organization [facility] Address [address] [place] [address] Care Team Providers Care Food Science Professor Name Role Phone Remberto Mathis Primary Care Provider [phone] Haroon Sifuentes MD Unavailable [phone] Alem Ayon PTA Unavailable Unavailable Kamryn Rodríguez MD Unavailable Reason for Visit * Reason Onset Date Comments Scheduling Appointments 12/30/2019 Called f or DEXA appointment Encounter Details Date Type Department Care Team (Late st Contact Info) Description 12/30/[address] [address] Marley Valderrama RT Scheduling Appointments (Called for DEXA appointment) Social History Tobacco Use Types Packs/Day Years Used Date Smoking Tobacco: Former Cigarettes Q uit: 1985 Smokeless Tobacco: Former Alcohol Use Standard Drinks/Week Comments No 0 (1 standard drink = 0.6 oz pur e alcohol) PHQ-2 Answer Date Recorded PHQ-2 Score 1 02/06/2019 Comments No Sex and Gender Information Value Date Recorded Sex Assigned at Not on file Legal Sex Female 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 [address] [place] [address] Kamryn Rodríguez MD [address] [place] [address] 02/08/2025 8:00 AM CDT - 02/08/2025 8:30 AM CDT Surgery [facility] [address] [place] [address] Kamryn Rodríguez MD [address] [place] [address] COLONOSCOPY Scheduled Procedures Name Priority Associated Diagnoses Date/Ti me COLONOSCOPY Family hx of colon cancer Hx of adenomatous colonic polyps 02/08/2025 8:00 AM CDT documented as of this encounter Visit Diagnoses Not on filedocumented in this encounter Care Teams Food Science Professor Relationship Specialty Start Date End Date Remberto Mathis PA [address] [place] [address] PCP - General 09/26/17 Haroon Sifuentes MD [address] [place] [address] 09/26/17 06/29/24 Alem Ayon PTA Power Equipment Mechanics Instructor Physical Therapy 10/25/17 08/27/22 Kamryn Rodríguez MD Consulting Physician Gastroenterology 06/26/20 documented as of this encounter
--- OUTSIDE RECORDS SUMMARY | 2024-11-21 19:32 | XMS_ITS | Encounter Summary ---
Author Organization [facility] Address [address] [place] [address] Care Team Providers Care Coffee Shop Attendant Name Role Phone Remberto Mathis Primary Care Provider [phone] Haroon Sifuentes MD Unavailable [phone] Alem Ayon PTA Unavailable Unavailable Kamryn Rodríguez MD Unavailable [phone] Reason for Visit * Reason Onset Date Comments Scheduling Appointments 12/31/2019 Called f or DEXA appointment reminder Encounter Details Date Type Department Care Team (Late st Contact Info) Description 12/31/2019 Telephone [facility] [address] [place] [id number] Corrine Maldonado RT Scheduling Appointments (Called for DEXA appointment reminder) Social History Tobacco Use Types Packs/Day Years Used Date Smoking Tobacco: Former Cigarettes Q uit: 1985 Smokeless Tobacco: Former Alcohol Use Standard Drinks/Week Comments No 0 (1 standard drink = 0.6 oz pur e alcohol) PHQ-2 Answer Date Recorded PHQ-2 Score 1 02/06/2019 Comments No Sex and Gender Information Value Date Recorded Sex Assigned at Not on file Legal Sex Female 6:09 PM AED TRAINER Gender Identity Not on file Sexual Orientation Not on file documented as of this encounter Plan of Treatment Upcoming Encounters Date Type Department Care Team (Late Contact Info) Description 02/08/2025 8:00 AM CDT Hospital Encounter [facility] [address] [place] [id number] Kamryn Rodríguez MD [address] [place] [address] [address] 02/08/2025 8:00 AM CDT - 02/08/2025 8:30 AM CDT Surgery [facility] [address] [place] [address] Kamryn Rodríguez MD [address] [place] [id number] COLONOSCOPY Scheduled Procedures Name Priority Associated Diagnoses Date/Ti me COLONOSCOPY Family hx of colon cancer Hx of adenomatous colonic polyps 02/08/2025 8:00 AM CDT documented as of this encounter Visit Diagnoses Not on filedocumented in this encounter Care Teams Coffee Shop Attendant Relationship Specialty Start Date End Date Remberto Mathis PA [address] [place] [address] PCP - General 09/26/17 Haroon Sifuentes MD [address] [place] [address] 09/26/17 06/29/24 Alem Ayon PTA Manager Generation Physical Therapy 10/25/17 08/27/22 Kamryn Rodríguez MD Consulting Physician Gastroenterology 06/26/20 documented as of this encounter
--- OUTSIDE RECORDS SUMMARY | 2024-11-21 19:32 | XMS_ITS | Referral Summary ---
Author Organization [facility] Address [address] [place] [address] Care Team Providers Care Screwhead Stoner And Polisher Name Role Phone Remberto Mathis Primary Care Provider Kamryn Rodríguez MD Unavailable [phone] Encounters Date Type Department Care Team Description 11/13/2024 12:56 PM CDT - 11/13/2024 11:59 PM CDT Hospital Encounter [facility] [address] [place] [address] Acute bronchitis due to other specified organisms Discharge Disposition: Discharge to home or self care 10/20/2024 Telephone [facility] [address] [place] [address] Medical [address] [place] [address] Angela Ribera, TRIP 10/20/2024 Telephone [facility] [address] [place] [address] Medical Office [facility] [address] [place] [address] Angela Ribera, TRIP 10/20/2024 11:00 AM CDT Lab [facility] [address] [facility] [address] [place] [address] Iron deficiency anemia secondary to inadequate dietary iron intake 10/20/2024 11:30 AM CDT Office Visit [facility] [address] [place] [address] Medical Office [facility] [address] [place] [address] Tino Atkinson MD Iron deficiency anemia secondary to inadequate dietary iron intake (Primary Dx); Breast discharge; Rheumatoid arthritis, involving unspecified site, unspecified whether rheumatoid factor present (HCC) from Last 3 Months Allergies Active Allergy Reactions Criticality Noted Date [...] TEST 1 TO 2 TIMES DAILY 05/06/20 20 Active calcium carbonate (CALCIUM 600 ORAL) Take [...] EVERY EVENING 02/03/20 24 [facility] 02/18/20 24 Active Ultra Thin Lancets 31 gauge [facility] 02/18/20 24 Active glimepiride (AMARYL) 4 mg [...] 07/12/2023 Assessment & Plan (07/12/2023 8:47 PM CLERICAL OFFICE WORKER): dysphagia of both solids and liquids, has [...] (01/26/2022): Added automatically from request for surgery [id number] Iron deficiency anemia 01/24/2022 Assessment & Plan (07/12/2023 8:50 PM CLERICAL OFFICE WORKER): No signs of GI blood loss, currently [...] TLIF done by Dr. Chapman in 03/2020 03/0 08/2020 Coronary artery disease invo lving [place] coronary artery of [place] heart without angina pectoris 07/19/2020 Assessment & Plan (07/19/2020 12:43 PM CLERICAL OFFICE WORKER): With the patient's minimal coronary disease and [...] upper endoscopy and the colonoscopy recently in [facility]. She had unremarkable imaging last year. No [...] incontinence 01/06/2018 Urinary incontinence 01/06/2018 Age-related osteoporosis anna jaimes current pathological fracture 12/30/2017 Assessment & Plan [...] the person will continue it over the parts counterman. Falls -- Falling significantly increases the risk [...] less likely to do so. ?Visiting an circular sawyer stone or statement distribution clerk regularly to optimize vision. Assessment & Plan [...] the person will continue it over the fpc. Falls -- Falling significantly increases the risk [...] less likely to do so. ?Visiting an circular sawyer stone or statement distribution clerk regularly to optimize vision. 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, right 10/21/2017 Chronic eczematous otitis externa of right ear 0 10/21/2017 Conductive hearing loss of right ear 10/21/2017 Tinnitus of right ear 10/21/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, marginal, right 0 10/21/2017 Painful orthopaedic hardware 10/10/2017 Overview (10/10/2017): Added automatically from request for surgery [id number] Acute pyelonephritis Confusion Resolved Problems Problem Noted Date Diagnosed Date Resolved Date Primary osteoarthritis of right knee 09/09/2018 02/28/2020 Overview (09/09/2018): Added automatically from request for surgery [id number] Chest pain 01/10/2018 06/23/2020 Overview (01/10/2018): Added automatically from request for surgery [id number] Aftercare following left kne e joint replacement surgery 11/06/2017 02/28/2020 Post-traumatic osteoarthritis of left knee 10/10/2017 02/28/2020 Overview (10/10/2017): Added automatically from request for surgery [id number] Immunizations Immunization Administration Dates Next Due COVID-19 mRNA ([employer]) 0.3 m L (30 mcg) vaccine (12 [...] Pcv20 03/20/2023 Pneumococcal, Unspecified 03/18/2019 Tdap 02/17/2020 Social History Tobacco Use Types Packs/Day Years [...] on file Legal Sex Female 6:09 PM CLERICAL OFFICE WORKER Gender Identity Not on file Sexual Orientation Not on file Last Filed Vital Signs Vital Sign Reading Time Taken Comments Blood Pressure 130/58 10/20/2024 11:13 AM CDT Pulse 81 10/20/2024 11:13 AM CDT Temperature 35.8 C (96.4 F) 10/20/2024 11:13 AM CDT Respiratory Rate 18 10/20/2024 11:13 AM CDT Oxygen Saturation 96% 06/30/2024 1:51 PM CLERICAL OFFICE WORKER Inhaled Oxygen Concentration - - Weight 92.2 kg (203 lb 3.2 oz) 10/20/2024 11:13 AM CDT Height 165.1 cm (5' 5) 10/20/2024 11:13 AM CDT Body Mass Index 33.81 10/20/2024 11:13 AM CDT Plan of Treatment Upcoming Encounters Date Type Department Care Team (Late st Contact Info) Description 02/08/2025 8:00 AM CDT Hospital Encounter [address] [address] Kamryn Rodríguez MD [address] [place] [address] DR [address] [place] [address] 02/08/2025 8:00 AM CDT - 02/08/2025 8:30 AM CDT Surgery [address] [address] Kamryn Rodríguez MD [address] [place] [address] DR [address] [place] [address] COLONOSCOPY Scheduled Procedures Name Priority Associated Diagnoses Date/Ti me COLONOSCOPY Family hx of colon cancer Hx of adenomatous colonic polyps 02/08/2025 8:00 AM CDT Medical Devices Implanted Type Area Dictaphone Transcriber Device Identifier Shelf Expiration Date Model / Serial / Lot Dome Patellar Attune Aox H35 Mm Knee Cemented Medialize Sterile - [id number] Implanted:Qty: 1 on 11/05/2017 by Martinez Rosas MD at [facility] Left: Knee Depuy [employer] Inc 08/14/2022 [id number] / / [id number] Dome Patellar Attune Aox H35 Mm Knee Cemented Medialize Sterile - [id number] Implanted:Qty: 1 on 11/05/2017 by Martinez Rosas MD at [facility] Left: Knee [employer] 08/14/2022 [id number] / / [id number] Femoral Cruciate Retaining Implanted:Qty: 1 on 11/05/2017 by Martinez Rosas MD at [facility] Left: Knee Depuy Mitek 12/14/2026 1504-00-105 / 1504-00-105 / [id number] Bsplt Tibial Attune S+ 5 Knee Cement Fix Brng - [id number] Implanted:Qty: 1 on 11/05/2017 by Martinez Rosas MD at [facility] Left: Knee [employer] 04/16/2027 [id number] / / [id number] Cement Bone Smartset Gentamicin 40 Gm High Viscosity - [id number] Implanted:Qty: 1 on 11/05/2017 by Martinez Rosas MD at [facility] Left: Knee [employer] 01/14/2019 [id number] / / [id number] Insert Tibial Attune Aox 5 H7 Mm Knee Cruciate Retaining Fix Bearing Sterile - [id number] Implanted:Qty: 1 on 11/05/2017 by Martinez Rosas MD at [facility] Left: Knee [employer] 12/14/2020 [id number] / / [id number] Depuy Attune Tibial Insert Fixed Bearing Cruciate Retaining Size 5 Implanted:Qty: 1 on 09/22/2018 by Martinez Rosas MD at [facility] Right: Knee [employer] [id number] 09/14/2020 1516-20-506 / / [id number] [employer] [id number] [place] R+G High Viscosity Cement Bone Gentamicin Arthroplasty - [id number] Implanted:Qty: 1 on 09/22/2018 by Martinez Rosas MD at [facility] Right: Knee [employer] 01/14/2021 [id number] / / [id number] Depuy [employer] [id number] Attune Cruciate Retain Cementless Knee Right 5 Narrow Component - [id number] Implanted:Qty: 1 on 09/22/2018 by Martinez Rosas MD at [facility] Right: Knee [employer] 08/14/2026 [id number] / / [id number] Dep[employer] [id number] Attune S+ Cement Fix Bearing Knee 5 Baseplate Tibial - [id number] Implanted:Qty: 1 on 09/22/2018 by Martinez Rosas MD at [facility] Right: Knee [employer] 06/16/2028 [id number] / / [id number] Allosource [id number] Freeze Dried Crushed 1-4mm Graft 15ml Bone Cancellous - [id number] Implanted:Qty: 1 on 03/14/2020 by Jeff Chapman MD at [facility] N/A: Spine Lumbar [employer]osource 01/20/2023 [id number] / / [id number] Medtronic Sofamor Danek [id number] Infuse 18mm 26mm Absorbable Sponge Sterile Water Syringe Needle - [id number] Implanted:Qty: 1 on 03/14/2020 by Jeff Chapman MD at [facility] N/A: Spine Lumbar Medtronic Inc 12/15/2020 [id number] / / [id number] Medtronic Inc [id number] [place] [id number] Radiopaque Hollow 6d Cage Spinal Peek-Old Green Latex Free - [id number] Implanted:Qty: 1 on 03/14/2020 by Jeff Chapman MD at [facility] N/A: Spine Lumbar Medtronic Inc 11/26/2026 [id number] / / [id number] Medtronic Sofamor Danek [id number] Infuse 14mm 23mm Absorbable Sponge Sterile Water Syringe Needle - [id number] Implanted:Qty: 1 on 03/18/2020 by Jeff Chapman MD at [facility] N/A: Spine Lumbar Medtronic Inc 02/14/2021 [id number] / / [id number] [place] High Viscosity Spinal Cement 20g Implanted:Qty: 1 on 03/18/2020 by Jeff Chapman MD at [facility] N/A: Spine Lumbar Depuy Spine 08/14/2020 [id number] / / [id number] Description:Part of kit neo eugene [facility] Spinal Cement System Ref: [id number] Lot: [id number] Exp date: 05-16-2020 Depuy Synthes Spine [id number] Viper Prime Od6 Mm L35 Mm Fix Polyaxial Fenestrate Extend Tab Spine Cortical Screw Bone Nonsterile 5.5 Mm Mc - [id number] Implanted:Qty: 1 on 03/18/2020 by Jeff Chapman MD at [facility] N/A: Spine Lumbar Depuy Synthes Spine [id number] / / Description:L4 right Depuy Synthes Spine [id number] Viper Prime Od6 Mm L50 Mm Fix Polyaxial Fenestrate Extend Tab Spine Cortical Screw Bone Nonsterile 5.5 Mm Mc - [id number] Implanted:Qty: 4 on 03/18/2020 by Jeff Chapman MD at [facility] N/A: Spine Lumbar Depuy Synthes Spine [id number] / / Description:L3 Bilat L5 Bilat Depuy Spine [id number] 5.5mm 1 Inner Spine Screw Set Titanium Nonsterile Viper - [id number] Implanted:Qty: 6 on 03/18/2020 by Jeff Chapman MD at [facility] N/A: Spine Lumbar Depuy Spine [id number] / / Description:L3-4-5 Depuy Spine [id number] Viper 2 70mm Lordotic Mc Spinal Titanium Mis - [id number] Implanted:Qty: 2 on 03/18/2020 by Jeff Chapman MD at [facility] N/A: Spine Lumbar Depuy Spine [id number] / / Description:Lumbar rods bila t L3-L5 Synthes 08.812.009 T-Pal 28x55a9-0.2mm Radiopaque Connection Cylinder Pyramidal - [id number] Implanted:Qty: 1 on 03/18/2020 by Jeff Chapman MD at [facility] N/A: Spine Lumbar Synthes I 08.812.009 / / Description:Lumbar spacer L4 -5 Depuy Synthes Spine [id number] Viper Prime Od6 Mm L45 Mm Fix Polyaxial Fenestrate Extend Tab Spine Cortical Screw Bone Nonsterile 5.5 Mm Mc - [id number] Implanted:Qty: 1 on 03/18/2020 by Jeff Chapman MD at [facility] N/A: Spine Lumbar Depuy Synthes Spine [id number] / / Description:Left 4 Angio-Seal Vip 6fr Closere Device [id number] - [id number] Implanted:Qty: 1 on 11/21/2021 by Mini Lord MD at [facility] 09/14/2022 [id number] / / [id number] Procedures Procedure Name Priority Date/Time Associated Diagnosis [...] Read Routine (OP Routine) 07/16/2024 8:54 AM CLERICAL OFFICE WORKER Nipple discharge in female COLONOSCOPY 02/11/2024 11:38 [...] Jaime Hall M.D. RW: FARZANA Report ID: [id number] Reading Location: [id number] Procedure Note Jaime Hall MD - 11/19/2024 [...] Jaime Hall M.D. RW: FARZANA Report ID: [id number] Reading Location: [place] [address] Remberto FRASER IMG XR PROCEDURES Final Resul [...] of Race in Diagnosing Kidney Disease, JASN 202). The CKD-EPI equation should not be used for patients with unstable renal function and has not been validated in children and those over 70. Current interpretive data was last reviewed 2021. Testing performed by: [facility], [facility], [place], [address] Blood 10/20/2024 10:5 0 AM CDT 10/20/2024 11:15 AM CDT Jacquelyn Sousa POCKETED SPRING MACHINE OPERATOR LAB BLOOD ORDERABLES Final Result [facility] ([place]) [address] [facility] [place] [address] * Differential, auto (10/20/2024 10:50 AM CDT) Neutrophil abs 2.49 1.50 - 6.50 K/cumm [facility] ([place]) Comment:Testing performed by : [facility] [address], Medical Office [facility] [address], [place] [address] Imm gran abs 0.01 0.00 - 0.10 K/cumm [facility] ([place]) Comment:Testing performed by : [facility] [address], Medical Office [facility] [address], [place] [address] Lymphocyte abs 1.98 0.80 - 3.30 K/cumm [facility] ([place]) Comment:Testing performed by : [facility] [address], Medical Office [facility] [address], [place] [address] Monocyte abs 0.36 0.20 - 0.80 K/cumm [facility] ([place]) Comment:Testing performed by : [facility] [address], Medical Office [facility] [address], [place] [address] Eosinophil abs 0.08 0.00 - 0.50 K/cumm [facility] ([place]) Comment:Testing performed by : [facility] [address], Medical Office [facility] [address], [place] [address] Basophil abs 0.02 0.00 - 0.10 K/cumm [facility] ([place]) Comment:Testing performed by : [facility] [address], Medical Office [facility] [address], [place] [address] Neutrophil pct 50.4 % [facility] ([place]) Comment: Interpretive Data Percent cell count reference ranges are not reported, since discordance with absolute values may lead to misinterpretation of CBC data. Current Interpretive Data was last revised on 2022. Testing performed by: [facility] [address], Medical Office [address], [place] [address] Imm gran pct 0.2 % [facility] ([place]) Comment: Interpretive Data Percent cell count reference ranges are not reported, since discordance with absolute values may lead to misinterpretation of CBC data. Current Interpretive Data was last revised on 2022. Testing performed by: [facility] [address], Medical Office [facility] [address], [place] [address] Lymphocyte pct 40.1 % [facility] ([place]) Comment: Interpretive Data Percent cell count reference ranges are not reported, since discordance with absolute values may lead to misinterpretation of CBC data. Current Interpretive Data was last revised on 2022. Testing performed by: [facility] [address], Medical Office [facility] [address], [place] [address] Monocyte pct 7.3 % [facility] ([place]) Comment: Interpretive Data Percent cell count reference ranges are not reported, since discordance with absolute values may lead to misinterpretation of CBC data. Current Interpretive Data was last revised on 2022. Testing performed by: [facility] [address], Medical Office [facility] [address], [place] [address] Eosinophil pct 1.6 % [facility] ([place]) Comment: Interpretive Data Percent cell count reference ranges are not reported, since discordance with absolute values may lead to misinterpretation of CBC data. Current Interpretive Data was last revised on 2022. Testing performed by: [facility] [address], Medical Office [facility] [address], [place] [address] Basophil pct 0.4 % [facility] ([place]) Comment: Interpretive Data Percent cell count reference ranges are not reported, since discordance with absolute values may lead to misinterpretation of CBC data. Current Interpretive Data was last revised on 2022. Testing performed by: [facility] [address], Medical Office [facility] [address], [place] [address] Blood 10/20/2024 10:5 0 AM CDT 10/20/2024 10:59 AM CDT Jacquelyn Sousa NP LAB BLOOD ORDERABLES Final Result Performing Organization Address [facility]/ZIP Co de Phone Number [facility] ([place]) [address] [facility] [place] [address] * (ABNORMAL) Immunoglobulin free light chains (10/20/2024 10:50 AM CDT) [place]/Lambda ratio 1.10 0.26 - 1.65 Comment:Testing performed by : [facility], [address] [place] [address]., [address] [place] free light chain 4.55(H) 0.33 - 1.94 mg/dL [facility] ([place]) Comment: Interpretive Data The Yemi Ig V[place]a FLC assay procedure was used. Results from different manufacturers or methods may not be comparable. Serial testing should be performed using the same method. Testing performed by: [facility], [address] [place] [address]., [address] Lambda free light chain 3.98(H) 0.57 - 2.63 mg/dL [facility] ([place]) Comment: Interpretive Data The Yemi Ig Lambda FLC assay procedure was used. Results from different manufacturers or methods may not be comparable. Serial testing should be performed using the same method. Testing performed by: [facility], [address] [place] [address]., [address] Blood 10/20/2024 10:5 0 AM CDT 10/20/2024 2:22 PM CDT us Tino Atkinson MD LAB BLOOD ORDERABLES Carol l Result [facility] ([place]) [address] [facility] [place] [address] * Iron profile w/ IBC (10/20/2024 10:50 AM CDT) Iron 68 35 - 145 mcg/dL Comment:Testing performed by : [facility], [address] [facility], [place], [address] TIBC 332 250 - 400 mcg/dL [facility] ([place]) Comment:Testing performed by : [facility], [facility], [place], [address] Transferrin saturation 20 20 - 50 % [facility] ([place]) Comment:Testing performed by : [facility], [facility], [place], [address] Blood 10/20/2024 10:5 0 AM CDT 10/20/2024 11:15 AM CDT Jacquelyn Sousa POCKETED SPRING MACHINE OPERATOR LAB BLOOD ORDERABLES Final Result [facility] ([place]) 1 [facility] [place] [address] * (ABNORMAL) CBC with auto differential (10/20/2024 10:50 AM CDT) WBC 4.94 3.80 - 9.90 K/cumm [facility] ([place]) Comment:Testing performed by : [facility] [address], Medical Office [facility] [address], [place] [address] Hgb 11.3(L) 11.9 - 15.5 g/dL [facility] ([place]) Comment:Testing performed by : [facility] [address], Medical Office [facility] [address], [place] [address] Hct 33.1(L) 35.6 - 45.5 % [facility] ([place]) Comment:Testing performed by : [facility] [address], Medical Office [facility] [address], [place] [address] Plt 180 150 - 400 K/cumm [facility] ([place]) Comment:Testing performed by : [facility] [address], Medical Office [facility] [address], [place] [address] MPV 8.7(L) 9.1 - 12.3 fL [facility] ([place]) Comment:Testing performed by : [facility] [address], Medical Office [facility] [address], [place] [address] RBC 3.32(L) 3.90 - 5.20 M/cumm [facility] ([place]) Comment:Testing performed by : [facility] [address], Medical Office [facility] [address] [facility] [address], [place] [address] MCV 99.7(H) 81.3 - 96.4 fL [facility] ([place]) Comment:Testing performed by : [facility] [address], Medical Office [facility] [address] [facility] [address], [place] [address] MCH 34.0(H) 27.1 - 33.3 pg [facility] ([place]) Comment:Testing performed by : [facility] [address], Medical Office [facility] [address], [place] [address] MCHC 34.1 32.3 - 35.7 g/dL [facility] ([place]) Comment:Testing performed by : [facility] [address], Medical Office [facility] [address], [place] [address] RDW CV 12.8 11.1 - 14.9 % [facility] ([place]) Comment:Testing performed by : [facility] [address], Medical Office [facility] [address], [place] [address] RDW SD 47.1 35.7 - 48.1 fL [facility] ([place]) Comment:Testing performed by : [facility] [address], Medical Office [facility] [address], [place] [address] Blood 10/20/2024 10:5 0 AM CDT 10/20/2024 10:59 AM CDT Jacquelyn Sousa POCKETED SPRING MACHINE OPERATOR LAB BLOOD ORDERABLES Final Result [facility] ([place]) 1 [facility] [place] [address] * Protein electrophoresis with reflex, serum with interpretation (10/20/2024 10:50 AM CDT) Protein, sr 7.7 6.2 - 8.2 g/dL Comment:Testing performed by : [address] [place]., [address] Albumin 4.5 3.2 - 5.0 g/dL [facility] ([place]) Comment:Testing performed by : [address] [place]., [address] Alpha-1 globulin 0.3 0.2 - 0.4 g/dL [facility] ([place]) Comment:Testing performed by : [facility], [address] [place] [address], [address] Alpha-2 globulin 0.8 0.5 - 1.0 g/dL [facility] ([place]) Comment:Testing performed by : [facility], [address] [place] [address], [address] Beta-1 globulin 0.5 0.3 - 0.6 g/dL [facility] ([place]) Comment:Testing performed by : [facility], [address] [place] [address], [address] Beta-2 globulin 0.5 0.2 - 0.6 g/dL [facility] ([place]) Comment:Testing performed by : [facility], [address] [place] [address], [address] Gamma globulin 1.2 0.5 - 1.7 g/dL [facility] ([place]) Comment:Testing performed by : [facility], [address] [place] [address], [address] SPEP interp See Cl Path Rpt [facility] ([place]) Comment:Testing performed by : [facility], [address] [place] [address], [address] Blood 10/20/2024 10:5 0 AM CDT 10/20/2024 2:22 PM CDT us Tino Atkinson MD LAB BLOOD ORDERABLES Carol lombardo Result [facility] ([place]) 1 [facility] [place] [address] * Ferritin (10/20/2024 10:50 AM CDT) [facility] Ferritin 123 15 - 150 ng/mL Comment:Testing performed by : [facility], [address] [facility], [place], [address] Blood 10/20/2024 10:5 0 AM CDT 10/20/2024 11:15 AM CDT us Jacquelyn Sousa POCKETED SPRING MACHINE OPERATOR LAB BLOOD ORDERABLES Final Result [facility] ([place]) 1 [facility] [place] [address] * Comprehensive metabolic panel (10/20/2024 10:50 AM CDT) Sodium 138 135 - 145 mmol/L Comment:Testing performed by : [facility], [place], [address] Potassium, pl 4.3 3.3 - 4.9 mmol/L [facility] ([place]) Comment:Testing performed by : [facility], [place], [address] Chloride 101 97 - 110 mmol/L [facility] ([place]) Comment:Testing performed by : [facility], [place], [address] CO2 22 22 - 32 mmol/L [facility] ([place]) Comment:Testing performed by : [facility], [place], [address] Anion gap 15 2 - 15 mmol/L [facility] ([place]) Comment:Testing performed by : [facility], [place], [address] BUN 15 6 - 25 mg/dL [facility] ([place]) Comment:Testing performed by : [facility], [place], [address] Creatinine 1.09 0.60 - 1.10 mg/dL [facility] ([place]) Comment:Testing performed by : [facility], [place], [address] Glucose 132 70 - 199 mg/dL [facility] ([place]) Comment: Interpretive Data Fasting glucose >/= 126 [...] was last revised 2022. Testing performed by: [facility], [place], [address] Calcium 9.7 8.5 - 10.3 mg/dL [facility] ([place]) Comment:Testing performed by : [place], [address] Bilirubin, total 0.3 0.1 - 1.2 mg/dL [facility] ([place]) Comment:Testing performed by : [facility], [place], [address] Protein, pl 7.6 6.5 - 8.5 g/dL [facility] ([facility]) Comment:Testing performed by : [facility], [place], [address] Albumin 4.2 3.5 - 5.0 g/dL [facility] ([facility]) Comment:Testing performed by : [facility], [place], [address] Alk phos 67 40 - 130 Units/L [facility] ([facility]) Comment:Testing performed by : [place], [address] ALT 23 7 - 45 Units/L [facility] ([facility]) Comment:Testing performed by : [facility], [place], [address] AST 24 10 - 45 Units/L [facility] ([facility]) Comment:Testing performed by : [facility], [place], [address] Blood 10/20/2024 10:5 0 AM CDT 10/20/2024 11:15 AM CDT Jacquelyn Sousa POCKETED SPRING MACHINE OPERATOR LAB BLOOD ORDERABLES Final Result [facility] ([facility]) 1 [facility] [place] [address] * Surgical pathology (10/20/2024 10:50 AM CDT) Miscellaneous 10/20/2024 10: 50 AM CDT 10/22/2024 8:33 AM CDT Narrative 10/22/2024 7:43 PM CDT EPIC results best viewed via link to PDF [facility] Department of Pathology [address] [place] [id number] Final Report Note to Patients: This report [...] the details. Patient Name: SARAH CALLAHAN Address: [address] [place] [address] Gender: F : 1945 (Age: 79) Service: Location: Hospital #: [id number] Patient Type: B MED ONC SERIES Taken: 10/20/2024 Received: 10/22/2024 Accessioned: 10/22/2024 Physician(s): Tino Atkinson MD [facility] Specimen(s) Received A: Blood (serum) Serum Protein [...] determined by the Surgical Pathology Department at [facility] as part of an ongoing environmental quality analyst program and in compliance with federally mandated [...] characteristics determined by the Surgical Pathology Department [facility]. It has not been cleared or approved by the U. S. Food and Drug Administration. REPORT IMAGES AND SCANNED DOCUMENTS, IF INCLUDED, ONLY VIEWABLE IN PDF VERSION OF REPORTe o Tino Atkinson MD LAB PATHOLOGY ORDERABLES Final Result * Diagnostic Mammogram Bilateral W Yayo (07/16/2024 8:54 AM CLERICAL OFFICE WORKER) Anatomical Region Laterality Modality Breast Bilateral Mammography 07/16/2024 10:3 3 AM CLERICAL OFFICE WORKER Impressions 07/16/2024 10:33 AM CLERICAL OFFICE WORKER No evidence to suggest malignancy is seen by mammography or ultrasound. Given the history of bloody nipple discharge, breast MR is recommended. OVERALL FINAL ASSESSMENT: [id number] Electronically signed by: Jessy Gordon M.D. Narrative 07/16/2024 10:33 AM CLERICAL OFFICE WORKER EXAMINATION: BILATERAL DIGITAL DIAGNOSTIC MAMMOGRAM AND DIGITAL [...] region demonstrates no cystic or solid masses. Jacquelyn Sousa NP IMG MAMMO PROCEDURES Final Result * Colonoscopy (02/11/2024 11:38 AM CDT) Anatomical Region Laterality Modality Other Narrative Procedure Note Kamryn Rodríguez MD - 02/11/2024 11:38 AM CDT [facility] Patient Name: Sarah Callahan Procedure Date: 02/11/2024 11:38 AM Date of : 1945 Admit Type: Outpatient Age: 78 Gender: Female Attending MD: Kamryn Rodríguez M.D. Room: [facility] ENDOSCOPY ROOM 1 Note Status: Finalized Patient Profile: This is a 78 year old female. She had colonoscopywith polyps removed with poor colon preparation 6 months ago. No family history of colonic cancer. Procedure: Colonoscopy Indications: Last colonoscopy: July 2023, h/o colonpolyps. Referring MD: SHARRON MolinaC Providers: Kamryn Rodríguez M.D. Impression: - Tortious [...] passed under direct vision.The Pediatric Colonoscope [id number]-H190L [id number] was introduced through the anus and advanced [...] 11:38 AM Procedure Code(s): --- Professional --- 27676, Colonoscopy, flexible; with removal of tumor(s), polyp(s), or other lesion(s) by snare technique Diagnosis Code(s): --- Professional --- K64.8, Other hemorrhoids D12.0, Benign neoplasm of cecum D12.5, Benign neoplasm of sigmoid colon D12.4, Benign neoplasm of descending colon D12.3, Benign neoplasm of transverse colon (hepatic flexure orsplenic flexure) K57.30, Diverticulosis of large intestine without perforation orabscess without bleeding CPT copyright 2020 [employer]. All rights reserved. The codes documented in this report are preliminary and upon push connector assembler reviewmay be revised to meet current compliance requirements. Recognized by the [employer] for promoting quality in endoscopy us Kamryn Rodríguez MD ENDOSCOPY PROCEDURES Final Result [...] and children were not included. (Diabetes Care 31:9892-9450, 2008). The eAG is not equivalent to a fasting glucose. Blood specimen (specimen) 03/11/2020 11:30 AM CDT 03/11/2020 11:31 AM CDT Jeff Chapman MD LAB BLOOD ORDERABLES Final Result [facility] [address] [facility] [place] [address] * Dexa Axial Skeleton Bone Density 1 [...] receiving long-term steroid therapy. Electronically signed by: Guille Otto 01/01/2020 10:48 AM CDT COMPLETION DATE: 01/01/2020 [...] Dual x-ray absorptiometry (DEXA) was performed using HoloZipidee system. Bone mineralization and T score are [...] Most Recently Relevant to Health Maintenance Insurance [facility] IDPA [facility] A[facility] MEDICARE NCON [facility] MEDICARE ADVANTAGE [facility] MEDICARE ADVANTAGE Advance Directives For more information, please contact: [phone] Documents on File Type Date Recorded Patient Product Demonstrator Expl anation ADVANCE DIRECTIVE 09/29/2018 9:00 AM [...] 11:05 AM 11/21/2021 6:14 PM Care Teams Screwhead Stoner And Polisher Relationship Specialty Start Date End Date Remberto Mathis PA [address] [place] [address] PCP - General 09/26/17 Kamryn Rodríguez MD [address] [place] [address] Consulting Physician Gastroenterology 06/26/20
--- OUTSIDE RECORDS SUMMARY | 2024-11-21 19:32 | XMS_ITS | Clinical Summary ---
Author Organization [facility] Address [address] [place] [address] Care Team Providers Care Software Developer Name Role Phone Remberto Mathis Primary Care Provider [phone] Jose Rodríguez MD Unavailable [phone] Martinez Rosas MD Unavailable [phone] Jeff Chapman MD Unavailable [phone] Source Comments [facility],non-owned Affiliates and Associated Physician Practices is amultiple site organization consisting of ambulatory clinics and hospital sitesin [place], [place], [place] and [place]. This disclosure is being madepursuant to the Care Everywhere program and may not contain all information available regarding this patient. Last updated 18.[facility] Allergies Active Allergy Reactions Criticality Noted Date Comments Aspirin Other 07/01/2017 Codeine Psychiatric High 03/10/2019 Medications * Be aware that medications may not be up to date on this document. Alwaysverify current medications with the patient. ALPRAZolam (XANAX) 1 MG tablet Take 1 mg by mouth 1 Before Breakfast, 2 Before Dinner 9 Active fluticasone propionate (FLONASE) 50 MCG/ACT nasal spray [place] 50 sprays into each nostril once daily 8 Active gabapentin (NEURONTIN) 600 MG tablet Take 600 mg by mouth 3 times daily Active blood glucose (ONETOUCH VERIO) test strip Use 1 strip as instructed 4 times daily 8 Active insulin aspart protamine & aspart 70/30 (NOVOLOG MIX 70/30) pen Inject 100 Units subcutaneously every 12 hours Active NOVOLOG MIX 70/30 FLEXPEN pen Inject 30 Units subcutaneously 2 times daily as needed with food 1 9 Active B-D ULTRAFINE III SHORT PEN 31G X 8 MM needle 1 syringe by Injection route once daily 3 9 Active lansoprazole (PREVACID) 30 MG capsule Take 30 mg by mouth 2 times daily 9 Active lisinopril (PRINIVIL; ZESTRIL) 10 MG tablet Take 10 mg by mouth once daily Active ELIQUIS 5 MG tablet Take 5 mg by mouth 2 times daily 3 9 Active escitalopram (LEXAPRO) 10 MG tablet Take 10 mg by mouth once daily 0 9 Active ADVAIR DISKUS 250-50 MCG/DOSE inhaler Inhale 1 puff by mouth 2 times daily 3 9 Active One Touch Delica Lancets Use 1 Each as instructed 8 Active LORazepam (ATIVAN) 0.5 MG tablet Take 0.5 mg by mouth 9 Active lovastatin (MEVACOR) 20 MG tablet 9 Active meclizine (ANTIVERT) 12.5 MG tablet Take 12.5 mg by mouth 2 times daily as needed 0 9 Active metFORMIN (GLUCOPHAGE) 1000 MG tablet Take 1,000 mg by mouth 2 times daily Active pancrelipase (CREON) 95224-64583 units capsule Take 1-2 capsules by mouth once daily 9 Active albuterol (PROVENTIL;BLOSSOM TOLIN) (2.5 MG/3ML) 0.083% nebulizer solution Inhale 2.5 mg by mouth every 4 hours 3 9 Active [facility] CALCIUM 600 MG tablet Take 1 tablet by mouth once daily after breakfast 0 Active sucralfate (CARAFATE) 1 GM tablet 0 Active Active Problems Problem Noted Date Diagnosed Date Confusion 02/23/2020 History of pulmonary embolus (PE) 12/23/2019 Hyperlipidemia 12/23/2019 Abnormal mammogram of left breast 07/08/2019 GERD (gastroesophageal reflux disease) 0 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 Will start extra low dose insulin sliding scale. Avoid hypoglycemia. Hypertension 12/03/2018 Overview (02/23/2020): Last Assessment & Plan: Stable. Continue cardiac pertinent home medications. Acute pyelonephritis 12/03/2018 Overview (02/23/2020): Last Assessment & Plan: Patient was started on IV Zosyn. Septic workup in progress. Monitor daily CBC. Monitor kidney function with daily BMP. Replete electrolytes as needed. Disorientation 12/03/2018 Overview (02/23/2020): Last Assessment & Plan: Likely secondary to UTI encephalopathy. Cannot rule out underlying dementia at this point. Monitor clinically Treat correctable causes Septic workup in progress. Hyponatremia 12/03/2018 Overview (02/23/2020): Last Assessment & Plan: Monitor with daily BMP. Hypoxemia 12/03/2018 Overview (02/23/2020): Last Assessment & Plan: Hypoxemia noted on ABG. Most likely secondary to pulmonary emboli. Also patient has history of of VICKIE. Continue with supplemental oxygen and systemic anticoagulation for PE. PE (pulmonary thromboembolism) 12/03/2018 Overview (02/23/2020): Last Assessment & Plan: Patient started on therapeutic dose of Lovenox. Will continue with IV anticoagulation Primary osteoarthritis of right knee 09/09/2018 Overview (02/23/2020): Added automatically from request for surgery [id number] Closed compression fracture of third lumbar vert ebra 04/07/2018 Chest pain 01/10/2018 Overview (02/23/2020): Added automatically from request for surgery [id number] History of stress incontinence 01/06/2018 Urinary incontinence 01/06/2018 Age-related osteoporosis wit hout current pathological fracture 12/30/2017 Overview (02/23/2020): Last Assessment & Plan: - advise to take at least 3-4 [...] the person will continue it over the fci. Falls -- Falling significantly increases the risk [...] less likely to do so. ?Visiting an coding compliance specialist or harness placer regularly to optimize vision. 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, right 10/21/2017 Chronic eczematous otitis externa of right ear 0 10/21/2017 Conductive hearing loss of right ear 10/21/2017 Tinnitus of right ear 10/21/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, marginal, right 0 10/21/2017 Painful orthopaedic hardware 10/10/2017 Overview (02/23/2020): Added automatically from request for surgery [id number] Post-traumatic osteoarthritis of left knee 10/10 Overview (02/23/2020): Added automatically from request for surgery [id number] VICKIE (obstructive sleep apnea) Asthma Rheumatoid arthritis Immunizations Immunization Administration Dates Next Due INFLUENZA VACCINE 03/26/2019 Family History Medical History Relation Name Comments Diabetes - Type 2 Daughter Cancer - Breast Mother Cancer - Breast Sister 1 Cancer - Ovarian Sister 2 Cancer - Breast Sister 3 Relation Name Status Comments Daughter Mother Sister 1 Sister 2 Sister 3 Social History Tobacco Use Types Packs/Day Years Used Date Smoking Tobacco: Never Smokeless Tobacco: Never Tobacco Cessation:Counseling Given: Yes Alcohol Use Standard Drinks/Week Comments Never 0 (1 standard drink = 0.6 oz pur e alcohol) AUDIT-C Answer Date Recorded Frequency of Alcohol Consumption Never 07/08/2019 Average Number of Drinks Not on file 020 Frequency of Binge Drinking Not on file 06/18 Comments Unknown Sex and Gender Information Value Date Recorded Sex Assigned at Not on file Legal Sex Female 8:30 AM CDT Gender Identity Not on file Sexual Orientation Not on file Last Filed Vital Signs Vital Sign Reading Time Taken Comments Blood Pressure 126/78 02/23/2020 3:24 PM CDT Pulse 71 07/09/2019 8:37 AM RN PEDIATRIC ICU Temperature 36.5 C (97.7 F) 07/09/2019 8:37 AM RN PEDIATRIC ICU Respiratory Rate 18 03/30/2019 1:26 PM CDT Oxygen Saturation 96% 07/09/2019 8:37 AM RN PEDIATRIC ICU Inhaled Oxygen Concentration - - Weight 89.8 kg (198 lb) 02/23/2020 3:24 PM CDT Height 165.1 cm (5' 5) 02/23/2020 3:24 PM CDT Body Mass Index 32.95 02/23/2020 3:24 PM CDT Plan of Treatment Health Maintenance Due Date Last Done Comments DIABETES-SERUM CREATININE 1963 DTAP/TDAP/TD VACCINES (1 - Tdap) 1964 PNEUMOCOCCAL VACCINE 50+ (1 of 2 - PCV) 1964 ZOSTER VACCINE (1 of 2) 1995 DIABETES RETINOPATHY SCREENING 07/08/2019 DIABETES-FOOT EXAM WITH MONOFILAMENT 07/08/2019 Respiratory Syncytial Virus (RSV) Vaccine Pt: or over 60 yrs (1 - 1-dose 75+ series) 2020 DIABETES-HGB A1C 09/08/2020 03/11/2020 COVID-19 VACCINE ( season) 2024 04/27/2021, 08/31/2020, 08/05/2020 DEPRESSION SCREENING 06/17/2024 DIABETES - URINE PROTEIN SCREENING 06/17/2024 INFLUENZA VACCINE (Season Ended) 2025 03/20/2023, 04/23/2022, 02/14/2022, Additional history exists BONE DENSITY TESTING Completed 01/01/2020, 01/07/20 18 HEPATITIS B VACCINE Aged Out No longe r eligible based on patient's age to complete this topic HIB VACCINE Aged Out No longer eligi ble based on patient's age to complete this topic HPV VACCINE Aged Out No longer eligi ble based on patient's age to complete this topic MENINGOCOCCAL (Group B) VACCINE SHARED DECISION-MAKING Aged Out No longer eligible based on patient's age to complete this topic MENINGOCOCCAL GROUPS A/C/Y/W VACCINE Aged Out No longer eligible based on patient's age to complete this topic Insurance [employer] MEDICAID - OUT OF STATE MEDICAID AETNA [facility] Care Teams Software Developer Relationship Specialty Start Date End Date Remberto Mathis PA [address] [place] [address] PCP - General 02/18/19 Jose Rodrí[place] [address] [place], [place] [id number] Gastroenterology 03/10/19 [place] [address] [place], [place] [id number] Orthopedic Surgery 03/10/19 [place] [address] [place] [address] Orthopedic Surgery 03/10/19
--- NOTE | 2024-12-24 11:46 | P.SLEEP_ITS ---
Sleep Study Date of Study: 11/21/24 Ordering Provider: Deena Celis Interpreting Physician: Adriana Rodriguez MD Sleep Study Type: Split Polysomnogram Height: 1.65 m Weight: 97.522 kg Body Mass Index: 35.7 Neck Circumference (inches): 15.75 [place]: 3 Reason for Sleep Study History of obstructive sleep apnea, has used CPAP with a fullface mask. She no longer uses CPAP as it caused her mouth to feel dry. She presents for a split night study by her primary care physician. Sleep History Sarah Villagran is a 79-year-old woman with history of obstructive sleep apnea. She complains that she is always tired and has chronic pain. In her sleep survey she says she has no sleep problem. She has been on CPAP for more than 3 years. She never awakens from sleep short of breath. She never wakes at night with heartburn, belching or coughing.??She rarely snores, rarely snores loudly enough that others complain. She never has trouble sleeping when she has a cold. She never wakes up gasping for breath during the night. She occasionally has breathing problems at night witnessed by others. She constantly sweats excessively at night. She never notices her heart pounding or beating irregularly during the night. She occasionally falls asleep during the day. She rarely falls asleep involuntarily, never falls asleep while driving. She never experiences loss of muscle tone with strong emotion. She never feels par alyzed on waking or falling asleep. She never experiences vivid dreams upon waking or falling asleep. She never feels afraid of going to sleep. She never has nightmares. She never recalls her dreams. She never has thoughts racing through her mind. She never feels sad or depressed. She never feels anxiety. She never notices parts of her body jerk. She never kicks during the night. She occasionally feels crawling or aching feelings in her legs. She occasionally feels leg pain at night. She never has morning jaw pain, nor does she grind her teeth at night. She constantly feels bothered by pain during the day, is constant awakened by pain during the night. She always wakes up feeling stiff in the morning, always wakes feeling sore or achy in the morning. She constantly awakens with pain in her neck, spine, or joints. She has dizziness. Normal bedtime is between 7:00 p.m. and 8:00 p.m., falling asleep as soon as her head hits the pillow, waking twice during the night to go to the bathroom. She is able to return to sleep within 5 minutes. She wakes between 6:00 a.m. and 9:00 a.m.. She keeps the same schedule on weekends. She estimates getting between 9 and 10 hours of sleep at night. She takes naps in the afternoon or evening however short nap lasting 10-15 minutes is not refreshing. She is drowsy on waking. She feels better in the afternoon compared to other times of day. Habits:??Tobacco: Former smoker Caffeine: Occasionally, 1 cup Alcohol: none Recreational substances: none PMFSH Past Medical History Medical History (Updated 12/24/24 @ 12:45 by Adriana Rodriguez MD) 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 Other Adopted Unknown family medical history Social History Social History Social History: Primary care physician: Dr. Remberto Mathis Code status: Full code no advance directives in place Surrogate decision maker: Quin Villagran (daughter) Smoking status: Former smoker Tobacco type: cigarettes Alcohol intake: never Substance use: never Substance use type: does not use Living arrangements: with family Gender identity (if verbalized by the patient): Female Spiritual care concerns: No Medications Home Medications ?Medication ?Instructions ?Recorded ?Confirmed ?Type escitalopram oxalate 20 mg tablet 20 mg PO DAILY 06/06/20 01/03/24 History insulin syringe-needle U-100 0.3 #10 ea 06/06/20 01/03/24 History mL 31 gauge x 10/30 metformin 1,000 mg tablet 1,000 mg PO BID 06/06/20 01/03/24 History ropinirole 1 mg tablet 1 mg PO HS 12/15/20 01/03/24 History diltiazem HCl 240 mg 240 mg PO DAILY 09/01/22 01/03/24 History capsule,extended release 24 hr, controlled (DILT-XR) docusate sodium 100 mg capsule 100 mg PO DAILY 09/01/22 01/03/24 History lansoprazole 30 mg capsule,delayed 30 mg PO DAILY 09/01/22 01/03/24 History release lisinopril 10 mg tablet 10 mg PO DAILY 09/01/22 01/03/24 History mirabegron 50 mg tablet,extended 50 mg PO DAILY 09/01/22 01/03/24 History release 24 hr (Myrbetriq) montelukast 10 mg tablet 10 mg PO DAILY 09/01/22 01/03/24 History alendronate 70 mg tablet 70 mg PO WEEKLY 02/04/23 01/03/24 History meloxicam 15 mg tablet 15 mg PO DAILY 02/04/23 01/03/24 History gabapentin 300 mg capsule 600 mg PO TID 02/27/23 01/03/24 History albuterol sulfate 90 mcg/actuation 2 inh inhalation Q4H PRN Shortness 01/03/24 01/03/24 History aerosol inhaler (Ventolin HFA) Of Breath buspirone 5 mg tablet 5 mg PO BID 01/03/24 01/03/24 History cyclobenzaprine 10 mg tablet 10 mg PO TID PRN muscle spasm #30 01/03/24 Rx tabs fluticasone fur. 200 mcg-umeclid 1 inh inhalation DAILY 01/03/24 01/03/24 History 62.5 mcg-vilant 25 mcg inhalat.powder (Trelegy Ellipta) insulin lispro 100 unit/mL 30 unit subcut QACBREAK 01/03/24 01/03/24 History subcutaneous pen (Humalog KwikPen (U-100) Insulin) insulin lispro 100 unit/mL 35 unit subcut QACDINNER 01/03/24 01/03/24 History subcutaneous pen (Humalog KwikPen (U-100) Insulin) insulin lispro protamine-lispro 35 unit subcut BID 01/03/24 01/03/24 History 100 unit/mL (75-25) subcutaneous pen (Humalog Mix 75-25 KwikPen) tramadol 50 mg tablet 50 mg PO Q6H PRN Pain 01/03/24 01/03/24 History ferrous sulfate 325 mg (65 mg 325 mg PO DAILY 03/12/24 History iron) tablet,delayed release Sleep Procedure A split night polysomnogram using the [employer] multi-channel system recorded the standard physiologic parameters including EEG, EOG, submentalis EMG, anterior tibialis EMG, EKG, body position, nasal and oral airflow using nasal pressure sensor and thermistor. Respiratory parameters of chest and abdominal movements were recorded with Respiratory Inductance Plethysmography belts. Oxygen saturation was recorded by pulse oximetry. Video monitoring was also performed. Sleep stages, periodic limb movements, and EEG arousals were scored in 30 second epochs according to the criteria of the AASM Scoring Manual. The Apnea-Hypopnea Index was calculated using CMS guidelines for definition of hypopnea while scoring respiratory events. She did not take a sleep aid at the beginning of the study. She had 1 trip to the bathroom during the night. Her slept in room 228 as the patient required additional care during the night. After the baseline portion the patient met criteria for a titration with an AHI of 65.6 and desaturation to 75%. She used a small ResMed AirTouch F20 fullface mask with heated humidity, initial pressure was CPAP 5 cm, titrated per protocol to a maximum of CPAP 14 cm, at CPAP 15 2 cm of EPR was initiated, patient continued with CPAP up to CPAP 17 with 3 of EPR, switched to bilevel /18. At this pressure the patient spent 42.5 minutes in bed, 1 minute awake, 26 minutes and non-REM, 15 minutes in REM. The sleep efficiency was 96.5%. The residual a pnea-hypopnea index was 2.9 and the average saturation was 93.3%. She had REM in the left lateral position. Sleep was consolidated. This is the optimal pressure. Sleep Architecture During the diagnostic portion of the study, the total recording time was 152.1 minutes. The total sleep time was 122.5 minutes. Sleep latency was 15.1 minutes. REM latency was - minutes. Sleep Efficiency was 80.5%. The patient had 6 awakenings for an awakening index of 2.9. Wake after sleep onset time was 14.5 minutes. The patient spent 9.0 minutes, 7.3% of total sleep time in Stage N1. The patient spent 92.0 minutes, 75.1% in Stage N2. The patient spent 21.5 minutes, 17.6% in Stage N3. The patient spent no time in Stage REM sleep. At 12:00:08 AM the patient was placed on PAP treatment and was titrated at pressures ranging from 5 cm to 17 cm with 3 EPR, switched to Bilevel . During the treatment portion of the study, the total recording time was 356.5 minutes. The total sleep time was 343.0 minutes. Sleep latency was 0.0 minutes. REM latency was 58.5 minutes. Sleep Efficiency was 96.2%. Wake after Sleep Onset time was 13.5 minutes. The patient spent 26.5 minutes, 7.7% of total sleep time in Stage N1. The patient spent 220.5 minutes, 64.3% in Stage N2. The patient spent no time in Stage N3. The patient spent 96.0 minutes, 28.0% in Stage REM. Respiratory Analysis During the diagnostic portion of the study, the patient had 113 hypopneas, 21 obstructive apneas, no mixed apneas or central apneas, for an overall Apnea Hypopnea Index of 65.6 events per hour. The REM Apnea Hypopnea Index was 0 because hse had no REM on the baseline. The NREM Apnea Hypopnea Index was 65.6. The patient had a Central Apnea Hypopnea Index of 0. There were no Respiratory Effort Related Arousals. The Respiratory Disturbance Index is 70.5 events per hour. There was no evidence of Kash-Vergara Respirations. During the treatment portion of the study, the patient had 55 hypopneas, 5 obstructive apneas, no mixed apneas, and 10 central apneas for an overall Apnea Hypopnea Index of 12.2 events per hour. The REM Apnea Hypopnea Index was 5.0. The NREM Apnea Hypopnea Index was 15.1. The patient had a Central Apnea Hypopnea Index of 1.7. There were no Respiratory Effort Related Arousals. The Respiratory Disturbance Index is 15.6 events per hour. There was no evidence of Kash-Vergara Respirations. Arousals During the diagnostic portion of the study, there were a total of 40 arousals for an arousal index of 19.6. There were 9 respiratory arousals for an index of 4.4. There was 1 periodic limb movement arousal for an index of 0.5. There were 2 isolated limb movement arousals for an index of 1.0. There were 28 spontaneous arousals for an index of 13.7. During the treatment portion of the study, there were a total of 45 arousals for an index of 7.9. There were 4 respiratory arousals for an index of 0.7. There were 4 periodic limb movement arousals for an index of 0.7. There were 8 isolated limb movement arousals for an index of 1.4. There were 29 spontaneous arousals for an index of 5.1. Periodic Limb Movements During the diagnostic portion of the study, the patient had 7 isolated limb movements with an index of 3.4. The patient had 5 periodic limb movements with an index of 2.4. The patient had a total of 12 limb movements with a total limb movement index of 5.9. During the treatment portion of the study, the patient had 35 isolated limb movements with an index of 6.1. The patient had 25 periodic limb movements with an index of 4.4. The patient had a total of 60 limb movements with a total limb movement index of 10.5. Oximetry Data During the diagnostic portion of the study, the patient had an average oxygen saturation of 91.9% in wake with a minimum oxygen saturation of 84% and a maximum oxygen saturation of 95%. The patient had an average oxygen saturation of 90.8% in sleep with a minimum oxygen saturation of 75% and a maximum oxygen saturation of 97%. The patient had 168 oxygen desaturations resulting in an Oxygen Desaturation Index of 82.3. The patient spent 12.9 minutes, 9% of total sleep time with an oxygen saturation less than 88%. During the treatment portion of the study, the patient had an average oxygen saturation of 92.1% in wake with a minimum oxygen saturation of 89% and a maximum oxygen saturation of 97%. The patient had an average oxygen saturation of 91.3% in sleep with a minimum oxygen saturation of 80% and a maximum oxygen saturation of 98%. The patient had 113 oxygen desaturations resulting in an Oxygen Desaturation Index of 19.8. The patient spent 8.3 minutes, 2.3% of total sleep time with an oxygen saturation less than 88%. Snoring Profile Snoring was moderately loud and intermittent, resolved at the optimal pressure. Cardiac Profile During the diagnostic portion of the study, the EKG showed normal sinus rhythm. The average pulse rate was 74.2 bpm. The minimum pulse rate was 68 bpm. The maximum pulse rate was 89 bpm. No arrhythmias noted. During the treatment portion of the study, the EKG showed normal sinus rhythm. The average pulse rate was 77.4 bpm. The minimum pulse rate was 72 bpm. The maximum pulse rate was 92 bpm. No arrhythmias noted. EEG Profile EEG was unremarkable, no evidence of seizures. Assessment and Plan Assessment and Plan (1) Obstructive sleep apnea: Code(s): G47.33 - Obstructive sleep apnea (adult) (pediatric) Status: Acute Assessment and Plan: This split night sleep study on 11/21/2024 shows extremely severe obstructive sleep apnea, the apnea-hypopnea index was 65.6 with desaturation to 75% successfully treated using a small ResMed AirTouch F20 fullface mask with heated humidity and Bilevel pressure 22/18. At this pressure Bilevel 22/18, the patient spent 42.5 minutes in bed, 1 minute awake, 26 minutes and non-REM, 15 minutes in REM. The sleep efficiency was 96.5%. The residual apnea-hypopnea index was 2.9 and the average saturation was 93.3%. She had REM in the left lateral position. Sleep was consolidated. This is the optimal pressure. The patient should be prescribed this ResMed equipment as well as tubing, filters and reservoir. This should be used with all episodes of sleep. Compliance should be reviewed within 31-90 days of starting therapy for usage greater than 4 hours per night greater than 70% of the nights. The patient should be asked about symptoms such as excessive daytime sleepiness, quality of sleep, decreased nocturia, increased mental functioning such as memory, mood, and concentration. BMI is 35.8. Weight management is advised. Clinical data suggests that weight loss of 10% can reduce the severity of respiratory events and snoring and improve AHI by as much as 25%. Data The data obtained during this sleep study is adequate for interpretation. Certification This sleep study has been reviewed by a board certified sleep medicine physician.
[2024-12-24 12:37] VITALS: BMI 35.7
== END 2024-11-22 06:49 | disposition home or self-care (01) ==
PROVIDERS: PCP Internal Medicine
DX: G47.33 Obstructive sleep apnea (adult) (pediatric) (principal); Z68.35 Body mass index [BMI] 35.0-35.9, adult
CPT/HCPCS: 95811

== ENCOUNTER 2025-01-22 18:54 | Emergency (ER) | payer MEDICARE, MEDICAID, SELFPAY ==
--- NOTE | ~2025-01-22 | CT_ITS ---
CLINICAL INDICATION: Left flank pain COMPARISON: 02/04/2023. TECHNIQUE: Multiple contiguous axial images of the abdomen and pelvis were performed without the admi nistration of intravenous contrast The dose-length product (DLP) was 1291.72 mGy-cm. Automated exposure control and iterative reconstruction technique were employed. FINDINGS/OBSERVATIONS: Visualized lower thorax: Bibasilar atelectasis. The remainder of the bilateral lung bases are clear. The heart is of normal size, without pericardial effusion. Small hiatal hernia is present. Liver: Pneumobilia is redemonstrated. The remainder of the liver demonstrates otherwise homogeneous attenuation and is not enlarged. Gallbladder and biliary system: The gallbladder is surgically absent. Pancreas: Limited evaluation of the pancreas secondary to the lack of intravenous contrast. Spleen: The spleen demonstrates homogeneous attenuation and is not enlarged. Kidneys: The bilateral kidneys are unremarkable, without hydronephrosis or renal calculi. Adrenal glands: Unremarkable. Gastrointestinal tract: Colonic diverticulosis without surrounding inflammatory change. Appendix: The appendix is not definitively visualized. However, no pericecal inflammatory change is identified suggest the presence of acute appendicitis. Vasculature: Calcified atherosclerotic disease within the abdominal aorta, without aneurysmal dilatation. Lymph nodes: Limited evaluation without intravenous contrast. Pelvic structures: The bladder is decompressed, limiting its evaluation. The uterus is either surgically absent or markedly atrophic. Body wall and musculoskeletal: Posterior fixation within the lower lumbar spine. Severe degenerative disease, without acute compression fracture. IMPRESSION: No obstructive uropathy. Examination is unchanged from 02/04/2023. Reviewed, dictated and finalized at location A.
[2025-01-22 18:54] VITALS: BP 123/94; PULSE 96; RESP 17; TEMP 36.8; O2SAT 97
--- OUTSIDE RECORDS SUMMARY | 2025-01-22 18:56 | XMS_ITS | Encounter Summary ---
Author Organization [facility] Address [address] [place] [address] Phone Care Team Providers Care Machine Records Units Supervisor Name Role Phone Remberto Mathis Primary Care Provider [phone] Deena Celis APRN, RUTH Unavailable [phone] Reason for Visit * Reason Comments Medication Refill Encounter Details Date Type Department Care Team (Late st Contact Info) Description 11/04/2023 Refill [facility] [address] [place] [address] Deena Celis APRN, RUTH [address] [address] Medication Refill Social History Tobacco Use Types [...] Dept 05/24/23 Office Visit Deena Celis APRN, RUTH [facility] [place] [facility] [place] Showing recent visits within past 365 days and meeting all other requirements Future Appointments Date Type Provider Dept 11/25/23 Appointment Deena Celis APRN, R[facility] [place] [facility] Showing future appointments within next 90 days and meeting all other requirements documented in this encounter Plan of Treatment Upcoming Encounters Date Type Department Care Team (Late st Contact Info) Description 02/05/2025 9:30 AM CDT Office Visit [facility] - Neurology [facility] [address] [place] [address] Frank Del Rosario MD [address] [place] [address] 02/08/2025 11:30 AM CDT Hospital Encounter [facility] [address] [place] [address] Sebastian Silvestre MD [address] [address] 02/08/2025 11:30 AM CDT - 02/08/2025 12:30 PM CDT Surgery [facility] [address] [place] [address] Sebastian Silvestre MD [address] [address] EGD 06/01/2025 9:30 AM AIR QUALITY SPECIALIST Office Visit [facility] - Pulmonology & Sleep Medicine - [place] [address] [place] [address] Deena Celis APRN, AIR DEFENCE OFFICER [address] [facility] [address] [place] [address] Scheduled Procedures Name Priority Associated Diagnoses Date/Ti me EGD DIARRHEA 02/08/2025 11:30 AM CDT COLONOSCOPY DIARRHEA 02/08/2025 11:30 AM CDT documented as of this encounter Visit Diagnoses Diagnosis Mild intermittent asthma without status asthmaticus without complication documented in this encounter Care Teams Machine Records Units Supervisor Relationship Specialty Start Date End Date Remberto Mathis, PAC [address] [place] [id number] PCP - General Physician Retirement Consultant 10/21/17 Deena Celis APRN, AIR DEFENCE OFFICER [address] [address] Nurse Practitioner Advanced Practice Nurse 05/03/22 documented as of this encounter
--- OUTSIDE RECORDS SUMMARY | 2025-01-22 18:56 | XMS_ITS | Clinical Summary ---
Author Organization [facility] Address [address] [place] [id number] Care Team Providers Care Floor Technician Name Role Phone Unavailable Primary Care Provider Unavailabl e Social History Tobacco Use Types Packs/Day Years Used Date Smoking Tobacco: Never Assessed Comments Unknown Sex and Gender Information Value Date Recorded Sex Assigned at Not on file Legal Sex Female 2:08 AM CDT Gender Identity Not on file Sexual Orientation Not on file Plan of Treatment Health Maintenance Due Date Last Done Comments Hepatitis C 1963 DTaP, Tdap and Td Vaccines ( 1 - Tdap) 1964 Pneumococcal Vaccine: 50+ Ye ars (1 of 1 - PCV) 1995 Zoster Vaccines (1 of 2) 1995 Dexa Scan (General) 2010 RSV Immunization or 60+ Years (1 - 1-dose 75+ series) 2020 COVID-19 Vaccine (2023-2 5 season) 2024 Meningococcal B Vaccine Aged Out No l onger eligible based on patient's age to complete this topic Meningococcal Vaccine Aged Out No alycia le eligible based on patient's age to complete this topic RSV Immunizations Under 20 Months Aged Out No longer eligible based on patient's age to complete this topic
--- OUTSIDE RECORDS SUMMARY | 2025-01-22 18:56 | XMS_ITS | Clinical Summary ---
Author Organization [facility] Address [address], [facility] [address] [place] [address] Phone Care Team Providers [facility] Medical Biller Name Role Phone Remberto Mathis Primary Care Provider [phone] Deena Celis APRN, CASTING INSPECTOR Unavailable Allergies Active Allergy Reactions Criticality Noted Date Comments Aspirin Other (see Comments) 07/01/2017 ULCER Codeine Hallucinations 07/01/2017 Medications fluticasone (FLONASE) 50 MCG/ACT Suspension as needed. 0 06/24/19 18 Active gabapentin (NEURONTIN) 600 MG Tablet Take 600 mg by mouth 3 times daily. Active lisinopril (PRINIVIL, ZESTRIL) 10 MG Tablet Take 10 mg by mouth every morning. Active lovastatin (MEVACOR) 20 MG Tablet Take [...] TABLET BY MOUTH EVERY DAY AFTER BREAKFAST 11/03/19 20 Active CREON [address]-[address] Particles 12/02/19 20 Active escitalopram (LEXAPRO) 20 MG Tablet Take 20 mg by mouth daily. Active OneTouch Verio Strip 10/04/19 Active meclizine (ANTIVERT) 25 MG Tablet TAKE 1 TABLET BY MOUTH THREE TIMES A DAY NEEDED 10/13/19 22 Active meloxicam (MOBIC) 15 MG Tablet TAKE 1 TABLET BY MOUTH EVERY DAY NEEDED 10/10/19 22 Active Mirabegron ER 50 MG TABLET SR 24 HR Take 50 mg by mouth daily. 30 Tablet 12 11/01/19 23 Active albuterol (Ventolin HFA) 108 (90 Base) MCG/ACT Aerosol SolutionIndicati ons:Mild intermittent asthma without status asthmaticus without complication INHALE 2 PUFFS BY MOUTH EVERY 4 HOURS NEEDED FOR WHEEZE 18 g 5 11/05/19 24 Active montelukast (SINGULAIR) 10 MG TabletIndication s:Mild intermittent asthma without status asthmaticus without complication Take 1 Tablet by mouth daily. 90 Tablet 3 11/25/19 24 Active Fluticasone-Umec lidin-Vilant (Trelegy Ellipta) 200-62.5-25 MCG/ACT AEROSOL POWDER, BREATH ACTIVATEDIndicat ions:Mild intermittent asthma without status asthmaticus without complication take 1 Puff by inhalation daily. 60 Each 5 09/23/19 25 Active Albuterol-Budeso nide (Airsupra) 90-80 MCG/ACT AerosolIndicatio ns:Mild intermittent asthma without status asthmaticus without complication 2 puffs as needed, no more than 12 puffs in a 24 hour period. 3 g 3 12/01/19 25 Active Fluticasone-Umec lidin-Vilant (Trelegy Ellipta) 200-62.5-25 MCG/ACT AEROSOL POWDER, BREATH ACTIVATEDIndicat ions:Mild intermittent asthma without status asthmaticus without complication take 1 Puff by inhalation daily. 12/01/19 25 Active Additional Information Patient not taking.Reported on 01/19/2025 CYCLOBENZAPRINE HCL PO 3 times daily as needed. 09/11/19 23 Active docusate sodium (COLACE) 100 MG Capsule 1 tablet DAILY (route: oral) 09/11/19 23 Active lansoprazole (PREVACID) 30 MG CAPSULE DELAYED RELEASE 1 capsule DAILY (route: oral) 09/11/19 23 Active insulin aspart prot & aspart (NovoLOG 70/30 FlexPen ReliOn) (70-30) 100 UNIT/ML Suspension Pen-injector 30-35 unit 2 TIMES DAILY (route: subcutaneous) 09/11/19 23 Active cholestyramine light (QUESTRAN LIGHT) 4 g Pack Take 1 Packet by mouth 2 times daily. 60 Packet 3 12/11/19 25 Active Multiple Vitamin (MULTI-VITAMIN PO) Take by mouth daily. Active traMADol (ULTRAM) 50 MG Tablet Take 50 mg by mouth every 6 hours as needed. Active busPIRone (BUSPAR) 5 MG Tablet Take 5 mg by mouth 2 times daily. Active rOPINIRole (REQUIP) 1 MG Tablet Take 1 mg by mouth nightly. Active dilTIAZem (DILACOR XR) 240 MG CAPSULE SR 24 HR Take 240 mg by mouth every morning. Active hydrOXYzine (ATARAX) 25 MG Tablet Take 25 mg by mouth every 8 hours as needed for Anxiety. Active Insulin Lispro Prot & Lispro (HUMALOG MIX 75/25 KWIKPEN SC) 35 Units by Subcutaneous route 2 times daily. Active insulin aspart (NovoLOG) 100 UNIT/ML Solution 35 Units by Subcutaneous route 2 times daily. 025 Discontinu ed(Med List Clean Up) ipratropium-albu terol (DUO-NEB) 0.5-2.5 (3) MG/3ML SolutionIndicati ons:Mild intermittent asthma without status asthmaticus without complication 3 mL by Nebulization route 4 times daily as needed for Shortness of Breath or Wheezing for up to 30 days. 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, right 10/21/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, marginal, right 0 10/21/2017 Encounters Date Type Department Care Team Description 01/19/2025 Travel 01/14/2025 Travel 01/01/2025 Results Follow-Up [facility] - [facility]ology & [facility] - [place] [address] [place] [address] Deena Celis APRN, CASTING INSPECTOR GENERAL SLEEP STUDY 12/28/2024 Telephone [facility] - Pulmonology & [facility] Medicine - [place] [address] [facility] [place] [address] Deena Celis APRN, CASTING INSPECTOR 12/16/2024 [facility] [place] [address] [facility] [place] [address] Tre Duran MD Procedure 12/11/2024 Travel 12/10/2024 9:30 AM CDT [facility] [place] [address] [facility] [place] [address] Tre Duran MD Diarrhea, unspecified type (Primary Dx) Discharge Disposition: Discharged to home or Selfcare 12/10/2024 Travel 12/10/2024 [facility] [place] [address] [facility] [place] [address] Tre Duran MD 12/02/2024 11:22 PM CDT - 12/03/2024 4:45 AM CDT Emergency [facility] Emergency [address] [place] [address] Yoshi Barraza MD Diarrhea, unspecified type Discharge Disposition: Discharged to home or Selfcare 12/02/2024 Travel 12/02/2024 Telephone [facility]ology & [facility] Medicine - [place] [address] [facility] [place] [address] Deena Celis APRN, CASTING INSPECTOR 11/30/2024 10:00 AM CDT Office Visit [facility] - Pul[facility]ology & Sleep Medicine - [place] [address] [place] [address] Deena Celis APRN, RUTH Mild intermittent asthma without status asthmaticus without complication (Primary Dx); VICKIE (obstructive sleep apnea); Memory change Discharge Disposition: Discharged to home or Selfcare 11/30/2024 Travel from Last 3 Months Family History * Patient is adopted Medical History Relation Name Comments Cancer Mother Cancer Sister 1 Cancer Sister 2 Relation Name Status Comments Mother Sister 1 Sister 2 Alive Social History Tobacco Use Types Packs/Day Years Used Date Smoking Tobacco: Former Cigarettes 1 5 Smokeless Tobacco: Never Tobacco Cessation:Counseling Given: No Alcohol Use Standard Drinks/Week Comments Not Currently 0 (1 standard drink = 0.6 oz pur e alcohol) occasional Sexually Active Control Partners Comments Not Currently Comments No Sex and Gender Information Value Date Recorded Sex Assigned at Not on file Legal Sex Female 10:59 PM CDT Gender Identity Not on file Sexual Orientation Not on file Last Filed Vital Signs Vital Sign Reading Time Taken Comments Blood Pressure 128/66 12/10/2024 9:19 AM CDT Pulse 68 12/10/2024 9:19 AM CDT Temperature 37.2 C (98.9 F) 12/10/2024 9:19 AM CDT Respiratory Rate 14 12/10/2024 9:19 AM CDT Oxygen Saturation 97% 12/10/2024 9:19 AM CDT Inhaled Oxygen Concentration - - Weight 94.2 kg (207 lb 11.2 oz) 12/10/2024 9:19 AM CDT Height 165.1 cm (5' 5) 12/10/2024 9:19 AM CDT Body Mass Index 34.56 12/10/2024 9:19 AM CDT Plan of Treatment Upcoming Encounters Date Type Department Care Team (Late st Contact Info) Description 02/05/2025 9:30 AM CDT Office Visit [facility] [address] [place] [address] Frank Del Rosario MD [address] [place] [address] 02/08/2025 11:30 AM CDT [facility] [address] [place] [address] Sebastian Silvestre MD [address] [address] 02/08/2025 11:30 AM CDT - 02/08/2025 12:30 PM CDT [facility] [address] [place] [address] Sebastian Silvestre MD [address] [address] EGD 06/01/2025 9:30 AM TELEPHONE AD TAKER Office Visit [facility] - Pulmonology & [facility] Medicine [facility] [address] [place] [address] Deena Celis, ENVIRONMENTAL HEALTH TECHNOLOGIST, CASTING INSPECTOR [address] [address] Scheduled Procedures Name Priority Associated Diagnoses Date/Ti me EGD DIARRHEA 02/08/2025 11:30 AM CDT COLONOSCOPY DIARRHEA 02/08/2025 11:30 AM CDT Health Maintenance Due Date Last Done Comments Hepatitis C Virus (HCV) Screening 1945 Zoster Immunization (1 of 2) 1995 DEXA Bone Density 12/31/2021 01/01/2020, 01/06/2018 SARS-COV-2 Immunization ( season) 2024 03/14/2024, 04/23/2023, 04/27/2021, Additional history exists Influenza Immunization (#1) 02/15/202502/16, 03/20/2023, 04/23/2022, Additional history exists Human Papillomavirus (HPV) Immunization Aged Out 03/26/2019 No longer eligible based on patient's age to complete this topic DTaP/Tdap/Td Immunization Discontinued 02/17/2020 TdaP Immunization Completed 02/17/2020 Pneumococcal Immunization (50+ years) Completed 03/20/2023, 03/18/2019, 03/18/2019 Pneumococcal Immunization Combined Discontinued 03/20/2023, 03/18/2019, 03/18/2019 Colonoscopy Discontinued 02/11/2024, 07/31/2023 Respiratory Syncytial Virus (RSV) Immunization (Adult) Completed 03/14/2024 Mammogram Discontinued 07/16/2024 Colorectal Cancer Screening Discontinued Immunochemical Fecal Occult Blood Discontinued 12/03/2024 Cologuard Discontinued Hepatitis B Immunization Aged Out No longer eligible based on patient's age to complete this topic Meningococcal Immunization (ACWY) Aged Out No longer eligible based on patient's age to complete this topic Rotavirus Immunization Aged Out No lo nger eligible based on patient's age to complete this topic Procedures Procedure Name Priority Date/Time Associated Diagnosis Comments STOOL, OCCULT BLOOD, DIAGNOSTIC, VIA GUAIAC STAT 12/03/2024 2:[address] ABDOMEN PELVIS W/ CONTRAST Stat with Interpretation 12/03/2024 12:53 AM CDT GOLD TOP TUBE STAT 12/02/2024 11:37 PM CDT BLUE TOP TUBE STAT 12/02/2024 11:37 PM CDT CBC WITH AUTO DIFFERENTIAL STAT 12/02/2024 11:37 PM CDT TYPE & SCREEN (CROSSMATCH CONVERTIBLE) STAT 12/02/2024 11:37 PM CDT EXTRA TUBES STAT 12/02/2024 11:37 PM CDT LIPASE STAT 12/02/2024 11:37 PM CDT CMP (COMPREHENSIVE METABOLIC PANEL) STAT 12/02/2024 11:37 PM CDT COMPLETE BLOOD COUNT (CBC) WITH DIFF STAT 12/02/2024 11:37 PM CDT GENERAL SLEEP STUDY 11/22/2024 12:00 AM CDT from Last 3 Months Results * Stool, Occult Blood, Diagnostic (12/03/2024 2:10 AM CDT) OCCULT BLOOD DIAG Negative Negative 12/03/2024 2:20 AM CDT [facility] Stool STOOL SPECIMEN / Unknown Non-Phlebotomy Collection / Unknown 12/03/2024 2:10 AM CDT 12/03/2024 2:17 AM CDT us Yoshi Barraza MD BODY FLUIDS & STOOLS ORDER JOEL Final Result [facility] [address] [place] [address] * CT ABDOMEN PELVIS W/ CONTRAST (12/03/2024 12:53 AM CDT) Anatomical Region Laterality Modality Abdomen N/A Computed Tomogra phy 12/03/2024 1:14 AM CDT Impressions 12/03/2024 1:17 AM CDT IMPRESSION: No bowel inflammation or other acute abnormality identified. Mild small bowel fullness is felt to be within normal physiologic limits without transition point to indicate obstruction. Narrative 12/03/2024 1:17 AM CDT EXAM DESCRIPTION: CT ABDOMEN PELVIS W/ CONTRAST REASON FOR STUDY: Right lower quadrant pain, black stool x3 weeks TECHNIQUE: CT scan of the abdomen and pelvis performed with intravenous and without oral contrast using helical scanning technique with dynamic intravenous contrast injection. Reconstructed coronal and sagittal MPR images reviewed. All images stored on PACS. Automated exposure control was used as a dose optimization technique for this examination. CONTRAST TYPE/DOSE: 100mL of IOPAMIDOL 76 % IV SOLN injected via Intravenous COMPARISON: None FINDINGS: LOWER CHEST: Lung bases clear. Mild cardiomegaly. Coronary artery calcifications. LIVER/BILIARY: Moderate hepatic steatosis. Moderate pneumobilia. GALLBLADDER: Absent. SPLEEN: Normal. PANCREAS: Normal. ADRENAL GLANDS: Normal. KIDNEYS/URINARY TRACT: Mild renal atrophy. Ureters and bladder appear normal. GI: Stomach and small bowel appear normal. Colon unremarkable. Appendix not seen. OTHER ABDOMINAL/PELVIS: Major vascular structures are grossly patent and normal in caliber. No enlarged lymph node or free fluid. Hysterectomy. MSK: Moderate disc disease and facet arthropathy. Lumbar fusion. Left femoral remy partially seen. Moderate hip arthritis. Old rib injuries. BODY WALL: Unremarkable. THIS IS AN ELECTRONICALLY VERIFIED FINAL REPORT 12/03/2024 1:14 AM - Electronically signed by Conner Sandoval M.D. AR: CHRISTOPHE Report ID: [id number] Reading Location: [id number] Procedure Note Conner Sandoval MD - 12/03/2024 EXAM DESCRIPTION: CT ABDOMEN PELVIS W/ CONTRAST REASON FOR STUDY: Right lower quadrant pain, black stool x3 weeks TECHNIQUE: CT scan of the abdomen and pelvis performed with intravenous and without oral contrast using helical scanning technique with dynamic intravenous contrast injection. Reconstructed coronal and sagittal MPR images reviewed. All images stored on PACS. Automated exposure control was used as a dose optimization technique for this examination. CONTRAST TYPE/DOSE: 100mL of IOPAMIDOL 76 % IV SOLN injected via Intravenous COMPARISON: None FINDINGS: LOWER CHEST: Lung bases clear. Mild cardiomegaly. Coronary artery calcifications. LIVER/BILIARY: Moderate hepatic steatosis. Moderate pneumobilia. GALLBLADDER: Absent. SPLEEN: Normal. PANCREAS: Normal. ADRENAL GLANDS: Normal. KIDNEYS/URINARY TRACT: Mild renal atrophy. Ureters and bladder appear normal. GI: Stomach and small bowel appear normal. Colon unremarkable. Appendix not seen. OTHER ABDOMINAL/PELVIS: Major vascular structures are grossly patent and normal in caliber. No enlarged lymph node or free fluid. Hysterectomy. MSK: Moderate disc disease and facet arthropathy. Lumbar fusion. Left femoral remy partially seen. Moderate hip arthritis. Old rib injuries. BODY WALL: Unremarkable. THIS IS AN ELECTRONICALLY VERIFIED FINAL REPORT 12/03/2024 1:14 AM - Electronically signed by Conner Sandoval M.D. AR: CHRISTOPHE Report ID: [id number] Reading Location: [id number] IMPRESSION: No bowel inflammation or other acute abnormality identified. Mild small bowel fullness is felt to be within normal physiologic limits without transition point to indicate obstruction. Yoshi Barraza MD IMG CT ORDERABLES Final Re sult * Gold Top Tube (12/02/2024 11:37 PM CDT) Blood No Phlebotomy Charged / Unknown 12/02/2024 11:37 PM CDT 12/02/2024 11:48 PM CDT Yoshi Barraza MD CHEMISTRY ORDERABLES Final Result Performing Organization Address [facility] Co de Phone Number [facility] [address] [place] [address] * Blue Top Tube (12/02/2024 11:37 PM CDT) Blood No Phlebotomy Charged / Unknown 12/02/2024 11:37 PM CDT 12/02/2024 11:48 PM CDT Yoshi Barraza MD HEMATOLOGY ORDERABLES Carol l Result Performing Organization Address [facility] Co de Phone Number [facility] [address] [place] [address] * (ABNORMAL) CBC with Auto Differential (12/02/2024 11:37 PM CDT) WBC 5.61 4.00 - 12.00 10(3)/mcL 12/02/2024 11:53 PM CDT [facility] RBC 3.02(L) 3.80 - 5.30 10(6)/mcL 12/02/2024 11:53 PM CDT [facility] HEMOGLOBIN (HGB) 10.4(L) 12.0 - 15.8 g/dL 12/02/2024 11:53 PM CDT [facility] HEMATOCRIT (HCT) 30.5(L) 36.0 - 47.0 % 12/02/2024 11:53 PM CDT [facility] MCV 101.0(H) 82.0 - 96.0 fL 12/02/2024 11:53 PM CDT [facility] MCH 34.4(H) 26.0 - 34.0 pg 12/02/2024 11:53 PM CDT [facility] MCHC 34.1 31.0 - 36.0 g/dL 12/02/2024 11:53 PM CDT [facility] PLATELET COUNT 175 140 - 440 10(3)/mcL 12/02/2024 11:53 PM CDT [facility] RDW 13.1 11.8 - 15.5 % 12/02/2024 11:53 PM CDT [facility] MPV 8.8(L) 9.7 - 12.4 fL 12/02/2024 11:53 PM CDT [facility] NEUTROPHILS 49.5 47.0 - 73.0 % 12/02/2024 11:53 PM CDT [facility] LYMPHOCYTES 40.1 18.0 - 42.0 % 12/02/2024 11:53 PM CDT [facility] MONOCYTES 8.4 4.0 - 12.0 % 12/02/2024 11:53 PM CDT [facility] EOSINOPHILS 1.1 0.0 - 5.0 % 12/02/2024 11:53 PM CDT [facility] BASOPHILS 0.4 0.0 - 1.0 % 12/02/2024 11:53 PM CDT [facility] IMMATURE GRANULOCYTE 0.5(H) 0.0 - 0.4 % 12/02/2024 11:53 PM CDT [facility] Comment:Immature Granulocyte s includes Metamyelocytes, Myelocytes, and Promyelocytes. ABSOLUTE NEUTROPHILS 2.78 1.60 - 7.70 10(3)/mcL 12/02/2024 11:53 PM CDT [facility] ABSOLUTE LYMPHOCYTES 2.25 1.30 - 3.20 10(3)/mcL 12/02/2024 11:53 PM CDT [facility] ABSOLUTE MONOCYTES 0.47 0.20 - 1.00 10(3)/mcL 12/02/2024 11:53 PM CDT [facility] ABSOLUTE EOSINOPHIL 0.06 0.00 - 0.40 10(3)/mcL 12/02/2024 11:53 PM CDT [facility] ABSOLUTE BASOPHILS 0.02 0.00 - 0.10 10(3)/mcL 12/02/2024 11:53 PM CDT [facility] ABSOLUTE IMMATURE GRANULOCYTE 0.03 0.00 - 0.03 10 (3) mcL. 12/02/2024 11:53 PM CDT [facility] NRBC PER 100 WBC 0 12/03/19 11:53 PM CDT [facility] Blood Venipuncture / Unknown 12/02/2024 11:37 PM CDT 12/02/2024 11:48 PM CDT Yoshi Barraza MD HEMATOLOGY ORDERABLES Carol l Result [facility] [address] [place] [address] * TYPE & SCREEN (CROSSMATCH CONVERTIBLE) (12/02/2024 11:37 PM CDT) ABO TYPING A 12/03/2024 12:58 AM CDT [facility] RH Negative 12/03/2024 12:58 AM CDT [facility] ABSC Negative 12/03/2024 12:58 AM CDT [facility] Blood Venipuncture / Unknown 12/02/2024 11:37 PM CDT 12/02/2024 11:47 PM CDT Yoshi Barraza MD BLOOD BANK ORDERABLES Edit ed Result - Final [facility] [address] [place] [address] * Lipase [id number] (12/02/2024 11:37 PM CDT) LIPASE 12 8 - 78 U/L 12/03/2024 12:12 AM CDT [facility] Blood Venipuncture / Unknown 12/02/2024 11:37 PM CDT 12/02/2024 11:48 PM CDT us Yoshi Barraza MD CHEMISTRY ORDERABLES Final Result [facility] [address] [place] [address] * (ABNORMAL) Comprehensive Metabolic Panel (Cmp) [id number] (12/02/2024 11:37 PM CDT) SODIUM 136 136 - 145 mmol/L 12/03/2024 12:12 AM CDT [facility] POTASSIUM 4.3 3.5 - 5.1 mmol/L 12/03/2024 12:12 AM CDT [facility] CHLORIDE 107 98 - 107 mmol/L 12/03/2024 12:12 AM CDT [facility] CO2, VENOUS 21(L) 22 - 30 mmol/L 12/03/2024 12:12 AM CDT [facility] ANION GAP 12.3 <18.0 mmol/L 12/03/2024 12:12 AM CDT [facility] GLUCOSE 57(L) 70 - 99 mg/dL 12/03/2024 12:12 AM CDT [facility] BUN 19 10 - 20 mg/dL 12/03/2024 12:12 AM CDT [facility] CREATININE, BLOOD 1.39(H) 0.60 - 1.00 mg/dL 12/03/2024 12:12 AM CDT [facility] BUN/CREATININE RATIO 14 12 - 20 ratio 12/03/2024 12:12 AM CDT [facility] TOTAL PROTEIN 7.5 6.0 - 8.0 g/dL 12/03/2024 12:12 AM CDT [facility] ALBUMIN 4.2 3.5 - 5.0 g/dL 12/03/2024 12:12 AM CDT [facility] A/G RATIO 1.3 1.0 - 2.2 12/03/2024 12:12 AM CDT [facility] CALCIUM 8.8 8.7 - 10.5 mg/dL 12/03/2024 12:12 AM CDT [facility] T BILI 0.2 0.2 - 1.2 mg/dL 12/03/2024 12:12 AM CDT [facility] SGOT (AST) 27 <43 U/L 12/03/2024 12:12 AM CDT [facility] SGPT (ALT) 27 <56 U/L 12/03/2024 12:12 AM CDT [facility] ALKALINE PHOSPHATASE 54 40 - 150 U/L 12/03/2024 12:12 AM CDT [facility] GFR, ESTIMATED 39(L) >=60 12/03/2024 12:12 AM CDT [facility] Comment: Creatinine Clearance is the preferred criteria for selecting drug dose adjustments in renally impaired patients. The GFR is provided as additional pertinent clinical information. GFR is reported in mL/min/1.73 sq m. Calculation based on the Chronic Kidney Disease Epidemiology Collaboration (CKD- EPI) equation refit without adjustment for race. GFR, EST. 44(L) >=60 025 12:12 AM CDT [facility] GFR, EST. NONAFRICAN 37(L) >=60 12/03/2024 12:12 AM CDT [facility] Blood Venipuncture / Unknown 12/02/2024 11:37 PM CDT 12/02/2024 11:48 PM CDT us Yoshi Barraza MD CHEMISTRY ORDERABLES Final Result [facility] [address] [place] [address] * GENERAL SLEEP STUDY (11/22/2024 12:00 AM CDT) 11/22/2024 Deena Celis APRN, CNP SLEEP CENTER ORDERABL ES Final Result SCAN from Last 3 Months Insurance MEDICAID [place] MEDICARE C [facility] Advance Directives Documents on File Type Date Recorded Patient Tug Master Expl anation Other Advance Directive 08/30/2021 5:02 PM UROLOGY REFERRAL Care Teams Hospital Medical Biller Relationship Specialty Start Date End Date Remberto Mathis, JUANI [address] [place] [id number] PCP - General Physician Baster Hand 10/21/17 Deena Celis APRN, CNP [address] [address] Nurse Practitioner Advanced Practice Nurse 05/03/22
--- OUTSIDE RECORDS SUMMARY | 2025-01-22 18:57 | XMS_ITS | Clinical Summary ---
Author Organization [facility] Address [address] [place] [address] Care Team Providers Care Mysql Database Administrator Name Role Phone Remberto Mathis Primary Care Provider [phone] Kamryn Rodríguez MD Unavailable [phone] Allergies Active Allergy Reactions Criticality Noted Date [...] ULTRA-FINE SHORT PEN NEEDLE 31 gauge x 16 needle 08/31/19 18 Active ONETOUCH VERIO strip [...] EVERY EVENING 02/03/20 24 Active [facility] 02/18/20 24 Active Ultra Thin Lancets 31 gauge [facility] [place] 02/18/20 24 Active glimepiride (AMARYL) 4 mg [...] 07/12/2023 Assessment & Plan (07/12/2023 8:47 PM OCCUPATIONAL THERAPY TECHNICIAN): dysphagia of both solids and liquids, has [...] (01/26/2022): Added automatically from request for surgery [id number] Iron deficiency anemia 01/24/2022 Assessment & Plan (07/12/2023 8:50 PM OCCUPATIONAL THERAPY TECHNICIAN): No signs of GI blood loss, currently [...] 03/0 08/2020 Coronary artery disease invo lving nuiqs[place] coronary artery of [place] heart without angina pectoris 07/19/2020 Assessment & Plan (07/19/2020 12:43 PM OCCUPATIONAL THERAPY TECHNICIAN): With the patient's minimal coronary disease and [...] intermittent asthma without complication Iron deficiency anemia ivis dangy to inadequate dietary iron intake 03/14/2020 Assessment & Plan (01/08/2022 4:11 PM CDT): The patient has the chronic anemia with unremarkable GI workup. She had upper endoscopy and the colonoscopy recently in [facility]. She had unremarkable imaging last year. [...] the person will continue it over the chcf. Falls -- Falling significantly increases the risk [...] less likely to do so. ?Visiting an centrifugal extractor operator or battery builder regularly to optimize vision. Assessment & Plan [...] the person will continue it over the chcf. Falls -- Falling significantly increases the risk [...] less likely to do so. ?Visiting an centrifugal extractor operator or battery builder regularly to optimize vision. 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, right 10/21/2017 Chronic eczematous otitis externa of right ear 0 10/21/2017 Conductive hearing loss of right ear 10/21/2017 Tinnitus of right ear 10/21/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, marginal, right 0 10/21/2017 Painful orthopaedic hardware 10/10/2017 Overview (10/10/2017): Added automatically from request for surgery [id number] Acute pyelonephritis Confusion Resolved Problems Problem Noted Date Diagnosed Date Resolved Date Primary osteoarthritis of right knee 09/09/2018 02/28/2020 Overview (09/09/2018): Added automatically from request for surgery [id number] Chest pain 01/10/2018 06/23/2020 Overview (01/10/2018): Added automatically from request for surgery [id number] Aftercare following left kne e joint replacement surgery 11/06/2017 02/28/2020 Post-traumatic osteoarthritis of left knee 10/10/2017 02/28/2020 Overview (10/10/2017): Added automatically from request for surgery [id number] Encounters Date Type Department Care Team Description 12/11/[address] [facility] Gastroenterology at [address] [place] [address] Deolris Calderon MA 11/13/2024 12:56 PM CDT - 11/13/2024 11:59 PM CDT Hospital Encounter [facility] [address] [place] [address] Acute bronchitis due to other specified organisms Discharge Disposition: Discharge to home or self care from Last 3 Months Immunizations Immunization Administration Dates Next Due COVID-19 mRNA (Zinio) 0.3 m L (30 mcg) vaccine (12 [...] as a child Type 2 diabetes mellitus Sleep apnea Dysphagia Emphysema of lung Depression Osteoporosis PONV (postoperative nausea and vomiting) [...] on file Legal Sex Female 6:09 PM OCCUPATIONAL THERAPY TECHNICIAN Gender Identity Not on file Sexual Orientation [...] CDT Oxygen Saturation 96% 06/30/2024 1:51 PM OCCUPATIONAL THERAPY TECHNICIAN Inhaled Oxygen Concentration - - Weight 92.2 kg (203 lb 3.2 oz) 10/20/2024 11:13 AM CDT Height 165.1 cm (5' 5) 10/20/2024 11:13 AM CDT Body Mass Index 33.81 10/20/2024 11:13 AM CDT Plan of Treatment Upcoming Encounters Date Type Department Care Team (Late st Contact Info) Description 02/08/2025 8:00 AM CDT Hospital Encounter [address] [address] Kamryn Rodríguez MD [address] [facility] [address] [place] [address] 02/08/2025 8:00 AM CDT - 02/08/2025 8:30 AM CDT Surgery [address] [address] Kamryn Rodríguez MD [address] [facility] [address] [place] [address] COLONOSCOPY Scheduled Procedures Name Priority Associated Diagnoses [...] Scan 12/31/2021 01/01/2020, 01/01/2020, 01/06/2018 Covid-19 Vaccine (2023- 5 season) 2024 04/23/2023, 04/27/2021, 08/31/2020, Additional history exists Fall Risk Assessment 02/10/2025 02/11/2024 Influenza Vaccine (#1) 2025 , 04/23/2022, 02/14/2022, Additional history exists eGFR 10/20/2025 [...] Discontinued 025 Medical Devices Implanted Type Area Advertiser Device Identifier Shelf Expiration Date Model / Serial / Lot Dome Patellar Attune Aox H35 Mm Knee Cemented Medialize Sterile - [id number] Implanted:Qty: 1 on 11/05/2017 by Martinez Rosas MD at [facility] Left: Knee Depuy [employer]ed[employer] Inc 08/14/2022 [id number] / / [id number] Dome Patellar Attune Aox H35 Mm Knee Cemented Medialize Sterile - [id number] Implanted:Qty: 1 on 11/05/2017 by Martinez Rosas MD at [facility] Left: Knee [employer]uy [employer] 08/14/2022 [id number] / / [id number] Femoral Cruciate Retaining Implanted:Qty: 1 on 11/05/2017 by Martinez Rosas MD at [facility] Left: Knee Depuy Mitek 12/14/2026 1504-00-105 / 1504-00-105 / [id number] Bsplt Tibial Attune S+ 5 Knee Cement Fix Brng - [id number] Implanted:Qty: 1 on 11/05/2017 by Martinez Rosas MD at [facility] Left: Knee [employer] 04/16/2027 [id number] / / [id number] Cement Bone Smartset Gentamicin 40 Gm High Viscosity - [id number] Implanted:Qty: 1 on 11/05/2017 by Martinez Rosas MD at [facility] Left: Knee [employer] 01/14/2019 [id number] / / [id number] Insert Tibial Attune Aox 5 H7 Mm Knee Cruciate Retaining Fix Bearing Sterile - [id number] Implanted:Qty: 1 on 11/05/2017 by Martinez Rosas MD at [facility] Left: Knee [employer] 12/14/2020 [id number] / / [id number] 1516-20-506 Depuy Attune Tibial Insert Fixed Bearing Cruciate Retaining Size 5 Implanted:Qty: 1 on 09/22/2018 by Martinez Rosas MD at [facility] Right: Knee [employer]uy [employer] Inc [id number] 09/14/2020 1516-20-506 / / [id number] [employer] [id number] [place] R+G High Viscosity Cement Bone Gentamicin Arthroplasty - [id number] Implanted:Qty: 1 on 09/22/2018 by Martinez Rosas MD at [facility] Right: Knee [employer] 01/14/2021 [id number] / / [id number] Depuy [employer]opa[employer] [id number] Attune Cruciate Retain Cementless Knee Right 5 Narrow Component - [id number] Implanted:Qty: 1 on 09/22/2018 by Martinez Rosas MD at [facility] Right: Knee [employer] 08/14/2026 [id number] / / [id number] Depuy [employer] Inc [id number] Attune S+ Cement Fix Bearing Knee 5 Baseplate Tibial - [id number] Implanted:Qty: 1 on 09/22/2018 by Martinez Rosas MD at [facility] Right: Knee [employer] 06/16/2028 [id number] / / [id number] Allosource [id number] Freeze Dried Crushed 1-4mm Graft 15ml Bone Cancellous - [id number] Implanted:Qty: 1 on 03/14/2020 by Jeff Chapman MD at N/A: Spine Lumbar [employer]ource 01/20/2023 [id number] / / [id number] Medtronic Sofamor Danek [id number] Infuse 18mm 26mm Absorbable Sponge Sterile Water Syringe Needle - [id number] Implanted:Qty: 1 on 03/14/2020 by Jeff Chapman MD at N/A: Spine Lumbar Medtronic Inc 12/15/2020 [id number] / / [id number] Medtronic Inc [id number] [place] [id number] Radiopaque Hollow 6d Cage Spinal [place] Latex Free - [id number] Implanted:Qty: 1 on 03/14/2020 by Jeff Chapman MD at N/A: Spine Lumbar Medtronic Inc 11/26/2026 [id number] / / [id number] Medtronic Sofamor Danek [id number] Infuse 14mm 23mm Absorbable Sponge Sterile Water Syringe Needle - [id number] Implanted:Qty: 1 on 03/18/2020 by Jeff Chapman MD at N/A: Spine Lumbar Medtronic Inc 02/14/2021 [id number] / / [id number] Confidence High Viscosity Spinal Cement 20g Implanted:Qty: 1 on 03/18/2020 by Jeff Chapman MD at N/A: Spine Lumbar Depuy Spine 08/14/2020 [id number] / / [id number] Description:Part of kit in [facility] Confidence Spinal Cement System Ref: [id number]: [id number] Exp date: 05-16-2020 Depuy Synthes Spine [id number] Viper Prime Od6 Mm L35 Mm Fix Polyaxial Fenestrate Extend Tab Spine Cortical Screw Bone Nonsterile 5.5 Mm Mc - [id number] Implanted:Qty: 1 on 03/18/2020 by Jeff Chapman MD at N/A: Spine Lumbar Depuy Synthes Spine [id number] / / Description:L4 right Depuy Synthes Spine [id number] Viper Prime Od6 Mm L50 Mm Fix Polyaxial Fenestrate Extend Tab Spine Cortical Screw Bone Nonsterile 5.5 Mm Mc - [id number] Implanted:Qty: 4 on 03/18/2020 by Jeff Chapman MD at N/A: Spine Lumbar Depuy Synthes Spine [id number] / / Description:L3 Bilat L5 Bilat Depuy Spine [id number] 5.5mm 1 Inner Spine Screw Set Titanium Nonsterile Viper - [id number] Implanted:Qty: 6 on 03/18/2020 by Jeff Chapman MD at N/A: Spine Lumbar Depuy Spine [id number] / / Description:L3-4-5 Depuy Spine [id number] Viper 2 70mm Lordotic Mc Spinal Titanium Mis - [id number] Implanted:Qty: 2 on 03/18/2020 by Jeff Chapman MD at N/A: Spine Lumbar Depuy Spine [id number] / / Description:Lumbar rods bila t L3-L5 Synthes 08.812.009 T-Pal 69z24s5-6.2mm Radiopaque Connection Cylinder Pyramidal - [id number] Implanted:Qty: 1 on 03/18/2020 by Jeff Chapman MD at N/A: Spine Lumbar Synthes I 08.812.009 / / Description:Lumbar spacer L4 -5 Depuy Synthes Spine [id number] Viper Prime Od6 Mm L45 Mm Fix Polyaxial Fenestrate Extend Tab Spine Cortical Screw Bone Nonsterile 5.5 Mm Mc - [id number] Implanted:Qty: 1 on 03/18/2020 by Jeff Chapman MD at N/A: Spine Lumbar Depuy Synthes Spine [id number] / / Description:Left 4 Angio-Seal Vip 6fr Closere Device [id number] - [id number] Implanted:Qty: 1 on 11/21/2021 by Mini Lord MD at [facility] 09/14/2022 [id number] / / [id number] Procedures Procedure Name Priority Date/Time Associated Diagnosis Comments XR CHEST PA LATERAL 2 VIEWS Schedule Routine, Read Routine (OP Routine) 11/13/2024 1:04 PM CDT Acute bronchitis due to other specified organisms EGFR Routine 10/20/2024 10:50 AM CDT Iron deficiency anemia secondary to inadequate dietary iron intake DIAGNOSTIC MAMMOGRAM BILATERAL W YAYO Schedule Routine, Read Routine (OP Routine) 07/16/2024 8:54 AM OCCUPATIONAL THERAPY TECHNICIAN Nipple discharge in female COLONOSCOPY 02/11/2024 11:38 [...] Jaime Hall M.D. RW: FARZANA Report ID: [id number] Reading Location: [id number] Procedure Note Jaime Hall MD - 11/19/2024 [...] Jaime Hall M.D. RW: FARZANA Report ID: [id number] Reading Location: [id number] Remberto FRASER IMG XR PROCEDURES Final Resul [...] was last reviewed 2021. Testing performed by: [facility], [place], [address] Blood 10/20/2024 10:5 0 AM CDT 10/20/2024 11:15 AM CDT Jacquelyn Sousa PLASTIC TOOL MAKER LAB BLOOD ORDERABLES Final Result [facility]) [address] [place] [address] Department [place] [address] * Diagnostic Mammogram Bilateral W Yayo (07/16/2024 8:54 AM OCCUPATIONAL THERAPY TECHNICIAN) Anatomical Region Laterality Modality Breast Bilateral Mammography 07/16/2024 10:3 3 AM OCCUPATIONAL THERAPY TECHNICIAN Impressions 07/16/2024 10:33 AM OCCUPATIONAL THERAPY TECHNICIAN No evidence to suggest malignancy is seen by mammography or ultrasound. Given the history of bloody nipple discharge, breast MR is recommended. OVERALL FINAL ASSESSMENT: KI-[id number] Electronically signed by: Jessy Gordon M.D. Narrative 07/16/2024 10:33 AM OCCUPATIONAL THERAPY TECHNICIAN EXAMINATION: BILATERAL DIGITAL DIAGNOSTIC MAMMOGRAM AND DIGITAL [...] or solid masses. us Jacquelyn Sousa NP IM MAMMO PROCEDURES Final Result * Colonoscopy (02/11/2024 11:38 AM CDT) Anatomical Region Laterality Modality Other Narrative Procedure Note Kamryn Rodríguez MD - 02/11/2024 11:38 AM CDT [facility] Patient Name: Sarah Villagran Procedure Date: 02/11/2024 11:38 AM Date of : 1945 Admit Type: Outpatient Age: 78 Gender: Female Attending MD: Kamryn Rodríguez M.D. Room: [facility]COPY ROOM 1 Note Status: Finalized Patient [...] passed under direct vision.The Pediatric Colonoscope [id number] was introduced through the anus and advanced [...] 11:38 AM Procedure Code(s): --- Professional --- 57926, Colonoscopy, flexible; with removal of tumor(s), polyp(s), or other lesion(s) by snare technique Diagnosis Code(s): --- Professional --- K64.8, Other hemorrhoids D12.0, Benign neoplasm of cecum D12.5, Benign neoplasm of sigmoid colon D12.4, Benign neoplasm of descending colon D12.3, Benign neoplasm of transverse colon (hepatic flexure orsplenic flexure) K57.30, Diverticulosis of large intestine without perforation orabscess without bleeding CPT copyright 2020 [employer]. All rights reserved. The codes documented in this report are preliminary and upon remote inpatient coder reviewmay be revised to meet current compliance requirements. Recognized by the [place] [employer] for promoting quality [...] and children were not included. (Diabetes Care 31:8447-3096, 2008). The eAG is not equivalent to a fasting glucose. Blood specimen (specimen) 03/11/2020 11:30 AM CDT 03/11/2020 11:31 AM CDT Jeff Chapman MD LAB BLOOD ORDERABLES Final Result [facility] [id number] [place] [address] * Dexa Axial Skeleton Bone Density 1 [...] Most Recently Relevant to Health Maintenance Insurance [facility] IDPR [facility] AETNA MEDICARE NCON IDPR [facility] MEDICARE ADVANTAGE [facility] MEDICARE ADVANTAGE Advance Directives For more information, please contact: [phone] Documents on File Type Date Recorded Patient Diver'S Tender Expl anation ADVANCE DIRECTIVE 09/29/2018 9:00 AM [...] 11:05 AM 11/21/2021 6:14 PM Care Teams Mysql Database Administrator Relationship Specialty Start Date End Date Remberto Mathis PA [address] [place] [address] PCP - General 09/26/17 Kamryn Rodríguez MD [address] [place] [address] Consulting Physician Gastroenterology 06/26/20
--- OUTSIDE RECORDS SUMMARY | 2025-01-22 18:57 | XMS_ITS | Clinical Summary ---
Author Organization [facility] Address [address] [facility] [place] [address] Care Team Providers Care Senior Drupal Developer Name Role Phone Remberto Mathis Primary Care Provider [phone] Jose Rodríguez MD Unavailable [phone] Martinez Rosas MD Unavailable [phone] Jeff Chapman MD Unavailable [phone] Source Comments [facility],non-owned Affiliates and Associated Physician Practices is amultiple site organization consisting of ambulatory clinics and hospital sitesin [place], [place], [place] and [place]. This disclosure is being madepursuant to the Care Everywhere program and may not contain all information available regarding this patient. Last updated 18.[facility] Allergies Active Allergy Reactions Criticality Noted Date Comments Aspirin Other 07/01/2017 Codeine Psychiatric High 03/10/2019 Medications * Be aware that medications may not be up to date on this document. Alwaysverify current medications with the patient. ALPRAZolam (XANAX) 1 MG tablet Take 1 mg by mouth 1 Before Breakfast, 2 Before Dinner 9 Active fluticasone propionate (FLONASE) 50 MCG/ACT nasal spray [place] 50 sprays into each nostril once daily [...] mouth 2 times daily Active pancrelipase (CREON) 79274-80331 units capsule Take 1-2 capsules by mouth [...] (02/23/2020): Added automatically from request for surgery [id number] Closed compression fracture of third lumbar vert ebra 04/07/2018 Chest pain 01/10/2018 Overview (02/23/2020): Added automatically from request for surgery [id number] History of stress incontinence 01/06/2018 Urinary incontinence [...] the person will continue it over the alf. Falls -- Falling significantly increases the risk [...] less likely to do so. ?Visiting an molasses coloring operator or retail assistant store manager regularly to optimize vision. Aftercare following left [...] (02/23/2020): Added automatically from request for surgery [id number] Post-traumatic osteoarthritis of left knee 10/10 Overview (02/23/2020): Added automatically from request for surgery [id number] VICKIE (obstructive sleep apnea) Asthma Rheumatoid arthritis [...] PM CDT Pulse 71 07/09/2019 8:37 AM HAIR BOILER Temperature 36.5 C (97.7 F) 07/09/2019 8:37 AM HAIR BOILER Respiratory Rate 18 03/30/2019 1:26 PM CDT Oxygen Saturation 96% 07/09/2019 8:37 AM HAIR BOILER Inhaled Oxygen Concentration - - Weight 89.8 [...] 2020 DIABETES-HGB A1C 09/08/2020 03/11/2020 COVID-19 VACCINE (2023- season) 2024 04/27/2021, 08/31/2020, 08/05/2020 DEPRESSION SCREENING 06/17/2024 DIABETES - URINE PROTEIN SCREENING 06/17/2024 INFLUENZA VACCINE (#1) 2025 3, 04/23/2022, 02/14/2022, Additional history exists BONE DENSITY [...] MEDICAID - OUT OF STATE MEDICAID AETNA [facility] Care Teams Senior Drupal Developer Relationship Specialty Start Date End Date Remberto Mathis PA [address] [place] [address] PCP - General 02/18/19 Jose Rodrí[place] [address] [place], [place] [id number] Gastroenterology 03/10/19 [place] [address] [place], [place] [id number] Orthopedic Surgery 03/10/19 [place] [address] [place] [address] Orthopedic Surgery 03/10/19
--- OUTSIDE RECORDS SUMMARY | 2025-01-22 18:57 | XMS_ITS | Encounter Summary ---
Author Organization [facility] Address [address] [place] [address] Phone Care Team Providers Care Pediatric Assistant Name Role Phone Remberto Mathis Primary Care Provider [phone] Deena Celis APRN, BOTTOM FINISHER Unavailable [phone] Encounter Details Date Type Department Care Team (Late Contact Info) Description 01/01/2025 Results Follow-Up [facility] - Pulmonology & Sleep Medicine [facility] [address] [place] [phone] Deena Celsi APRN, BOTTOM FINISHER [address] [address] GENERAL SLEEP STUDY Social History Tobacco Use Types Packs/Day Years Used Date Smoking Tobacco: Former Cigarettes 1 5 Smokeless Tobacco: Never Alcohol Use Standard Drinks/Week Comments Not Currently [...] Department Care Team (Late Contact Info) Description 02/05/2025 9:30 AM CDT Office Visit [facility] - Neurology - [place] [address] [place] [phone] Frank Del Rosario MD [address] [place] [address] 02/08/2025 11:30 AM CDT Hospital Encounter [facility] [address] [place] [address] Sebastian Silvestre MD [address] [address] 02/08/2025 11:30 AM CDT - 02/08/2025 12:30 PM CDT Surgery [facility] [address] [place] [address] Sebastian Silvestre MD [address] [address] EGD 06/01/2025 9:30 AM CREDIT FRONT OFFICE DEVELOPER Office Visit [facility] - Pulmonology & Sleep Medicine [facility] [address] [place] [address] Deena Celis APRN, BOTTOM FINISHER [address] [address] Scheduled Procedures Name Priority Associated Diagnoses Date/Ti me EGD DIARRHEA 02/08/2025 11:30 AM CDT COLONOSCOPY DIARRHEA 02/08/2025 11:30 AM CDT documented as of this encounter Visit Diagnoses Not on filedocumented in this encounter Care Teams Pediatric Assistant Relationship Specialty Start Date End Date Remberto Mathis PAC [address] [place] [address] PCP - General Physician Interior Surface Insulation Worker 10/21/17 Deena Celis APRN, BOTTOM FINISHER #[address] [address] Nurse Practitioner Advanced Practice Nurse 05/03/22 documented as of this encounter
--- OUTSIDE RECORDS SUMMARY | 2025-01-22 18:57 | XMS_ITS | Encounter Summary ---
Author Organization [facility] Healthcare Address [address] [place] [address] Care Team Providers Care Liner Roll Changer Name Role Phone Remberto Mathis Primary Care Provider [phone] Haroon Sifuentes MD Unavailable [phone] Alem Ayon PTA Unavailable Unavailable Kamryn Rodríguez MD Unavailable [phone] Reason for Visit * Reason Onset Date Comments Scheduling Appointments 12/30/2019 Called f or DEXA appointment Encounter Details Date Type Department Care Team (Late st Contact Info) Description 12/30/2019 Telephone [facility] [address] [place] [address] Marley Valderrama RT Scheduling Appointments (Called for [...] on file Legal Sex Female 6:09 PM SHIPPING AND RECEIVING COORDINATOR Gender Identity Not on file Sexual Orientation Not on file documented as of this encounter Plan of Treatment Upcoming Encounters Date Type Department Care Team (Late Contact Info) Description 02/08/2025 8:00 AM CDT Hospital Encounter [facility] [address] [place] [address] Kamryn Rodríguez MD [address] [place] [address] 02/08/2025 8:00 AM CDT - 02/08/2025 8:30 AM CDT Surgery [facility] [address] [place] [address] Kamryn Rodríguez MD [address] [place] [address] COLONOSCOPY Scheduled Procedures Name Priority Associated Diagnoses Date/Ti me COLONOSCOPY Family hx of colon cancer Hx of adenomatous colonic polyps 02/08/2025 8:00 AM CDT documented as of this encounter Visit Diagnoses Not on filedocumented in this encounter Care Teams Liner Roll Changer Relationship Specialty Start Date End Date Remberto Mathis PA [address] [place] [address] PCP - General 09/26/17 Haroon Sifuentes MD [address] [place] [address] 09/26/17 06/29/24 Alem Ayon PTA Recorder Helper Seismograph Physical Therapy 10/25/17 08/27/22 Kamryn Rodríguez MD Consulting Physician Gastroenterology 06/26/20 documented as of this encounter
--- OUTSIDE RECORDS SUMMARY | 2025-01-22 18:57 | XMS_ITS | Encounter Summary ---
Author Organization [facility] Healthcare Address [address] [place] [address] Care Team Providers Care Car Seat Coverer Name Role Phone Remberto Mathis Primary Care Provider [phone] Haroon Sifuentes MD Unavailable [phone] Alem Ayon PTA Unavailable Unavailable Kamryn Rodríguez MD Unavailable [phone] Reason for Visit * Reason Onset Date Comments Scheduling Appointments 12/31/2019 Called f or DEXA appointment reminder Encounter Details Date Type Department Care Team (Late st Contact Info) Description 12/31/2019 Telephone [facility] [address] [place] [address] Corrine Maldonado RT Scheduling Appointments (Called for [...] on file Legal Sex Female 6:09 PM SOAP BOILER Gender Identity Not on file Sexual Orientation Not on file documented as of this encounter Plan of Treatment Upcoming Encounters Date Type Department Care Team (Late st Contact Info) Description 02/08/2025 8:00 AM CDT Hospital Encounter [facility] [address] [place] [address] Kamryn Rodríguez MD [address] [place] [address] [address] 02/08/2025 8:00 AM CDT - 02/08/2025 8:30 AM CDT Surgery [facility] [address] [place] [address] Kamryn Rodríguez MD [address] [place] [address] COLONOSCOPY Scheduled Procedures Name Priority Associated Diagnoses Date/Ti me COLONOSCOPY Family hx of colon cancer Hx of adenomatous colonic polyps 02/08/2025 8:00 AM CDT documented as of this encounter Visit Diagnoses Not on filedocumented in this encounter Care Teams Car Seat Coverer Relationship Specialty Start Date End Date Remberto Mathis PA [address] [place] [address] PCP - General 09/26/17 Haroon Sifuentes MD [address] [place] [address] 09/26/17 06/29/24 Alem Ayon PTA Manager Store Physical Therapy 10/25/17 08/27/22 Kamryn Rodríguez MD Consulting Physician Gastroenterology 06/26/20 documented as of this encounter
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
--- NOTE | 2025-01-22 19:11 | PC.NURSE ---
RESTING ON STRETCHER. AT HER SIDE. CALL LIGHT IN REACH
--- NOTE | 2025-01-22 19:49 | ECG_ITS ---
Test Date: 2025-01-22 20:21:06 Measurements Intervals [place] Rate: 72 P: 40 [place]: 202 QRS: -7 QRSD: 93 T: 53 QT: 439 QTc: 483 Interpretive Statements SINUS RHYTHM WITH SINUS ARRHYTHMIA MODERATE T-WAVE ABNORMALITY, CONSIDER ANTERIOR ISCHEMIA ABNORMAL ECG No previous ECG available for comparison Electronically Signed On 01-23-2025 07:42:21 CDT by Lucian Richards D.O.
--- NOTE | 2025-01-22 19:53 | PC.NURSE ---
PATIENT AMBULATED TO THE BATHROOM WITH STANDBY ASSIST X 1.
--- NOTE | 2025-01-22 19:56 | PC.NURSE ---
PATIENT URINE TAKEN DOWN TO LAB. PATIENT TAKEN VIA WHEEL CHAIR TO RADIOLOGY
[2025-01-22 20:17] LABS: Add Urine Microscopic? YES; Appearance Urine Clear (Clear); Glucose Urine UA Negative (Negative); Hematocrit 32.6 % (35.0-42.0); Hemoglobin 11.0 g/dL (11.7-13.8); Immature Granulocyte Percent A 0.2 % (0.0-0.0); Leukocyte Esterase Ur Trace LEU/UL (Negative); Lymphocytes Absolute Auto 2.06 K/mm3 (1.10-4.50); Mean Corpuscular HGB Conc 33.7 g/dL (32-36); Mean Corpuscular Hemoglobin 33.8 pg (27.0-31.0); Mean Corpuscular Volume 100.3 fL (78.0-102.0); Nitrate Urine Negative (Negative); Nucleated Red Blood Cells Absolute Auto 0.00 K/mm3 (0.00-0.00); Nucleated Red Blood Cells Perc 0.0 % (0-0.0); Platelet Count Result 175 K/mm3 (150-420); Red Blood Count 3.25 M/mm3 (4.20-5.40); Specific Grav Ur <= 1.005 (1.010-1.020); White Blood Count 4.6 K/mm3 (4.8-10.8)
[2025-01-22 20:33] LABS: INR 1.0; Partial Thromboplastin Time 24.5 Sec (23.9-30.70); Prothrombin Time 10.7 Seconds (9.50-12.1)
[2025-01-22 20:35] LABS: Alanine Aminotransferase 25 U/L (6-35); Albumin Level 4.5 g/dL (3.5-5.1); Alkaline Phosphatase 72 U/L (38-126); Anion Gap 6 mmol/L (4-12); Aspartate Amino Transferase 30 U/L (14-36); Bilirubin,Total 0.4 mg/dL (0.2-1.3); Blood Urea Nitrogen 17 mg/dL (7-17); Calcium 9.4 mg/dL (8.4-10.2); Carbon Dioxide 26 mmol/L (22-30); Chloride 107 mmol/L (98-107); Estimated CRCL calculation 36 ml/min; Estimated Glomerular Filt Rate 41; Glucose 122 mg/dL (65-110); Lipase 140 U/L (23-300); Osmolality Calculated 290 mOsm/kg (285-295); Potassium 4.9 mmol/L (3.4-5.0); Sodium 139 mmol/L (137-145); Total Protein 7.7 g/dL (6.3-8.2)
[2025-01-22 20:46] LABS: Troponin I < 0.012 ng/mL (0.000-0.034)
--- NOTE | 2025-01-22 20:48 | PC.NURSE ---
RESTING ON STRETCHER IN ROOM. NO NEEDS VOICED AT THIS TIME. CALL LIGHT IN REACH
--- NOTE | 2025-01-22 21:30 | PC.NURSE ---
PATIENT WAS TAKEN VIA WHEEL CHAIR DOWN TO THE BATHROOM
[2025-01-22] MEDS: ORPHENADRINE CITRATE 30 MG/ML 2 ML VIAL 60 MG IM (22:27)
[2025-01-22 23:10] VITALS: BP 124/88; PULSE 91; RESP 18; O2SAT 100
== END 2025-01-22 23:10 | disposition home or self-care (01) ==
PROVIDERS: Emergency Provider Emergency Medicine; PCP Physician Assistant
DX: M54.50 Low back pain, unspecified (principal); E11.9 Type 2 diabetes mellitus without complications; I10 Essential (primary) hypertension; Z87.891 Personal history of nicotine dependence
CPT/HCPCS: 36415; 74176; 80053; 81001; 83605; 83690; 84484; 85025; 85610; 85730; 93005; 96372; 99284; J2360

== ENCOUNTER 2025-02-01 16:19 | Emergency (ER) | payer MEDICARE, MEDICAID, SELFPAY ==
--- NOTE | ~2025-02-01 | CT_ITS ---
CT of the Abdomen and Pelvis: Indication: Abdominal pain Technique: 2.5 mm axial scans were obtained through the abdomen and pelvis following intravenous administration of 100 cc of Omnipaque 350. Dose reduction technique was used on this scan by utilizing automated exposure control and iterative reconstruction technique. The dose-length product (DLP) was 1395.70 mGy-cm. COMPARISON: 01/22/2025 Findings: Scans through the lung bases are unremarkable. There are cholecystectomy clips with associated pneumobilia. 2 small left hepatic lobe cysts are similar to prior exam. The spleen, pancreas, adrenals and kidneys are within normal limits. No evidence of aortic aneurysm. No lymphadenopathy. No bowel obstruction or bowel wall thickening. There is no evidence to suggest acute appendicitis. Images through the pelvis were performed. Urinary bladder unremarkable. Status post hysterectomy. No pelvic mass seen. No ascites. Chronic compression fracture of L2 and L4 present. Probable worsening possibly acute compression fracture at the inferior endplate region of T12. Impression: Probable acute compression fracture at the inferior endplate region of T12, mildly worsened from prior exam. Chronic compression fractures of L2 and L4. Cholecystectomy clips with associated pneumobilia, unchanged. Reviewed, dictated and finalized at [facility]. Impression: Probable acute compression fracture at the inferior endplate region of T12, mil dly worsened from prior exam. Chronic compression fractures of L2 and L4. Cholecystectomy clips with associated pneumobilia, unchanged.
--- OUTSIDE RECORDS SUMMARY | 2025-02-01 16:21 | XMS_ITS | Encounter Summary ---
Author Organization [facility] Address [address] [place] [address] Phone Care Team Providers Care Field Education Coordinator Name Role Phone Remberto Mathis Primary Care Provider [phone] Deena Celis APRN, SOLE EDGE INKER MACHINE Unavailable [phone] Encounter Details Date Type Department Care Team (Late Contact Info) Description 01/01/2025 Results Follow-Up [facility] - Pulmonology & Sleep Medicine [facility] [address] [place] [phone] Deena Celis APRN, SOLE EDGE INKER MACHINE [address] [id number] GENERAL SLEEP STUDY Social History Tobacco Use [...] Description 02/05/2025 9:30 AM CDT Office Visit [facility] - Neurology - [place] [address] [place] [phone] Frank Del Rosario MD [address] [place] [address] 02/08/2025 9:00 AM CDT [facility] [address] [place] [address] Sebastian Silvestre MD [address] [address] 02/08/2025 9:00 AM CDT - 02/08/2025 10:00 AM CDT [facility] [address] [place] [address] Sebastian Silvestre MD [address] [address] EGD 06/01/2025 9:30 AM DAY CARE SUPERVISOR Office Visit [facility] - Pulmonology & Sleep Medicine [facility] [address] [place] [address] Deena Celis APRN, [employer]LE [employer]GE INKER MACHINE [address] [address] Scheduled Procedures Name Priority Associated Diagnoses Date/Ti me EGD DIARRHEA 02/08/2025 9:00 AM CDT COLONOSCOPY DIARRHEA 02/08/2025 9:00 AM CDT documented as of this encounter Visit Diagnoses Not on filedocumented in this encounter Care Teams Field Education Coordinator Relationship Specialty Start Date End Date Remberto Mathis PAC [address] [place] [id number] PCP - General Physician Maple Syrup Maker 10/21/17 Deena Celis APRN, [employer]LE EDGE INKER MACHINE #[address] [address] Nurse Practitioner Advanced Practice Nurse 05/03/22 documented as of this encounter
--- OUTSIDE RECORDS SUMMARY | 2025-02-01 16:21 | XMS_ITS | Encounter Summary ---
Author Organization [facility] Address [address] [place] [address] Care Team Providers Care Forensics Analyst Name Role Phone Remberto Mathis Primary Care Provider [phone] Haroon Sifuentes MD Unavailable [phone] Alem Ayon PTA Unavailable Unavailable Kamryn Rodríguez MD Unavailable [phone] Reason for Visit * Reason Onset Date Comments Scheduling Appointments 12/30/2019 Called f or DEXA appointment Encounter Details Date Type Department Care Team (Late st Contact Info) Description 12/30/2019 Telephone [facility] [address] [place] [address] Marley Valderrama RT Scheduling Appointments (Called for [...] on file Legal 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 Gender Identity Not on file Sexual Orientation Not on file documented as of this encounter Plan of Treatment Upcoming Encounters Date Type Department Care Team (Late Contact Info) Description 02/08/2025 8:00 AM CDT Hospital Encounter [facility] [address] [place] [phone] Kamryn Rodríguez MD [address] [place] [address] 02/08/2025 8:00 AM CDT - 02/08/2025 8:30 AM CDT Surgery [facility] [address] [place] [address] Kamryn Rodríguez MD [address] [place] [address] COLONOSCOPY Scheduled Procedures Name Priority Associated Diagnoses Date/Ti me COLONOSCOPY Family hx of colon cancer Hx of adenomatous colonic polyps 02/08/2025 8:00 AM CDT documented as of this encounter Visit Diagnoses Not on filedocumented in this encounter Care Teams Forensics Analyst Relationship Specialty Start Date End Date Remberto Mathis PA [address] [place] [address] PCP - General 09/26/17 Haroon Sifuentes MD [address] [place] [address] 09/26/17 06/29/24 Alem Ayon PTA [employer]other Physical Therapy 10/25/17 08/27/22 Kamryn Rodríguez MD Consulting Physician Gastroenterology 06/26/20 documented as of this encounter
--- OUTSIDE RECORDS SUMMARY | 2025-02-01 16:21 | XMS_ITS | Clinical Summary ---
Author Organization [facility] Address [address] [address] [place] [address] Phone Care Team Providers Care Correctional Counselor/Case Manager Name Role Phone Remberto Mathis Primary Care Provider [phone] Deena Celis APRN, [employer]ER Unavailable Allergies Active Allergy Reactions Criticality Noted [...] DAY AFTER BREAKFAST 11/03/19 20 Active CREON [address]-[address] Particles 12/02/19 20 Active [...] by Subcutaneous route 2 times daily. 025 Discontin ued(Med List Clean Up) Active Problems Problem Noted Date Diagnosed Date [...] 01/19/2025 Travel 01/14/2025 Travel 01/01/2025 Results Follow-Up [facility] - Pulmonology & Sleep Medicine [facility] [address] [place] [phone] Deena Celis APRN, [employer]ER GENERAL SLEEP STUDY 12/28/2024 [facility] [place] [address] [facility] [place] [address] Deena Celis APRN, [employer]ER 12/16/2024 [facility] [place] [address] [address] Tre Duran MD Procedure 12/11/2024 Travel 12/10/2024 9:30 AM CDT [facility] [place] [address] [place] [address] Tre Duran MD Diarrhea, unspecified type (Primary Dx) Discharge Disposition: Discharged to home or Selfcare 12/10/2024 Travel 12/10/2024 [facility] [place] [address] [facility] [place] [address] Tre Duran MD 12/02/2024 11:22 PM CDT - 12/03/2024 4:45 AM CDT [facility] 1 [place] [address] Yoshi Barraza MD Diarrhea, unspecified type Discharge Disposition: Discharged to home or Selfcare 12/02/2024 Travel 12/02/20[facility] [place] [address] [facility] [place] [address] Deena Celis APRN, [employer]ER 11/30/2024 10:00 AM CDT [facility] [place] [address] [facility] [place] [address] Deena Celis APRN, [employer]ER Mild intermittent asthma without status asthmaticus without [...] Description 02/05/2025 9:30 AM CDT [facility] [place] [phone] Frank Del Rosario MD [address] [place] [address] 02/08/2025 9:00 AM CDT [facility] [address] [place] [phone] Sebastian Silvestre MD [address] [address] 02/08/2025 9:00 AM CDT - 02/08/2025 10:00 AM CDT [facility] [address] [place] [phone] Sebastian Silvestre MD [address] [address] EGD 06/01/2025 9:30 AM REACTOR SERVICE OPERATOR Office Visit [facility] - Pulmonology & Sleep Medicine [facility] [address] [place] [phone] Deena Celis APRN, [employer]ER [address] [address] Scheduled Procedures Name Priority Associated Diagnoses Date/Ti me EGD DIARRHEA 02/08/2025 9:00 AM CDT COLONOSCOPY DIARRHEA 02/08/2025 9:00 AM CDT Health Maintenance Due Date Last Done Comments Hepatitis C Virus (HCV) Screening 1945 Zoster Immunization (1 of 2) 1995 DEXA Bone Density 12/31/2021 01/01/2020, 01/06/2018 SARS-COV-2 Immunization ( season) 2024 03/14/2024, 04/23/2023, 04/27/2021, Additional history exists Influenza Immunization (#1) 2025 09/2 01/2024, 03/20/2023, 04/23/2022, Additional history exists Human Papillomavirus [...] CDT from Last 3 Months Results * STOOL, OCCULT BLOOD, DIAGNOSTIC, VIA GUAIAC (12/03/2024 2:10 AM CDT) OCCULT BLOOD DIAG Negative Negative 12/03/2024 2:20 AM CDT [facility] Stool STOOL SPECIMEN / Unknown Non-Phlebotomy Collection / Unknown 12/03/2024 2:10 AM CDT 12/03/2024 2:17 AM CDT us Yoshi Barraza MD BODY FLUIDS & STOOLS ORDER JOEL Final Result [facility] [address] [place] [address] * CT ABDOMEN PELVIS W/ CONTRAST (12/03/2024 [...] Conner Sandoval M.D. AR: CHRISTOPHE Report ID: [id number] Reading Location: [id number] Procedure Note Conenr Sandoval MD - 12/03/2024 EXAM DESCRIPTION: CT [...] Conner Sandoval M.D. AR: CHRISTOPHE Report ID: [id number] Reading Location: [id number] IMPRESSION: No bowel inflammation or other acute abnormality identified. Mild small bowel fullness is felt to be within normal physiologic limits without transition point to indicate obstruction. Yoshi Barraza MD IMG CT ORDERABLES Final Re sult * GOLD TOP TUBE (12/02/2024 11:37 PM CDT) Blood No Phlebotomy Charged / Unknown 12/02/2024 11:37 PM CDT 12/02/2024 11:48 PM CDT us Yoshi Barraza MD CHEMISTRY ORDERABLES Final Result Performing Organization Address City/Va Hospital/ZIP Co de Phone Number [facility] [address] [place] [address] * BLUE TOP TUBE (12/02/2024 11:37 PM CDT) Blood No Phlebotomy Charged / Unknown 12/02/2024 11:37 PM CDT 12/02/2024 11:48 PM CDT us Yoshi Barraza MD HEMATOLOGY ORDERABLES Carol l Result Performing Organization Address [facility]/Va Hospital/ZIP Co de Phone Number [facility] [address] [place] [address] * (ABNORMAL) CBC WITH AUTO DIFFERENTIAL (12/02/2024 11:37 PM CDT) WBC 5.61 4.00 - 12.00 10(3)/mcL 12/02/2024 11:53 PM CDT [facility] RBC 3.02(L) 3.80 - 5.30 10(6)/[facility] 12/02/2024 11:53 PM CDT [facility] HEMOGLOBIN (HGB) 10.4(L) 12.0 - 15.8 g/dL 12/02/2024 11:53 PM CDT [facility] HEMATOCRIT (HCT) 30.5(L) 36.0 - 47.0 % 12/02/2024 11:53 PM CDT [facility] MCV 101.0(H) 82.0 - 96.0 fL 12/02/2024 11:53 PM CDT [facility] MCH 34.4(H) 26.0 - 34.0 pg 12/02/2024 11:53 PM CDT [facility] MCHC 34.1 31.0 - 36.0 g/dL 12/02/2024 11:53 PM CDT [facility] PLATELET COUNT 175 140 - 440 10(3)/[facility] 12/02/2024 11:53 PM CDT [facility] RDW 13.1 11.8 - 15.5 % 12/02/2024 11:53 PM CDT [facility] MPV 8.8(L) 9.7 - 12.4 fL 12/02/2024 11:53 PM CDT [facility] NEUTROPHILS 49.5 47.0 - 73.0 % 12/02/2024 11:53 PM CDT [facility] LYMPHOCYTES 40.1 18.0 - 42.0 % 12/02/2024 11:53 PM CDT [facility] MONOCYTES 8.4 4.0 - 12.0 % 12/02/2024 11:53 PM CDT [facility] EOSINOPHILS 1.1 0.0 - 5.0 % 12/02/2024 11:53 PM CDT [facility] BASOPHILS 0.4 0.0 - 1.0 % 12/02/2024 11:53 PM CDT [facility] IMMATURE GRANULOCYTE 0.5(H) 0.0 - 0.4 % 12/02/2024 11:53 PM CDT [facility] Comment:Immature Granulocyte s includes Metamyelocytes, Myelocytes, and Promyelocytes. ABSOLUTE NEUTROPHILS 2.78 1.60 - 7.70 10(3)/[facility] 12/02/2024 11:53 PM CDT [facility] ABSOLUTE LYMPHOCYTES 2.25 1.30 - 3.20 10(3)/[facility] 12/02/2024 11:53 PM CDT [facility] ABSOLUTE MONOCYTES 0.47 0.20 - 1.00 10(3)/[facility] 12/02/2024 11:53 PM CDT [facility] ABSOLUTE EOSINOPHIL 0.06 0.00 - 0.40 10(3)/[facility] 12/02/2024 11:53 PM CDT [facility] ABSOLUTE BASOPHILS 0.02 0.00 - 0.10 10(3)/[facility] 12/02/2024 11:53 PM CDT [facility] ABSOLUTE IMMATURE GRANULOCYTE 0.03 0.00 - 0.03 10 (3) mcL. 12/02/2024 11:53 PM CDT [facility] NRBC PER 100 WBC 0 12/03/19 11:53 PM CDT [facility] Blood Venipuncture / Unknown 12/02/2024 11:37 PM CDT 12/02/2024 11:48 PM CDT Yoshi Barraza MD HEMATOLOGY ORDERABLES Carol l Result [facility] [address] [place] [address] * TYPE & SCREEN (CROSSMATCH CONVERTIBLE) (12/02/2024 11:37 PM CDT) ABO TYPING A 12/03/2024 12:58 AM CDT [facility] RH Negative 12/03/2024 12:58 AM CDT [facility] ABSC Negative 12/03/2024 12:58 AM CDT [facility] Blood Venipuncture / Unknown 12/02/2024 11:37 PM CDT 12/02/2024 11:47 PM CDT Result [facility] Yoshi Barraza MD BLOOD BANK ORDERABLES Edit ed Result - Final [facility] #[address] [place] [address] * LIPASE (12/02/2024 11:37 PM CDT) LIPASE 12 8 - 78 U/L 12/03/2024 12:12 AM CDT [facility] Blood Venipuncture / Unknown 12/02/2024 11:37 PM CDT 12/02/2024 11:48 PM CDT Yoshi Barraza MD CHEMISTRY ORDERABLES Final Result [facility] [address] [place] [address] * (ABNORMAL) CMP (COMPREHENSIVE METABOLIC PANEL) (12/02/2024 11:37 PM CDT) SODIUM 136 136 - 145 mmol/L 12/03/2024 12:12 AM CDT [facility] POTASSIUM 4.3 3.5 - 5.1 mmol/L 12/03/2024 12:12 AM CDT [facility] CHLORIDE 107 98 - 107 mmol/L 12/03/2024 12:12 AM CDT [facility] CO2, VENOUS 21(L) 22 - 30 mmol/L 12/03/2024 12:12 AM CDT [facility] ANION GAP 12.3 <18.0 mmol/L 12/03/2024 12:12 AM CDT [facility] GLUCOSE 57(L) 70 - 99 mg/dL 12/03/2024 12:12 AM CDT [facility] BUN 19 10 - 20 mg/dL 12/03/2024 12:12 AM CDT [facility] CREATININE, BLOOD 1.39(H) 0.60 - 1.00 mg/dL 12/03/2024 12:12 AM CDT [facility] BUN/CREATININE RATIO 14 12 - 20 ratio 12/03/2024 12:12 AM CDT [facility] TOTAL PROTEIN 7.5 6.0 - 8.0 g/dL 12/03/2024 12:12 AM CDT [facility] ALBUMIN 4.2 3.5 - 5.0 g/dL 12/03/2024 12:12 AM CDT [facility] A/G RATIO 1.3 1.0 - 2.2 12/03/2024 12:12 AM CDT [facility] CALCIUM 8.8 8.7 - 10.5 mg/dL 12/03/2024 12:12 AM CDT [facility] T BILI 0.2 0.2 - 1.2 mg/dL 12/03/2024 12:12 AM CDT [facility] SGOT (AST) 27 <43 U/L 12/03/2024 12:12 AM CDT [facility] SGPT (ALT) 27 <56 U/L 12/03/2024 12:12 AM CDT [facility] ALKALINE PHOSPHATASE 54 40 - 150 U/L 12/03/2024 12:12 AM CDT [facility] GFR, ESTIMATED 39(L) >=60 12/03/2024 12:12 AM CDT [facility] Comment: Creatinine Clearance is the preferred criteria for selecting drug dose adjustments in renally impaired patients. The GFR is provided as additional pertinent clinical information. GFR is reported in mL/min/1.73 sq m. Calculation based on the Chronic Kidney Disease Epidemiology Collaboration (CKD- EPI) equation refit without adjustment for race. GFR, EST. 44(L) >=60 025 12:12 AM CDT [facility] GFR, EST. NONAFRICAN 37(L) >=60 12/03/2024 12:12 AM CDT [facility] Blood Venipuncture / Unknown 12/02/2024 11:37 PM CDT 12/02/2024 11:48 PM CDT us Yoshi Barraza MD CHEMISTRY ORDERABLES Final Result [facility] [address] [place] [address] * GENERAL SLEEP STUDY (11/22/2024 12:00 AM CDT) 11/22/2024 us Denea Celis APRN, [facility] ORDERABL ES Final Result SCAN from Last 3 Months Insurance MEDICAID [place] MEDICARE C [facility] Advance Directives Documents on File Type Date Recorded Patient [employer] Supervisor Expl anation Other Advance Directive 08/30/2021 5:02 PM UROLOGY REFERRAL Care Teams Correctional Counselor/Case Manager Relationship Specialty Start Date End Date Remberto Mathis PAC [address] [place] [phone] PCP - General Physician Lineman Service Or Work Dispatcher 10/21/17 Deena Celis APRN, [employer]ER [address] [address] Nurse Practitioner Advanced Practice Nurse 05/03/22
--- OUTSIDE RECORDS SUMMARY | 2025-02-01 16:21 | XMS_ITS | Clinical Summary ---
Author Organization [facility] Address [address] [place] [address] Care Team Providers Care Assistant Toddler Teacher Name Role Phone Remberto Mathis Primary Care Provider [phone] Kamryn Rodríguez MD Unavailable [phone] Allergies Active Allergy Reactions Criticality Noted Date [...] EVERY EVENING 02/03/20 24 [facility] 02/18/20 24 Active Ultra Thin Lancets 31 gauge [facility] 02/18/20 24 Active glimepiride (AMARYL) 4 mg [...] 07/12/2023 Assessment & Plan (07/12/2023 8:47 PM EDGE TRIMMER MECHANIC): dysphagia of both solids and liquids, has [...] (01/26/2022): Added automatically from request for surgery [id number] Iron deficiency anemia 01/24/2022 Assessment & Plan (07/12/2023 8:50 PM EDGE TRIMMER MECHANIC): No signs of GI blood loss, currently [...] 03/0 08/2020 Coronary artery disease invo lving [place] coronary artery of [place] heart without angina pectoris 07/19/2020 Assessment & Plan (07/19/2020 12:43 PM EDGE TRIMMER MECHANIC): With the patient's minimal coronary disease and [...] upper endoscopy and the colonoscopy recently in [facility]. She had unremarkable imaging last year. [...] the person will continue it over the dedicated intermodal truck driver. Falls -- Falling significantly increases the risk [...] less likely to do so. ?Visiting an chip silo tender or leach runner regularly to optimize vision. Assessment & Plan [...] the person will continue it over the dedicated intermodal truck driver. Falls -- Falling significantly increases the risk [...] less likely to do so. ?Visiting an chip silo tender or leach runner regularly to optimize vision. 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, right 10/21/2017 Chronic eczematous otitis externa of right ear 0 10/21/2017 Conductive hearing loss of right ear 10/21/2017 Tinnitus of right ear 10/21/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, marginal, right 0 10/21/2017 Painful orthopaedic hardware 10/10/2017 Overview (10/10/2017): Added automatically from request for surgery [id number] Acute pyelonephritis Confusion Resolved Problems Problem Noted Date Diagnosed Date Resolved Date Primary osteoarthritis of right knee 09/09/2018 02/28/2020 Overview (09/09/2018): Added automatically from request for surgery [id number] Chest pain 01/10/2018 06/23/2020 Overview (01/10/2018): Added automatically from request for surgery [id number] Aftercare following left kne e joint replacement surgery 11/06/2017 02/28/2020 Post-traumatic osteoarthritis of left knee 10/10/2017 02/28/2020 Overview (10/10/2017): Added automatically from request for surgery [id number] Encounters Date Type Department Care Team Description 12/11/2024 Telephone [facility] Gastroenterology at [address] [place] [address] Deloris Calderon MA 11/13/2024 12:56 PM CDT - 11/13/2024 11:59 PM CDT Hospital Encounter [facility] [address] [place] [address] Acute bronchitis due to other specified organisms Discharge Disposition: Discharge to home or self care from Last 3 Months Immunizations Immunization Administration Dates Next Due COVID-19 mRNA (Scyron) 0.3 m L (30 mcg) vaccine (12 [...] on file Legal Sex Female 6:09 PM EDGE TRIMMER MECHANIC Gender Identity Not on file Sexual Orientation [...] CDT Oxygen Saturation 96% 06/30/2024 1:51 PM EDGE TRIMMER MECHANIC Inhaled Oxygen Concentration - - Weight 92.2 kg (203 lb 3.2 oz) 10/20/2024 11:13 AM CDT Height 165.1 cm (5' 5) 10/20/2024 11:13 AM CDT Body Mass Index 33.81 10/20/2024 11:13 AM CDT Plan of Treatment Upcoming Encounters Date Type Department Care Team (Late st Contact Info) Description 02/08/2025 8:00 AM CDT Hospital Encounter [address] [address] Kamryn Rodríguez MD [address] [facility] [address] [place] [address] 02/08/2025 8:00 AM CDT - 02/08/2025 8:30 AM CDT Surgery [address] [address] Kamryn Rodríguez MD [address] [facility] [address] [place] [address] COLONOSCOPY Scheduled Procedures Name Priority Associated Diagnoses [...] Discontinued 025 Medical Devices Implanted Type Area Dental Resident Device Identifier Shelf Expiration Date Model / Serial / Lot Dome Patellar Attune Aox H35 Mm Knee Cemented Medialize Sterile - [id number] Implanted:Qty: 1 on 11/05/2017 by Martinez Rosas MD at [facility] Left: Knee Depuy [employer] Inc 08/14/2022 [id number] / / [id number] Dome Patellar Attune Aox H35 Mm Knee Cemented Medialize Sterile - [id number] Implanted:Qty: 1 on 11/05/2017 by Martinez Rosas MD at [facility] Left: Knee [employer] 08/14/2022 [id number] / / [id number] Femoral Cruciate Retaining Implanted:Qty: 1 on 11/05/2017 by Martinez Rosas MD at [facility] Left: Knee Depuy Mitek 12/14/2026 1504-00-105 / 1504-00-105 / [id number] Bsplt Tibial Attune S+ 5 Knee Cement Fix Brng - [id number] Implanted:Qty: 1 on 11/05/2017 by Martinez Rosas MD at [facility] Left: Knee [employer] 04/16/2027 [id number] / / [id number] Cement Bone Smartset Gentamicin 40 Gm High Viscosity - [id number] Implanted:Qty: 1 on 11/05/2017 by Martinez Rosas MD at [facility] Left: Knee [employer] 01/14/2019 [id number] / / [id number] Insert Tibial Attune Aox 5 H7 Mm Knee Cruciate Retaining Fix Bearing Sterile - [id number] Implanted:Qty: 1 on 11/05/2017 by Martinez Rosas MD at [facility] Left: Knee [employer] 12/14/2020 [id number] / / [id number] 1516-20-506 Depuy Attune Tibial Insert Fixed Bearing Cruciate Retaining Size 5 Implanted:Qty: 1 on 09/22/2018 by Martinez Rosas MD at [facility] Right: Knee [employer] [id number] 09/14/2020 1516-20-506 / / [id number] [employer] [id number] [place] R+G High Viscosity Cement Bone Gentamicin Arthroplasty - [id number] Implanted:Qty: 1 on 09/22/2018 by Martinez Rosas MD at [facility] Right: Knee [employer] 01/14/2021 [id number] / / [id number] Dep[employer]ed[employer] Inc [id number] Attune Cruciate Retain Cementless Knee Right 5 Narrow Component - [id number] Implanted:Qty: 1 on 09/22/2018 by Martinez Rosas MD at [facility] Right: Knee [employer] 08/14/2026 [id number] / / [id number] Dep[employer] [id number] Attune S+ Cement Fix Bearing Knee 5 Baseplate Tibial - [id number] Implanted:Qty: 1 on 09/22/2018 by Martinez Rosas MD at [facility] Right: Knee [employer] 06/16/2028 [id number] / / [id number] Allosource [id number] Freeze Dried Crushed 1-4mm Graft 15ml Bone Cancellous - [id number] Implanted:Qty: 1 on 03/14/2020 by Jeff Chapman MD at [facility] N/A: Spine Lumbar Allosource 01/20/2023 [id number] / / [id number] Medtronic Sofamor Danek [id number] Infuse 18mm 26mm Absorbable Sponge Sterile Water Syringe Needle - [id number] Implanted:Qty: 1 on 03/14/2020 by Jeff Chapman MD at [facility] N/A: Spine Lumbar Medtronic Inc 12/15/2020 [id number] / / [id number] Medtronic Inc [id number] [place] 65vyy76nd Radiopaque Hollow 6d Cage Spinal Peek-Fronton Latex Free - [id number] Implanted:Qty: 1 on 03/14/2020 by Jeff Chapman MD at [facility] N/A: Spine Lumbar Medtronic Inc 11/26/2026 [id number] / / [id number] Medtronic Sofamor Danek [id number] Infuse 14mm 23mm Absorbable Sponge Sterile Water Syringe Needle - [id number] Implanted:Qty: 1 on 03/18/2020 by Jeff Chapman MD at [facility] N/A: Spine Lumbar Medtronic Inc 02/14/2021 [id number] / / [id number] Confidence High Viscosity Spinal Cement 20g Implanted:Qty: 1 on 03/18/2020 by Jeff Chapman MD at [facility] N/A: Spine Lumbar Depuy Spine 08/14/2020 [id number] / / [id number] Description:Part of kit in [facility] Confidence Spinal Cement System Ref: [id number] Lot: [id number] Exp date: 05-16-2020 Depuy Synthes Spine [id number] Viper Prime Od6 Mm L35 Mm Fix Polyaxial Fenestrate Extend Tab Spine Cortical Screw Bone Nonsterile 5.5 Mm Mc - [id number] Implanted:Qty: 1 on 03/18/2020 by Jeff Chapman MD at [facility] N/A: Spine Lumbar Depuy Synthes Spine [id number] / / Description:L4 right Depuy Synthes Spine [id number] Viper Prime Od6 Mm L50 Mm Fix Polyaxial Fenestrate Extend Tab Spine Cortical Screw Bone Nonsterile 5.5 Mm Mc - [id number] Implanted:Qty: 4 on 03/18/2020 by Jeff Chapman MD at [facility] N/A: Spine Lumbar Depuy Synthes Spine [id number] / / Description:L3 Bilat L5 Bilat Depuy Spine [id number] 5.5mm 1 Inner Spine Screw Set Titanium Nonsterile Viper - [id number] Implanted:Qty: 6 on 03/18/2020 by Jeff Chapman MD at [facility] N/A: Spine Lumbar Depuy Spine [id number] / / Description:L3-4-5 Depuy Spine [id number] Viper 2 70mm Lordotic Mc Spinal Titanium Mis - [id number] Implanted:Qty: 2 on 03/18/2020 by Jeff Chapman MD at [facility] N/A: Spine Lumbar Depuy Spine [id number] / / Description:Lumbar rods bila t L3-L5 Synthes 08.812.009 T-Pal 93o83c2-0.2mm Radiopaque Connection Cylinder Pyramidal - [id number] Implanted:Qty: 1 on 03/18/2020 by Jeff Chapman MD at [facility] N/A: Spine Lumbar Synthes I 08.812.009 / / Description:Lumbar spacer L4 -5 Depuy Synthes Spine [id number] Viper Prime Od6 Mm L45 Mm Fix Polyaxial Fenestrate Extend Tab Spine Cortical Screw Bone Nonsterile 5.5 Mm Mc - [id number] Implanted:Qty: 1 on 03/18/2020 by Jeff Chapman MD at [facility] N/A: Spine Lumbar Depuy Synthes Spine [id number] / / Description:Left 4 Angio-Seal Vip 6fr Closere Device [id number] - [id number] Implanted:Qty: 1 on 11/21/2021 by Mini Lord MD at [facility] [employer] [facility] 09/14/2022 [id number] / / [id number] Procedures Procedure Name Priority Date/Time Associated Diagnosis Comments XR CHEST PA LATERAL 2 VIEWS Schedule Routine, Read Routine (OP Routine) 11/13/2024 1:04 PM CDT Acute bronchitis due to other specified organisms EGFR Routine 10/20/2024 10:50 AM CDT Iron deficiency anemia secondary to inadequate dietary iron intake DIAGNOSTIC MAMMOGRAM BILATERAL W YAYO Schedule Routine, Read Routine (OP Routine) 07/16/2024 8:54 AM EDGE TRIMMER MECHANIC Nipple discharge in female COLONOSCOPY 02/11/2024 11:38 [...] Jaime Hall M.D. RW: FARZANA Report ID: [id number] Reading Location: [id number] Procedure Note Jaime Hall MD - 11/19/2024 [...] Jaime Hall M.D. RW: FARZANA Report ID: [id number] Reading Location: [id number] Remberto FRASER IMG XR PROCEDURES Final Resul [...] was last reviewed 2021. Testing performed by: [facility], [place], [address] Blood 10/20/2024 10:5 0 AM CDT 10/20/2024 11:15 AM CDT Jacquelyn Sousa SUPERVISOR NET MAKING LAB BLOOD ORDERABLES Final Result [facility]) [address] [place] [address] Department [place] [address] * Diagnostic Mammogram Bilateral W Yayo (07/16/2024 8:54 AM EDGE TRIMMER MECHANIC) Anatomical Region Laterality Modality Breast Bilateral Mammography 07/16/2024 10:3 3 AM EDGE TRIMMER MECHANIC Impressions 07/16/2024 10:33 AM EDGE TRIMMER MECHANIC No evidence to suggest malignancy is seen by mammography or ultrasound. Given the history of bloody nipple discharge, breast MR is recommended. OVERALL FINAL ASSESSMENT: [id number]-[id number] Electronically signed by: Jessy Gordon M.D. Narrative 07/16/2024 10:33 AM EDGE TRIMMER MECHANIC EXAMINATION: BILATERAL DIGITAL DIAGNOSTIC MAMMOGRAM AND DIGITAL [...] Rodríguez MD - 02/11/2024 11:38 AM CDT [facility] Patient Name: Sarah Villagran Procedure Date: 02/11/2024 11:38 AM Date of : 1945 Admit Type: Outpatient Age: 78 Gender: Female Attending MD: Kamryn Rodríguez M.D. Room: [facility] 1 Note Status: Finalized Patient [...] passed under direct vision.The Pediatric Colonoscope [id number]-H190L [id number] was introduced through the anus and advanced [...] 11:38 AM Procedure Code(s): --- Professional --- 16626, Colonoscopy, flexible; with removal of tumor(s), polyp(s), or other lesion(s) by snare technique Diagnosis Code(s): --- Professional --- K64.8, Other hemorrhoids D12.0, Benign neoplasm of cecum D12.5, Benign neoplasm of sigmoid colon D12.4, Benign neoplasm of descending colon D12.3, Benign neoplasm of transverse colon (hepatic flexure orsplenic flexure) K57.30, Diverticulosis of large intestine without perforation orabscess without bleeding CPT copyright 2020 [employer]. All rights reserved. The codes documented in this report are preliminary and upon bike technician reviewmay be revised to meet current compliance requirements. Recognized by the [place] for promoting quality [...] and children were not included. (Diabetes Care 31:5866-9981, 2008). The eAG is not equivalent to a fasting glucose. Blood specimen (specimen) 03/11/2020 11:30 AM CDT 03/11/2020 11:31 AM CDT Jeff Chapman MD LAB BLOOD ORDERABLES Final Result [facility] [id number] [address] Department [place] [address] * Dexa Axial Skeleton Bone Density 1 [...] Most Recently Relevant to Health Maintenance Insurance [facility] IDIA [facility] AETNA MEDICARE [place] IDIA [facility] MEDICARE ADVANTAGE [facility] MEDIC[facility] ADVANTAGE Advance Directives For more information, please contact: [phone] Documents on File Type Date Recorded Patient Frame Operator Expl anation ADVANCE DIRECTIVE 09/29/2018 9:00 AM [...] 11:05 AM 11/21/2021 6:14 PM Care Teams Assistant Toddler Teacher Relationship Specialty Start Date End Date Remberto Mathis PA [address] [place] [address] PCP - General 09/26/17 Kamryn Rodríguez MD [address] [place] [address] Consulting Physician Gastroenterology 06/26/20
--- OUTSIDE RECORDS SUMMARY | 2025-02-01 16:21 | XMS_ITS | Clinical Summary ---
Author Organization [facility] Address [address] [facility] [place] [address] Care Team Providers Care Production Control Expediter Name Role Phone Remberto Mathis Primary Care Provider [phone] Jose Rodríguez MD Unavailable [phone] Martinez Rosas MD Unavailable [phone] Jeff Chapman MD Unavailable [phone] Source Comments [facility],non-owned Affiliates and Associated Physician Practices is amultiple site organization consisting of ambulatory clinics and hospital sitesin [place], [place], [place] and [place]. This disclosure is being madepursuant to the Care Everywhere program and may not contain all information available regarding this patient. Last updated 18.[facility] Allergies Active Allergy Reactions Criticality Noted Date Comments Aspirin Other 07/01/2017 Codeine Psychiatric High 03/10/2019 Medications * Be aware that medications may not be up to date on this document. Alwaysverify current medications with the patient. ALPRAZolam (XANAX) 1 MG tablet Take 1 mg by mouth 1 Before Breakfast, 2 Before Dinner 9 Active fluticasone propionate (FLONASE) 50 MCG/ACT nasal spray [place] 50 sprays into each nostril once daily [...] mouth 2 times daily Active pancrelipase (CREON) 36128-04336 units capsule Take 1-2 capsules by mouth [...] (02/23/2020): Added automatically from request for surgery [id number] Closed compression fracture of third lumbar vert ebra 04/07/2018 Chest pain 01/10/2018 Overview (02/23/2020): Added automatically from request for surgery [id number] History of stress incontinence 01/06/2018 Urinary incontinence [...] the person will continue it over the overedge sewer. Falls -- Falling significantly increases the risk [...] less likely to do so. ?Visiting an presser and blocker knitted goods or core driller regularly to optimize vision. Aftercare following left [...] (02/23/2020): Added automatically from request for surgery [id number] Post-traumatic osteoarthritis of left knee 10/10 Overview (02/23/2020): Added automatically from request for surgery [id number] VICKIE (obstructive sleep apnea) Asthma Rheumatoid arthritis [...] PM CDT Pulse 71 07/09/2019 8:37 AM SAND SLINGER OPERATOR Temperature 36.5 C (97.7 F) 07/09/2019 8:37 AM SAND SLINGER OPERATOR Respiratory Rate 18 03/30/2019 1:26 PM CDT Oxygen Saturation 96% 07/09/2019 8:37 AM SAND SLINGER OPERATOR Inhaled Oxygen Concentration - - Weight 89.8 [...] MEDICAID - OUT OF STATE MEDICAID AETNA [facility] Care Teams Production Control Expediter Relationship Specialty Start Date End Date Remberto Mathis PA [address] [place] [address] PCP - General 02/18/19 Jose Rodrí[place] [address] [place], [place] [id number] Gastroenterology 03/10/19 [place] [address] [place], [place] [id number] Orthopedic Surgery 03/10/19 [place] [address] [place] [address] Orthopedic Surgery 03/10/19
--- OUTSIDE RECORDS SUMMARY | 2025-02-01 16:21 | XMS_ITS | Clinical Summary ---
Author Organization [facility] Address [address] [place] [address] Care Team Providers Care Engineer Rf Deployment Name Role Phone Unavailable Primary Care Provider [...]
--- OUTSIDE RECORDS SUMMARY | 2025-02-01 16:21 | XMS_ITS | Encounter Summary ---
Author Organization [facility] Address [address] [place] [address] Phone Care Team Providers Care Rn Clinical Coordinator Name Role Phone Remberto Mathis Primary Care Provider [phone] Deena Celis APRN, RUTH Unavailable [phone] Reason for Visit * Reason Comments Medication Refill Encounter Details Date Type Department Care Team (Late st Contact Info) Description 11/04/2023 Refill [facility] [place] [address] Deena Celis APRN, RUTH [address] [address] Medication Refill Social History Tobacco Use Types [...] Celis APRN, RUTH [facility] [place] Showing recent visits within past 365 days and meeting all other requirements Future Appointments Date Type Provider Dept 11/25/23 Appointment Deena Celis APRN, RUTH [facility] [place] Showing future appointments within next 90 days and meeting all other requirements documented in this encounter Plan of Treatment Upcoming Encounters Date Type Department Care Team (Late st Contact Info) Description 02/05/2025 9:30 AM CDT Office Visit [facility] - Neurology [facility] [address] [place] [address] Frank Del Rosario MD [address] [place] [address] 02/08/2025 9:00 AM CDT Hospital Encounter [facility] [address] [place] [address] Sebastian Silvestre MD [address] [address] 02/08/2025 9:00 AM CDT - 02/08/2025 10:00 AM CDT Surgery [facility] [address] [place] [address] Sebastian Silvestre MD [address] [address] EGD 06/01/2025 9:30 AM GOLF SALES MANAGER Office Visit [facility] - Pulmonology & Sleep Medicine - [place] [address] [place] [address] Deena Celis APRN, BACK STAYER [address] [facility] [address] [place] [address] Scheduled Procedures Name Priority Associated Diagnoses Date/Ti me EGD DIARRHEA 02/08/2025 9:00 AM CDT COLONOSCOPY DIARRHEA 02/08/2025 9:00 AM CDT documented as of this encounter Visit Diagnoses Diagnosis Mild intermittent asthma without status asthmaticus without complication documented in this encounter Care Teams Rn Clinical Coordinator Relationship Specialty Start Date End Date Remberto Mathis, PAC [address] [place] [address] PCP - General Physician Pin Puller 10/21/17 Deena Celis APRN, BACK STAYER [address] [address] Nurse Practitioner Advanced Practice Nurse 05/03/22 documented as of this encounter
--- OUTSIDE RECORDS SUMMARY | 2025-02-01 16:21 | XMS_ITS | Encounter Summary ---
Author Organization [facility] Address [address] [place] [address] Care Team Providers Care Digital Strategy Manager Name Role Phone Remberto Mathis Primary Care Provider [phone] Haroon Sifuentes MD Unavailable [phone] Alem Ayon PTA Unavailable Unavailable Kamryn Rodríguez MD Unavailable [phone] Reason for Visit * Reason Onset Date Comments Scheduling Appointments 12/31/2019 Called f or DEXA appointment reminder Encounter Details Date Type Department Care Team (Late st Contact Info) Description 12/31/2019 Telephone [facility] [address] [place] [address] Corrine Maldonado RT Scheduling Appointments (Called for [...] on file Legal 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 [address] [place] [address] Kamryn Rodríguez MD [address] [place] [address] [address] 02/08/2025 8:00 AM CDT - 02/08/2025 8:30 AM CDT Surgery [facility] [address] [place] [address] Kamryn Rodríguez MD [address] [place] [address] COLONOSCOPY Scheduled Procedures Name Priority Associated Diagnoses Date/Ti me COLONOSCOPY Family hx of colon cancer Hx of adenomatous colonic polyps 02/08/2025 8:00 AM CDT documented as of this encounter Visit Diagnoses Not on filedocumented in this encounter Care Teams Digital Strategy Manager Relationship Specialty Start Date End Date Remberto Mathis PA [address] [place] [address] PCP - General 09/26/17 Haroon Sifuentes MD [address] [place] [address] 09/26/17 06/29/24 Alem Ayon PTA Pot Builder Physical Therapy 10/25/17 08/27/22 Kamryn Rodríguez MD Consulting Physician Gastroenterology 06/26/20 documented as of this encounter
[2025-02-01 16:24] VITALS: BP 137/52; PULSE 71; RESP 13; TEMP 37.2; O2SAT 96
--- NOTE | 2025-02-01 17:17 | ED.ABDPAIN ---
HPI - Abdominal Pain General Chief Complaint: Abdominal Pain <Nicole Torres PA-C - Last Filed: 02/02/25 10:12> Stated Complaint: swollen abdomen <Nicole Torres PA-C - Last Filed: 02/02/25 10:12> Time Seen by Provider: 02/01/25 17:17 <Nicole Torres PA-C - Last Filed: 02/02/25 10:12> Focused HPI: This is a 79 year old female that presents to the ER for right sided abdominal pain. Ongoing since this morning. Denies fever, vomiting, diarrhea, dysuria. GENERAL: Well-appearing, well-nourished, and in no acute distress. HEAD: Normocephalic, atraumatic. CHEST: Clear to auscultation. ?No respiratory distress. HEART: Regular rate and rhythm.? NEURO: ?Alert and oriented x3. Patient screened in triage and initial orders placed.? ?Additional care and disposition to be based upon?diagnostic testing and treatment. <Nicole Torres PA-C - Last Filed: 02/02/25 10:12> History of Present Illness HPI narrative: 79-year-old female presents emergency department for evaluation of lower abdominal pain that started last night. <Asael Romero MD - Last Filed: 02/02/25 00:55> Related Data Home Medications: Home Medications ?Medication ?Instructions ?Recorded ?Confirmed ?Last Taken ?Type escitalopram oxalate 20 mg tablet 20 mg PO DAILY 06/06/20 01/03/24 06/27/20 History insulin syringe-needle U-100 0.3 #10 ea 06/06/20 01/03/24 Unknown History mL 31 gauge x 10/30 metformin 1,000 mg tablet 1,000 mg PO BID 06/06/20 01/03/24 06/26/20 History ropinirole 1 mg tablet 1 mg PO HS 12/15/20 01/03/24 Unknown History diltiazem HCl 240 mg 240 mg PO DAILY 09/01/22 01/03/24 Unknown History capsule,extended release 24 hr, controlled (DILT-XR) docusate sodium 100 mg capsule 100 mg PO DAILY 09/01/22 01/03/24 Unknown History lansoprazole 30 mg capsule,delayed 30 mg PO DAILY 09/01/22 01/03/24 Unknown History release lisinopril 10 mg tablet 10 mg PO DAILY 09/01/22 01/03/24 Unknown History mirabegron 50 mg tablet,extended 50 mg PO DAILY 09/01/22 01/03/24 Unknown History release 24 hr (Myrbetriq) montelukast 10 mg tablet 10 mg PO DAILY 09/01/22 01/03/24 Unknown History alendronate 70 mg tablet 70 mg PO WEEKLY 02/04/23 01/03/24 Unknown History meloxicam 15 mg tablet 15 mg PO DAILY 02/04/23 01/03/24 Unknown History gabapentin 300 mg capsule 600 mg PO TID 02/27/23 01/03/24 Unknown History albuterol sulfate 90 mcg/actuation 2 inh inhalation Q4H PRN Shortness 01/03/24 01/03/24 Unknown History aerosol inhaler (Ventolin HFA) Of Breath buspirone 5 mg tablet 5 mg PO BID 01/03/24 01/03/24 Unknown History fluticasone fur. 200 mcg-umeclid 1 inh inhalation DAILY 01/03/24 01/03/24 Unknown History 62.5 mcg-vilant 25 mcg inhalat.powder (Trelegy Ellipta) insulin lispro 100 unit/mL 30 unit subcut QACBREAK 01/03/24 01/03/24 Unknown History subcutaneous pen (Humalog KwikPen (U-100) Insulin) insulin lispro 100 unit/mL 35 unit subcut QACDINNER 01/03/24 01/03/24 Unknown History subcutaneous pen (Humalog KwikPen (U-100) Insulin) insulin lispro protamine-lispro 35 unit subcut BID 01/03/24 01/03/24 Unknown History 100 unit/mL (75-25) subcutaneous pen (Humalog Mix 75-25 KwikPen) tramadol 50 mg tablet 50 mg PO Q6H PRN Pain 01/03/24 01/03/24 Unknown History ferrous sulfate 325 mg (65 mg 325 mg PO DAILY 03/12/24 Unknown History iron) tablet,delayed release <Nicole Torres PA-C - Last Filed: 02/02/25 10:12> Allergies/Adverse Reactions: Allergies Allergy/AdvReac Type Severity Reaction Status Date / Time aspirin Allergy Unknown Verified 02/01/25 22:09 codeine Allergy Unknown Verified 02/01/25 22:09 <Nicole Torres PA-C - Last Filed: 02/02/25 10:12> Review of Systems Review of Systems: All systems reviewed & are unremarkable except as noted in HPI and below <Asael Romero MD - Last Filed: 02/02/25 00:55> PMFSH Past Medical History Medical History: Medical History Blood thinned due to long-term anticoagulant use Acute on chronic blood loss anemia Glaucoma Obstructive sleep apnea Pulmonary embolism Iron deficiency anemia Diabetes Osteoporosis Stress incontinence Acid reflux <Nicole Torres PA-C - Last Filed: 02/02/25 10:12> Surgical History Surgical History: Surgical History History of bilateral cataract extraction History of open reduction and internal fixation (ORIF) procedure Left hip History of total bilateral knee replacement Hx of appendectomy History of tubal ligation H/O dilation and curettage H/O total hysterectomy History of back surgery <Nicole Torres PA-C - Last Filed: 02/02/25 10:12> Family History Family History: Family History Unknown No problems noted. Other Adopted Unknown family medical history <Nicole Torres PA-C - Last Filed: 02/02/25 10:12> Social History Social History: Social History Social History: Primary care physician: Dr. Remberto Mathis Code status: Full code no advance directives in place Surrogate decision maker: Quin Villagran (daughter) Smoking status: Former smoker Tobacco type: cigarettes Alcohol intake: never Substance use: never Substance use type: does not use Living arrangements: with family Gender identity (if verbalized by the patient): Female Spiritual care concerns: No <Nicole Torres PA-C - Last Filed: 02/02/25 10:12> Exam Narrative: APPEARANCE: Well appearing, no pain, no distress, well-nourished. HEAD: normocephalic, atraumatic. EYES: PERRLA/EOMI, conjunctivae clear. NOSE: Normal no drainage EARS:TMS clear with good light reflex. THROAT: Pharynx clear, no exudate. NECK: Supple. No adenopathy, no masses. RESPIRATORY: Airway patent, respirations nonlabored. Clear to auscultation bilaterally, no rales, rhonchi, wheezing. CARDIOVASCULAR: Regular rate and rhythm without murmurs rubs or gallops. ABDOMINAL: Soft, nontender, nondistended, normal bowel sounds MUSCULOSKELETAL: Moves all extremities. Strength/ROM intact, No edema, No calf tenderness. NEURO: Alert. Cranial nerves II through XII intact. Good gait. Good coordination SKIN: Warm, dry. Normal Color <Asael Romero MD - Last Filed: 02/02/25 00:55> Course Vital Signs Vital signs: Vital Signs Temperature 99.0 F 02/01/25 16:24 Pulse Rate 71 02/01/25 16:24 Respiratory Rate 13 02/01/25 16:24 Blood Pressure 137/52 L 02/01/25 16:24 Pulse Oximetry 96 02/01/25 16:24 Oxygen Delivery Room Air 02/01/25 16:24 Temperature 99.0 F 02/01/25 16:24 Pulse Rate 79 02/02/25 00:53 Respiratory Rate 20 02/02/25 00:53 Blood Pressure 112/63 02/02/25 00:53 Pulse Oximetry 96 02/02/25 00:53 Oxygen Delivery Room Air 02/01/25 16:24 <Nicole Torres PA-C - Last Filed: 02/02/25 10:12> Vital Signs Temperature 99.0 F 02/01/25 16:24 Pulse Rate 71 02/01/25 16:24 Respiratory Rate 13 02/01/25 16:24 Blood Pressure 137/52 L 02/01/25 16:24 Pulse Oximetry 96 02/01/25 16:24 Oxygen Delivery Room Air 02/01/25 16:24 Temperature 99.0 F 02/01/25 16:24 Pulse Rate 79 02/02/25 00:53 Respiratory Rate 20 02/02/25 00:53 Blood Pressure 112/63 02/02/25 00:53 Pulse Oximetry 96 02/02/25 00:53 Oxygen Delivery Room Air 02/01/25 16:24 <Asael Romero MD - Last Filed: 02/02/25 00:55> MDM - Abdominal Pain Differential Diagnosis Differential diagnosis: Likely abdominal pain, acute appendicitis, calculus of kidney, constipation, diverticulitis, gastroenteritis, pancreatitis and small bowel obstruction <Asael Romero MD - Last Filed: 02/02/25 00:55> Lab Data Attestation: I reviewed the patient's lab results. <Asael Romero MD - Last Filed: 02/02/25 00:55> Result diagrams: 02/01/25 21:40 02/01/25 21:40 <Nicole Torres PA-C - Last Filed: 02/02/25 10:12> Labs: Lab Results 02/01/25 Range/Units 21:40 WBC 6.4 (4.5-10.0) K/mm3 RBC 3.09 L (4.2-5.4) M/mm3 Hgb 10.5 L (12.0-15.0) g/dL Hct 30.6 L (37.0-47.0) % MCV 99.0 (80-100) fl MCH 34.0 (26-34) pg MCHC 34.3 (32-36) g/dl RDW 13.2 (11.5-14.5) % Plt Count 174 (150-375) k/mm3 MPV 9.0 (7.4-10.4) fl Immature Gran % (Auto) 0.5 (0-0.5) % Neut % (Auto) 47.9 (45.5-73.1) % Lymph % (Auto) 40.5 (18.3-44.2) % [place] % (Auto) 9.7 H (2.6-8.5) % Eos % (Auto) 0.9 (0-4.4) % Baso % (Auto) 0.5 (0.2-1.2) % Lymph # (Auto) 2.59 (0.9-3.2) K/mm3 [place] # (Auto) 0.6 (0.1-0.6) K/mm3 Eos # (Auto) 0.1 (0-0.3) K/mm3 Baso # (Auto) 0.0 (0.0-0.1) K/mm3 Abs Immat Gran (auto) 0.03 (0.00-0.031) K/mm3 Absolute Neuts (auto) 3.1 (1.3-6.7) K/mm3 Absolute Nucleated RBC 0.000 (0.0-0.012) K/mm3 Nucleated RBC % 0.0 (0.0-0.2) % Sodium 135 L (137-145) mmol/L Potassium 5.1 H (3.4-5.0) mmol/L Chloride 106 (98-107) mmol/L Carbon Dioxide 20 L (22-30) mmol/L Anion Gap 9 (4-12) mmol/L BUN 29 H D (7-17) mg/dL Creatinine 1.43 H (0.7-1.0) mg/dL Estim Creat Clear Calc 32 ml/min Estimated GFR 35 L (59 - ) Glucose 80 (65-110) mg/dL Calcium 9.7 (8.4-10.2) mg/dL Total Bilirubin 0.4 (0.2-1.3) mg/dL AST 33 (14-36) U/L ALT 20 (6-35) U/L Alkaline Phosphatase 70 (38-126) U/L Total Protein 7.8 (6.3-8.2) g/dL Albumin 4.2 (3.5-5.1) g/dL Lipase 68 (23-300) U/L <Nicole Torres PA-C - Last Filed: 02/02/25 10:12> Lab Results 02/01/25 Range/Units 21:40 WBC 6.4 (4.5-10.0) K/mm3 RBC 3.09 L (4.2-5.4) M/mm3 Hgb 10.5 L (12.0-15.0) g/dL Hct 30.6 L (37.0-47.0) % MCV 99.0 (80-100) fl MCH 34.0 (26-34) pg MCHC 34.3 (32-36) g/dl RDW 13.2 (11.5-14.5) % Plt Count 174 (150-375) k/mm3 MPV 9.0 (7.4-10.4) fl Immature Gran % (Auto) 0.5 (0-0.5) % Neut % (Auto) 47.9 (45.5-73.1) % Lymph % (Auto) 40.5 (18.3-44.2) % [place] % (Auto) 9.7 H (2.6-8.5) % Eos % (Auto) 0.9 (0-4.4) % Baso % (Auto) 0.5 (0.2-1.2) % Lymph # (Auto) 2.59 (0.9-3.2) K/mm3 [place] # (Auto) 0.6 (0.1-0.6) K/mm3 Eos # (Auto) 0.1 (0-0.3) K/mm3 Baso # (Auto) 0.0 (0.0-0.1) K/mm3 Abs Immat Gran (auto) 0.03 (0.00-0.031) K/mm3 Absolute Neuts (auto) 3.1 (1.3-6.7) K/mm3 Absolute Nucleated RBC 0.000 (0.0-0.012) K/mm3 Nucleated RBC % 0.0 (0.0-0.2) % Sodium 135 L (137-145) mmol/L Potassium 5.1 H (3.4-5.0) mmol/L Chloride 106 (98-107) mmol/L Carbon Dioxide 20 L (22-30) mmol/L Anion Gap 9 (4-12) mmol/L BUN 29 H D (7-17) mg/dL Creatinine 1.43 H (0.7-1.0) mg/dL Estim Creat Clear Calc 32 ml/min Estimated GFR 35 L (59 - ) Glucose 80 (65-110) mg/dL Calcium 9.7 (8.4-10.2) mg/dL Total Bilirubin 0.4 (0.2-1.3) mg/dL AST 33 (14-36) U/L ALT 20 (6-35) U/L Alkaline Phosphatase 70 (38-126) U/L Total Protein 7.8 (6.3-8.2) g/dL Albumin 4.2 (3.5-5.1) g/dL Lipase 68 (23-300) U/L <Asael Romero MD - Last Filed: 02/02/25 00:55> Imaging Data Radiologist's impression: ITS Impressions Abdomen/Pelvis CT 02/02/25 05:48 Impression: Probable acute compression fracture at the inferior endplate region of T12, mildly worsened from prior exam. Chronic compression fractures of L2 and L4. Cholecystectomy clips with associated pneumobilia, unchanged. <Nicole Torres PA-C - Last Filed: 02/02/25 10:12> ITS Impressions Abdomen/Pelvis CT 02/02/25 05:48 Impression: Probable acute compression fracture at the inferior endplate region of T12, mildly worsened from prior exam. Chronic compression fractures of L2 and L4. Cholecystectomy clips with associated pneumobilia, unchanged. Overnight read CT abdomen pelvis with contrast Impression: Postoperative changes prior post cholecystectomy change since 01/22/2025. Pneumobilia is present and likely postoperative nature. Postoperative changes or AF left femoral fracture. Moderate amount of liquid stool within the colon. Uterus is surgically absent. Postop changes L4 through S1 interbody fusion. Diffuse osteopenia. L4 and L2 superior endplate compression deformities, T12 inferior endplate compression deformity likely chronic in nature and unchanged from prior exam. <Asael Romero MD - Last Filed: 02/02/25 00:55> Critical Care Time Critical Care Time Critical Care Time: No <Nicole Torres PA-C - Last Filed: 02/02/25 10:12> Discharge Plan Discharge Clinical Impression: Abdominal pain Qualifiers: Abdominal location: unspecified location Qualified Code(s): R10.9 - Unspecified abdominal pain <Nicole Torres PA-C - Last Filed: 02/02/25 10:12> Patient Disposition: Home <ANDREW Mccarthy Last Filed: 02/02/25 10:12> Condition: Stable <Nicole Torres PA-C - Last Filed: 02/02/25 10:12> Instructions: Antibiotic Form, Clear Liquid Diet (ED), Abdominal Pain (ED) <Nicole Torres PA-C - Last Filed: 02/02/25 10:12> Additional Instructions: Tylenol and ibuprofen for pain control. Clear liquid diet for the next 3-5 days. If you have any worsening symptoms and please call or return to the emergency department. <Nicole Torres PA-C - Last Filed: 02/02/25 10:12> Patient Language: [place] <Nicole Torres PA-C - Last Filed: 02/02/25 10:12> Prescriptions: No Action ropinirole 1 mg tablet 1 mg PO HS diltiazem HCl [DILT-XR] 240 mg capsule,ext.rel 24h degradable 240 mg PO DAILY lisinopril 10 mg tablet 10 mg PO DAILY lansoprazole 30 mg capsule,delayed release(DR/EC) 30 mg PO DAILY docusate sodium 100 mg capsule 100 mg PO DAILY montelukast 10 mg tablet 10 mg PO DAILY mirabegron [Myrbetriq] 50 mg tablet extended release 24 hr 50 mg PO DAILY buspirone 5 mg tablet 5 mg PO BID tramadol 50 mg tablet 50 mg PO Q6H PRN (Reason: Pain) albuterol sulfate [Ventolin HFA] 90 mcg/actuation HFA aerosol inhaler 2 inh INHALATION Q4H PRN (Reason: Shortness Of Breath) insulin lispro [Humalog KwikPen Insulin] 100 unit/mL insulin pen 30 unit SUBCUT QACBREAK insulin lispro [Humalog KwikPen Insulin] 100 unit/mL insulin pen 35 unit SUBCUT QACDINNER insulin lispro protamin-lispro [Humalog Mix 75-25 KwikPen] 100 unit/mL (75-25) insulin pen 35 unit SUBCUT BID Trelegy Ellipta 200-62.5-25 mcg blister with device 1 inh INHALATION DAILY cyclobenzaprine 10 mg tablet 10 mg PO TID PRN (Reason: muscle spasm) Qty: 30 0RF orphenadrine citrate 100 mg tablet extended release 100 mg PO BID PRN (Reason: pain) Qty: 20 0RF alendronate 70 mg tablet 70 mg PO WEEKLY meloxicam 15 mg tablet 15 mg PO DAILY gabapentin 300 mg capsule 600 mg PO TID (DME) insulin syringe-needle U-100 0.3 mL 31 gauge x 5/16 syringe See Rx Instructions .ROUTE .MEDSUPPLY Qty: 10 Rx Instructions: As directed escitalopram oxalate 20 mg tablet 20 mg PO DAILY metformin 1,000 mg tablet 1,000 mg PO BID ferrous sulfate 325 mg (65 mg iron) tablet,delayed release (DR/EC) 325 mg PO DAILY <Nicole Torres PA-C - Last Filed: 02/02/25 10:12> Follow-up/Referrals: Del,EVELIO Khan [Primary Care Provider] <EVELIO Mccarthy-C - Last Filed: 02/02/25 10:12>
[2025-02-01 21:51] VITALS: BP 110/60; PULSE 74; RESP 22; O2SAT 93
[2025-02-01 21:54] LABS: Hematocrit 30.6 % (37.0-47.0); Hemoglobin 10.5 g/dL (12.0-15.0); Immature Granulocyte Percent A 0.5 % (0-0.5); Lymphocytes Absolute Auto 2.59 K/mm3 (0.9-3.2); Mean Corpuscular HGB Conc 34.3 g/dl (32-36); Mean Corpuscular Hemoglobin 34.0 pg (26-34); Mean Corpuscular Volume 99.0 fl (80-100); Nucleated Red Blood Cells Absolute Auto 0.000 K/mm3 (0.0-0.012); Nucleated Red Blood Cells Perc 0.0 % (0.0-0.2); Platelet Count Result 174 k/mm3 (150-375); Red Blood Count 3.09 M/mm3 (4.2-5.4); White Blood Count 6.4 K/mm3 (4.5-10.0)
--- OUTSIDE RECORDS SUMMARY | 2025-02-01 21:55 | XMS_ITS | Clinical Summary ---
Author Organization [facility] Address [address] [place] [address] Care Team Providers Care Role Player Name Role Phone Remberto Mathis Primary Care Provider [phone] Kamryn Rodríguez MD Unavailable [phone] Allergies Active Allergy Reactions Criticality Noted Date [...] EVERY EVENING 02/03/20 24 Active lancing device [facility] 02/18/20 24 Active Ultra Thin Lancets 31 gauge [facility] 02/18/20 24 Active glimepiride (AMARYL) 4 mg [...] 07/12/2023 Assessment & Plan (07/12/2023 8:47 PM WALL MAN): dysphagia of both solids and liquids, has [...] (01/26/2022): Added automatically from request for surgery [id number] Iron deficiency anemia 01/24/2022 Assessment & Plan (07/12/2023 8:50 PM WALL MAN): No signs of GI blood loss, currently [...] 03/0 08/2020 Coronary artery disease invo lving [place] coronary artery of [place] heart without angina pectoris 07/19/2020 Assessment & Plan (07/19/2020 12:43 PM WALL MAN): With the patient's minimal coronary disease and [...] upper endoscopy and the colonoscopy recently in [facility]. She had unremarkable imaging last year. 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 Falls -- Falling significantly increases the risk [...] less likely to do so. ?Visiting an shank cementer hand or wall man regularly to optimize vision. Assessment & Plan [...] the person will continue it over the heavy equipment operator apprentice. Falls -- Falling significantly increases the risk [...] less likely to do so. ?Visiting an shank cementer hand or wall man regularly to optimize vision. 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, right 10/21/2017 Chronic eczematous otitis externa of right ear 0 10/21/2017 Conductive hearing loss of right ear 10/21/2017 Tinnitus of right ear 10/21/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, marginal, right 0 10/21/2017 Painful orthopaedic hardware 10/10/2017 Overview (10/10/2017): Added automatically from request for surgery [id number] Acute pyelonephritis Confusion Resolved Problems Problem Noted Date Diagnosed Date Resolved Date Primary osteoarthritis of right knee 09/09/2018 02/28/2020 Overview (09/09/2018): Added automatically from request for surgery [id number] Chest pain 01/10/2018 06/23/2020 Overview (01/10/2018): Added automatically from request for surgery [id number] Aftercare following left kne e joint replacement surgery 11/06/2017 02/28/2020 Post-traumatic osteoarthritis of left knee 10/10/2017 02/28/2020 Overview (10/10/2017): Added automatically from request for surgery [id number] Encounters Date Type Department Care Team Description 12/11/2024 Telephone [facility] Gastroenterology at [address] [place] [address] Deloris Calderon MA 11/13/2024 12:56 PM CDT - 11/13/2024 11:59 PM CDT Hospital Encounter [facility] [address] [place] [address] Acute bronchitis due to other specified organisms Discharge Disposition: Discharge to home or self care from Last 3 Months Immunizations Immunization Administration Dates Next Due COVID-19 mRNA (creads) 0.3 m L (30 mcg) vaccine (12 [...] on file Legal Sex Female 6:09 PM WALL MAN Gender Identity Not on file Sexual Orientation [...] CDT Oxygen Saturation 96% 06/30/2024 1:51 PM WALL MAN Inhaled Oxygen Concentration - - Weight 92.2 kg (203 lb 3.2 oz) 10/20/2024 11:13 AM CDT Height 165.1 cm (5' 5) 10/20/2024 11:13 AM CDT Body Mass Index 33.81 10/20/2024 11:13 AM CDT Plan of Treatment Upcoming Encounters Date Type Department Care Team (Late st Contact Info) Description 02/08/2025 8:00 AM CDT Hospital Encounter [address] [address] Kamryn Rodríguez MD [address] [facility] [address] [place] [address] 02/08/2025 8:00 AM CDT - 02/08/2025 8:30 AM CDT Surgery [address] [address] Kamryn Rodríguez MD [address] [facility] [address] [place] [address] COLONOSCOPY Scheduled Procedures Name Priority Associated Diagnoses [...] Discontinued 025 Medical Devices Implanted Type Area Grinding Machine Tender Device Identifier Shelf Expiration Date Model / Serial / Lot Dome Patellar Attune Aox H35 Mm Knee Cemented Medialize Sterile - [id number] Implanted:Qty: 1 on 11/05/2017 by Martinez Rosas MD at [facility] Left: Knee Depuy [employer] Inc 08/14/2022 [id number] / / [id number] Dome Patellar Attune Aox H35 Mm Knee Cemented Medialize Sterile - [id number] Implanted:Qty: 1 on 11/05/2017 by Martinez Rosas MD at [facility] Left: Knee [employer] 08/14/2022 [id number] / / [id number] Femoral Cruciate Retaining Implanted:Qty: 1 on 11/05/2017 by Martinez Rosas MD at [facility] Left: Knee Depuy Mitek 12/14/2026 1504-00-105 / 1504-00-105 / [id number] Bsplt Tibial Attune S+ 5 Knee Cement Fix Brng - [id number] Implanted:Qty: 1 on 11/05/2017 by Martinez Rosas MD at [facility] Left: Knee [employer] 04/16/2027 [id number] / / [id number] Cement Bone Smartset Gentamicin 40 Gm High Viscosity - [id number] Implanted:Qty: 1 on 11/05/2017 by Martinez Rosas MD at [facility] Left: Knee [employer] 01/14/2019 [id number] / / [id number] Insert Tibial Attune Aox 5 H7 Mm Knee Cruciate Retaining Fix Bearing Sterile - [id number] Implanted:Qty: 1 on 11/05/2017 by Martinez Rosas MD at [facility] Left: Knee [employer] 12/14/2020 [id number] / / [id number] 1516-20-506 Depuy Attune Tibial Insert Fixed Bearing Cruciate Retaining Size 5 Implanted:Qty: 1 on 09/22/2018 by Martinez Rosas MD at [facility] Right: Knee Dep[employer] Inc [id number] 09/14/2020 1516-20-506 / / [id number] [employer] [id number] [place] R+G High Viscosity Cement Bone Gentamicin Arthroplasty - [id number] Implanted:Qty: 1 on 09/22/2018 by Martinez Rosas MD at [facility] Right: Knee [employer] 01/14/2021 [id number] / / [id number] Depuy [employer]ed[employer] Inc [id number] Attune Cruciate Retain Cementless Knee Right 5 Narrow Component - [id number] Implanted:Qty: 1 on 09/22/2018 by Martinez Rosas MD at [facility] Right: Knee [employer] 08/14/2026 [id number] / / [id number] Depuy [employer] Inc [id number] Attune S+ Cement Fix Bearing Knee 5 Baseplate Tibial - [id number] Implanted:Qty: 1 on 09/22/2018 by Martinez Rosas MD at [facility] Right: Knee [employer] 06/16/2028 [id number] / / [id number] Allosource [id number] Freeze Dried Crushed 1-4mm Graft 15ml Bone Cancellous - [id number] Implanted:Qty: 1 on 03/14/2020 by Jeff Chapman MD at [facility] N/A: Spine Lumbar Allosource 01/20/2023 [id number] / / [id number] Medtronic Sofamor Danek [id number] Infuse 18mm 26mm Absorbable Sponge Sterile Water Syringe Needle - [id number] Implanted:Qty: 1 on 03/14/2020 by Jeff Chapman MD at [facility] N/A: Spine Lumbar Medtronic Inc 12/15/2020 [id number] / / [id number] Medtronic Inc [id number] [place] [id number] Radiopaque Hollow 6d Cage Spinal Peek-Blue [place] Latex Free - [id number] Implanted:Qty: 1 on 03/14/2020 by Jeff Chapman MD at [facility] N/A: Spine Lumbar Medtronic Inc 11/26/2026 [id number] / / [id number] Medtronic Sofamor Danek [id number] Infuse 14mm 23mm Absorbable Sponge Sterile Water Syringe Needle - [id number] Implanted:Qty: 1 on 03/18/2020 by Jeff Chapman MD at [facility] N/A: Spine Lumbar Medtronic Inc 02/14/2021 [id number] / / [id number] Confidence High Viscosity Spinal Cement 20g Implanted:Qty: 1 on 03/18/2020 by Jeff Chapman MD at [facility] N/A: Spine Lumbar Depuy Spine 08/14/2020 [id number] / / [id number] Description:Part of kit in [facility] Confidence Spinal Cement System Ref: [id number]: [id number] Exp date: 05-16-2020 Depuy Synthes Spine [id number] Viper Prime Od6 Mm L35 Mm Fix Polyaxial Fenestrate Extend Tab Spine Cortical Screw Bone Nonsterile 5.5 Mm Mc - [id number] Implanted:Qty: 1 on 03/18/2020 by Jeff Chapman MD at [facility] N/A: Spine Lumbar Depuy Synthes Spine [id number] / / Description:L4 right Depuy Synthes Spine [id number] Viper Prime Od6 Mm L50 Mm Fix Polyaxial Fenestrate Extend Tab Spine Cortical Screw Bone Nonsterile 5.5 Mm Mc - [id number] Implanted:Qty: 4 on 03/18/2020 by Jeff Chapman MD at [facility] N/A: Spine Lumbar Depuy Synthes Spine [id number] / / Description:L3 Bilat L5 Bilat Depuy Spine [id number] 5.5mm 1 Inner Spine Screw Set Titanium Nonsterile Viper - [id number] Implanted:Qty: 6 on 03/18/2020 by Jeff Chapman MD at [facility] N/A: Spine Lumbar Depuy Spine [id number] / / Description:L3-4-5 Depuy Spine [id number] Viper 2 70mm Lordotic Mc Spinal Titanium Mis - [id number] Implanted:Qty: 2 on 03/18/2020 by Jeff Chapman MD at [facility] N/A: Spine Lumbar Depuy Spine [id number] / / Description:Lumbar rods bila t L3-L5 Synthes 08.812.009 T-Pal 29l27g3-6.2mm Radiopaque Connection Cylinder Pyramidal - [id number] Implanted:Qty: 1 on 03/18/2020 by Jeff Chapman MD at [facility] N/A: Spine Lumbar Synthes I 08.812.009 / / Description:Lumbar spacer L4 -5 Depuy Synthes Spine [id number] Viper Prime Od6 Mm L45 Mm Fix Polyaxial Fenestrate Extend Tab Spine Cortical Screw Bone Nonsterile 5.5 Mm Mc - [id number] Implanted:Qty: 1 on 03/18/2020 by Jeff Chapman MD at [facility] N/A: Spine Lumbar Depuy Synthes Spine [id number] / / Description:Left 4 Angio-Seal Vip 6fr Closere Device [id number] - [id number] Implanted:Qty: 1 on 11/21/2021 by Mini Lord MD at [facility] [employer] [facility] 09/14/2022 [id number] / / [id number] Procedures Procedure Name Priority Date/Time Associated Diagnosis Comments XR CHEST PA LATERAL 2 VIEWS Schedule Routine, Read Routine (OP Routine) 11/13/2024 1:04 PM CDT Acute bronchitis due to other specified organisms EGFR Routine 10/20/2024 10:50 AM CDT Iron deficiency anemia secondary to inadequate dietary iron intake DIAGNOSTIC MAMMOGRAM BILATERAL W YAYO Schedule Routine, Read Routine (OP Routine) 07/16/2024 8:54 AM WALL MAN Nipple discharge in female COLONOSCOPY 02/11/2024 11:38 [...] Jaime Hall M.D. RW: FARZANA Report ID: [id number] Reading Location: [id number] Procedure Note Jaime Hall MD - 11/19/2024 [...] Jaime Hall M.D. RW: FARZANA Report ID: [id number] Reading Location: [id number] Remberto FRASER IMG XR PROCEDURES Final Resul [...] was last reviewed 2021. Testing performed by: [facility], [place], [address] Blood 10/20/2024 10:5 0 AM CDT 10/20/2024 11:15 AM CDT Jacquelyn Sousa [facility] LAB BLOOD ORDERABLES Final Result [facility] ([facility]) [address] [place] [address] Department [place] [address] * Diagnostic Mammogram Bilateral W Yayo (07/16/2024 8:54 AM WALL MAN) Anatomical Region Laterality Modality Breast Bilateral Mammography 07/16/2024 10:3 3 AM WALL MAN Impressions 07/16/2024 10:33 AM WALL MAN No evidence to suggest malignancy is seen by mammography or ultrasound. Given the history of bloody nipple discharge, breast MR is recommended. OVERALL FINAL ASSESSMENT: LC-KTWK-6-Negative Electronically signed by: Jessy Gordon M.D. Narrative 07/16/2024 10:33 AM WALL MAN EXAMINATION: BILATERAL DIGITAL DIAGNOSTIC MAMMOGRAM AND DIGITAL [...] Rodríguez MD - 02/11/2024 11:38 AM CDT [facility] Patient Name: Sarah Villagran Procedure Date: 02/11/2024 11:38 AM Date of : 1945 Admit Type: Outpatient Age: 78 Gender: Female Attending MD: Kamryn Rodríguez M.D. Room: [facility] ROOM 1 Note Status: Finalized Patient [...] passed under direct vision.The Pediatric Colonoscope [id number]-H190L [id number] was introduced through the anus and advanced [...] 11:38 AM Procedure Code(s): --- Professional --- 69718, Colonoscopy, flexible; with removal of tumor(s), polyp(s), or other lesion(s) by snare technique Diagnosis Code(s): --- Professional --- K64.8, Other hemorrhoids D12.0, Benign neoplasm of cecum D12.5, Benign neoplasm of sigmoid colon D12.4, Benign neoplasm of descending colon D12.3, Benign neoplasm of transverse colon (hepatic flexure orsplenic flexure) K57.30, Diverticulosis of large intestine without perforation orabscess without bleeding CPT copyright 2020 [employer]. All rights reserved. The codes documented in this report are preliminary and upon lottery clerk reviewmay be revised to meet current compliance requirements. Recognized by the [employer] for promoting quality [...] and children were not included. (Diabetes Care 31:9169-2948, 2008). The eAG is not equivalent to a fasting glucose. Blood specimen (specimen) 03/11/2020 11:30 AM CDT 03/11/2020 11:31 AM CDT Jeff Chapman MD LAB BLOOD ORDERABLES Final Result [facility] [id number] Department [place] [address] * Dexa Axial Skeleton Bone Density 1 [...] Most Recently Relevant to Health Maintenance Insurance [facility] IDAL [facility] AETNA MEDICARE NCON IDAL [facility] MEDICARE ADVANTAGE [facility] Address: [address] [place] [phone] [facility] MEDICARE ADVANTAGE [facility]IC[facility] Address: [address] [place] [phone] Advance Directives For more information, please contact: [phone] Documents on File Type Date Recorded 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
--- OUTSIDE RECORDS SUMMARY | 2025-02-01 21:55 | XMS_ITS | Clinical Summary ---
Author Organization [facility] Address [address] [place] [address] Care Team Providers Care Flexible Nanny Name Role Phone Remberto Mathis Primary Care Provider [phone] Jose Rodríguez MD Unavailable Martinez Rosas MD Unavailable [phone] Jeff Chapman MD Unavailable [phone] Source Comments [facility],non-owned Affiliates and Associated Physician Practices is amultiple site organization consisting of ambulatory clinics and hospital sitesin [place], [place], [place] and [place]. This disclosure is being madepursuant to the Care Everywhere program and may not contain all information available regarding this patient. Last updated 18.[facility] Allergies Active Allergy Reactions Criticality Noted Date Comments Aspirin Other 07/01/2017 Codeine Psychiatric High 03/10/2019 Medications * Be aware that medications may not be up to date on this document. Alwaysverify current medications with the patient. ALPRAZolam (XANAX) 1 MG tablet Take 1 mg by mouth 1 Before Breakfast, 2 Before Dinner 9 Active fluticasone propionate (FLONASE) 50 MCG/ACT nasal spray Eldena 50 sprays into each nostril once daily [...] mouth 2 times daily Active pancrelipase (CREON) 27789-[address]2219 units capsule Take 1-2 capsules by mouth [...] (02/23/2020): Added automatically from request for surgery [id number] Closed compression fracture of third lumbar vert ebra 04/07/2018 Chest pain 01/10/2018 Overview (02/23/2020): Added automatically from request for surgery [id number] History of stress incontinence 01/06/2018 Urinary incontinence [...] the person will continue it over the intermediate accountant. Falls -- Falling significantly increases the risk [...] less likely to do so. ?Visiting an home appraiser or payable representative regularly to optimize vision. Aftercare following left [...] (02/23/2020): Added automatically from request for surgery [id number] Post-traumatic osteoarthritis of left knee 10/10 Overview (02/23/2020): Added automatically from request for surgery [id number] VICKIE (obstructive sleep apnea) Asthma Rheumatoid arthritis [...] PM CDT Pulse 71 07/09/2019 8:37 AM INDUSTRIAL PSYCHOLOGY TEACHER Temperature 36.5 C (97.7 F) 07/09/2019 8:37 AM INDUSTRIAL PSYCHOLOGY TEACHER Respiratory Rate 18 03/30/2019 1:26 PM CDT Oxygen Saturation 96% 07/09/2019 8:37 AM INDUSTRIAL PSYCHOLOGY TEACHER Inhaled Oxygen Concentration - - Weight 89.8 [...] MEDICAID - OUT OF STATE MEDICAID AETNA [facility] Care Teams Flexible Nanny Relationship Specialty Start Date End Date Remberto Mathis PA [address] [place] [address] PCP - General 02/18/19 Jose Rodrí[place] [address] [place], [place] [id number] Gastroenterology 03/10/19 [place] [address] [place], [place] [id number] Orthopedic Surgery 03/10/19 [place] [address] [place] [address] Orthopedic Surgery 03/10/19
--- OUTSIDE RECORDS SUMMARY | 2025-02-01 21:55 | XMS_ITS | Encounter Summary ---
Author Organization [facility] Healthcare Address [address] [place] [address] Care Team Providers Care Juvenile Officer Name Role Phone Remberto Mathis Primary Care Provider [phone] Haroon Sifuentes MD Unavailable [phone] Alem Ayon PTA Unavailable Unavailable Kamryn Rodríguez MD Unavailable [phone] Reason for Visit * Reason Onset Date Comments Scheduling Appointments 12/30/2019 Called f or DEXA appointment Encounter Details Date Type Department Care Team (Late st Contact Info) Description 12/30/2019 Telephone [facility] [address] [place] [address] Marley Valderrama RT Scheduling Appointments (Called for [...] on file Legal Sex Female 6:09 PM 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 AGENT Gender Identity Not on file Sexual Orientation Not on file documented as of this encounter Plan of Treatment Upcoming Encounters Date Type Department Care Team (Late Contact Info) Description 02/08/2025 8:00 AM CDT Hospital Encounter [facility] [address] [place] [address] Kamryn Rodríguez MD [address] [place] [address] 02/08/2025 8:00 AM CDT - 02/08/2025 8:30 AM CDT Surgery [facility] [address] [place] [address] Kamryn Rodríguez MD [address] [place] [address] COLONOSCOPY Scheduled Procedures Name Priority Associated Diagnoses Date/Ti me COLONOSCOPY Family hx of colon cancer Hx of adenomatous colonic polyps 02/08/2025 8:00 AM CDT documented as of this encounter Visit Diagnoses Not on filedocumented in this encounter Care Teams Juvenile Officer Relationship Specialty Start Date End Date Remberto Mathis PA [address] [place] [address] PCP - General 09/26/17 Haroon Sifuentes MD [address] [place] [address] 09/26/17 06/29/24 Alem Ayon PTA Cheese Processor Physical Therapy 10/25/17 08/27/22 Kamryn Rodríguez MD Consulting Physician Gastroenterology 06/26/20 documented as of this encounter
--- OUTSIDE RECORDS SUMMARY | 2025-02-01 21:55 | XMS_ITS | Clinical Summary ---
Author Organization [facility] Address [address], [facility] [address] [place] [address] Phone Care Team Providers Care Automatic Vulcanizing Lead Operator Name Role Phone Remberto Mathis Primary Care Provider [phone] Deena Celis APRN, FISHER TRAMMEL NET Unavailable Allergies Active Allergy Reactions Criticality Noted [...] DAY AFTER BREAKFAST 11/03/19 20 Active CREON [address] Particles 12/02/19 20 Active [...] 01/19/2025 Travel 01/14/2025 Travel 01/01/2025 Results Follow-Up [facility] - Pulmonology & Sleep Medicine [facility] #2 [place] [address] Deena Celis APRN, FISHER TRAMMEL NET GENERAL SLEEP STUDY 12/28/[address] [facility] - [facility] [address] [place] [address] Deena Celis APRN, FISHER TRAMMEL NET 12/16/2024 [facility] [place] [address] Tre Duran MD Procedure 12/11/2024 Travel 12/10/2024 9:30 AM CDT [facility] [place] [address] Tre Duran MD Diarrhea, unspecified type (Primary Dx) Discharge Disposition: Discharged to home or Selfcare 12/10/2024 Travel 12/10/2024 [facility]2 [place] [address] Tre Duran MD 12/02/2024 11:22 PM CDT - 12/03/2024 4:45 AM CDT [facility] [place] [address] Yoshi Barraza MD Diarrhea, unspecified type Discharge Disposition: Discharged to home or Selfcare 12/02/2024 Travel 12/02/2024 [facility]2 [place] [address] Deena Celis APRN, FISHER TRAMMEL NET 11/30/2024 10:00 AM CDT [facility] - [facility] [address]2 [place] [address] Deena Celis APRN, FISHER TRAMMEL NET Mild intermittent asthma without status asthmaticus without [...] Description 02/05/2025 9:30 AM CDT [facility] [place] [facility] [place] [phone] Frank Del Rosario MD #2 [place] [address] 02/08/2025 9:00 AM CDT [facility] 1 [place] [phone] Sebastian Silvestre MD [address] [address] 02/08/2025 9:00 AM CDT - 02/08/2025 10:00 AM CDT [facility] 1 [place] [address] Sebastian Silvestre MD [address] [address] EGD 06/01/2025 9:30 AM DISPOSAL PLANT OPERATOR Office [facility] - Pulmonology & Sleep Medicine [facility] [address] [place] [address] Deena Celis APRN, FISHER TRAMMEL NET #[address] [address] Scheduled Procedures Name Priority Associated Diagnoses Date/Ti [...] Negative Negative 12/03/2024 2:20 AM CDT [facility] Stool STOOL SPECIMEN / Unknown Non-Phlebotomy Collection / Unknown 12/03/2024 2:10 AM CDT 12/03/2024 2:17 AM CDT us Yoshi Barraza MD BODY FLUIDS & STOOLS ORDER JOEL Final Result [facility] [address] [place] [address] * CT ABDOMEN PELVIS W/ CONTRAST (12/03/2024 [...] Conner Sandoval M.D. AR: CHRISTOPHE Report ID: [id number] Reading Location: [id number] Procedure Note Conner Sandoval MD - 12/03/2024 [...] Conner Sandoval M.D. AR: CHRISTOPHE Report ID: [id number] Reading Location: [id number] IMPRESSION: No bowel inflammation or other acute [...] CHEMISTRY ORDERABLES Final Result Performing Organization Address City/[facility]/ZIP Co de Phone Number [facility] [address] [place] [address] * BLUE TOP TUBE (12/02/2024 11:37 PM CDT) Blood No Phlebotomy Charged / Unknown 12/02/2024 11:37 PM CDT 12/02/2024 11:48 PM CDT us Yoshi Barraza MD HEMATOLOGY ORDERABLES Carol l Result Performing Organization Address [facility]/ZIP Co de Phone Number [facility] [address] [place] [address] * (ABNORMAL) CBC WITH AUTO DIFFERENTIAL (12/02/2024 11:37 PM CDT) WBC 5.61 4.00 - 12.00 10(3)/mcL 12/02/2024 11:53 PM CDT [facility] RBC 3.02(L) 3.80 - 5.30 10(6)/[facility] 12/02/2024 11:53 PM CDT [facility] HEMOGLOBIN (HGB) 10.4(L) 12.0 - 15.8 g/dL 12/02/2024 11:53 PM CDT [facility] HEMATOCRIT (HCT) 30.5(L) 36.0 - 47.0 % 12/02/2024 11:53 PM CDT [facility] MCV 101.0(H) 82.0 - 96.0 fL 12/02/2024 11:53 PM CDT [facility] MCH 34.4(H) 26.0 - 34.0 pg 12/02/2024 11:53 PM CDT [facility] MCHC 34.1 31.0 - 36.0 g/dL 12/02/2024 11:53 PM CDT [facility] PLATELET COUNT 175 140 - 440 10(3)/[facility] 12/02/2024 11:53 PM CDT [facility] RDW 13.1 11.8 - 15.5 % 12/02/2024 11:53 PM CDT [facility] MPV 8.8(L) 9.7 - 12.4 fL 12/02/2024 11:53 PM CDT [facility] NEUTROPHILS 49.5 47.0 - 73.0 % 12/02/2024 11:53 PM CDT [facility] LYMPHOCYTES 40.1 18.0 - 42.0 % 12/02/2024 11:53 PM CDT [facility] MONOCYTES 8.4 4.0 - 12.0 % 12/02/2024 11:53 PM CDT [facility] EOSINOPHILS 1.1 0.0 - 5.0 % 12/02/2024 11:53 PM CDT [facility] BASOPHILS 0.4 0.0 - 1.0 % 12/02/2024 11:53 PM CDT [facility] IMMATURE GRANULOCYTE 0.5(H) 0.0 - 0.4 % 12/02/2024 11:53 PM CDT [facility] Comment:Immature Granulocyte s includes Metamyelocytes, Myelocytes, and Promyelocytes. ABSOLUTE NEUTROPHILS 2.78 1.60 - 7.70 10(3)/[facility] 12/02/2024 11:53 PM CDT [facility] ABSOLUTE LYMPHOCYTES 2.25 1.30 - 3.20 10(3)/[facility] 12/02/2024 11:53 PM CDT [facility] ABSOLUTE MONOCYTES 0.47 0.20 - 1.00 10(3)/[facility] 12/02/2024 11:53 PM CDT [facility] ABSOLUTE EOSINOPHIL 0.06 0.00 - 0.40 10(3)/[facility] 12/02/2024 11:53 PM CDT [facility] ABSOLUTE BASOPHILS 0.02 0.00 - 0.10 10(3)/[facility] 12/02/2024 11:53 PM CDT [facility] ABSOLUTE IMMATURE GRANULOCYTE 0.03 0.00 - 0.03 10 (3) mcL. 12/02/2024 11:53 PM CDT [facility] NRBC PER 100 WBC 0 12/03/19 11:53 PM CDT [facility] Blood Venipuncture / Unknown 12/02/2024 11:37 PM CDT 12/02/2024 11:48 PM CDT Yoshi Barraza MD HEMATOLOGY ORDERABLES Carol l Result [facility] [address] [place] [address] * TYPE & SCREEN (CROSSMATCH CONVERTIBLE) (12/02/2024 11:37 PM CDT) ABO TYPING A 12/03/2024 12:58 AM CDT [facility] RH Negative 12/03/2024 12:58 AM CDT [facility] ABSC Negative 12/03/2024 12:58 AM CDT [facility] Blood Venipuncture / Unknown 12/02/2024 11:37 PM CDT 12/02/2024 11:[address] [facility] Yoshi Barraza MD BLOOD BANK ORDERABLES Edit ed Result - Final [facility] #[address] [place] [address] * LIPASE (12/02/2024 11:37 PM CDT) LIPASE 12 8 - 78 U/L 12/03/2024 12:12 AM CDT [facility] Blood Venipuncture / Unknown 12/02/2024 11:37 PM CDT 12/02/2024 11:48 PM CDT Yoshi Barraza MD CHEMISTRY ORDERABLES Final Result [facility] [address] [place] [address] * (ABNORMAL) CMP (COMPREHENSIVE METABOLIC PANEL) (12/02/2024 11:37 PM CDT) SODIUM 136 136 - 145 mmol/L 12/03/2024 12:12 AM CDT [facility] POTASSIUM 4.3 3.5 - 5.1 mmol/L 12/03/2024 12:12 AM CDT [facility] CHLORIDE 107 98 - 107 mmol/L 12/03/2024 12:12 AM CDT [facility] CO2, VENOUS 21(L) 22 - 30 mmol/L 12/03/2024 12:12 AM CDT [facility] ANION GAP 12.3 <18.0 mmol/L 12/03/2024 12:12 AM CDT [facility] GLUCOSE 57(L) 70 - 99 mg/dL 12/03/2024 12:12 AM CDT [facility] BUN 19 10 - 20 mg/dL 12/03/2024 12:12 AM CDT [facility] CREATININE, BLOOD 1.39(H) 0.60 - 1.00 mg/dL 12/03/2024 12:12 AM CDT [facility] BUN/CREATININE RATIO 14 12 - 20 ratio 12/03/2024 12:12 AM CDT [facility] TOTAL PROTEIN 7.5 6.0 - 8.0 g/dL 12/03/2024 12:12 AM CDT [facility] ALBUMIN 4.2 3.5 - 5.0 g/dL 12/03/2024 12:12 AM CDT [facility] A/G RATIO 1.3 1.0 - 2.2 12/03/2024 12:12 AM CDT [facility] CALCIUM 8.8 8.7 - 10.5 mg/dL 12/03/2024 12:12 AM CDT [facility] T BILI 0.2 0.2 - 1.2 mg/dL 12/03/2024 12:12 AM CDT [facility] SGOT (AST) 27 <43 U/L 12/03/2024 12:12 AM CDT [facility] SGPT (ALT) 27 <56 U/L 12/03/2024 12:12 AM CDT [facility] ALKALINE PHOSPHATASE 54 40 - 150 U/L 12/03/2024 12:12 AM CDT [facility] GFR, ESTIMATED 39(L) >=60 12/03/2024 12:12 AM CDT [facility] Comment: Creatinine Clearance is the preferred criteria for selecting drug dose adjustments in renally impaired patients. The GFR is provided as additional pertinent clinical information. GFR is reported in mL/min/1.73 sq m. Calculation based on the Chronic Kidney Disease Epidemiology Collaboration (CKD- EPI) equation refit without adjustment for race. GFR, EST. 44(L) >=60 025 12:12 AM CDT [facility] GFR, EST. NONAFRICAN 37(L) >=60 12/03/2024 12:12 AM CDT [facility] Blood Venipuncture / Unknown 12/02/2024 11:37 PM CDT 12/02/2024 11:48 PM CDT us Yoshi Barraza MD CHEMISTRY ORDERABLES Final Result [facility] [address] [place] [address] * GENERAL SLEEP STUDY (11/22/2024 12:00 AM CDT) 11/22/2024 us Deena Celis APRN, [facility] ORDERABL ES Final Result SCAN from Last 3 Months Insurance MEDICAID [place] MED[place] [facility] Advance Directives Documents on File Type Date Recorded Patient Loan Administrator Expl anation Other Advance Directive 08/30/2021 5:02 PM UROLOGY REFERRAL Care Teams Automatic Vulcanizing Lead Operator Relationship Specialty Start Date End Date Remberto Mathis PAC [address] [place] [address] PCP - General Physician Rubber Stamp Die Inspector 10/21/17 Deena Celis APRN, FISHER TRAMMEL NET [address] [address] Nurse Practitioner Advanced Practice Nurse 05/03/22
--- OUTSIDE RECORDS SUMMARY | 2025-02-01 21:55 | XMS_ITS | Encounter Summary ---
Author Organization [facility] Address [address] [place] [address] Phone Care Team Providers Care Manager Labor Delivery Name Role Phone Remberto Mathis Primary Care Provider [phone] Deena Celis APRN, BEDSPRING ASSEMBLER Unavailable [phone] Encounter Details Date Type Department Care Team (Late Contact Info) Description 01/01/2025 Results Follow-Up [facility] - Pulmonology & Sleep Medicine [facility] #2 [place] [address] Deena Celis APRN, BEDSPRING ASSEMBLER #[address] [id number] GENERAL SLEEP STUDY Social History Tobacco Use [...] Description 02/05/2025 9:30 AM CDT Office Visit [facility] - Neurology - [place] [address] [place] [address] Frank Del Rosario MD #2 [place] [address] 02/08/2025 9:00 AM CDT [facility] 1 [place] [address] Sebastian Silvestre MD [address] [address] 02/08/2025 9:00 AM CDT - 02/08/2025 10:00 AM CDT [facility] [address] [place] [address] Sebastian Silvestre MD [address] [address] EGD 06/01/2025 9:30 AM INSIDE SALES TRAINER Office Visit [facility] - Pulmonology & Sleep Medicine [facility] #2 [place] [address] Deena Celis APRN, BEDSPRING ASSEMBLER #[address] [address] Scheduled Procedures Name Priority Associated Diagnoses Date/Ti me EGD DIARRHEA 02/08/2025 9:00 AM CDT COLONOSCOPY DIARRHEA 02/08/2025 9:00 AM CDT documented as of this encounter Visit Diagnoses Not on filedocumented in this encounter Care Teams Manager Labor Delivery Relationship Specialty Start Date End Date Remberto Mathis PAC [address] [place] [address] PCP - General Physician Diversity Specialist 10/21/17 Deena Celis APRN, BEDSPRING ASSEMBLER #[address] [address] Nurse Practitioner Advanced Practice Nurse 05/03/22 documented as of this encounter
--- OUTSIDE RECORDS SUMMARY | 2025-02-01 21:55 | XMS_ITS | Clinical Summary ---
Author Organization [facility] Address [address] [place] [address] Care Team Providers Care Family Practice Nurse Practitioner Name Role Phone Unavailable Primary Care Provider [...]
--- OUTSIDE RECORDS SUMMARY | 2025-02-01 21:55 | XMS_ITS | Encounter Summary ---
Author Organization [facility] Address [address] [place] [address] Phone Care Team Providers Care Agricultural Research Technologist Name Role Phone Remberto Mathis Primary Care Provider [phone] Deena Celis APRN, RUTH Unavailable [phone] Reason for Visit * Reason Comments Medication Refill Encounter Details Date Type Department Care Team (Late st Contact Info) Description 11/04/2023 Refill [facility] [place] [address] Deena Celis APRN, RUTH [address] [address] Medication Refill Social History Tobacco Use Types [...] Celis APRN, RUTH [facility] [place] [facility] [place] Showing recent visits within past 365 days and meeting all other requirements Future Appointments Date Type Provider Dept 11/25/23 Appointment Deena Celis APRN, [facility] [place] [facility] [place] [place] Showing future appointments within next 90 days and meeting all other requirements documented in this encounter Plan of Treatment Upcoming Encounters Date Type Department Care Team (Late st Contact Info) Description 02/05/2025 9:30 AM CDT Office Visit [facility] - Neurology [facility] #2 [place] [address] Frank Del Rosario MD #2 [place] [address] 02/08/2025 9:00 AM CDT Hospital Encounter [facility] Gi Lab Periop 1 [place] [address] Sebastian Silvestre MD [address] [address] 02/08/2025 9:00 AM CDT - 02/08/2025 10:00 AM CDT Surgery [facility] Gi Lab Periop 1 [place] [address] Sebastian Silvestre MD [address] [address] EGD 06/01/2025 9:30 AM LANGUAGE ARTS TEACHER Office Visit [facility] - Pulmonology & Sleep Medicine - [place] #2 [place] [address] Deena Celis APRN, JOURNEYMAN WELDER #2 [facility] [address] [place] [address] Scheduled Procedures Name Priority Associated Diagnoses Date/Ti me EGD DIARRHEA 02/08/2025 9:00 AM CDT COLONOSCOPY DIARRHEA 02/08/2025 9:00 AM CDT documented as of this encounter Visit Diagnoses Diagnosis Mild intermittent asthma without status asthmaticus without complication documented in this encounter Care Teams Agricultural Research Technologist Relationship Specialty Start Date End Date Remberto Mathis, PAC [address] [place] [address] PCP - General Physician Statistician Applied 10/21/17 Deena Celis APRN, JOURNEYMAN WELDER #[address] [address] Nurse Practitioner Advanced Practice Nurse 05/03/22 documented as of this encounter
--- OUTSIDE RECORDS SUMMARY | 2025-02-01 21:55 | XMS_ITS | Encounter Summary ---
Author Organization [facility] Address [address] [place] [address] Care Team Providers Care Cross Country Coach Name Role Phone Remberto Mathis Primary Care Provider [phone] Haroon Sifuentes MD Unavailable [phone] Alem Ayon PTA Unavailable Unavailable Kamryn Rodríguez MD Unavailable [phone] Reason for Visit * Reason Onset Date Comments Scheduling Appointments 12/31/2019 Called f or DEXA appointment reminder Encounter Details Date Type Department Care Team (Late st Contact Info) Description 12/31/2019 Telephone [facility] [address] [place] [address] Corrine Maldonado RT Scheduling Appointments (Called for [...] on file Legal Sex Female 6:09 PM TRACTOR TECHNICIAN Gender Identity Not on file Sexual Orientation Not on file documented as of this encounter Plan of Treatment Upcoming Encounters Date Type Department Care Team (Late st Contact Info) Description 02/08/2025 8:00 AM CDT Hospital Encounter [facility] [address] [place] [address] Kamryn Rodríguez MD [address] [place] [address] [address] 02/08/2025 8:00 AM CDT - 02/08/2025 8:30 AM CDT Surgery [facility] 1 [place] [address] Kamryn Rodríguez MD [address] [place] [address] COLONOSCOPY Scheduled Procedures Name Priority Associated Diagnoses Date/Ti me COLONOSCOPY Family hx of colon cancer Hx of adenomatous colonic polyps 02/08/2025 8:00 AM CDT documented as of this encounter Visit Diagnoses Not on filedocumented in this encounter Care Teams Cross Country Coach Relationship Specialty Start Date End Date Remberto Mathis PA [address] [place] [address] PCP - General 09/26/17 Haroon Sifuentes MD [address] [place] [address] 09/26/17 06/29/24 Alem Ayon PTA [facility] Physical Therapy 10/25/17 08/27/22 Kamryn Rodríguez MD Consulting Physician Gastroenterology 06/26/20 documented as of this encounter
[2025-02-01 22:07] LABS: Alanine Aminotransferase 20 U/L (6-35); Albumin Level 4.2 g/dL (3.5-5.1); Alkaline Phosphatase 70 U/L (38-126); Anion Gap 9 mmol/L (4-12); Aspartate Amino Transferase 33 U/L (14-36); Bilirubin,Total 0.4 mg/dL (0.2-1.3); Blood Urea Nitrogen 29 mg/dL (7-17); Calcium 9.7 mg/dL (8.4-10.2); Carbon Dioxide 20 mmol/L (22-30); Chloride 106 mmol/L (98-107); Estimated CRCL calculation 32 ml/min; Estimated Glomerular Filt Rate 35; Glucose 80 mg/dL (65-110); Lipase 68 U/L (23-300); Potassium 5.1 mmol/L (3.4-5.0); Sodium 135 mmol/L (137-145); Total Protein 7.8 g/dL (6.3-8.2)
[2025-02-01] MEDS: ONDANSETRON INJ 4 MG/2 ML VIAL IV PUSH (22:12)
[2025-02-01] MEDS: MORPHINE SULFATE (*CRX) 2 MG/ML INJ IV PUSH (22:13)
[2025-02-02 00:53] VITALS: BP 112/63; PULSE 79; RESP 20; O2SAT 96
== END 2025-02-02 00:56 | disposition home or self-care (01) ==
PROVIDERS: Physician Assistant; Emergency Provider Emergency Medicine; PCP Physician Assistant
DX: R10.9 Unspecified abdominal pain (principal); E11.39 Type 2 diabetes mellitus with other diabetic ophthalmic complication; H40.9 Unspecified glaucoma; H42 Glaucoma in diseases classified elsewhere; D50.9 Iron deficiency anemia, unspecified; M81.0 Age-related osteoporosis without current pathological fracture; G47.33 Obstructive sleep apnea (adult) (pediatric); Z96.653 Presence of artificial knee joint, bilateral; Z86.711 Personal history of pulmonary embolism; Z87.891 Personal history of nicotine dependence; Z98.42 Cataract extraction status, left eye; Z98.41 Cataract extraction status, right eye; Z90.710 Acquired absence of both cervix and uterus; Z90.49 Acquired absence of other specified parts of digestive tract; Z79.4 Long term (current) use of insulin; Z79.899 Other long term (current) drug therapy; Z79.84 Long term (current) use of oral hypoglycemic drugs
CPT/HCPCS: 36415; 74177; 80053; 83690; 85025; 96374; 96375; 99284; J2270; J2405; Q9967

== ENCOUNTER 2025-02-19 10:12 | Emergency (ER) | payer MEDICARE, MEDICAID, SELFPAY ==
--- OUTSIDE RECORDS SUMMARY | 2025-02-17 14:20 | XMS_ITS | Encounter Summary ---
Author Organization [facility] Address [address] [place] [address] Phone Care Team Providers Care Satellite Tv Technician Name Role Phone DelRemberto Primary Care Provider [phone] Deena Celis APRN, CNP Unavailable [phone] Frank Del Rosario MD Unavailable [phone] Reason for Referral * Radiology Services (Routine) - Closed Specialty Diagnoses / Procedures Referred By Catarino rowan Referred To Contact Radiology Diagnoses 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 behavioral disturbance, psychotic disturbance, mood disturbance, or anxiety (HCC) Procedures CT HEAD OR BRAIN WO CONTRAST Frank Del Rosario MD [address] [place] [address] Phone: tel: fax: Referral ID Status Reason Start Date Expiration Date Visits Re quested Visits Authorized [id number] Closed 02/05/2025 1 1 Reason for Visit * Radiology Services (Routine) - Closed Specialty Diagnoses / Procedures Referred By Catarino rowan Referred To Contact Radiology Diagnoses 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 behavioral disturbance, psychotic disturbance, mood disturbance, or anxiety (HCC) Procedures CT HEAD OR BRAIN WO CONTRAST Frank Del Rosario MD [address] [place] [address] Phone: tel: fax: Referral ID Status Reason Start Date Expiration Date Visits Re quested Visits Authorized [id number] Closed 02/05/2025 1 1 Encounter Details Date Type Department Care Team (Latest Contact Info) Description 02/17/2025 2:20 PM CDT - 02/17/2025 11:59 PM CDT Hospital Encounter [facility] [address] [place] [phone] Frank Del Rosario MD [address] [place] [phone] Discharge Disposition: Discharged to home or Selfcare Social History Tobacco Use Types Packs/Day Years [...] on file documented as of this encounter Medications at Time of Discharge albuterol (Ventolin HFA) 108 (90 Base) MCG/ACT Aerosol SolutionIndicatio ns:Mild intermittent asthma without status asthmaticus without complication INHALE 2 PUFFS BY MOUTH EVERY 4 HOURS NEEDED FOR WHEEZE 18 g 5 11/05/2023 Albuterol-Budeson joe (Airsupra) 90-80 MCG/ACT AerosolIndication s:Mild intermittent asthma without status asthmaticus without complication 2 puffs as needed, no more than 12 puffs in a 24 hour period. 3 g 3 11/30/2024 busPIRone (BUSPAR) 5 MG Tablet Take 5 mg by mouth 2 times daily. cholestyramine light (QUESTRAN LIGHT) 4 g Pack Take 1 Packet by mouth 2 times daily. 60 Packet 3 12/10/2024 CYCLOBENZAPRINE HCL PO 3 times daily as needed. 09/10/2022 dilTIAZem (DILACOR XR) 240 MG CAPSULE SR 24 HR Take 240 mg by mouth every morning. escitalopram (LEXAPRO) 20 MG Tablet Take 20 mg by mouth daily. fluticasone (FLONASE) 50 MCG/ACT Suspension as needed. 0 06/24/2017 Fluticasone-Umecl idin-Vilant (Trelegy Ellipta) 200-62.5-25 MCG/ACT AEROSOL POWDER, BREATH ACTIVATEDIndicati ons:Mild intermittent asthma without status asthmaticus without complication take 1 Puff by inhalation daily. 60 Each 5 09/22/2024 gabapentin (NEURONTIN) 600 MG Tablet Take 600 mg by mouth 3 times daily. hydrOXYzine (ATARAX) 25 MG Tablet Take 25 mg by mouth every 8 hours as needed for Anxiety. Insulin Lispro Prot & Lispro (HUMALOG MIX 75/25 KWIKPEN SC) 35 Units by Subcutaneous route 2 times daily. lansoprazole (PREVACID) 30 MG CAPSULE DELAYED RELEASE 1 capsule DAILY (route: oral) 09/10/2022 lisinopril (PRINIVIL, ZESTRIL) 10 MG Tablet Take 10 mg by mouth every morning. lovastatin (MEVACOR) 20 MG Tablet Take 20 mg by mouth every evening. meclizine (ANTIVERT) 25 MG Tablet TAKE 1 TABLET BY MOUTH THREE TIMES A DAY NEEDED 10/12/2021 meloxicam (MOBIC) 15 MG Tablet TAKE 1 TABLET BY MOUTH EVERY DAY NEEDED 10/09/2021 metFORMIN (GLUCOPHAGE) 1000 MG Tablet Take 1,000 mg by mouth 2 times daily (with meals). Mirabegron ER 50 MG TABLET SR 24 HR Take 50 mg by mouth daily. 30 Tablet 12 10/31/2022 montelukast (SINGULAIR) 10 MG TabletIndications :Mild intermittent asthma without status asthmaticus without complication Take 1 Tablet by mouth daily. 90 Tablet 3 11/25/2023 Multiple Vitamin (MULTI-VITAMIN PO) Take by mouth daily. OneTouch Verio Strip 10/03/2021 rOPINIRole (REQUIP) 1 MG Tablet Take 1 mg by mouth nightly. traMADol (ULTRAM) 50 MG Tablet Take 50 mg by mouth every 6 hours as needed. documented as of this encounter Plan of Treatment Upcoming Encounters Date Type Department Care Team (Late st Contact Info) Description 06/01/2025 9:30 AM ADDICTION SOCIAL WORKER Office Visit [facility] - Pulmonology & Sleep Medicine - [place] [address] [place] [address] Deena Celis, GIANNI, WORM SORTER [address] [facility] [address] [place] [address] 08/12/2025 10:30 AM ADDICTION SOCIAL WORKER Office Visit [facility] - Neurology - [place] [address] [place] [address] Frank Del Rosario MD [address] [place] [address] documented as of this encounter Procedures Procedure Name Priority Date/Time Associated Diagnosis Comments CT HEAD OR BRAIN WO CONTRAST Routine 02/17/2025 2:56 PM CDT 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 behavioral disturbance, psychotic disturbance, mood disturbance, or anxiety (HCC) documented in this encounter Results * CT HEAD OR BRAIN WO CONTRAST (02/17/2025 2:56 PM CDT) Anatomical Region Laterality Modality Head N/A Computed Tomogra phy 02/17/2025 2:56 PM CDT Impressions 02/17/2025 4:52 PM CDT IMPRESSION: Negative CT scan of the brain with no evidence of acute hemorrhage. Narrative 02/17/2025 4:[address] HEAD OR BRAIN WO CONTRAST : 02/17/2025 2:56 PM DICTATING PHYSICIAN: GAGE DUARTE, [facility]. HISTORY: As below. ADDITIONAL TECHNOLOGIST HISTORY: Alzheimer's disease with late onset, Dementia in other diseases classified elsewhere, mild, without behavioral disturbance, psychotic disturbance, mood disturbance, and anxiety COMPARISON: None TECHNIQUE: Utilizing 2.5 mm collimation in the posterior fossa and 2.5 mm collimation in the supratentorial compartment, contiguous axial tomographic images were obtained from the skullbase to the cranial vertex. Dose reduction technique(s): CT dose reduction techniques used. Exam performed using one or more of the following dose reduction techniques: Automated exposure control, adjustment MA and/or AV according to patient size, and/or use of the iterative reconstruction. RADIATION DOSE: DLP 1265.07 mGycm. FINDINGS: Unenhanced images through the brain demonstrate no evidence of acute intracranial hemorrhage or extra-axial fluid collections. Cerebral parenchyma: Age-appropriate global atrophy with symmetrical and proportionate sulcal and ventricular enlargement. There is patchy white matter hypodensity which may indicate small vessel ischemic changes. Posterior fossa: Cerebellum and brainstem appear grossly normal. Sella turcica, skull base, paranasal sinuses, mastoid air cells: Normal Orbits: Normal. Calvarium: Review of bone windows demonstrates no fractures or lesions. Additional findings: None. Procedure Note Gage Duarte MD - 02/17/2025 CT HEAD OR BRAIN WO CONTRAST : 02/17/2025 2:56 PM DICTATING PHYSICIAN: GAGE DUARTE [facility]. HISTORY: As below. ADDITIONAL TECHNOLOGIST HISTORY: Alzheimer's disease with late onset,Dementia in other diseases classified elsewhere, mild, without behavioraldisturbance, psychotic disturbance, mood disturbance, and anxiety COMPARISON: None TECHNIQUE: Utilizing 2.5 mm collimation in the posterior fossa and 2.5 mm collimationin the supratentorial compartment, contiguous axial tomographic imageswere obtained from the skullbase to the cranial vertex. Dose reduction technique(s): CT dose reduction techniques used. Examperformed using one or more of the following dose reduction techniques:Automated exposure control, adjustment MA and/or AV according to patientsize, and/or use of the iterative reconstruction. RADIATION DOSE: DLP 1265.07 mGycm. FINDINGS: Unenhanced images through the brain demonstrate no evidence of acuteintracranial hemorrhage or extra-axial fluid collections. Cerebral parenchyma: Age-appropriate global atrophy with symmetrical andproportionate sulcal and ventricular enlargement. There is patchy whitematter hypodensity which may indicate small vessel ischemic changes. Posterior fossa: Cerebellum and brainstem appear grossly normal. Sella turcica, skull base, paranasal sinuses, mastoid air cells: Normal Orbits: Normal. Calvarium: Review of bone windows demonstrates no fractures or lesions. Additional findings: None. IMPRESSION: Negative CT scan of the brain with no evidence of acute hemorrhage. 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
--- OUTSIDE RECORDS SUMMARY | 2025-02-17 14:20 | XMS_ITS | Encounter Summary ---
Author Organization [facility] Address [address] [place] [address] Phone Care Team Providers Care Screw Machine Operator Single Spindle Name Role Phone DelRemberto Primary Care Provider [phone] Deena Celis APRN, CNP Unavailable [phone] Frank Del Rosario MD Unavailable [phone] Reason for Referral * Radiology Services (Routine) - Closed Specialty Diagnoses / Procedures Referred By Catarino rowan Referred To Contact Radiology Diagnoses 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 behavioral disturbance, psychotic disturbance, mood disturbance, or anxiety (HCC) Procedures CT HEAD OR BRAIN WO CONTRAST Frank Del Rosario MD [address] [place] [address] Phone: tel: fax: Referral ID Status Reason Start Date Expiration Date Visits Re quested Visits Authorized [id number] Closed 02/05/2025 1 1 Reason for Visit * Radiology Services (Routine) - Closed Specialty Diagnoses / Procedures Referred By Catarino rowan Referred To Contact Radiology Diagnoses 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 behavioral disturbance, psychotic disturbance, mood disturbance, or anxiety (HCC) Procedures CT HEAD OR BRAIN WO CONTRAST Frank Del Rosario MD [address] [place] [address] Phone: tel: fax: Referral ID Status Reason Start Date Expiration Date Visits Re quested Visits Authorized [id number] Closed 02/05/2025 1 1 Encounter Details Date Type Department Care Team (Latest Contact Info) Description 02/17/2025 2:20 PM CDT - 02/17/2025 11:59 PM CDT Hospital Encounter [facility] CT [address] [place] [address] Frank Del Rosario MD [address] [place] [address] Discharge Disposition: Discharged to home or Selfcare [...] st Contact Info) Description 06/01/2025 9:30 AM BUSINESS COORDINATOR Office Visit [facility] - Pulmonology & Sleep Medicine - [place] [address] [place] [address] Deena Celis, GINANI, SUPERVISOR CYTOLOGY [address] [facility] [address] [place] [address] 08/12/2025 10:30 AM BUSINESS COORDINATOR Office Visit [facility] - Neurology - [place] [address] [address] Frank Del Rosario MD [address] [place] [address] documented as of this encounter Procedures Procedure [...] 02/17/2025 2:56 PM DICTATING PHYSICIAN: GAGE DUARTE, [facility]. HISTORY: As below. ADDITIONAL TECHNOLOGIST [...] 02/17/2025 2:56 PM DICTATING PHYSICIAN: GAGE DUARTE [facility]. HISTORY: As below. ADDITIONAL TECHNOLOGIST HISTORY: [...] (HCC) documented in this encounter Care Teams Screw Machine Operator Single Spindle Relationship Specialty Start Date End Date Remberto Mathis PAC [address] [place] [address] PCP - General Physician Family Advocate 10/21/17 Deena Celis APRN, SUPERVISOR CYTOLOGY [address] [address] Nurse Practitioner Advanced Practice Nurse 05/03/22 Frank Del Rosario MD [address] [place] [address] Consulting Physician Neurology 02/05/25 documented as of this encounter
--- OUTSIDE RECORDS SUMMARY | 2025-02-18 12:49 | XMS_ITS | Encounter Summary ---
Author Organization [facility] Address [address] [place] [address] Phone Care Team Providers Care Associate Merchant Name Role Phone Remberto Mathis Primary Care Provider [phone] Deena Celis APRN, CNP Unavailable [phone] Frank Del Rosario MD Unavailable [phone] Encounter Details Date Type Department Care Team (Latest Contact Info) Description 02/18/2025 12:49 PM CDT - 02/18/2025 11:59 PM CDT [facility] [address] [place] [address] Provider, Not On File [place] Arrived Discharge Disposition: Discharged to home or Selfcare [...] st Contact Info) Description 06/01/2025 9:30 AM CONVALESCENT SITTER Office Visit [facility] - Pulmonology & Sleep Medicine - [place] [address] [place] [address] Deena Celis APRN, CNP [address] [address] 08/12/2025 10:30 AM CONVALESCENT SITTER Office Visit [facility] - Neurology - [place] [address] [place] [address] Frank Del Rosario MD [address] [place] [address] documented as of this encounter Procedures Procedure Name Priority Date/Time Associated Diagnosis Comments CT REFERENCE IMAGES FOR IMAGE IMPORT Routine 02/18/2025 12:49 PM CDT documented in this encounter Results * CT REFERENCE IMAGES FOR IMAGE IMPORT (02/18/2025 12:49 PM CDT) us Not On File Provider IMG CT ORDERABLES Final Res ult documented in this encounter Visit Diagnoses Not on filedocumented in this encounter Care Teams Associate Merchant Relationship Specialty Start Date End Date Remberto Mathis, [facility] [address] [place] [address] PCP - General Physician Roofing Subcontractor 10/21/17 Deena Celis APRN, DYNAMO TENDER [address] [address] Nurse Practitioner Advanced Practice Nurse 05/03/22 Frank Del Rosario MD [address] [facility] [place] [phone] Consulting Physician Neurology 02/05/25 documented as of this encounter
--- OUTSIDE RECORDS SUMMARY | 2025-02-18 12:49 | XMS_ITS | Encounter Summary ---
Author Organization [facility] Address [address] [place] [address] Phone Care Team Providers Care Mill House Supervisor Name Role Phone Remberto Mathis Primary Care Provider [phone] Deena Celis APRN, CNP Unavailable [phone] Frank Del Rosario MD Unavailable [phone] Encounter Details Date Type Department Care Team (Latest Contact Info) Description 02/18/2025 12:49 PM CDT - 02/18/2025 11:59 PM CDT [facility] [address] [place] [address] Provider, Not On File [place] [...] st Contact Info) Description 06/01/2025 9:30 AM RECORD PRESS SUPERVISOR Office Visit [facility] - Pulmonology & Sleep Medicine - [place] [address] [place] [address] Deena Celis APRN, CNP [address] [address] 08/12/2025 10:30 AM RECORD PRESS SUPERVISOR Office Visit [facility] - Neurology - [place] [address] [place] [address] Frank Del Rosario MD [address] [place] [address] documented as of this encounter Procedures Procedure [...] on filedocumented in this encounter Care Teams Mill House Supervisor Relationship Specialty Start Date End Date Remberto Mathis, [facility] [address] [place] [address] PCP - General Physician Retail Pharmacy Technician 10/21/17 Deena Celis APRN, GROUNDS CREW SUPERVISOR [address] [address] Nurse Practitioner Advanced Practice Nurse 05/03/22 Frank Del Rosario MD #2 [facility] [place] [address] Consulting Physician Neurology 02/05/25 documented as of this encounter
[2025-02-19] VITALS (8 sets, daily range): BP systolic 116–160; BP diastolic 66–94; PULSE 72–74; RESP 20; TEMP 36.9; O2SAT 91–99
--- NOTE | ~2025-02-19 | XR_ITS ---
EXAM/ PROCEDURE: XR hip RT min 3V w AP pelvis - 02/19/2025 10:30 CDT HISTORY: 79 years old Female with fall COMPARISON: None available TECHNIQUE: Three view(s) FINDINGS/ IMPRESSION: There are no fractures or dislocations.Joint space narrowing, subchondral sclerosis, subchondral cyst formation and osteophyte formation, compatible with moderate osteoarthritis. Intact posterior spinal fusion hardware and partially visualized left femoral ORIF. Reviewed, dictated and finalized at location N.
--- NOTE | ~2025-02-19 | XR_ITS ---
EXAM/ PROCEDURE: XR lumbar spine 2-3V - 02/19/2025 10:30 CDT HISTORY: 79 years old Female with fall COMPARISON: None available TECHNIQUE: Three view(s) FINDINGS/ IMPRESSION: There are no fractures or dislocations.Multilevel degenerative changes are seen. Intact posterior spinal fusion hardware. Cholecystectomy clips are seen. Atherosclerotic calcifications are seen. Reviewed, dictated and finalized at location N.
--- NOTE | 2025-02-19 10:16 | ED.FALL ---
HPI - Fall General Chief Complaint: Fall Stated Complaint: fall-right hip pain Time Seen by Provider: 02/19/25 10:16 Source: patient Mode of arrival: ambulatory Limitations: no limitations History of Present Illness HPI Narrative: patient is a 79-year-old female with a ground level fall yesterday walking on concrete and landed on her right hip and lower back. She has pain of the right hip region as well as the lower back more so on the right. No other injuries to include head and neck. MD complaint: fall Onset (ago): day(s) ( Two) Fall from: standing and other ( ground level fall) Fall witnessed: yes, by family Place fall occurred: home and street Loss of consciousness: none Prolonged down time: no Symptoms prior to fall: none Context: tripped/slipped Location of injury - extremities: Right: thigh ( hip and right lower back) Severity: moderate Severity scale (1-10): 6 Quality: sharp Associated symptoms (after fall): denies Related Data Home Medications ?Medication ?Instructions ?Recorded ?Confirmed ?Last Taken ?Type escitalopram oxalate 20 mg tablet 20 mg PO DAILY 06/06/20 01/03/24 06/27/20 History insulin syringe-needle U-100 0.3 #10 ea 06/06/20 01/03/24 Unknown History mL 31 gauge x 10/30 metformin 1,000 mg tablet 1,000 mg PO BID 06/06/20 01/03/24 06/26/20 History ropinirole 1 mg tablet 1 mg PO HS 12/15/20 01/03/24 Unknown History diltiazem HCl 240 mg 240 mg PO DAILY 09/01/22 01/03/24 Unknown History capsule,extended release 24 hr, controlled (DILT-XR) docusate sodium 100 mg capsule 100 mg PO DAILY 09/01/22 01/03/24 Unknown History lansoprazole 30 mg capsule,delayed 30 mg PO DAILY 09/01/22 01/03/24 Unknown History release lisinopril 10 mg tablet 10 mg PO DAILY 09/01/22 01/03/24 Unknown History mirabegron 50 mg tablet,extended 50 mg PO DAILY 09/01/22 01/03/24 Unknown History release 24 hr (Myrbetriq) montelukast 10 mg tablet 10 mg PO DAILY 09/01/22 01/03/24 Unknown History alendronate 70 mg tablet 70 mg PO WEEKLY 02/04/23 01/03/24 Unknown History meloxicam 15 mg tablet 15 mg PO DAILY 02/04/23 01/03/24 Unknown History gabapentin 300 mg capsule 600 mg PO TID 02/27/23 01/03/24 Unknown History albuterol sulfate 90 mcg/actuation 2 inh inhalation Q4H PRN Shortness 01/03/24 01/03/24 Unknown History aerosol inhaler (Ventolin HFA) Of Breath buspirone 5 mg tablet 5 mg PO BID 01/03/24 01/03/24 Unknown History fluticasone fur. 200 mcg-umeclid 1 inh inhalation DAILY 01/03/24 01/03/24 Unknown History 62.5 mcg-vilant 25 mcg inhalat.powder (Trelegy Ellipta) insulin lispro 100 unit/mL 30 unit subcut QACBREAK 01/03/24 01/03/24 Unknown History subcutaneous pen (Humalog KwikPen (U-100) Insulin) insulin lispro 100 unit/mL 35 unit subcut QACDINNER 01/03/24 01/03/24 Unknown History subcutaneous pen (Humalog KwikPen (U-100) Insulin) insulin lispro protamine-lispro 35 unit subcut BID 01/03/24 01/03/24 Unknown History 100 unit/mL (75-25) subcutaneous pen (Humalog Mix 75-25 KwikPen) tramadol 50 mg tablet 50 mg PO Q6H PRN Pain 01/03/24 01/03/24 Unknown History ferrous sulfate 325 mg (65 mg 325 mg PO DAILY 03/12/24 Unknown History iron) tablet,delayed release Allergies Allergy/AdvReac Type Severity Reaction Status Date / Time Penicillins Allergy Mild Nausea Verified 02/19/25 10:25 aspirin Allergy Unknown Verified 02/19/25 10:25 codeine Allergy Unknown Verified 02/19/25 10:25 Review of Systems Review of Systems: All systems reviewed & are unremarkable except as noted in HPI and below Constitutional: Constitutional: Reports no additional constitutional complaints Eyes: Eyes: Reports no additional eye complaints ENT: Reports system reviewed and no additional complaints, except as documented Cardiovascular: Cardiovascular: Reports no additional cardiovascular complaints Respiratory: Respiratory: Reports no additional respiratory complaints Gastrointestinal: Gastrointestinal: Reports no additional gastrointestinal complaints Genitourinary: Genitourinary: Reports no additional female genitourinary complaints Musculoskeletal: Musculoskeletal: Reports no additional musculoskeletal complaints Integumentary/Breasts: Skin/Breast: Reports system reviewed and no additional complaints, except as docu Neurologic: Reports system reviewed and no additional complaints, except as documented Psychiatric: Psychiatric: Reports no additional psychiatric complaints Endocrine: Endocrine: Reports no additional endocrine complaints Hematologic/Lymphatic: Hematologic/Lymphatic: Reports no additional hematologic/lymphatic complaints Allergic/Immunologic: Allergic/Immunologic: Reports no additional allergic/immunologic complaints PMFSH Past Medical History Medical History 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 Other Adopted Unknown family medical history Social History Social History Social History: Primary care physician: Dr. Remberto Mathis Code status: Full code no advance directives in place Surrogate decision maker: Quin Villagran (daughter) Smoking status: Former smoker Tobacco type: cigarettes Alcohol intake: never Substance use: never Substance use type: does not use Living arrangements: with family Gender identity (if verbalized by the patient): Female Spiritual care concerns: No Exam Const: General: healthy appearing Nutritional Appearance: well nourished Orientation/consciousness: patient oriented x3 HENMT: Head: normal to inspection Ears: external ears normal Face/Nose/Sinus: Normal external nose present Face and sinus: normal facial exam Mouth: Yes Normal oral and palatal mucosa present Teeth and gingiva: dentition normal Eyes: Conjunctivae: conjunctivae normal Pupils: Equal, round and reactive pupils present EOM: EOMs intact bilaterally Neck: Neck: normal visual inspection Chest: Chest palpation & inspection: normal inspection of the chest Resp: Effort & Inspection: normal respiratory effort and not labored Auscultation: clear to auscultation bilaterally and no crackles Cardio: Rate: regular rate Rhythm: regular rhythm Heart sounds: no murmurs GI: Inspection: non-distended GI Palp: Yes Soft to palpation and No Tenderness to palpation present (GI) Auscultation: normal bowel sounds : General: Yes bladder normal to palpation Back/Spine/Pelvis: Back: no CVA tenderness Skin: General skin exam: normal color Rashes: no rashes Wounds: no wounds Neuro: General: patient oriented x3, moves all extremities and no meningeal signs Extrem: Other: right hip is slightly swollen with tenderness and ecchymosis with radiation to the right lower back Psych: Mental Status: mental status grossly normal Affect: normal affect Attitude: cooperative Course Vital Signs Vital signs: Vital Signs Temperature 36.9 C 02/19/25 10:15 Pulse Rate 72 02/19/25 10:15 Respiratory Rate 20 02/19/25 10:15 Blood Pressure 160/72 H 02/19/25 10:15 Pulse Oximetry 99 02/19/25 10:15 Oxygen Delivery Room Air 02/19/25 10:15 Temperature 36.9 C 02/19/25 10:15 Pulse Rate 74 02/19/25 11:00 Respiratory Rate 20 02/19/25 11:00 Blood Pressure 144/69 H 02/19/25 11:00 Pulse Oximetry 91 02/19/25 11:01 Oxygen Delivery Room Air 02/19/25 11:00 MDM - Fall MDM Narrative Medical decision making narrative: patient is a 79-year-old female with right hip pain and right lower back pain after a fall yesterday. We will get x-rays. Imaging Data Attestation: I personally reviewed and interpreted this imaging study as follows: Radiologist's impression: x-ray right hip with pelvis is negative for acute process x-ray lumbar spine is negative for acute process Discharge Plan Discharge Clinical Impression: Bursitis of hip, right Qualifiers: Hip bursitis location: unspecified Qualified Code(s): M70.71 - Other bursitis of hip, right hip Fall with injury Qualifiers: Encounter type: initial encounter Qualified Code(s): W19.XXXA - Unspecified fall, initial encounter Patient Disposition: Home Condition: Stable Instructions: Hip Bursitis (ED) Patient Language: Ukrainian Prescriptions: New hydrocodone-acetaminophen 5-325 mg tablet 1 tablet PO Q8H PRN (Reason: pain) Qty: 20 0RF No Action ropinirole 1 mg tablet 1 mg PO HS diltiazem HCl [DILT-XR] 240 mg capsule,ext.rel 24h degradable 240 mg PO DAILY lisinopril 10 mg tablet 10 mg PO DAILY lansoprazole 30 mg capsule,delayed release(DR/EC) 30 mg PO DAILY docusate sodium 100 mg capsule 100 mg PO DAILY montelukast 10 mg tablet 10 mg PO DAILY mirabegron [Myrbetriq] 50 mg tablet extended release 24 hr 50 mg PO DAILY buspirone 5 mg tablet 5 mg PO BID tramadol 50 mg tablet 50 mg PO Q6H PRN (Reason: Pain) albuterol sulfate [Ventolin HFA] 90 mcg/actuation HFA aerosol inhaler 2 inh INHALATION Q4H PRN (Reason: Shortness Of Breath) insulin lispro [Humalog KwikPen Insulin] 100 unit/mL insulin pen 30 unit SUBCUT QACBREAK insulin lispro [Humalog KwikPen Insulin] 100 unit/mL insulin pen 35 unit SUBCUT QACDINNER insulin lispro protamin-lispro [Humalog Mix 75-25 KwikPen] 100 unit/mL (75-25) insulin pen 35 unit SUBCUT BID Trelegy Ellipta 200-62.5-25 mcg blister with device 1 inh INHALATION DAILY cyclobenzaprine 10 mg tablet 10 mg PO TID PRN (Reason: muscle spasm) Qty: 30 0RF orphenadrine citrate 100 mg tablet extended release 100 mg PO BID PRN (Reason: pain) Qty: 20 0RF alendronate 70 mg tablet 70 mg PO WEEKLY meloxicam 15 mg tablet 15 mg PO DAILY gabapentin 300 mg capsule 600 mg PO TID (DME) insulin syringe-needle U-100 0.3 mL 31 gauge x 5/16 syringe See Rx Instructions .ROUTE .MEDSUPPLY Qty: 10 Rx Instructions: As directed escitalopram oxalate 20 mg tablet 20 mg PO DAILY metformin 1,000 mg tablet 1,000 mg PO BID ferrous sulfate 325 mg (65 mg iron) tablet,delayed release (DR/EC) 325 mg PO DAILY Follow-up/Referrals: Del,EVELIO Khan [Primary Care Provider] Time of Disposition: 11:29
--- OUTSIDE RECORDS SUMMARY | 2025-02-19 10:34 | XMS_ITS | Clinical Summary ---
Author Organization [facility] Address [address] [facility], [address] [address] Phone Care Team Providers Care Camera Tuning Engineer Name Role Phone Remberto Mathis Brant GLORIA Primary Care Provider [phone] Deena Celis APRN, CNP Unavailable [phone] Frank Del Rosario MD Unavailable [phone] Allergies Active Allergy Reactions Criticality Noted Date [...] mouth 2 times daily (with meals). Active escitalopram (LEXAPRO) 20 MG Tablet Take 20 mg by mouth daily. Active OneTouch Verio Strip 10/04/19 Active meclizine (ANTIVERT) 25 MG Tablet TAKE 1 TABLET BY MOUTH THREE TIMES A DAY NEEDED 10/13/19 Active meloxicam (MOBIC) 15 MG Tablet TAKE 1 TABLET BY MOUTH EVERY DAY NEEDED 10/10/19 Active Mirabegron ER 50 MG TABLET SR [...] period. 3 g 3 12/01/19 25 Active CYCLOBENZAPRINE HCL PO 3 times daily as needed. 09/11/19 23 Active lansoprazole (PREVACID) 30 MG CAPSULE DELAYED RELEASE 1 capsule DAILY (route: oral) 09/11/19 23 Active cholestyramine light (QUESTRAN LIGHT) [...] route 2 times daily. Active insulin aspart protamine-insuli n aspart (NovoLOG 70/30) (70-30) 100 UNIT/ML Suspension by Subcutaneous route 2 times daily (before meals). 025 Discontin ued(Med List Clean Up) sucralfate (CARAFATE) 1 GM Tablet Take 1 g by mouth every 6 hours. 025 Discontin ued(Med List Clean Up) [facility] CALCIUM 600 MG Tablet TAKE 1 TABLET BY MOUTH EVERY DAY AFTER BREAKFAST 11/03/19 025 Discontin ued(Med List Clean Up) CREON [address] Particles 12/02/19 025 Discontin ued(Med List Clean Up) Fluticasone-Umec lidin-Vilant (Trelegy Ellipta) 200-62.5-25 MCG/ACT AEROSOL POWDER, BREATH ACTIVATEDIndicat ions:Mild intermittent asthma without status asthmaticus without complication take 1 Puff by inhalation daily. 12/01/19 025 Discontin ued(Med List Clean Up) docusate sodium (COLACE) 100 MG Capsule 1 tablet DAILY (route: oral) 09/11/19 025 Discontin ued(Med List Clean Up) insulin aspart prot & aspart (NovoLOG 70/30 FlexPen ReliOn) (70-30) 100 UNIT/ML Suspension Pen-injector 30-35 unit 2 TIMES DAILY (route: subcutaneous) 09/11/19 23 025 Discontin ued(Med List Clean Up) Active Problems Problem Noted Date Diagnosed Date Fecal smearing 02/08/2025 Oral phase dysphagia 11/25/2023 Asthma without status [...] Encounters Date Type Department Care Team Description 02/18/2025 12:49 PM CDT - 02/18/2025 11:59 PM CDT Hospital Encounter [facility] [address] [place] [address] Provider, Not On File Arrived Discharge Disposition: Discharged to home or Selfcare 02/18/2025 Telephone [facility] Medical [facility] - Gastroenterology - [place] [address] [place] [address] Sebastian Silvestre MD Results 02/17/2025 2:20 PM CDT - 02/17/2025 11:59 PM CDT Hospital Encounter [facility] [address] [place] [address] Frank Del Rosario MD Discharge Disposition: Discharged to home or Selfcare 02/17/2025 Travel 02/11/2025 Results Follow-Up [facility] - Gastroenterology - [place] [address] [place] [address] Sebastian Silvestre MD Pathology Surgical 02/08/2025 10:01 AM CDT Anesthesia Event [facility] Periop 1 [place] [address] Ra Zacarias APRN, INVOICE CODER 02/08/2025 9:00 AM CDT - 02/08/2025 10:00 AM CDT Surgery [facility] Periop 1 [place] [address] Sebastian Silvestre MD EGD - PRE PYLORIC ANTRUM BIOPSY (BIOPSY FORCEPS), FUNDUS BIOPSY (BIOPY FORCEPS), ANTRAL BIOPSY (BIOPSY FORCEPS), ESOPHAGUS AT 30CM BIOPSY (BIOPSY FORCEPS) 02/08/2025 6:30 AM CDT Ancillary Procedure [facility] Main 1 [place] [address] Sebastian Silvestre MD 02/08/2025 6:25 AM CDT Ancillary Procedure [facility] Main 1 [facility] [place] [address] Sebastian Silvestre MD 02/08/2025 6:13 AM CDT - 02/08/2025 11:34 AM CDT Hospital Encounter [facility] Preop/Pacu II 1 [facility] [place] [address] Sebastian Silvestre MD Fecal smearing Discharge Disposition: Discharged to home or Selfcare 02/05/2025 9:30 AM CDT Office Visit [facility] Neurology [facility] [address] [place] [address] Frank Del Rosario MD 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 behavioral disturbance, psychotic disturbance, mood disturbance, or anxiety (HCC) (Primary Dx) Discharge Disposition: Discharged to home or Selfcare 02/05/2025 Travel 01/19/2025 Travel 01/14/2025 Travel 01/01/2025 Results Follow-Up [facility] - Pulmonology & Sleep Medicine [facility] [address] [place] [address] Deena Celis APRN, EXTERNAL RELATIONS DIRECTOR GENERAL SLEEP STUDY 12/28/2024 Telephone [facility] - Pulmonology & Sleep Medicine [facility] [address] [place] [address] Deena Celis APRN, EXTERNAL RELATIONS DIRECTOR 12/16/2024 Telephone [facility] Gastroenterology [facility] [address] [place] [address] Tre Duran MD Procedure 12/11/2024 Travel 12/10/2024 9:30 AM CDT Office Visit [facility] - Gastroenterology [facility] [address] [place] [address] Tre Duran MD Diarrhea, unspecified type (Primary Dx) Discharge Disposition: Discharged to home or Selfcare 12/10/2024 Travel 12/10/2024 Telephone [facility] [address] [place] [address] Tre Duran MD 12/02/2024 11:22 PM CDT - 12/03/2024 4:45 AM CDT [facility] 1 [place] [address] Yoshi Barraza MD Diarrhea, unspecified type Discharge Disposition: Discharged to home or Selfcare 12/02/2024 Travel 12/02/2024 [facility] [address] [place] [address] Deena Celis APRN, CNP 11/30/2024 10:00 AM CDT [facility] [address] [place] [address] Deena Celis APRN, RUTH Mild intermittent asthma [...] Sign Reading Time Taken Comments Blood Pressure 145/80 02/08/2025 11:10 AM CDT Pulse 69 02/08/2025 11:10 AM CDT Temperature 36 C (96.8 F) 02/08/2025 11:10 AM CDT Respiratory Rate 21 02/08/2025 11:10 AM CDT Oxygen Saturation 95% 02/08/2025 11:10 AM CDT Inhaled Oxygen Concentration - - Weight 91 kg (200 lb 11.2 oz) 02/05/2025 9:35 AM CDT Height 165.1 cm (5' 5) 02/05/2025 9:35 AM CDT Body Mass Index 33.4 02/05/2025 9:35 AM CDT Plan of Treatment Upcoming Encounters Date Type Department Care Team (Late st Contact Info) Description 06/01/2025 9:30 AM ELECTRONIC FUNDS TRANSFER COORDINATOR [facility] [place] [address] [place] [address] Deena Celis APRN, EXTERNAL RELATIONS DIRECTOR #[address] [address] 08/12/2025 10:30 AM ELECTRONIC FUNDS TRANSFER COORDINATOR [facility] [place] [address] [place] [address] Frank Del Rosario MD [address] [place] [address] Health Maintenance Due Date Last Done Comments Hepatitis C Virus (HCV) Screening 1945 Zoster Immunization (1 of 2) 1995 DEXA Bone Density 12/31/2021 01/01/2020, 01/06/2018 Influenza Immunization (#1) 2025 09/01/2024, 03/20/2023, 04/23/2022, Additional history exists SARS-COV-2 Immunization ( season) 2025 03/14/2024, 04/23/2023, 04/27/2021, Additional history exists Human Papillomavirus (HPV) Immunization Aged Out 03/26/2019 No longer eligible based on patient's age to complete this topic DTaP/Tdap/Td Immunization Discontinued 02/17/2020 TdaP Immunization Completed 02/17/2020 Pneumococcal Immunization (50+ years) Completed 03/20/2023, 03/18/2019, 03/18/2019 Pneumococcal Immunization Combined Discontinued 03/20/2023, 03/18/2019, 03/18/2019 Respiratory Syncytial Virus (RSV) Immunization (Adult) Completed 03/14/2024 Mammogram Discontinued 07/16/2024 Immunochemical Fecal Occult Blood Discontinued 12/03/2024 Colonoscopy Discontinued 02/08/2025, 01/16, 07/31/2023 Colorectal Cancer Screening Discontinued Cologuard Discontinued Hepatitis B Immunization Aged Out No longer eligible based on patient's age to complete this topic Meningococcal Immunization (ACWY) Aged Out No longer eligible based on patient's age to complete this topic Rotavirus Immunization Aged Out No lo nger eligible based on patient's age to complete this topic Procedures Procedure Name Priority Date/Time Associated Diagnosis Comments CT REFERENCE IMAGES FOR IMAG E IMPORT Routine 02/18/2025 12:[address] HEAD OR BRAIN WO CONTRAST Routine 08/2024 2:56 PM CDT 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 behavioral disturbance, psychotic disturbance, mood disturbance, or anxiety (HCC) CBC WITH AUTO DIFFERENTIAL Routine 02/17 2:19 PM CDT 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 behavioral disturbance, psychotic disturbance, mood disturbance, or anxiety (HCC) FOLIC ACID (FOLATE) Routine 02/17/2025 2:19 PM CDT 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 behavioral disturbance, psychotic disturbance, mood disturbance, or anxiety (HCC) THYROID STIMULATING HORMONE (TSH) Routine 02/17/2025 2:19 PM CDT 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 behavioral disturbance, psychotic disturbance, mood disturbance, or anxiety (HCC) VITAMIN B12 Routine 02/17/2025 2:19 PM CDT 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 behavioral disturbance, psychotic disturbance, mood disturbance, or anxiety (HCC) CMP (COMPREHENSIVE METABOLIC PANEL) Routine 02/17/2025 2:19 PM CDT 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 behavioral disturbance, psychotic disturbance, mood disturbance, or anxiety (HCC) COMPLETE BLOOD COUNT (CBC) WITH DIFF Routine 02/17/2025 2:19 PM CDT 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 behavioral disturbance, psychotic disturbance, mood disturbance, or anxiety (HCC) PATHOLOGY SURGICAL Routine 02/08/2025 10:16 AM CDT COLON CA SCRN NOT HI RSK IND 10:00 AM CDT EGD - PRE PYLORIC ANTRUM BIOPSY (BIOPSY FORCEPS), FUNDUS BIOPSY (BIOPY FORCEPS), ANTRAL BIOPSY (BIOPSY FORCEPS)COLON OSCOPY - NORMAL COLONOSCOPY, POOR PREP Case Notes rs from 01/29 with branch to 02/08 with nicholas Special Needs REQUESTS 8am ARRIVAL DM - Dx Diarrhea COLORECTAL SCRN; HI RISK IND 10:00 AM CDT EGD - PRE PYLORIC ANTRUM BIOPSY (BIOPSY FORCEPS), FUNDUS BIOPSY (BIOPY FORCEPS), ANTRAL BIOPSY (BIOPSY FORCEPS)COLON OSCOPY - NORMAL COLONOSCOPY, POOR PREP Case Notes rs from 01/29 with branch to 02/08 with nicholas Special Needs REQUESTS 8am ARRIVAL DM - Dx Diarrhea NM COLONOSCOPY FLX DX W/PAULINO J SPEC WHEN PFRMD 02/08/2025 10:00 AM CDT EGD - PRE PYLORIC ANTRUM BIOPSY (BIOPSY FORCEPS), FUNDUS BIOPSY (BIOPY FORCEPS), ANTRAL BIOPSY (BIOPSY FORCEPS)COLON OSCOPY - NORMAL COLONOSCOPY, POOR PREP Case Notes rs from 01/29 with branch to 02/08 with nicholas Special Needs REQUESTS 8am ARRIVAL DM - Dx Diarrhea NM ESOPHAGOGASTRODUODENOSCOP Y TRANSORAL DIAGNOSTIC 02/08/2025 10:00 AM CDT EGD - PRE PYLORIC ANTRUM BIOPSY (BIOPSY FORCEPS), FUNDUS BIOPSY (BIOPY FORCEPS), ANTRAL BIOPSY (BIOPSY FORCEPS)COLON OSCOPY - NORMAL COLONOSCOPY, POOR PREP Case Notes rs from 01/29 with branch to 02/08 with nicholas Special Needs REQUESTS 8am ARRIVAL DM - Dx Diarrhea NM EGD FLEXIBLE TRANSNASAL D X W/COLLJ SPEC BR/WA 02/08/2025 10:00 AM CDT EGD - PRE PYLORIC ANTRUM BIOPSY (BIOPSY FORCEPS), FUNDUS BIOPSY (BIOPY FORCEPS), ANTRAL BIOPSY (BIOPSY FORCEPS)COLON OSCOPY - NORMAL COLONOSCOPY, POOR PREP Case Notes rs from 01/29 with branch to 02/08 with nicholas Special Needs REQUESTS 8am ARRIVAL DM - Dx Diarrhea POCT GLUCOSE Routine 02/08/2025 7:47 AM CDT GI LAB IMAGING - EGD Routine 02/08/2025 6:20 AM CDT GI IMAGING - COLONOSCOPY Routine 6:20 AM CDT STOOL, OCCULT BLOOD, DIAGNOSTIC, VIA GUAIAC STAT 12/03/2024 2:[address] ABDOMEN PELVIS W/ CONTRAST Stat with Interpretation 12/03/2024 12:53 AM CDT GOLD TOP TUBE STAT 12/02/2024 11:37 PM CDT BLUE TOP TUBE STAT 12/02/2024 11:37 PM CDT CBC WITH AUTO DIFFERENTIAL STAT 12/02 11:37 PM CDT TYPE & SCREEN (CROSSMATCH CONVERTIBLE) STAT 12/02/2024 11:37 PM CDT EXTRA TUBES STAT 12/02/2024 11:37 PM CDT LIPASE STAT 12/02/2024 11:37 PM CDT CMP (COMPREHENSIVE METABOLIC PANEL) STAT 12/02/2024 11:37 PM CDT COMPLETE BLOOD COUNT (CBC) WITH DIFF STAT 12/02/2024 11:37 PM CDT GENERAL SLEEP STUDY 11/22/2024 12:00 AM CDT from Last 3 Months Results * CT REFERENCE IMAGES FOR IMAGE IMPORT (02/18/2025 12:49 PM CDT) us Not On File Provider IMG CT ORDERABLES Final Res ult * CT HEAD OR BRAIN WO CONTRAST (02/17/2025 2:56 PM CDT) Anatomical Region Laterality Modality Head N/A Computed Tomogra phy 02/17/2025 2:56 PM CDT Impressions 02/17/2025 4:52 PM CDT IMPRESSION: Negative CT scan of the brain with no evidence of acute hemorrhage. Narrative 02/17/2025 4:[address] HEAD OR BRAIN WO CONTRAST : 02/17/2025 2:56 PM DICTATING PHYSICIAN: GAGE DUARTE [facility]. HISTORY: As below. ADDITIONAL [...] 02/17/2025 2:56 PM DICTATING PHYSICIAN: GAGE DUARTE [facility]. HISTORY: As below. ADDITIONAL TECHNOLOGIST [...] acute hemorrhage. us Frank Del Rosario MD IM CT ORDERABLES Final Resu lt * (ABNORMAL) CBC WITH AUTO DIFFERENTIAL (02/17/2025 2:19 PM CDT) Only the most recent of2 resultswithin the time period is included. WBC 6.21 4.00 - 12.00 10(3)/mcL 02/17/2025 3:45 PM CDT [facility] RBC 3.20(L) 3.80 - 5.30 10(6)/mcL 02/17/2025 3:45 PM CDT [facility] HEMOGLOBIN (HGB) 10.9(L) 12.0 - 15.8 g/dL 02/17/2025 3:45 PM CDT [facility] HEMATOCRIT (HCT) 32.0(L) 36.0 - 47.0 % 02/17/2025 3:45 PM CDT [facility] MCV 100.0(H) 82.0 - 96.0 fL 02/17/2025 3:45 PM CDT [facility] MCH 34.1(H) 26.0 - 34.0 pg 02/17/2025 3:45 PM CDT [facility] MCHC 34.1 31.0 - 36.0 g/dL 02/17/2025 3:45 PM CDT [facility] PLATELET COUNT 245 140 - 440 10(3)/mcL 02/17/2025 3:45 PM CDT [facility] RDW 13.1 11.8 - 15.5 % 02/17/2025 3:45 PM CDT [facility] MPV 8.8(L) 9.7 - 12.4 fL 02/17/2025 3:45 PM CDT [facility] NEUTROPHILS 58.8 47.0 - 73.0 % 02/17/2025 3:45 PM CDT [facility] LYMPHOCYTES 32.2 18.0 - 42.0 % 02/17/2025 3:45 PM CDT [facility] MONOCYTES 6.1 4.0 - 12.0 % 02/17/2025 3:45 PM CDT [facility] EOSINOPHILS 2.1 0.0 - 5.0 % 02/17/2025 3:45 PM CDT [facility] BASOPHILS 0.3 0.0 - 1.0 % 02/17/2025 3:45 PM CDT [facility] IMMATURE GRANULOCYTE 0.5(H) 0.0 - 0.4 % 02/17/2025 3:45 PM CDT [facility] Comment:Immature Granulocyte s includes Metamyelocytes, Myelocytes, and Promyelocytes. ABSOLUTE NEUTROPHILS 3.65 1.60 - 7.70 10(3)/mcL 02/17/2025 3:45 PM CDT [facility] ABSOLUTE LYMPHOCYTES 2.00 1.30 - 3.20 10(3)/mcL 02/17/2025 3:45 PM CDT [facility] ABSOLUTE MONOCYTES 0.38 0.20 - 1.00 10(3)/mcL 02/17/2025 3:45 PM CDT [facility] ABSOLUTE EOSINOPHIL 0.13 0.00 - 0.40 10(3)/mcL 02/17/2025 3:45 PM CDT [facility] ABSOLUTE BASOPHILS 0.02 0.00 - 0.10 10(3)/mcL 02/17/2025 3:45 PM CDT [facility] ABSOLUTE IMMATURE GRANULOCYTE 0.03 0.00 - 0.03 10 (3) mcL. 02/17/2025 3:45 PM CDT [facility] NRBC PER 100 WBC 0 02/18/20 3:45 PM CDT [facility] Blood Venipuncture / Unknown 02/17/2025 2:19 PM CDT 02/17/2025 3:42 PM CDT Frank Del Rosario MD HEMATOLOGY ORDERABLES Final Result Performing Organization Address City/[facility]/ZIP Co de Phone Number [facility] [address] [place] [address] * VITAMIN B12 (02/17/2025 2:19 PM CDT) Pathologist [facility] VITAMIN B12 349 213 - 816 pg/mL 02/17/2025 4:40 PM CDT [facility] Blood Venipuncture / Unknown 02/17/2025 2:19 PM CDT 02/17/2025 3:43 PM CDT Frank Del Rosario MD CHEMISTRY ORDERABLES Final R esult Performing Organization Address City/[facility]/ZIP Co de Phone Number [facility] [address] [place] [address] * THYROID STIMULATING HORMONE (TSH) (02/17/2025 2:19 PM CDT) TSH 1.127 0.300 - 5.000 mIU/L 02/17/2025 4:22 PM CDT [facility] Blood Venipuncture / Unknown 02/17/2025 2:19 PM CDT 02/17/2025 3:43 PM CDT Frank Del Rosario MD CHEMISTRY ORDERABLES Final R esult Performing Organization Address City/[facility]/ZIP Co de Phone Number [facility] [address] [place] [address] * FOLIC ACID (FOLATE) (02/17/2025 2:19 PM CDT) Pathologist [facility] FOLATE 13.9 7.0 - 31.4 ng/mL 02/17/2025 4:40 PM CDT [facility] IS THE PATIENT REQUIRED TO BE FASTING? No 02/17/2025 4:40 PM CDT [facility] Blood Venipuncture / Unknown 02/17/2025 2:19 PM CDT 02/17/2025 3:43 PM CDT Frank Del Rosario MD CHEMISTRY ORDERABLES Final R ult Performing Organization Address City/[facility]/ZIP Co de Phone Number [facility] [address] [place] [address] * (ABNORMAL) CMP (COMPREHENSIVE METABOLIC PANEL) (02/17/2025 2:19 PM CDT) Only the most recent of2 resultswithin the time period is included. SODIUM 138 136 - 145 mmol/L 02/17/2025 4:06 PM CDT [facility] POTASSIUM 4.9 3.5 - 5.1 mmol/L 02/17/2025 4:06 PM CDT [facility] CHLORIDE 103 98 - 107 mmol/L 02/17/2025 4:06 PM CDT [facility] CO2, VENOUS 25 22 - 30 mmol/L 02/17/2025 4:06 PM CDT [facility] ANION GAP 14.9 <18.0 mmol/L 02/17/2025 4:06 PM [facility] GLUCOSE 191(H) 70 - 99 mg/dL 02/17/2025 4:06 PM [facility] BUN 16 10 - 20 mg/dL 02/17/2025 4:06 PM [facility] CREATININE, BLOOD 1.27(H) 0.60 - 1.00 mg/dL 02/17/2025 4:06 PM [facility] BUN/CREATININE RATIO 13 12 - 20 ratio 02/17/2025 4:06 PM [facility] TOTAL PROTEIN 7.5 6.0 - 8.0 g/dL 02/17/2025 4:06 PM [facility] ALBUMIN 4.2 3.5 - 5.0 g/dL 02/17/2025 4:06 PM [facility] A/G RATIO 1.3 1.0 - 2.2 02/17/2025 4:06 PM [facility] CALCIUM 9.0 8.7 - 10.5 mg/dL 02/17/2025 4:06 PM [facility] T BILI 0.3 0.2 - 1.2 mg/dL 02/17/2025 4:06 PM [facility] SGOT (AST) 24 <43 U/L 02/17/2025 4:06 PM [facility] SGPT (ALT) 21 <56 U/L 02/17/2025 4:06 PM [facility] ALKALINE PHOSPHATASE 133 40 - 150 U/L 02/17/2025 4:06 PM [facility] IS THE PATIENT REQUIRED TO BE FASTING? No 02/17/2025 4:06 PM [facility] GFR, ESTIMATED 43(L) >=60 02/17/2025 4:06 PM [facility] Comment: Creatinine Clearance is the preferred criteria for selecting drug dose adjustments in renally impaired patients. The GFR is provided as additional pertinent clinical information. GFR is reported in mL/min/1.73 sq m. Calculation based on the 2020 Chronic Kidney Disease Epidemiology Collaboration (CKD-EPI) equation refit without adjustment for race. GFR, EST. 49(L) >=60 025 4:06 PM CDT [facility] Comment: Creatinine Clearance is the preferred criteria for selecting drug dose adjustments in renally impaired patients. The GFR is provided as additional pertinent clinical information. GFR is reported in mL/min/1.73 sq m. Calculation based on the 2009 Chronic Kidney Disease Epidemiology Collaboration (CKD-EPI). GFR, EST. NONAFRICAN 41(L) >=60 02/17/2025 4:06 PM CDT [facility] Comment: Creatinine Clearance is the preferred criteria for selecting drug dose adjustments in renally impaired patients. The GFR is provided as additional pertinent clinical information. GFR is reported in mL/min/1.73 sq m. Calculation based on the 2009 Chronic Kidney Disease Epidemiology Collaboration (CKD-EPI). Blood Venipuncture / Unknown 02/17/2025 2:19 PM CDT 02/17/2025 3:43 PM CDT us Frank Del Rosario MD CHEMISTRY ORDERABLES Final R esult [facility] [address] [place] [address] * Pathology Surgical (02/08/2025 10:16 AM CDT) Case Report Surgical Pathology Report Case: [id number] Authorizing Provider: Sebastian Silvestre MD Collected: 02/08/2025 10:16 AM Ordering Location: [facility] Received: 02/08/2025 11:10 AM [facility] Main Pathologist: Joe Strong MD PhD Specimens: A) - Stomach, PRE PYLORIC ANTRUM B) - Stomach, FUNDUS BIOPSY C) - Esophagus, GE JUNCTION BIOPSY D) - Esophagus, ESOPHAGUS AT 30CM BIOPSY 02/09/2025 8:43 AM CDT [facility] FINAL DIAGNOSIS A. Pre pyloric antrum biopsy: - Gastric mucosa with focal mild chronic inflammation - Negative for acute inflammation or H. pylori by H&E stain B. Esophagus, fundus biopsy: - Gastric mucosa with focal mild chronic inflammation - Negative for acute inflammation or H. pylori by H&E stain C. GE junction biopsy: - Gastroesophageal junctional mucosa with mild chronic inflammation - Negative for intestinal metaplasia, dysplasia, or malignancy D. Esophagus at 30 cm biopsy: - Esophageal squamous epithelium with very focal scant inflammatory infiltration - Negative for eosinophils, dysplasia, or malignancy 02/09/2025 8:43 AM CDT [facility] at 0843 CDT Pre-Operative Diagnosis DIARRHEA 02/09/2025 8:43 AM CDT [facility] Gross Description A. PRE PYLORIC ANTRUM Received in formalin labeled with the patient identifiers and prepyloric antrum is 1 ramsey piece of tissue measuring 0.3 cm in greatest dimension. The specimen is entirely submitted in cassette A1. B. FUNDUS BIOPSY Received in formalin labeled with the patient identifiers and fundus biopsy is one ramsey-pink piece of tissue measuring 0.4 cm in greatest dimension. The specimen is entirely submitted in cassette B1. C. GE JUNCTION BIOPSY Received in formalin labeled with the patient identifiers and GE junction biopsy is one ramsey-pink piece of tissue measuring 0.3 cm in greatest dimension. The specimen is entirely submitted in cassette C1. D. ESOPHAGUS AT 30CM BIOPSY Received in formalin labeled with the patient identifiers and esophagus at 30 cm biopsy is one ramsey-pink piece of tissue measuring 0.2 cm in greatest dimension. The specimen is entirely submitted in cassette D1. Total time of formalin fixation: 11 hours and 15 minutes. 02/09/2025 8:43 AM CDT [facility] Microscopic Description Microscopic examination was performed which supports the final diagnosis. All control tissues stained appropriately. 02/09/2025 8:43 AM CDT [facility] Tissue STOMACH STRUCTURE / Unknown 02/08/2025 10:16 AM CDT 02/08/2025 11:10 AM CDT Tissue specimen (specimen) STOMACH STRUCTURE / Unknown 02/08/2025 10:17 AM CDT 02/08/2025 11:10 AM CDT Tissue specimen (specimen) ESOPHAGEAL STRUCTURE / Unknown 02/08/2025 10:17 AM CDT 02/08/2025 11:10 AM CDT Tissue specimen (specimen) ESOPHAGEAL STRUCTURE / Unknown 02/08/2025 10:18 AM CDT 02/08/2025 11:10 AM CDT us Sebastian Silvestre MD PATHOLOGY/CYTOLOGY ORDERAB LES Final Result [facility] [address] [place] [address] * (ABNORMAL) POCT Glucose (02/08/2025 7:47 AM CDT) GLUCOSE,BEDSID E POCT 176(H) 70 - 99 mg/dL 02/08/2025 7:48 AM CDT [facility] Comment:Patient RN Performed Blood 02/08/2025 7:47 AM CDT 02/08/2025 7:47 AM CDT us None Provider POINT OF CARE TESTING Final Resu lt Performing Organization Address City/[facility]/ZIP Co de Phone Number [facility] [address] [place] [address] * GI LAB IMAGING - EGD (02/08/2025 6:20 AM CDT) us Sebastian Silvestre MD IMG DIAGNOSTIC ORDERABLES Final Result * GI IMAGING - COLONOSCOPY (02/08/2025 6:20 AM CDT) us Sebastian Silvestre MD IMG DIAGNOSTIC ORDERABLES Final Result * Stool, Occult Blood, Diagnostic (12/03/2024 2:10 AM CDT) OCCULT BLOOD DIAG Negative Negative 12/03/2024 2:20 AM CDT [facility] Stool STOOL SPECIMEN / Unknown Non-Phlebotomy Collection / Unknown 12/03/2024 2:10 AM CDT 12/03/2024 2:17 AM CDT us Yoshi Barraza MD BODY FLUIDS & STOOLS ORDER JOEL Final Result [facility] [place] [address] * CT ABDOMEN PELVIS W/ CONTRAST (12/03/2024 [...] Conner Sandoval M.D. AR: CHRISTOPHE Report ID: [id number] Reading Location: [id number] Procedure Note Conner Sandoval MD - 12/03/2024 [...] Conner Sandoval M.D. AR: CHRISTOPHE Report ID: [id number] Reading Location: [id number] IMPRESSION: No bowel inflammation or other acute [...] CHEMISTRY ORDERABLES Final Result Performing Organization Address City/[facility]/ZIP Co de Phone Number [facility] [place] [address] * Blue Top Tube (12/02/2024 11:37 PM CDT) Blood No Phlebotomy Charged / Unknown 12/02/2024 11:37 PM CDT 12/02/2024 11:48 PM CDT Yoshi Barraza MD HEMATOLOGY ORDERABLES Carol l Result Performing Organization Address [facility] Co de Phone Number [facility] [address] [place] [address] * TYPE & SCREEN (CROSSMATCH CONVERTIBLE) (12/02/2024 11:37 PM CDT) ABO TYPING A 12/03/2024 12:58 AM CDT [facility] RH Negative 12/03/2024 12:58 AM CDT [facility] ABSC Negative 12/03/2024 12:58 AM CDT [facility] Blood Venipuncture / Unknown 12/02/2024 11:37 PM CDT 12/02/2024 11:47 PM CDT Yoshi Barraza MD BLOOD BANK ORDERABLES Edit ed Result - Final Performing Organization Address City/[facility]/ZIP Co de Phone Number [facility] #[address] [place] [address] * Lipase [id number] (12/02/2024 11:37 PM CDT) LIPASE 12 8 - 78 U/L 12/03/2024 12:12 AM CDT [facility] Blood Venipuncture / Unknown 12/02/2024 11:37 PM CDT 12/02/2024 11:48 PM CDT us Yoshi Barraza MD CHEMISTRY ORDERABLES Final Result [facility] [address] [place] [address] * GENERAL SLEEP STUDY (11/22/2024 12:00 AM CDT) 11/22/2024 us Deena Celis APRN, CNP SLEEP CENTER ORDERABL ES Final Result SCAN from Last 3 Months Insurance MEDICAID [place] MEDICARE C [employer] Advance Directives Documents on File Type Date Recorded Patient Tax Services Specialist Expl anation Other Advance Directive 08/30/2021 5:02 PM UROLOGY REFERRAL Care Teams Camera Tuning Engineer Relationship Specialty Start Date End Date Remberto Mathis PAC [address] [place] [address] PCP - General Physician Audio Visual Tech 10/21/17 Deena Celis APRN, EXTERNAL RELATIONS DIRECTOR #[address] [address] Nurse Practitioner Advanced Practice Nurse 05/03/22 Frank Del Rosario MD [address] [place] [address] Consulting Physician Neurology 02/05/25
--- OUTSIDE RECORDS SUMMARY | 2025-02-19 10:34 | XMS_ITS | Encounter Summary ---
Author Organization [facility] Healthcare Address [address] [place] [address] Care Team Providers Care Foreign Exchange Position Clerk Name Role Phone Remberto Mathis Primary Care Provider [phone] Haroon Sifuentes MD Unavailable [phone] Alem Ayon PTA Unavailable Unavailable Kamryn Rodríguez MD Unavailable [phone] Reason for Visit * Reason Onset Date Comments Scheduling Appointments 12/31/2019 Called f or DEXA appointment reminder Encounter Details Date Type Department Care Team (Late st Contact Info) Description 12/31/2019 Telephone [facility] [address] [place] [address] Corrine Maldonado RT Scheduling Appointments (Called for [...] on file 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 Gender Identity Not on file Sexual Orientation Not on file documented as of this encounter Plan of Treatment Not on file documented as of this encounter Visit Diagnoses Not on filedocumented in this encounter Care Teams Foreign Exchange Position Clerk Relationship Specialty Start Date End Date Remberto Mathis PA [address] [place] [address] PCP - General 09/26/17 Haroon Sifuentes MD [address] [place] [address] 09/26/17 06/29/24 Alem Ayon [facility] Food And Beverage Attendant Physical Therapy 10/25/17 08/27/22 Kamryn Rodríguez MD Consulting Physician Gastroenterology 06/26/20 documented as of this encounter
--- OUTSIDE RECORDS SUMMARY | 2025-02-19 10:34 | XMS_ITS | Encounter Summary ---
Author Organization [facility] Address [address] [place] [address] Phone Care Team Providers Care Last Repairer Name Role Phone DominiqueRemberto florez Primary Care Provider [phone] Deena Celis APRN, RUTH Unavailable [phone] Frank Del Rosario MD Unavailable [phone] Encounter Details Date Type Department Care Team (Late Contact Info) Description 01/01/2025 Results Follow-Up [facility] - Pulmonology & Sleep Medicine [facility] [address] [place] [address] Deena Celis APRN, COIL STRAPPER [address] [address] GENERAL SLEEP STUDY Social History Tobacco Use [...] Department Care Team (Late Contact Info) Description 06/01/2025 9:30 AM BUSINESS EDUCATION INSTRUCTOR Office Visit [facility] - Pulmonology & Sleep Medicine [facility] #[address] [place] [address] Deena Celis APRN, COIL STRAPPER #2 [facility] [address] [place] [address] 08/12/2025 10:30 AM BUSINESS EDUCATION INSTRUCTOR Office Visit [facility] - Neurology - [place] [address] [place] [address] Frank Del Rosario MD [address] [place] [address] documented as of this encounter Visit Diagnoses Not on filedocumented in this encounter Care Teams Last Repairer Relationship Specialty Start Date End Date Remberto Mathis, [facility] [address] [place] [address] PCP - General Physician Review Rn 10/21/17 Deena Celis APRN, COIL STRAPPER #[address] [address] Nurse Practitioner Advanced Practice Nurse 05/03/22 Frank Del Rosario MD [address] [place] [address] Consulting Physician Neurology 02/05/25 documented as of this encounter
--- OUTSIDE RECORDS SUMMARY | 2025-02-19 10:34 | XMS_ITS | Encounter Summary ---
Author Organization [facility] Healthcare Address [address] [place] [address] Care Team Providers Care Wagon Washer Name Role Phone Remberto Mathis Primary Care Provider [phone] Haroon Sifuentes MD Unavailable [phone] Alem Ayon PTA Unavailable Unavailable Kamryn Rodríguez MD Unavailable [phone] Reason for Visit * Reason Onset Date Comments Scheduling Appointments 12/30/2019 Called f or DEXA appointment Encounter Details Date Type Department Care Team (Late st Contact Info) Description 12/30/2019 Telephone [facility] Imaging Center [address] [place] [address] Marley Valderrama RT Scheduling Appointments (Called for [...] on file 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
--- OUTSIDE RECORDS SUMMARY | 2025-02-19 10:34 | XMS_ITS | Encounter Summary ---
Author Organization [facility] Address [address] [place] [address] Phone Care Team Providers Care Emt/Dispatcher Name Role Phone Remberto Mathis Brant GLORIA Primary Care Provider [phone] Deena Celis APRN, CNP Unavailable [phone] Frank Del Rosario MD Unavailable [phone] Reason for Visit * Reason Onset Date Comments Results 02/11/2025 Encounter Details Date Type Department Care Team (Latest Contact Info) Description 02/11/2025 Results Follow-Up [facility] - Gastroenterology [facility] [address] [place] [address] Sebastian Silvestre MD [address] [address] Pathology Surgical Social History Tobacco Use Types Packs/Day Years [...] (Late Contact Info) Description 06/01/2025 9:30 AM HOME RESTORATION SERVICE SUPERVISOR Office Visit [facility] [place] [address] Deena Celis APRN, AIR MOTOR REPAIRER #[address] [address] 08/12/2025 10:30 AM HOME RESTORATION SERVICE SUPERVISOR Office Visit [facility] - Neurology - [place] [address] [place] [address] Frank Del Rosario MD [address] [place] [address] documented as of this encounter Visit Diagnoses Not on filedocumented in this encounter Care Teams Emt/Dispatcher Relationship Specialty Start Date End Date Remberto Mathis, [facility] [address] [place] [address] PCP - General Physician Ratings Analyst 10/21/17 Deena Celis APRN, AIR MOTOR REPAIRER #[address] [address] Nurse Practitioner Advanced Practice Nurse 05/03/22 Frank Del Rosario MD [address] [place] [address] Consulting Physician Neurology 02/05/25 documented as of this encounter
--- OUTSIDE RECORDS SUMMARY | 2025-02-19 10:34 | XMS_ITS | Encounter Summary ---
Author Organization [facility] Address [address] [place] [address] Phone Care Team Providers Care Occupational Therapist Home Based Name Role Phone Remberto Mathis Brant GLORIA Primary Care Provider [phone] Deena Celis APRN, CNP Unavailable [phone] Frank Del Rosario MD Unavailable [phone] Reason for Visit * Reason Onset Date Comments Results 02/18/2025 Encounter Details Date Type Department Care Team (Late st Contact Info) Description 02/18/2025 Telephone [facility] - [place] [address] [place] [address] Sebastian Silvestre MD [address] [address] Results Social History Tobacco Use Types Packs/Day Years [...] encounter Miscellaneous Notes * Telephone Encounter - Jenna Cordova RN - 02/18/2025 9:51 AM CDT Please disregard. Result note received from Dr. Silvestre on 02/11/2025. * Telephone Encounter - Jenna Cordova RN - 02/18/2025 9:00 AM CDT Please see message below. Would provider be willing to review pathology from egd/colonoscopy and advise due to Dr. Silvestre is out of office until 03/09/2025. * Telephone Encounter - Izabela Sue - 02/18/2025 8:42 AM CDT Patient requesting results from EGD/Colonoscopy preformed on 02/08/[address] Silvestre. documented in this encounter Plan of Treatment Upcoming Encounters Date Type Department Care Team (Late st Contact Info) Description 06/01/2025 9:30 AM LABORER SALVAGE Office [facility] - Pulmonology & [facility] Medicine - [place] [address] [place] [address] Deena Celis APRN, CNP #[address] [address] 08/12/2025 10:30 AM LABORER SALVAGE Office Visit [facility] - Neurology - [place] [address] [place] [address] Frank Del Rosario MD [address] [place] [address] documented as of this encounter Visit Diagnoses Not on filedocumented in this encounter Care Teams Occupational Therapist Home Based Relationship Specialty Start Date End Date Remberto Mathis, [facility] [address] [place] [address] PCP - General Physician Body And Frame Technician 10/21/17 Deena Celis APRN, RUTH [address] [facility] [address] [address] [address] [address] Nurse Practitioner Advanced Practice Nurse 05/03/22 Frank Del Rosario MD #[address] [place] [address] Consulting Physician Neurology 02/05/25 documented as of this encounter
--- OUTSIDE RECORDS SUMMARY | 2025-02-19 10:34 | XMS_ITS | Encounter Summary ---
Author Organization [facility] Address [address] [place] [address] Phone Care Team Providers Care Fresh Food Manager Name Role Phone Del Remberto Brant GLORIA Primary Care Provider [phone] Deena Celis APRN, CNP Unavailable [phone] Frank Del Rosario MD Unavailable [phone] Reason for Visit * Reason Comments Medication Refill Encounter Details Date Type Department Care Team (Late st Contact Info) Description 11/04/2023 Refill [facility] - Pulmonology & Sleep Medicine - [place] #[address] [place] [address] Deena Celis APRN, RUTH #[address] [id number] Medication Refill Social History Tobacco Use Types [...] AM CDT Med[facility]) [facility] Med[facility] Refill Standing Order for Pediatricand [...] 05/24/23 Office Visit Deena Celis APRN, RUTH [facility] [place] Showing recent visits within past 365 days and meeting all other requirements Future Appointments Date Type Provider Dept 11/25/23 Appointment Deena Celis APRN, CNP [facility] [place] Showing future appointments within next 90 days and meeting all other requirements documented in this encounter Plan of Treatment Upcoming Encounters Date Type Department Care Team (Late st Contact Info) Description 06/01/2025 9:30 AM DIRECTOR SPEECH Office Visit [facility] - Pulmonology & Sleep Medicine - [place] [address] [place] [address] Deean Celis APRN, RUTH #[address] [address] 08/12/2025 10:30 AM DIRECTOR SPEECH [facility] - [place] #2 [facility] [address] Frank Del Rosario MD #2 [place] [address] documented as of this encounter Visit Diagnoses Diagnosis Mild intermittent asthma without status asthmaticus without complication documented in this encounter Care Teams Fresh Food Manager Relationship Specialty Start Date End Date Remberto Mathis PAC [address] [place] [address] PCP - General Physician Learning Administrator 10/21/17 Deena Celis APRN, [place] EQUIPMENT OPERATOR #[address] [address] Nurse Practitioner Advanced Practice Nurse 05/03/22 Frank Del Rosario MD #2 [place] [address] Consulting Physician Neurology 02/05/25 documented as of this encounter
--- OUTSIDE RECORDS SUMMARY | 2025-02-19 10:34 | XMS_ITS | Clinical Summary ---
Author Organization [facility] Address [address] [place] [address] Care Team Providers Care Fiberglass Tube Molder Name Role Phone Remberto Mathis Primary Care Provider [phone] Kamryn Rodríguez MD Unavailable [phone] Allergies Active Allergy Reactions Criticality Noted Date [...] EVERY EVENING 02/03/20 24 Active [facility] 02/18/20 24 Active Ultra Thin Lancets 31 gauge [facility] 02/18/20 24 Active glimepiride (AMARYL) 4 mg [...] 07/12/2023 Assessment & Plan (07/12/2023 8:47 PM HEARTH FEEDER): dysphagia of both solids and liquids, has [...] (01/26/2022): Added automatically from request for surgery [id number] Iron deficiency anemia 01/24/2022 Assessment & Plan (07/12/2023 8:50 PM HEARTH FEEDER): No signs of GI blood loss, currently [...] 03/0 08/2020 Coronary artery disease invo lving havasupai coronary artery of havasupai heart without angina pectoris 07/19/2020 Assessment & Plan (07/19/2020 12:43 PM HEARTH FEEDER): With the patient's minimal coronary disease and [...] upper endoscopy and the colonoscopy recently in [facility]. She had unremarkable imaging last year. [...] the person will continue it over the detention. Falls -- Falling significantly increases the risk [...] less likely to do so. ?Visiting an process development technician or generation engineer regularly to optimize vision. Assessment & Plan [...] the person will continue it over the detention. Falls -- Falling significantly increases the risk [...] less likely to do so. ?Visiting an process development technician or generation engineer regularly to optimize vision. 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, right 10/21/2017 Chronic eczematous otitis externa of right ear 0 10/21/2017 Conductive hearing loss of right ear 10/21/2017 Tinnitus of right ear 10/21/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, marginal, right 0 10/21/2017 Painful orthopaedic hardware 10/10/2017 Overview (10/10/2017): Added automatically from request for surgery [id number] Acute pyelonephritis Confusion Resolved Problems Problem Noted Date Diagnosed Date Resolved Date Primary osteoarthritis of right knee 09/09/2018 02/28/2020 Overview (09/09/2018): Added automatically from request for surgery [id number] Chest pain 01/10/2018 06/23/2020 Overview (01/10/2018): Added automatically from request for surgery [id number] Aftercare following left kne e joint replacement surgery 11/06/2017 02/28/2020 Post-traumatic osteoarthritis of left knee 10/10/2017 02/28/2020 Overview (10/10/2017): Added automatically from request for surgery [id number] Encounters Date Type Department Care Team Description 02/08/2025 11:59 PM CDT Anesthesia Event [address] [address] Thor Prieto DO 02/08/2025 Telephone [facility] Gastroenterology at [address] [place] [phone] hCristine Calderon 02/08/2025 Hospital Encounter [address] [address] Kamryn Rodríguez MD 12/11/2024 Telephone [facility] Gastroenterology at [address] [place] [phone] Deloris Calderon MA from Last 3 Months Immunizations Immunization Administration Dates Next Due COVID-19 mRNA (Nomanini) 0.3 m L (30 mcg) vaccine (12 [...] REPLACEMENT Bilateral knee COLONOSCOPY 10/15/2020 - 11/14/2020 COLONOSCOPY 01/16/2024 - 02/15/2024 Medical History Medical History Date Comments Asthma [...] on file Legal Sex Female 6:09 PM HEARTH FEEDER Gender Identity Not on file Sexual Orientation Not on file Obstetrics History Para Term AB IAB SAB Ectopic Multiple Livin g Live Births 3 3 3 Date Outcome GA Total Labor Labor//3rd Weight Sex Type Anes PTL Susan A1 A5 Name Clin Term Term Term Last Filed Vital Signs Vital Sign Reading Time Taken Comments Blood Pressure 130/58 10/20/2024 11:13 AM CDT Pulse 81 10/20/2024 11:13 AM CDT Temperature 35.8 C (96.4 F) 10/20/2024 11:13 AM CDT Respiratory Rate 18 10/20/2024 11:13 AM CDT Oxygen Saturation 96% 06/30/2024 1:51 PM HEARTH FEEDER Inhaled Oxygen Concentration - - Weight 92.2 kg (203 lb 3.2 oz) 10/20/2024 11:13 AM CDT Height 165.1 cm (5' 5) 10/20/2024 11:13 AM CDT Body Mass Index 33.81 10/20/2024 11:13 AM CDT Plan of Treatment Health Maintenance Due Date Last Done Comments Albumin Creatinine Ratio, Urine 1945 Hepatitis C Screening 1945 Dilated Eye Exam 1945 Foot Exam 1945 Hepatitis B Screening 1963 Zoster Vaccine (1 of 2) 1995 Lipid Panel 04/24/2005 04/24/2004 Well Visit 65+ 2010 Depression Screening 04/07/2019 04/07/2018 Hemoglobin A1C 09/08/2020 03/11/2020, 03/2 12/2018, 10/25/2017 Osteoporosis Screening-Bone Density Scan 12/31/2021 01/01/2020, 01/01/2020, 01/06/2018 Fall Risk Assessment 02/10/2025 02/11/2024 Covid-19 Vaccine (2024-07 6 season) 2025 04/23/2023, 04/27/2021, 08/31/2020, Additional history exists Influenza Vaccine (#1) 2025 , 04/23/2022, 02/14/2022, [...] Discontinued 025 Medical Devices Implanted Type Area Plant Maintenance Engineer Device Identifier Shelf Expiration Date Model / Serial / Lot Dome Patellar Attune Aox H35 Mm Knee Cemented Medialize Sterile - [id number] Implanted:Qty: 1 on 11/05/2017 by Martinez Rosas MD at [facility] Left: Knee Depuy [employer]opaed[employer] Inc 08/14/2022 [id number] / / [id number] Dome Patellar Attune Aox H35 Mm Knee Cemented Medialize Sterile - [id number] Implanted:Qty: 1 on 11/05/2017 by Martinez Rosas MD at [facility] Left: Knee [employer] Inc 08/14/2022 [id number] / / [id number] Femoral Cruciate Retaining Implanted:Qty: 1 on 11/05/2017 by Martinez Rosas MD at [facility] Left: Knee Depuy Mitek 12/14/2026 1504-00-105 / 1504-00-105 / [id number] Bsplt Tibial Attune S+ 5 Knee Cement Fix Brng - [id number] Implanted:Qty: 1 on 11/05/2017 by Martinez Rosas MD at [facility] Left: Knee [employer] Inc 04/16/2027 [id number] / / [id number] Cement Bone Smartset Gentamicin 40 Gm High Viscosity - [id number] Implanted:Qty: 1 on 11/05/2017 by Martinez Rosas MD at [facility] Left: Knee [employer] Inc 01/14/2019 [id number] / / [id number] Insert Tibial Attune Aox 5 H7 Mm Knee Cruciate Retaining Fix Bearing Sterile - [id number] Implanted:Qty: 1 on 11/05/2017 by Martinez Rosas MD at [facility] Left: Knee [employer] 12/14/2020 [id number] / / [id number] 1516-20-506 Depuy Attune Tibial Insert Fixed Bearing Cruciate Retaining Size 5 Implanted:Qty: 1 on 09/22/2018 by Martinez Rosas MD at [facility] Right: Knee [employer] Inc [id number] 09/14/2020 1516-20-506 / / [id number] [employer] [id number] [place] R+G High Viscosity Cement Bone Gentamicin Arthroplasty - [id number] Implanted:Qty: 1 on 09/22/2018 by Martinez Rosas MD at [facility] Right: Knee [employer] 01/14/2021 [id number] / / [id number] Depuy Orthopaed[employer] Inc [id number] Attune Cruciate Retain Cementless Knee Right 5 Narrow Component - [id number] Implanted:Qty: 1 on 09/22/2018 by Martinez Rosas MD at [facility] Right: Knee [employer] 08/14/2026 [id number] / / [id number] Depuy [employer]ed[employer] Inc [id number] Attune S+ Cement Fix Bearing Knee 5 Baseplate Tibial - [id number] Implanted:Qty: 1 on 09/22/2018 by Martinez Rosas MD at [facility] Right: Knee [employer] 06/16/2028 [id number] / / [id number] Allosource [id number] Freeze Dried Crushed 1-4mm Graft 15ml Bone Cancellous - [id number] Implanted:Qty: 1 on 03/14/2020 by Jeff Chapman MD at [facility] N/A: Spine Lumbar Allosource 01/20/2023 [id number] / / [id number] Medtronic Sofamor Danek [id number] Infuse 18mm 26mm Absorbable Sponge Sterile Water Syringe Needle - [id number] Implanted:Qty: 1 on 03/14/2020 by Jeff Chapman MD at [facility] N/A: Spine Lumbar Medtronic Inc 12/15/2020 [id number] / / [id number] Medtronic Inc [id number] [place] [id number] Radiopaque Hollow 6d Cage Spinal Peek-Pickens Latex Free - [id number] Implanted:Qty: 1 on 03/14/2020 by Jeff Chapman MD at [facility] N/A: Spine Lumbar Medtronic Inc 11/26/2026 [id number] / / [id number] Medtronic Sofamor Danek [id number] Infuse 14mm 23mm Absorbable Sponge Sterile Water Syringe Needle - [id number] Implanted:Qty: 1 on 03/18/2020 by Jeff Chapman MD at [facility] N/A: Spine Lumbar Medtronic Inc 02/14/2021 [id number] / / [id number] Confidence High Viscosity Spinal Cement 20g Implanted:Qty: 1 on 03/18/2020 by Jeff Chapman MD at [facility] N/A: Spine Lumbar Depuy Spine 08/14/2020 [id number] / / [id number] Description:Part of kit in [facility] [place] Confidence Spinal Cement System Ref: [id number] Lot: [id number] Exp date: 05-16-2020 Depuy Synthes Spine [id number] Viper Prime Od6 Mm L35 Mm Fix Polyaxial Fenestrate Extend Tab Spine Cortical Screw Bone Nonsterile 5.5 Mm Mc - [id number] Implanted:Qty: 1 on 03/18/2020 by Jeff Chapman MD at [facility] N/A: Spine Lumbar Depuy Synthes Spine [id number] / / Description:L4 right Depuy Synthes Spine [id number] Viper Prime Od6 Mm L50 Mm Fix Polyaxial Fenestrate Extend Tab Spine Cortical Screw Bone Nonsterile 5.5 Mm Mc - [id number] Implanted:Qty: 4 on 03/18/2020 by Jeff Chapman MD at [facility] N/A: Spine Lumbar Depuy Synthes Spine [id number] / / Description:L3 Bilat L5 Bilat Depuy Spine [id number] 5.5mm 1 Inner Spine Screw Set Titanium Nonsterile Viper - [id number] Implanted:Qty: 6 on 03/18/2020 by Jeff Chapman MD at [facility] N/A: Spine Lumbar Depuy Spine [id number] / / Description:L3-4-5 Depuy Spine [id number] Viper 2 70mm Lordotic Mc Spinal Titanium Mis - [id number] Implanted:Qty: 2 on 03/18/2020 by Jeff Chapman MD at [facility] N/A: Spine Lumbar Depuy Spine [id number] / / Description:Lumbar rods bila t L3-L5 Synthes 08.812.009 T-Pal 87u19k2-9.2mm Radiopaque Connection Cylinder Pyramidal - [id number] Implanted:Qty: 1 on 03/18/2020 by Jeff Chapman MD at [facility] N/A: Spine Lumbar Synthes I 08.812.009 / / Description:Lumbar spacer L4 -5 Depuy Synthes Spine [id number] Viper Prime Od6 Mm L45 Mm Fix Polyaxial Fenestrate Extend Tab Spine Cortical Screw Bone Nonsterile 5.5 Mm Mc - [id number] Implanted:Qty: 1 on 03/18/2020 by Jeff Chapman MD at [facility] N/A: Spine Lumbar Depuy Synthes Spine [id number] / / Description:Left 4 Angio-Seal Vip 6fr Closere Device [id number] - [id number] Implanted:Qty: 1 on 11/21/2021 by Mini Lord MD at [facility] TerCardiac Systemz Lynda 09/14/2022 [id number] / / [id number] Procedures Procedure Name Priority Date/Time Associated Diagnosis Comments EGFR Routine 10/20/2024 10:50 AM CDT Iron deficiency anemia secondary to inadequate dietary iron intake DIAGNOSTIC MAMMOGRAM BILATERAL W YAYO Schedule Routine, Read Routine (OP Routine) 07/16/2024 8:54 AM HEARTH FEEDER Nipple discharge in female COLONOSCOPY 02/11/2024 11:38 AM CDT HEMOGLOBIN A1C Routine 03/11/2020 11:30 AM CDT Preoperative testing DEXA AXIAL SKELETON BONE DENSITY 1 OR MORE SITES Schedule Routine, Read Routine (OP Routine) 01/01/2020 10:38 AM CDT Osteopenia of lumbar spine from Last 3 Months or Most Recently Relevant to Health Maintenance Results * (ABNORMAL) eGFR (10/20/2024 10:50 AM CDT) [...] was last reviewed 2021. Testing performed by: [facility], [place], [address] Blood 10/20/2024 10:5 0 AM CDT 10/20/2024 11:15 AM CDT us Jacquelyn Sousa NP LAB BLOOD ORDERABLES Final Result [facility] ([place]) [facility] Department [place] [address] * Diagnostic Mammogram Bilateral W Yayo (07/16/2024 8:54 AM HEARTH FEEDER) Anatomical Region Laterality Modality Breast Bilateral Mammography 07/16/2024 10:3 3 AM HEARTH FEEDER Impressions 07/16/2024 10:33 AM HEARTH FEEDER No evidence to suggest malignancy is seen by mammography or ultrasound. Given the history of bloody nipple discharge, breast MR is recommended. OVERALL FINAL ASSESSMENT: [id number] Electronically signed by: Jessy Gordon M.D. Narrative 07/16/2024 10:33 AM HEARTH FEEDER EXAMINATION: BILATERAL DIGITAL DIAGNOSTIC MAMMOGRAM AND DIGITAL [...] Rodríguez MD - 02/11/2024 11:[address] [facility] Patient Name: Sarah Villagran Procedure Date: 02/11/2024 11:38 AM Date of : 1945 Admit Type: Outpatient Age: 78 Gender: Female Attending MD: Kamryn Rodríguez M.D. Room: [facility] 1 Note Status: Finalized Patient [...] passed under direct vision.The Pediatric Colonoscope [id number] was introduced through the anus and advanced [...] 11:38 AM Procedure Code(s): --- Professional --- 11988, Colonoscopy, flexible; with removal of tumor(s), polyp(s), or other lesion(s) by snare technique Diagnosis Code(s): --- Professional --- K64.8, Other hemorrhoids D12.0, Benign neoplasm of cecum D12.5, Benign neoplasm of sigmoid colon D12.4, Benign neoplasm of descending colon D12.3, Benign neoplasm of transverse colon (hepatic flexure orsplenic flexure) K57.30, Diverticulosis of large intestine without perforation orabscess without bleeding CPT copyright 2020 [employer]. All rights reserved. The codes documented in this report are preliminary and upon dispatcher electric power reviewmay be revised to meet current compliance requirements. Recognized by the [employer] for promoting quality [...] and children were not included. (Diabetes Care 31:3241-6305, 2008). The eAG is not equivalent to a fasting glucose. Blood specimen (specimen) 03/11/2020 11:30 AM CDT 03/11/2020 11:31 AM CDT us Jeff Chapman MD LAB BLOOD ORDERABLES Final Result Performing Organization Address City/State/ZIP [place] Phone Number [facility] [phone] [facility] [place] [address] * Dexa Axial Skeleton Bone Density 1 [...] Dual x-ray absorptiometry (DEXA) was performed using [email or web address] system. Bone mineralization and T score are [...] signed by: Sky Álvarez M.D. Holly FRASER IMMk DXA PROCEDURES Final Res ult from Last 3 Months or Most Recently Relevant to Health Maintenance Insurance NURYSTNA MCR ADVANTRA IDPA IDPA [facility] AETNA MEDICARE NCON IDPA [facility] MEDICARE ADVANTAGE [facility] MEDICARE ADVANTAGE Advance Directives For more information, please contact: [phone] Documents on File Type Date Recorded Patient Coating Machine Helper Expl anation ADVANCE DIRECTIVE 09/29/2018 9:00 AM Daphne shi Will * Full Code (Latest Code Status on [...] 11:05 AM 11/21/2021 6:14 PM Care Teams Fiberglass Tube Molder Relationship Specialty Start Date End Date Remberto Mathis PA [address] [place] [address] PCP - General 09/26/17 Kamryn Rodríguez MD [address] [place] [address] Consulting Physician Gastroenterology 06/26/20
--- OUTSIDE RECORDS SUMMARY | 2025-02-19 10:34 | XMS_ITS | Clinical Summary ---
Author Organization [facility] Address [address] [place] [address] Care Team Providers Care Cryogenic Transport Driver Name Role Phone Remberto Mathis Primary Care Provider [phone] Jose Rodríguez MD Unavailable [phone] Martinez Rosas MD Unavailable [phone] Jeff Chapman MD Unavailable [phone] Source Comments [facility],non-owned Affiliates and Associated Physician Practices is amultiple site organization consisting of ambulatory clinics and hospital sitesin [place], [place], [place] and [place]. This disclosure is being madepursuant to the Care Everywhere program and may not contain all information available regarding this patient. Last updated 18.[facility] Allergies Active Allergy Reactions Criticality Noted Date Comments Aspirin Other 07/01/2017 Codeine Psychiatric High 03/10/2019 Medications * Be aware that medications may not be up to date on this document. Alwaysverify current medications with the patient. ALPRAZolam (XANAX) 1 MG tablet Take 1 mg by mouth 1 Before Breakfast, 2 Before Dinner 9 Active fluticasone propionate (FLONASE) 50 MCG/ACT nasal spray Dickens 50 sprays into each nostril once daily [...] mouth 2 times daily Active pancrelipase (CREON) 26487-91604 units capsule Take 1-2 capsules by mouth [...] (02/23/2020): Added automatically from request for surgery [id number] Closed compression fracture of third lumbar vert ebra 04/07/2018 Chest pain 01/10/2018 Overview (02/23/2020): Added automatically from request for surgery [id number] History of stress incontinence 01/06/2018 Urinary incontinence [...] the person will continue it over the prison. Falls -- Falling significantly increases the risk [...] less likely to do so. ?Visiting an litigation secretary or computing tutor regularly to optimize vision. Aftercare following left [...] (02/23/2020): Added automatically from request for surgery [id number] Post-traumatic osteoarthritis of left knee 10/10 Overview (02/23/2020): Added automatically from request for surgery [id number] VICKIE (obstructive sleep apnea) Asthma Rheumatoid arthritis [...] PM CDT Pulse 71 07/09/2019 8:37 AM DIGITAL ACCOUNT EXECUTIVE Temperature 36.5 C (97.7 F) 07/09/2019 8:37 AM DIGITAL ACCOUNT EXECUTIVE Respiratory Rate 18 03/30/2019 1:26 PM CDT Oxygen Saturation 96% 07/09/2019 8:37 AM DIGITAL ACCOUNT EXECUTIVE Inhaled Oxygen Concentration - - Weight 89.8 [...] topic Insurance AETNA MEDICAID - OUT OF [facility] MEDICAID AETNA [facility] MANAGED MEDICARE ADV MEDICAID [facility] Care Teams Cryogenic Transport Driver Relationship Specialty Start Date End Date Remberto Mathis PA [address] [place] [address] PCP - General 02/18/19 Jose Rodrí[place] [address] [place], [place] [id number] Gastroenterology 03/10/19 [place] [address] [place], [place] [id number] Orthopedic Surgery 03/10/19 [place] [address] [place] [address] Orthopedic Surgery 03/10/19
--- OUTSIDE RECORDS SUMMARY | 2025-02-19 10:34 | XMS_ITS | Encounter Summary ---
Author Organization [facility] Address [address] [place] [address] Care Team Providers Care Picker Operator Name Role Phone Remberto Mathis Primary Care Provider [phone] Kamryn Rodríguez MD Unavailable [phone] Reason for Visit * Auth/Cert (Routine) Specialty Diagnoses / Procedures Referred By Catarino rowan Referred To Contact Diagnoses Family hx of colon cancer Hx of adenomatous colonic polyps Family hx of colon cancer [Z80.0] Hx of adenomatous colonic polyps [Z86.0101] Procedures [place] COLONOSCOPY FLX DX W/COLLJ SPEC WHEN PFRMD COLONOSCOPY Referral ID Status Reason Start Date Expiration Date Visits Re quested Visits Authorized [id number] 1 1 Encounter Details Date Type Department Care Team (Late st Contact Info) Description 02/08/2025 Hospital Encounter [facility] [address] [place] [address] Kamryn Rodríguez MD [address] [place] [address] [address] Social History Tobacco Use Types Packs/Day Years [...] on file Legal Sex Female 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 Never 10/20/2024 11:15 AM CDT Becca Fournier CLT Q2: How many drinks containing alcohol do you have on a typical day when you are drinking? Patient does not drink 06/30/2024 1:58 PM Julianna Miller RN Q3: How often do you have six or more drinks on one occasion? Never 06/30/2024 1:58 PM Julianna Miller RN documented as of this encounter Plan of Treatment Not on file documented as of this encounter Visit Diagnoses Diagnosis Family hx of colon cancer Family history of malignant neoplasm of gastrointestinal tract Hx of adenomatous colonic polyps documented in this encounter Admitting Diagnoses Diagnosis Family hx of colon cancer Family history of malignant neoplasm of gastrointestinal tract Hx of adenomatous colonic polyps documented in this encounter Care Teams Picker Operator Relationship Specialty Start Date End Date Remberto Mathis PA [address] [place] [address] PCP - General 09/26/17 Kamryn Rodríguez MD [address] [place] [address] Consulting Physician Gastroenterology 06/26/20 documented as of this encounter
--- OUTSIDE RECORDS SUMMARY | 2025-02-19 11:22 | XMS_ITS | Encounter Summary ---
Author Organization [facility] Address [address] [place] [address] Care Team Providers Care Contract Project Manager Name Role Phone Remberto Mathis Primary Care Provider [phone] Kamryn Rodríguez MD Unavailable [phone] Reason for Visit * Auth/Cert (Routine) Specialty Diagnoses / Procedures Referred By Catarino rowan Referred To Contact Diagnoses Family hx of colon cancer Hx of adenomatous colonic polyps Family hx of colon cancer [Z80.0] Hx of adenomatous colonic polyps [Z86.0101] Procedures [place] COLONOSCOPY FLX DX W/COLLJ SPEC WHEN PFRMD COLONOSCOPY Referral ID Status Reason Start Date Expiration Date Visits Re quested Visits Authorized [id number] 1 1 Encounter Details Date Type Department Care Team (Late st Contact Info) Description 02/08/2025 Hospital Encounter [facility] [address] [place] [address] Kamryn Rodríguez MD [address] [place] [address] [address] Social History Tobacco Use Types Packs/Day Years [...] on file Legal 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
--- OUTSIDE RECORDS SUMMARY | 2025-02-19 11:22 | XMS_ITS | Encounter Summary ---
Author Organization [facility] Address [address] [place] [address] Phone Care Team Providers Care Enrollment Management Vice President Name Role Phone Del Remberto Brant GLORIA Primary Care Provider [phone] Deena Celis APRN, CNP Unavailable [phone] Frank Del Rosario MD Unavailable [phone] Reason for Visit * Reason Comments Medication Refill Encounter Details Date Type Department Care Team (Late st Contact Info) Description 11/04/2023 Refill [facility] - Pulmonology & Sleep Medicine - [place] [address] [place] [address] Deena Celis APRN, RUTH [address] [id number] Medication Refill Social History Tobacco Use Types [...] encounter Miscellaneous Notes * Telephone Encounter - Mayd Craig RN - 11/05/2023 8:38 AM CDT Medication(s) [facility] Medication Refill Standing Order [...] 05/24/23 Office Visit Deena Celis APRN, RUTH [facility] Pul & Sleep [place] Showing recent visits within past 365 days and meeting all other requirements Future Appointments Date Type Provider Dept 11/25/23 Appointment Deena Celis APRN, CNP [facility] Pulglenroy & Sleep [place] Showing future appointments within next 90 days and meeting all other requirements documented in this encounter Plan of Treatment Upcoming Encounters Date Type Department Care Team (Late st Contact Info) Description 06/01/2025 9:30 AM SKILLED NURSING CASE MANAGER Office Visit [facility] - Pulmonology & Sleep Medicine - [place] [address] [place] [address] Deena Celis APRN, RUTH [address] [address] 08/12/2025 10:30 AM SKILLED NURSING CASE MANAGER Office Visit [facility] - Neurology - [place] [address] [facility] [place] [address] Frank Del Rosario MD [address] [place] [address] documented as of this encounter Visit Diagnoses Diagnosis Mild intermittent asthma without status asthmaticus without complication documented in this encounter Care Teams Enrollment Management Vice President Relationship Specialty Start Date End Date Remberto Mathis PAC [address] [place] [address] PCP - General Physician Recording Studio Set Up Worker 10/21/17 Deena Celis APRN, PRODUCT TECHNOLOGY SCIENTIST #[address] [address] Nurse Practitioner Advanced Practice Nurse 05/03/22 Frank Del Rosario MD [address] [place] [address] Consulting Physician Neurology 02/05/25 documented as of this encounter
--- OUTSIDE RECORDS SUMMARY | 2025-02-19 11:22 | XMS_ITS | Clinical Summary ---
Author Organization [facility] Address [address] [place] [id number] Care Team Providers Care Family Program Specialist Name Role Phone Unavailable Primary Care Provider [...]
[2025-02-19] MEDS: HYDROcodone/acetaminophen (*CRX) 5-325 MG TABLET 1 TAB PO (11:23)
--- OUTSIDE RECORDS SUMMARY | 2025-02-19 11:23 | XMS_ITS | Encounter Summary ---
Author Organization [facility] Healthcare Address [address] [place] [address] Care Team Providers Care Brick And Block Mason Name Role Phone Remberto Mathis Primary Care Provider [phone] Haroon Sifuentes MD Unavailable [phone] Alem Ayon PTA Unavailable Unavailable Kamryn Rodríguez MD Unavailable [phone] Reason for Visit * Reason Onset Date Comments Scheduling Appointments 12/30/2019 Called f or DEXA appointment Encounter Details Date Type Department Care Team (Late st Contact Info) Description 12/30/2019 Telephone [facility] [address] [place] [id number] Marley Valderrama RT Scheduling Appointments (Called for [...] on file Legal 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
--- OUTSIDE RECORDS SUMMARY | 2025-02-19 11:23 | XMS_ITS | Encounter Summary ---
Author Organization [facility] Address [address] [place] [address] Phone Care Team Providers Care Reporter Name Role Phone DominiqueRemberto florez Primary Care Provider [phone] Deena Celis APRN, RUTH Unavailable [phone] Frank Del Rosario MD Unavailable [phone] Encounter Details Date Type Department Care Team (Late Contact Info) Description 01/01/2025 Results Follow-Up [facility] - Pulmonology & Sleep Medicine [facility] [address] [place] [address] Deena Celis APRN, CHLORINATOR OPERATOR [address] [address] GENERAL SLEEP STUDY Social History Tobacco Use [...] (Late Contact Info) Description 06/01/2025 9:30 AM VITAMIN MANAGER Office Visit [facility] - Pulmonology & Sleep Medicine [facility] [address] [place] [address] Deena Celis APRN, CHLORINATOR OPERATOR [address]2 [facility] [address] [place] [address] 08/12/2025 10:30 AM VITAMIN MANAGER Office Visit [facility] - Neurology - [place] [address] [place] [address] Frank Del Rosario MD [address] [place] [address] documented as of this encounter Visit Diagnoses Not on filedocumented in this encounter Care Teams Reporter Relationship Specialty Start Date End Date Remberto Mathis, [facility] [address] [place] [address] PCP - General Physician Director Employment 10/21/17 Deena Celis APRN, CHLORINATOR OPERATOR #[address] [address] Nurse Practitioner Advanced Practice Nurse 05/03/22 Frank Del Rosario MD [address] [place] [address] Consulting Physician Neurology 02/05/25 documented as of this encounter
--- OUTSIDE RECORDS SUMMARY | 2025-02-19 11:23 | XMS_ITS | Encounter Summary ---
Author Organization [facility] Address [address] [place] [address] Phone Care Team Providers Care Governor Assembler Name Role Phone Remberto Mathis Brant GLORIA Primary Care Provider [phone] Deena Celis APRN, CNP Unavailable [phone] Frank Del Rosario MD Unavailable [phone] Reason for Visit * Reason Onset Date Comments Results 02/11/2025 Encounter Details Date Type Department Care Team (Latest Contact Info) Description 02/11/2025 Results Follow-Up [facility] - Gastroenterology [facility] [address] [place] [address] Sebastian Silvestre MD [address] [address] Pathology Surgical Social History Tobacco [...] (Late Contact Info) Description 06/01/2025 9:30 AM FITTING ROOM SUPERVISOR Office Visit [facility] [address] [place] [address] Deena Celis APRN, EXTERIOR WORK HELPER #[address] [address] 08/12/2025 10:30 AM FITTING ROOM SUPERVISOR Office Visit [facility] - Neurology - [place] [address] [place] [address] Frank Del Rosario MD [address] [place] [address] documented as of this encounter Visit Diagnoses Not on filedocumented in this encounter Care Teams Governor Assembler Relationship Specialty Start Date End Date Remberto Mathis, [facility] [address] [place] [address] PCP - General Physician Landscape Painter 10/21/17 Deena Celis APRN, EXTERIOR WORK HELPER #[address] [address] Nurse Practitioner Advanced Practice Nurse 05/03/22 Frank Del Rosario MD [address] [place] [address] Consulting Physician Neurology 02/05/25 documented as of this encounter
--- OUTSIDE RECORDS SUMMARY | 2025-02-19 11:23 | XMS_ITS | Clinical Summary ---
Author Organization [facility] Address [address] [facility], [address] [address] Phone Care Team Providers Care Skiver Machine Name Role Phone Remberto Mathis Brant GLORIA Primary Care Provider [phone] Deena Celis APRN, CNP Unavailable [phone] Frank Del Rosario MD Unavailable [phone] Allergies Active Allergy Reactions Criticality Noted Date [...] 025 Discontin ued(Med List Clean Up) CREON [address] Particles 12/02/19 025 Discontin [...] - 02/18/2025 11:59 PM CDT Hospital Encounter [facility] Radiology Resources [address] [place] [address] Provider, Not On File Arrived Discharge Disposition: Discharged to home or Selfcare 02/18/2025 Telephone [facility] - Gastroenterology - [place] [address] [place] [address] Sebastian Silvestre MD Results 02/17/2025 2:20 PM CDT - 02/17/2025 11:59 PM CDT Hospital Encounter [facility] CT [address] [place] [address] Frank Del Rosario MD Discharge Disposition: Discharged to home or Selfcare 02/17/2025 Travel 02/11/2025 Results Follow-Up [facility] - Gastroenterology - [place] [address] [place] [address] Sebastian Silvestre MD Pathology Surgical 02/08/2025 10:01 AM CDT Anesthesia Event [facility] Gi Lab Periop [address] [place] [address] Ra Zacarias APRN, MERCHANDISE DISTRIBUTOR 02/08/2025 9:00 AM CDT - 02/08/2025 10:00 AM CDT Surgery [facility] Gi Lab Periop [address] [place] [address] Sebastian Silvestre MD EGD - PRE PYLORIC ANTRUM BIOPSY (BIOPSY FORCEPS), FUNDUS BIOPSY (BIOPY FORCEPS), ANTRAL BIOPSY (BIOPSY FORCEPS), ESOPHAGUS AT 30CM BIOPSY (BIOPSY FORCEPS) 02/08/2025 6:30 AM CDT Ancillary Procedure [facility] Gi Lab Main 1 [place] [address] Sebastian Silvestre MD 02/08/2025 6:25 AM CDT Ancillary Procedure [facility] Gi Lab Main 1 [facility] [place] [address] Sebastian Silvestre MD 02/08/2025 6:13 AM CDT - 02/08/2025 11:34 AM CDT Hospital Encounter [facility] GI Lab Preop/Pacu II 1 [facility] [place] [address] Sebastian Silvestre MD Fecal smearing Discharge Disposition: Discharged to home or Selfcare 02/05/2025 9:30 AM CDT Office Visit [facility] Neurology [facility] [address] [place] [address] Frank Del Rosario MD 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 behavioral disturbance, psychotic disturbance, mood disturbance, or anxiety (HCC) (Primary Dx) Discharge Disposition: Discharged to home or Selfcare 02/05/2025 Travel 01/19/2025 Travel 01/14/2025 Travel 01/01/2025 Results Follow-Up [facility] - Pulmonology & Sleep Medicine [facility] [address] [place] [address] Deena Celis APRN, MANAGER AUTOMOTIVE GENERAL SLEEP STUDY 12/28/2024 Telephone [facility] - Pulmonology & Sleep Medicine [facility] [address] [place] [address] Deena Celis APRN, MANAGER AUTOMOTIVE 12/16/2024 Telephone [facility] Gastroenterology [facility] [address] [place] [address] Tre Duran MD Procedure 12/11/2024 Travel 12/10/2024 9:30 AM CDT Office Visit [facility] - Gastroenterology [facility] [address] [place] [address] Tre Duran MD Diarrhea, unspecified type (Primary Dx) Discharge Disposition: Discharged to home or Selfcare 12/10/2024 Travel 12/10/2024 [facility]phone [facility] [address] [place] [address] Tre Duran MD 12/02/2024 11:22 PM CDT - 12/03/2024 4:45 AM CDT [facility] 1 [place] [address] Yoshi Barraza MD Diarrhea, unspecified type Discharge Disposition: Discharged to home or Selfcare 12/02/2024 Travel 12/02/2024 [facility] [address] [place] [address] Deena Celis APRN, CNP 11/30/2024 10:00 AM CDT [facility] [address] [place] [address] Deena Celis APRN, RUTH Mild intermittent asthma [...] st Contact Info) Description 06/01/2025 9:30 AM DIVISION TOLL WIRE CHIEF Office Visit [facility] - Pulmonology & Sleep Medicine - [place] [address] [place] [address] Deena Celis APRN, MANAGER AUTOMOTIVE [address] [address] 08/12/2025 10:30 AM DIVISION TOLL WIRE CHIEF Office Visit [facility] - Neurology - [place] [address] [place] [address] Frank Del Rosario MD [address] [place] [address] Health Maintenance Due Date Last Done Comments [...] REQUESTS 8am ARRIVAL DM - Dx Diarrhea NH COLONOSCOPY FLX DX W/PAULINO J SPEC WHEN PFRMD 02/08/2025 10:00 AM CDT EGD - PRE PYLORIC ANTRUM BIOPSY (BIOPSY FORCEPS), FUNDUS BIOPSY (BIOPY FORCEPS), ANTRAL BIOPSY (BIOPSY FORCEPS)COLON OSCOPY - NORMAL COLONOSCOPY, POOR PREP Case Notes rs from 01/29 with branch to 02/08 with nicholas Special Needs REQUESTS 8am ARRIVAL DM - Dx Diarrhea NH ESOPHAGOGASTRODUODENOSCOP Y TRANSORAL DIAGNOSTIC 02/08/2025 10:00 AM CDT EGD - PRE PYLORIC ANTRUM BIOPSY (BIOPSY FORCEPS), FUNDUS BIOPSY (BIOPY FORCEPS), ANTRAL BIOPSY (BIOPSY FORCEPS)COLON OSCOPY - NORMAL COLONOSCOPY, POOR PREP Case Notes rs from 01/29 with branch to 02/08 with nicholas Special Needs REQUESTS 8am ARRIVAL DM - Dx Diarrhea NH EGD FLEXIBLE TRANSNASAL D X W/COLLJ SPEC [...] PM DICTATING PHYSICIAN: GAGE DUARTE [facility]. HISTORY: As below. [...] PM DICTATING PHYSICIAN: GAGE DUARTE [facility]. HISTORY: As below. ADDITIONAL [...] - 12.00 10(3)/mcL 02/17/2025 3:45 PM CDT [facility] RBC 3.20(L) 3.80 - 5.30 10(6)/mcL 02/17/2025 3:45 PM CDT [facility] HEMOGLOBIN (HGB) 10.9(L) 12.0 - 15.8 g/dL 02/17/2025 3:45 PM CDT [facility] HEMATOCRIT (HCT) 32.0(L) 36.0 - 47.0 % 02/17/2025 3:45 PM CDT [facility] MCV 100.0(H) 82.0 - 96.0 fL 02/17/2025 3:45 PM CDT [facility] MCH 34.1(H) 26.0 - 34.0 pg 02/17/2025 3:45 PM CDT [facility] MCHC 34.1 31.0 - 36.0 g/dL 02/17/2025 3:45 PM CDT [facility] PLATELET COUNT 245 140 - 440 10(3)/mcL 02/17/2025 3:45 PM CDT [facility] RDW 13.1 11.8 - 15.5 % 02/17/2025 3:[address] [facility] MPV 8.8(L) 9.7 - 12.4 fL 02/17/2025 3:[address] [facility] NEUTROPHILS 58.8 47.0 - 73.0 % 02/17/2025 3:[address] [facility] LYMPHOCYTES 32.2 18.0 - 42.0 % 02/17/2025 3:[address] [facility] MONOCYTES 6.1 4.0 - 12.0 % 02/17/2025 3:[address] [facility] EOSINOPHILS 2.1 0.0 - 5.0 % 02/17/2025 3:[address] [facility] BASOPHILS 0.3 0.0 - 1.0 % 02/17/2025 3:[address] [facility] IMMATURE GRANULOCYTE 0.5(H) 0.0 - 0.4 % 02/17/2025 3:[address] [facility] Comment:Immature Granulocyte s includes Metamyelocytes, Myelocytes, and Promyelocytes. ABSOLUTE NEUTROPHILS 3.65 1.60 - 7.70 10(3)/mcL 02/17/2025 3:[address] [facility] ABSOLUTE LYMPHOCYTES 2.00 1.30 - 3.20 10(3)/mcL 02/17/2025 3:[address] [facility] ABSOLUTE MONOCYTES 0.38 0.20 - 1.00 10(3)/mcL 02/17/2025 3:45 PM CDT [facility] ABSOLUTE EOSINOPHIL 0.13 0.00 - 0.40 10(3)/mcL 02/17/2025 3:45 PM CDT [facility] ABSOLUTE BASOPHILS 0.02 0.00 - 0.10 10(3)/mcL 02/17/2025 3:45 PM CDT [facility] ABSOLUTE IMMATURE GRANULOCYTE 0.03 0.00 - 0.03 10 (3) mcL. 02/17/2025 3:45 PM CDT [facility] NRBC PER 100 WBC 0 02/18/20 3:45 PM CDT [facility] Blood Venipuncture / Unknown 02/17/2025 2:19 PM CDT 02/17/2025 3:42 PM CDT Frank Del Rosario MD HEMATOLOGY ORDERABLES Final Result Performing Organization Address City/[facility]/ZIP Co de Phone Number [facility] [address] [place] [address] * VITAMIN B12 (02/17/2025 2:19 PM CDT) Pathologist [facility] VITAMIN B12 349 213 - 816 pg/mL 02/17/2025 4:40 PM CDT [facility] Blood Venipuncture / Unknown 02/17/2025 2:19 PM CDT 02/17/2025 3:43 PM CDT Frank Del Rosario MD CHEMISTRY ORDERABLES Final R esult Performing Organization Address City/[facility]/ZIP Co de Phone Number [facility] [address] [place] [address] * THYROID STIMULATING HORMONE (TSH) (02/17/2025 2:19 PM CDT) TSH 1.127 0.300 - 5.000 mIU/L 02/17/2025 4:22 PM CDT [facility] Blood Venipuncture / Unknown 02/17/2025 2:19 PM CDT 02/17/2025 3:43 PM CDT Frank Del Rosario MD CHEMISTRY ORDERABLES Final R esult Performing Organization Address [facility]/ZIP Co de Phone Number [facility] [address] [place] [address] * FOLIC ACID (FOLATE) (02/17/2025 2:19 PM CDT) Pathologist [facility] FOLATE 13.9 7.0 - 31.4 ng/mL 02/17/2025 4:40 PM CDT [facility] IS THE PATIENT REQUIRED TO BE FASTING? No 02/17/2025 4:40 PM CDT [facility] Blood Venipuncture / Unknown 02/17/2025 2:19 PM CDT 02/17/2025 3:43 PM CDT Frank Del Rosario MD CHEMISTRY ORDERABLES Final R ult Performing Organization Address City/[facility]/ZIP Co de Phone Number [facility] [address] [place] [address] * (ABNORMAL) CMP (COMPREHENSIVE METABOLIC PANEL) (02/17/2025 2:19 PM CDT) Only the most recent of2 resultswithin the time period is included. SODIUM 138 136 - 145 mmol/L 02/17/2025 4:06 PM CDT [facility] POTASSIUM 4.9 3.5 - 5.1 mmol/L 02/17/2025 4:06 PM CDT [facility] CHLORIDE 103 98 - 107 mmol/L 02/17/2025 4:06 PM CDT [facility] CO2, VENOUS 25 22 - 30 mmol/L 02/17/2025 4:06 PM CDT [facility] ANION GAP 14.9 <18.0 mmol/L 02/17/2025 4:06 PM [facility] GLUCOSE 191(H) 70 - 99 mg/dL 02/17/2025 4:06 PM [facility] BUN 16 10 - 20 mg/dL 02/17/2025 4:06 PM [facility] CREATININE, BLOOD 1.27(H) 0.60 - 1.00 mg/dL 02/17/2025 4:06 PM [facility] BUN/CREATININE RATIO 13 12 - 20 ratio 02/17/2025 4:06 PM [facility] TOTAL PROTEIN 7.5 6.0 - 8.0 g/dL 02/17/2025 4:06 PM [facility] ALBUMIN 4.2 3.5 - 5.0 g/dL 02/17/2025 4:06 PM [facility] A/G RATIO 1.3 1.0 - 2.2 02/17/2025 4:06 PM [facility] CALCIUM 9.0 8.7 - 10.5 mg/dL 02/17/2025 4:06 PM [facility] T BILI 0.3 0.2 - 1.2 mg/dL 02/17/2025 4:06 PM [facility] SGOT (AST) 24 <43 U/L 02/17/2025 4:06 PM [facility] SGPT (ALT) 21 <56 U/L 02/17/2025 4:06 PM [facility] ALKALINE PHOSPHATASE 133 40 - 150 U/L 02/17/2025 4:06 PM [facility] IS THE PATIENT REQUIRED TO BE FASTING? No 02/17/2025 4:06 PM [facility] GFR, ESTIMATED 43(L) >=60 02/17/2025 4:06 PM [facility] Comment: Creatinine Clearance is the preferred criteria for selecting drug dose adjustments in renally impaired patients. The GFR is provided as additional pertinent clinical information. GFR is reported in mL/min/1.73 sq m. Calculation based on the 2020 Chronic Kidney Disease Epidemiology Collaboration (CKD-EPI) equation refit without adjustment for race. GFR, EST. 49(L) >=60 025 4:[address] [facility] Comment: Creatinine Clearance is the preferred criteria for selecting drug dose adjustments in renally impaired patients. The GFR is provided as additional pertinent clinical information. GFR is reported in mL/min/1.73 sq m. Calculation based on the 2009 Chronic Kidney Disease Epidemiology Collaboration (CKD-EPI). GFR, EST. NONAFRICAN 41(L) >=60 02/17/2025 4:[address] [facility] Comment: Creatinine Clearance is the [...] Rosario MD CHEMISTRY ORDERABLES Final R esult [facility] [address] [place] [address] * Pathology Surgical (02/08/2025 10:16 AM CDT) Case Report Surgical Pathology Report Case: [id number] Authorizing Provider: Sebastian Silvestre MD Collected: 02/08/2025 10:16 AM Ordering Location: [facility] Received: 02/08/2025 11:10 AM [facility] Gi Lab Main Pathologist: Joe Strong MD PhD Specimens: A) - Stomach, PRE PYLORIC ANTRUM B) - Stomach, FUNDUS BIOPSY C) - Esophagus, GE JUNCTION BIOPSY D) - Esophagus, ESOPHAGUS AT 30CM BIOPSY 02/09/2025 8:[address] [facility] FINAL DIAGNOSIS A. Pre pyloric antrum [...] or malignancy 02/09/2025 8:43 AM CDT [facility] at 0843 CDT Pre-Operative Diagnosis DIARRHEA 02/09/2025 8:43 AM CDT [facility] Gross Description A. PRE PYLORIC [...] 15 minutes. 02/09/2025 8:43 AM CDT [facility] Microscopic Description Microscopic examination was performed which supports the final diagnosis. All control tissues stained appropriately. 02/09/2025 8:43 AM CDT [facility] Tissue STOMACH STRUCTURE / Unknown 02/08/2025 [...] Silvestre MD PATHOLOGY/CYTOLOGY ORDERAB LES Final Result [facility] [address] [place] [address] * (ABNORMAL) POCT Glucose (02/08/2025 7:47 AM CDT) GLUCOSE,BEDSID E POCT 176(H) 70 - 99 mg/dL 02/08/2025 7:48 AM CDT [facility] Comment:Patient RN Performed Blood 02/08/2025 7:47 AM CDT 02/08/2025 7:47 AM CDT us None Provider POINT OF CARE TESTING Final Resu lt Performing Organization Address City/[facility]/ZIP Co de Phone Number [facility] [address] [place] [address] * GI LAB IMAGING - EGD (02/08/2025 6:20 AM CDT) us Sebastian Silvestre MD IMG DIAGNOSTIC ORDERABLES Final Result * GI IMAGING - COLONOSCOPY (02/08/2025 6:20 AM CDT) us Sebastian Silvestre MD IMG DIAGNOSTIC ORDERABLES Final Result * Stool, Occult Blood, Diagnostic (12/03/2024 2:10 AM CDT) OCCULT BLOOD DIAG Negative Negative 12/03/2024 2:20 AM CDT [facility] Stool STOOL SPECIMEN / Unknown Non-Phlebotomy Collection / Unknown 12/03/2024 2:10 AM CDT 12/03/2024 2:17 AM CDT us Yoshi Barraza MD BODY FLUIDS & STOOLS ORDER JOEL Final Result [facility] [facility] [place] [address] * CT ABDOMEN PELVIS W/ CONTRAST (12/03/2024 [...] Conner Sandoval M.D. AR: CHRISTOPHE Report ID: [id number] Reading Location: [id number] Procedure Note Conner Sandoval MD - 12/03/2024 [...] Conner Sandoval M.D. AR: CHRISTOPHE Report ID: [id number] Reading Location: [id number] IMPRESSION: No bowel inflammation or other acute [...] CHEMISTRY ORDERABLES Final Result Performing Organization Address City/[facility]/ZIP Co de Phone Number [facility] [address] [place] [address] * Blue Top Tube (12/02/2024 11:37 PM CDT) Blood No Phlebotomy Charged / Unknown 12/02/2024 11:37 PM CDT 12/02/2024 11:48 PM CDT Yoshi Barraza MD HEMATOLOGY ORDERABLES Carol l Result Performing Organization Address [facility] Co de Phone Number [facility] [address] [place] [address] * TYPE & SCREEN (CROSSMATCH CONVERTIBLE) (12/02/2024 11:37 PM CDT) ABO TYPING A 12/03/2024 12:58 AM CDT [facility] BLOOD BANK RH Negative 12/03/2024 12:58 AM CDT [facility] BLOOD BANK ABSC Negative 12/03/2024 12:58 AM CDT [facility] BLOOD BANK Blood Venipuncture / Unknown 12/02/2024 11:37 PM CDT 12/02/2024 11:47 PM CDT Yoshi Barraza MD BLOOD BANK ORDERABLES Edit ed Result - Final Performing Organization Address City/[facility]/ZIP Co de Phone Number [facility] BLOOD BANK [address] [place] [address] * Lipase [id number] (12/02/2024 11:37 PM CDT) LIPASE 12 8 - 78 U/L 12/03/2024 12:[address] 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
--- OUTSIDE RECORDS SUMMARY | 2025-02-19 11:23 | XMS_ITS | Encounter Summary ---
Author Organization [facility] Address [address] [place] [address] Phone Care Team Providers Care Press Reader Name Role Phone Remberto Mathis Brant GLORIA Primary Care Provider [phone] Deena Celis APRN, CNP Unavailable [phone] Frank Del Rosario MD Unavailable [phone] Reason for Visit * Reason Onset Date Comments Results 02/18/2025 Encounter Details Date Type Department Care Team (Late st Contact Info) Description 02/18/2025 Telephone [facility] - Gastroenterology - [place] [address] [place] [address] Sebastian Silvestre MD [address] [address] Results Social History Tobacco Use [...] st Contact Info) Description 06/01/2025 9:30 AM PRESTIDIGITATOR [facility] [place] [address] [place] [address] Deena Celis APRN, CNP [address] [address] 08/12/2025 10:30 AM PRESTIDIGITATOR [facility] [place] [address] [place] [address] Frank Del Rosario MD [address] [place] [address] documented as of this encounter Visit Diagnoses Not on filedocumented in this encounter Care Teams Press Reader Relationship Specialty Start Date End Date Remberto Mathis, [facility] [address] [place] [address] PCP - General Physician Salt Lifter 10/21/17 Deena Celis APRN, RUTH [address] [address] Nurse Practitioner Advanced Practice Nurse 05/03/22 Frank Del Rosario MD [address] [place] [address] Consulting Physician Neurology 02/05/25 documented as of this encounter
--- OUTSIDE RECORDS SUMMARY | 2025-02-19 11:23 | XMS_ITS | Clinical Summary ---
Author Organization [facility] Address [address] [place] [address] Care Team Providers Care Java Lead Engineer Name Role Phone Remberto Mathis Primary Care Provider [phone] Jose Rodríguez MD Unavailable [phone] Martinez Rosas MD Unavailable [phone] Jeff Chapman MD Unavailable [phone] Source Comments [facility],non-owned Affiliates and Associated Physician Practices is amultiple site organization consisting of ambulatory clinics and hospital sitesin [place], [place], [place] and [place]. This disclosure is being madepursuant to the Care Everywhere program and may not contain all information available regarding this patient. Last updated 18.[facility] Allergies Active Allergy Reactions Criticality Noted Date Comments Aspirin Other 07/01/2017 Codeine Psychiatric High 03/10/2019 Medications * Be aware that medications may not be up to date on this document. Alwaysverify current medications with the patient. ALPRAZolam (XANAX) 1 MG tablet Take 1 mg by mouth 1 Before Breakfast, 2 Before Dinner 9 Active fluticasone propionate (FLONASE) 50 MCG/ACT nasal spray Danese 50 sprays into each nostril once daily [...] mouth 2 times daily Active pancrelipase (CREON) [address] units capsule Take 1-2 capsules by mouth [...] (02/23/2020): Added automatically from request for surgery [id number] Closed compression fracture of third lumbar vert ebra 04/07/2018 Chest pain 01/10/2018 Overview (02/23/2020): Added automatically from request for surgery [id number] History of stress incontinence 01/06/2018 Urinary incontinence [...] the person will continue it over the jail. Falls -- Falling significantly increases the risk [...] less likely to do so. ?Visiting an architectural superintendent or district or district office director regularly to optimize vision. Aftercare following left [...] (02/23/2020): Added automatically from request for surgery [id number] Post-traumatic osteoarthritis of left knee 10/10 Overview (02/23/2020): Added automatically from request for surgery [id number] VICKIE (obstructive sleep apnea) Asthma Rheumatoid arthritis [...] PM CDT Pulse 71 07/09/2019 8:37 AM ROLL EXAMINER Temperature 36.5 C (97.7 F) 07/09/2019 8:37 AM ROLL EXAMINER Respiratory Rate 18 03/30/2019 1:26 PM CDT Oxygen Saturation 96% 07/09/2019 8:37 AM ROLL EXAMINER Inhaled Oxygen Concentration - - Weight 89.8 [...] topic Insurance [employer] MEDICAID - OUT OF [facility] MEDICAID AETNA [facility] MANAGED MEDICARE ADV MEDICAID [facility] Care Teams Java Lead Engineer Relationship Specialty Start Date End Date Remberto Mathis PA [address] [place] [address] PCP - General 02/18/19 Jose Rodrí[place] [address] [place], [place] [id number] Gastroenterology 03/10/19 [place] [address] [place], [place] [id number] Orthopedic Surgery 03/10/19 [place] [address] [place] [address] Orthopedic Surgery 03/10/19
--- OUTSIDE RECORDS SUMMARY | 2025-02-19 11:23 | XMS_ITS | Clinical Summary ---
Author Organization [facility] Address [address] [place] [address] Care Team Providers Care Family Assessment Worker Name Role Phone Remberto Mathis Primary Care Provider [phone] Kamryn Rodríguez MD Unavailable [phone] Allergies Active Allergy Reactions Criticality Noted Date [...] EVERY EVENING 02/03/20 24 [facility] 02/18/20 24 Active Ultra Thin Lancets 31 gauge [facility] 02/18/20 24 Active glimepiride (AMARYL) 4 mg [...] 07/12/2023 Assessment & Plan (07/12/2023 8:47 PM BREAD PANNER): dysphagia of both solids and liquids, has [...] (01/26/2022): Added automatically from request for surgery [id number] Iron deficiency anemia 01/24/2022 Assessment & Plan (07/12/2023 8:50 PM BREAD PANNER): No signs of GI blood loss, currently [...] 03/0 08/2020 Coronary artery disease invo lving [place] coronary artery of [place] heart without angina pectoris 07/19/2020 Assessment & Plan (07/19/2020 12:43 PM BREAD PANNER): With the patient's minimal coronary disease and [...] upper endoscopy and the colonoscopy recently in [facility]. She had unremarkable imaging last year. [...] the person will continue it over the penitentiary. Falls -- Falling significantly increases the risk [...] less likely to do so. ?Visiting an electric locomotive firer/fireman or tube balancer regularly to optimize vision. Assessment & Plan [...] the person will continue it over the penitentiary. Falls -- Falling significantly increases the risk [...] less likely to do so. ?Visiting an electric locomotive firer/fireman or tube balancer regularly to optimize vision. 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, right 10/21/2017 Chronic eczematous otitis externa of right ear 0 10/21/2017 Conductive hearing loss of right ear 10/21/2017 Tinnitus of right ear 10/21/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, marginal, right 0 10/21/2017 Painful orthopaedic hardware 10/10/2017 Overview (10/10/2017): Added automatically from request for surgery [id number] Acute pyelonephritis Confusion Resolved Problems Problem Noted Date Diagnosed Date Resolved Date Primary osteoarthritis of right knee 09/09/2018 02/28/2020 Overview (09/09/2018): Added automatically from request for surgery [id number] Chest pain 01/10/2018 06/23/2020 Overview (01/10/2018): Added automatically from request for surgery [id number] Aftercare following left kne e joint replacement surgery 11/06/2017 02/28/2020 Post-traumatic osteoarthritis of left knee 10/10/2017 02/28/2020 Overview (10/10/2017): Added automatically from request for surgery [id number] Encounters Date Type Department Care Team Description 02/08/2025 11:59 PM CDT Anesthesia Event [address] [address] Thor Prieto DO 02/08/2025 Telephone [facility] Gastroenterology at [address] [place] [phone] Christine Calderon 02/08/2025 Hospital Encounter [address] [address] Kamryn Rodríguez MD 12/11/2024 Telephone [facility] Gastroenterology at [address] [place] [phone] Deloris Calderon MA from Last 3 Months Immunizations Immunization Administration Dates Next Due COVID-19 mRNA ([facility]) 0.3 m L (30 mcg) vaccine (12 [...] on file Legal Sex Female 6:09 PM BREAD PANNER Gender Identity Not on file Sexual Orientation [...] CDT Oxygen Saturation 96% 06/30/2024 1:51 PM BREAD PANNER Inhaled Oxygen Concentration - - Weight 92.2 [...] Discontinued 025 Medical Devices Implanted Type Area Automatic Stacker Device Identifier Shelf Expiration Date Model / Serial / Lot Dome Patellar Attune Aox H35 Mm Knee Cemented Medialize Sterile - [id number] Implanted:Qty: 1 on 11/05/2017 by Martinez Rosas MD at [facility] Left: Knee [employer] Inc 08/14/2022 [id number] / / [id number] Dome Patellar Attune Aox H35 Mm Knee Cemented Medialize Sterile - [id number] Implanted:Qty: 1 on 11/05/2017 by Martinez Rosas MD at [facility] Left: Knee [employer] 08/14/2022 [id number] / / [id number] Femoral Cruciate Retaining Implanted:Qty: 1 on 11/05/2017 by Martinez Rosas MD at [facility] Left: Knee Depuy Mitek 12/14/2026 1504-00-105 / 1504-00-105 / [id number] Bsplt Tibial Attune S+ 5 Knee Cement Fix Brng - [id number] Implanted:Qty: 1 on 11/05/2017 by Martinez Rosas MD at [facility] Left: Knee [employer] 04/16/2027 [id number] / / [id number] Cement Bone Smartset Gentamicin 40 Gm High Viscosity - [id number] Implanted:Qty: 1 on 11/05/2017 by Martinez Rosas MD at [facility] Left: Knee [employer] 01/14/2019 [id number] / / [id number] Insert Tibial Attune Aox 5 H7 Mm Knee Cruciate Retaining Fix Bearing Sterile - [id number] Implanted:Qty: 1 on 11/05/2017 by Martinez Rosas MD at [facility] Left: Knee [employer] 12/14/2020 [id number] / / [id number] 1516-20-506 Depuy Attune Tibial Insert Fixed Bearing Cruciate Retaining Size 5 Implanted:Qty: 1 on 09/22/2018 by Martinez Rosas MD at [facility] Right: Knee [employer] [id number] 09/14/2020 1516-20-506 / / [id number] [employer] [id number] [place] R+G High Viscosity Cement Bone Gentamicin Arthroplasty - [id number] Implanted:Qty: 1 on 09/22/2018 by Martinez Rosas MD at [facility] Right: Knee [employer] 01/14/2021 [id number] / / [id number] Dep[employer] [id number] Attune Cruciate Retain Cementless Knee Right 5 Narrow Component - [id number] Implanted:Qty: 1 on 09/22/2018 by Martinez Rosas MD at [facility] Right: Knee [employer] 08/14/2026 [id number] / / [id number] Dep[employer] [id number] Attune S+ Cement Fix Bearing Knee 5 Baseplate Tibial - [id number] Implanted:Qty: 1 on 09/22/2018 by Martinez Rosas MD at [facility] Right: Knee [employer] 06/16/2028 [id number] / / [id number] Allosource [id number] Freeze Dried Crushed 1-4mm Graft 15ml Bone Cancellous - [id number] Implanted:Qty: 1 on 03/14/2020 by Jeff Chapman MD at [facility] N/A: Spine Lumbar [employer]ource 01/20/2023 [id number] / / [id number] Medtronic Sofamor Danek [id number] Infuse 18mm 26mm Absorbable Sponge Sterile Water Syringe Needle - [id number] Implanted:Qty: 1 on 03/14/2020 by Jeff Chapman MD at [facility] N/A: Spine Lumbar Medtronic Inc 12/15/2020 [id number] / / [id number] Medtronic Inc [id number] [place] [id number] Radiopaque Hollow 6d Cage Spinal [place] Latex Free - [id number] Implanted:Qty: 1 on 03/14/2020 by Jeff Chapman MD at [facility] N/A: Spine Lumbar Med[employer]onic Inc 11/26/2026 [id number] / / [id number] Medtronic Sofamor Danek [id number] Infuse 14mm 23mm Absorbable Sponge Sterile Water Syringe Needle - [id number] Implanted:Qty: 1 on 03/18/2020 by Jeff Chapman MD at [facility] N/A: Spine Lumbar Medtronic Inc 02/14/2021 [id number] / / [id number] [place] High Viscosity Spinal Cement 20g Implanted:Qty: 1 on 03/18/2020 by Jeff Chapman MD at [facility] N/A: Spine Lumbar Depuy Spine 08/14/2020 [id number] / / [id number] Description:[facility] Confidence Spinal Cement System Ref: [id number] Lot: [id number] Exp date: 05-16-2020 Depuy Synthes Spine [id number] Viper Prime Od6 Mm L35 Mm Fix Polyaxial Fenestrate Extend Tab Spine Cortical Screw Bone Nonsterile 5.5 Mm Mc - [id number] Implanted:Qty: 1 on 03/18/2020 by Jeff Chapman MD at [facility] N/A: Spine Lumbar Depuy Synthes Spine [id number] / / Description:L4 right Depuy Synthes Spine [id number] Viper Prime Od6 Mm L50 Mm Fix Polyaxial Fenestrate Extend Tab Spine Cortical Screw Bone Nonsterile 5.5 Mm Mc - [id number] Implanted:Qty: 4 on 03/18/2020 by Jeff Chapman MD at [facility] N/A: Spine Lumbar Depuy Synthes Spine [id number] / / Description:L3 Bilat L5 Bilat Depuy Spine [id number] 5.5mm 1 Inner Spine Screw Set Titanium Nonsterile Viper - [id number] Implanted:Qty: 6 on 03/18/2020 by Jeff Chapman MD at [facility] N/A: Spine Lumbar Depuy Spine [id number] / / Description:L3-4-5 Depuy Spine [id number] Viper 2 70mm Lordotic Mc Spinal Titanium Mis - [id number] Implanted:Qty: 2 on 03/18/2020 by Jeff Chapman MD at [facility] N/A: Spine Lumbar Depuy Spine [id number] / / Description:Lumbar rods bila t L3-L5 Synthes 08.812.009 T-Pal 60t52k6-5.2mm Radiopaque Connection Cylinder Pyramidal - [id number] Implanted:Qty: 1 on 03/18/2020 by Jeff Chapman MD at [facility] N/A: Spine Lumbar Synthes I 08.812.009 / / Description:Lumbar spacer L4 -5 Depuy Synthes Spine [id number] Viper Prime Od6 Mm L45 Mm Fix Polyaxial Fenestrate Extend Tab Spine Cortical Screw Bone Nonsterile 5.5 Mm Mc - [id number] Implanted:Qty: 1 on 03/18/2020 by Jeff Chapman MD at [facility] N/A: Spine Lumbar Depuy Synthes Spine [id number] / / Description:Left 4 Angio-Seal Vip 6fr Closere Device [id number] - [id number] Implanted:Qty: 1 on 11/21/2021 by Mini Lord MD at [facility] [employer] Lynda 09/14/2022 [id number] / / [id number] Procedures Procedure Name Priority Date/Time Associated Diagnosis Comments EGFR Routine 10/20/2024 10:50 AM CDT Iron deficiency anemia secondary to inadequate dietary iron intake DIAGNOSTIC MAMMOGRAM BILATERAL W YAYO Schedule Routine, Read Routine (OP Routine) 07/16/2024 8:54 AM BREAD PANNER Nipple discharge in female COLONOSCOPY 02/11/2024 11:38 [...] was last reviewed 2021. Testing performed by: [facility], [place], [address] Blood 10/20/2024 10:5 0 AM CDT 10/20/2024 11:15 AM CDT us Jacquelyn Sousa NP LAB BLOOD ORDERABLES Final Result [facility] ([place]) [facility] [place] [address] * Diagnostic Mammogram Bilateral W Yayo (07/16/2024 8:54 AM BREAD PANNER) Anatomical Region Laterality Modality Breast Bilateral Mammography 07/16/2024 10:3 3 AM BREAD PANNER Impressions 07/16/2024 10:33 AM BREAD PANNER No evidence to suggest malignancy is seen by mammography or ultrasound. Given the history of bloody nipple discharge, breast MR is recommended. OVERALL FINAL ASSESSMENT: [id number]-TURL-[id number] Electronically signed by: Jessy Gordon M.D. Narrative 07/16/2024 10:33 AM BREAD PANNER EXAMINATION: BILATERAL DIGITAL DIAGNOSTIC MAMMOGRAM AND DIGITAL [...] Laterality Modality Other Narrative Procedure Note Kamryn Rodrgíuez MD - 02/11/2024 11:38 AM CDT [facility] Patient Name: Sarah Villagran Procedure Date: 02/11/2024 11:38 AM Date of : 1945 Admit Type: Outpatient Age: 78 Gender: Female Attending MD: Kamryn Rodríguez M.D. Room: [facility] 1 Note Status: Finalized [...] passed under direct vision.The Pediatric Colonoscope PCF-H190L [id number] was introduced through the anus and advanced [...] 11:38 AM Procedure Code(s): --- Professional --- 81729, Colonoscopy, flexible; with removal of tumor(s), polyp(s), or other lesion(s) by snare technique Diagnosis Code(s): --- Professional --- K64.8, Other hemorrhoids D12.0, Benign neoplasm of cecum D12.5, Benign neoplasm of sigmoid colon D12.4, Benign neoplasm of descending colon D12.3, Benign neoplasm of transverse colon (hepatic flexure orsplenic flexure) K57.30, Diverticulosis of large intestine without perforation orabscess without bleeding CPT copyright 2020 [employer]. All rights reserved. The codes documented in this report are preliminary and upon minesweeping officer reviewmay be revised to meet current compliance requirements. Recognized by the [employer] Society for Gastrointestinal Endoscopy for promoting quality [...] and children were not included. (Diabetes Care 31:8846-1125, 2008). The eAG is not equivalent to a fasting glucose. Blood specimen (specimen) 03/11/2020 11:30 AM CDT 03/11/2020 11:31 AM CDT us Jeff Chapman MD LAB BLOOD ORDERABLES Final Result Performing Organization Address City/State/ZIP [place] Phone Number RORY [phone] [facility] Department [place] [address] * Dexa Axial Skeleton Bone [...] 01/01/2020 10:30 AM ORDERING HEALTHCARE PROVIDER: HOLLY MNEON STUDY DESCRIPTION: DEXA AXIAL SKELETON BONE DENSITY [...] Dual x-ray absorptiometry (DEXA) was performed using HoloYooli system. Bone mineralization and T score are [...] Health Maintenance Insurance [employer] [address] IDPA [facility] AETNA MEDICARE NCON IDPA [facility] MEDICARE ADVANTAGE [facility] [place] [address] Advance Directives For more information, please contact: [phone] Documents on File Type Date Recorded Patient Seed Service Advisor Expl anation ADVANCE DIRECTIVE 09/29/2018 9:00 AM [...] 11:05 AM 11/21/2021 6:14 PM Care Teams Family Assessment Worker Relationship Specialty Start Date End Date Remberto Mathis PA [address] [place] [address] PCP - General 09/26/17 Kamryn Rodríguez MD [address] [place] [address] Consulting Physician Gastroenterology 06/26/20
--- OUTSIDE RECORDS SUMMARY | 2025-02-19 11:23 | XMS_ITS | Encounter Summary ---
Author Organization [facility] Address [address] [place] [address] Care Team Providers Care Retort Condenser Attendant Name Role Phone Remberto Mathis Primary Care Provider [phone] Haroon Sifuentes MD Unavailable [phone] Alem Ayon PTA Unavailable Unavailable Kamryn Rodríguez MD Unavailable [phone] Reason for Visit * Reason Onset Date Comments Scheduling Appointments 12/31/2019 Called f or DEXA appointment reminder Encounter Details Date Type Department Care Team (Late st Contact Info) Description 12/31/2019 Telephone [facility] [address] [place] [address] Corrine Maldonado RT Scheduling Appointments (Called for [...] on file Legal Sex 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 Gender Identity Not on file Sexual Orientation Not on file documented as of this encounter Plan of Treatment Not on file documented as of this encounter Visit Diagnoses Not on filedocumented in this encounter Care Teams Retort Condenser Attendant Relationship Specialty Start Date End Date Remberto Mathis PA [address] [place] [address] PCP - General 09/26/17 Haroon Sifuentes MD [address] [place] [address] 09/26/17 06/29/24 Alem Ayon [facility] Clothes Shaker Physical Therapy 10/25/17 08/27/22 Kamryn Rodríguez MD Consulting Physician Gastroenterology 06/26/20 documented as of this encounter
== END 2025-02-19 11:37 | disposition home or self-care (01) ==
PROVIDERS: Emergency Provider Emergency Medicine; PCP Physician Assistant
DX: M70.71 Other bursitis of hip, right hip (principal); E11.9 Type 2 diabetes mellitus without complications; Z87.891 Personal history of nicotine dependence; W18.30XA Fall on same level, unspecified, initial encounter
CPT/HCPCS: 72100; 73502; 99284; A9270